=== PATIENT | female | born 1930 | race Caucasian/White ===

== ENCOUNTER → 2016-07-03 | Outpatient (CLI) | payer OTHER, MEDICARE ==
[~2016-07-03] MED LIST: ATEN-175 PO; CYCL10TA6 PO; DONE10TA12 PO; FURO-85 PO; LISI-787 PO; MEMA10TA PO; MEMA1CAP PO; PANT40TA PO; RANI300T2 PO; ROSU20TA PO; TNR25 PO; TRAM-10 PO
[2016-07-03 17:49] LABS: BASO % 0.4 %; BASO ABS # 0.03 K/uL (0-0.2); COMPLETE YES; EOS % 2.7 %; HEMATOCRIT 33.8 % (37-47); IG% 0.2 %; LYMPH % 18.5 %; LYMPH ABS # 1.49 K/uL (1.2-3.4); MEAN CORPUSCULAR HEMOGLOBIN 26.5 pg (25-34); MEAN CORPUSCULAR HGB CONC 30.8 g/dl (32-36); MEAN PLATELET VOLUME 11.5 fL (7.4-10.4); MONO % 8.2 %; PLATELET COUNT 198 K/uL (130-400); RED BLOOD COUNT 3.93 M/uL (4.2-5.4); WHITE BLOOD COUNT 8.04 K/uL (4.8-10.8)
[2016-07-03 18:14] LABS: BLOOD UREA NITROGEN 31 mg/dl (7-18); BUN/CREATININE RATIO 22.4 (10-20); CALCIUM 8.4 mg/dl (8.5-10.1); CARBON DIOXIDE 29 mmol/L (21-32); CHLORIDE 107 mmol/L (98-107); GLUCOSE 118 mg/dl (70-99); POTASSIUM 4.2 mmol/L (3.5-5.1); SODIUM 143 mmol/L (136-145)
[2016-07-03 18:24] LABS: THYROID STIMULATING HORMONE 0.066 uIu/ml (0.300-4.500)
== END | disposition home or self-care (01) ==
LOC: C.LABPBG 15:03
PROVIDERS: ATTEND Internal Medicine Geriatric Medicine
DX: I10 Essential (primary) hypertension (principal); E05.90 Thyrotoxicosis, unspecified without thyrotoxic crisis or storm; N18.3 Chronic kidney disease, stage 3 (moderate); E78.5 Hyperlipidemia, unspecified; D64.9 Anemia, unspecified; E04.2 Nontoxic multinodular goiter

== ENCOUNTER 2016-10-23 13:19 | Observation (INO) | payer OTHER, MEDICARE ==
[~2016-10-23] VITALS: Ht 147.3 cm; Wt 67.7 kg
[~2016-10-23 13:19] MED LIST changes: -MEMA1CAP PO; -PANT40TA PO; -TNR25 PO
--- NOTE | 2016-10-23 15:42 | EMERGENCY ROOM VISIT NOTE ---
History Report prepared by Magen: Ashley Vidal Under the Supervision of: Dr. Salome Sweeney, D.O. First contact with patient: 15:10 Chief Complaint: HEADACHE Stated Complaint: HEARTBURN, RANGEL, LACK OF ENERGY, TIRED History of Present Illness The patient is a 85 year old female who presents to the Emergency Room with complaints of an intermittent headache for the past two weeks. She states that she wakes up in the morning with this headache every day. She takes a Tylenol and her symptoms resolve. Her headache does not return until the next morning. Today she took her Tylenol, but her symptoms did not improve. The patient's pain is located across her forehead. She rates her pain as a 4/10 in severity. She also notes nausea and increased belching for the past couple of days. Her stools have been harder than usual. The patient denies dizziness, lightheadedness, visual symptoms, tinnitus, fevers, chills, and urinary symptoms. Three days ago her PCP made some recent changes to her medications that she was taking for her "memory." Source of History: patient Onset: 2 weeks ago Position: head Symptom Intensity: 4/10 Timing: intermittent Modifying Factors (Worsening): other (worse in the morning) Modifying Factors (Relieving): tylenol Associated Symptoms: + nausea, No fevers, No chills, No urinary symptoms Note: Pt reports increased belching. Pt denies dizziness, lightheadedness, visual symptoms, and tinnitus. Review of Systems See HPI for pertinent positives & negatives. A total of 10 systems reviewed and were otherwise negative. Past Medical & Surgical Medical Problems: (1) Arthritis (2) CVD (cerebrovascular disease) (3) GI bleed (4) GI bleed (5) HTN (hypertension) Surgical Problems: (1) History of hysterectomy Family History FHx: cancer Heart disease Hypertension Lung disease Social History Smoking Status: Never Smoker Smokeless Tobacco Use: No Alcohol Use: none Marital Status: Housing Status: lives with family Occupation Status: unemployed Current/Historical Medications Scheduled Atenolol (Tenormin), 50 MG PO QAM Lisinopril/Hctz (Zestoretic 20MG/12.5MG), 1 TAB PO BID Memantine HCl-Donepezil HCl (Namzaric 28-10 mg), 1 CAP PO HS Memantine Hcl (Namenda), 10 MG PO BID Pantoprazole (Protonix), 40 MG PO DAILY Ranitidine (Zantac), 300 MG PO HS Rosuvastatin Calcium (Crestor), 20 MG PO DAILY Scheduled PRN Cyclobenzaprine Hcl (Flexeril), 0.5-1 TAB PO TID PRN for Pain Tramadol (Ultram), 50 MG PO Q8H PRN for Pain Allergies Coded Allergies: Atorvastatin (Verified Allergy, Unknown, UNKOWN, 10/23/16) Paroxetine (Verified Allergy, Unknown, UNKNOWN, 10/23/16) Propoxyphene (Verified Allergy, Unknown, DARVOCET, 10/23/16) Cephalosporins (Verified Adverse Reaction, Mild, NAUSEA, 10/23/16) Codeine (Verified Adverse Reaction, Mild, NAUSEA, 10/23/16) Sulfa Antibiotics (Verified Adverse Reaction, Unknown, NAUSEA, 10/23/16) Physical Exam Vital Signs Date Time Temp Pulse Resp B/P (MAP) Pulse Ox O2 Delivery O2 Flow Rate FiO2 10/23/16 17:20 61 18 202/85 96 Room Air 10/23/16 15:15 69 10/23/16 15:10 63 16 193/87 96 Room Air 10/23/16 13:33 37.0 74 20 161/85 97 Room Air Physical Exam GENERAL: alert, well appearing, well nourished, no distress, non-toxic EYE EXAM: normal conjunctiva, PERRL and EOM's grossly intact OROPHARYNX: no exudate, no erythema, lips, buccal mucosa, and tongue normal and mucous membranes are moist NECK: supple, no nuchal rigidity, no adenopathy, non-tender LUNGS: Clear to auscultation. Normal chest wall mechanics HEART: no murmurs, S1 normal and S2 normal ABDOMEN: abdomen soft, non-tender, normo-active bowel sounds, no masses, no rebound or guarding. BACK: Back is symmetrical on inspection and there is no deformity, no midline tenderness, no CVA tenderness. SKIN: no rashes and no bruising UPPER EXTREMITIES: upper extremities are grossly normal. LOWER EXTREMITIES: No pitting edema. NEURO EXAM: Normal sensorium, cranial nerves II-XII grossly intact, normal speech, no gross weakness of arms, no gross weakness of legs. Difficulty with right finger to nose. Normal heel to campbell bilaterally. Medical Decision & Procedures ER Provider Diagnostic Interpretation: Radiology results have been interpreted by the radiologist and reviewed by me. HEAD WITHOUT CONTRAST (CT) CT DOSE: 638.56 mGycm HISTORY: headache x 2 weeks TECHNIQUE: Multiple axial CT images of the head were obtained without contrast. Comparison: CT head 09/05/2012. Findings: There is no acute intracranial hemorrhage, midline shift, abnormal extra-axial collections, mass, hydrocephalus or large territorial ischemia. There is moderate cerebral atrophy with ex vacuo ventriculomegaly. Moderate degree of periventricular and deep white matter hypodensities are again seen, stable from comparison. 8 mm hypodensity of the left lentiform nucleus is new from comparison comparison. There is no chondral fracture. Mastoid air cells are cavities are clear. No significant paranasal sinus disease. Soft tissues are unremarkable. There is atherosclerotic plaquing at the level of the skull base. Impression: 1. No acute intracranial abnormality identified. Negative for hemorrhage or large territorial ischemia. 2. Age-related changes of cerebral atrophy and chronic microvascular ischemic changes. 8 mm hypodensity of the left lentiform nucleus is new from comparison study dated 09/05/2012 suggesting subacute or chronic lacunar infarction. Electronically signed by: Mane Norwood 10/23/2016 3:52 PM Dictated Date/Time: 10/23/2016 3:43 PM ABDOMEN 2VIEW W/PA CHEST RTN HISTORY: 85-year-old female presents with heartburn and belching episodes. COMPARISON: Chest radiographs 10/29/2012. TECHNIQUE: Frontal view of the chest with erect and supine views of the abdomen. FINDINGS: Cardiac silhouette is again enlarged. There is a large hiatal hernia with partially intrathoracic stomach. There is atherosclerotic plaquing of the aorta. No pneumothorax, pleural effusion, overt pulmonary edema or focal airspace consolidation. Degenerative changes involve the AC joints bilaterally. There is sigmoidal scoliosis of the thoracolumbar spine. No pneumoperitoneum on the upright projection. The bowel gas pattern is nonobstructive. Moderate degenerative changes are present within the left femoral acetabular joint. IMPRESSION: 1. No acute cardiopulmonary abnormality. No bowel obstruction or pneumoperitoneum. 2. Large hiatal hernia with partially intrathoracic stomach redemonstrated. Electronically signed by: Mane Norwood 10/23/2016 4:26 PM Dictated Date/Time: 10/23/2016 4:22 PM Laboratory Results Test 10/23/16 15:15 10/23/16 16:05 Total Bilirubin 0.7 mg/dl (0.2-1) Aspartate Amino Transf (AST/SGOT) 22 U/L (15-37) Alanine Aminotransferase (ALT/SGPT) 22 U/L (12-78) Alkaline Phosphatase 86 U/L (45-117) Total Protein 7.4 gm/dl (6.4-8.2) Albumin 3.7 gm/dl (3.4-5.0) Globulin 3.7 gm/dl (2.5-4.0) Albumin/Globulin Ratio 1.0 (0.9-2) Lipase 223 U/L (73-393) Urine Color YELLOW Urine Appearance CLEAR (CLEAR) Urine pH 7.5 (4.5-7.5) Urine Specific [place] 1.017 (1.000-1.030) Urine Protein 1+ (NEG) Urine Glucose (UA) NEG (NEG) Urine Ketones NEG (NEG) Urine Occult Blood TRACE (NEG) Urine Nitrite NEG (NEG) Urine Bilirubin NEG (NEG) Urine Urobilinogen NEG (NEG) Urine Leukocyte Esterase NEG (NEG) Urine WBC (Auto) 1-5 /hpf (0-5) Urine RBC (Auto) 0-4 /hpf (0-4) Urine Hyaline Casts (Auto) 1-5 /lpf (0-5) Urine Epithelial Cells (Auto) >30 /lpf (0-5) Urine Bacteria (Auto) NEG (NEG) Laboratory results per my review. Medications Administered Medications (Trade) Dose Ordered Sig/Christian Route Start Time Stop Time Status Last Admin Dose Admin Aspirin/Aluminum/ Magnesium/Ca Carb (Ascriptin Tab) 325 mg NOW STAT PO 10/23/16 17:37 10/23/16 17:38 DC 10/23/16 18:26 325 MG ECG Indication: other (belching) Rate (beats per minute): 68 Rhythm: normal sinus Findings: LBBB, no acute ischemic change, left axis deviation, no ectopy Comparison ECG Date: 06/26/2013 Change: no significant change ED Course 1510: The patient was evaluated in room C8. A complete history and physical exam was performed. 1711: I reassessed the patient at this time. She is resting comfortably. I discussed the results and treatment plan with the patient and her family. I answered all pertaining questions that they had. They expressed understanding and verbalized agreement. The patient will be evaluated by the [facility] for further management. 180: I spoke with Rhonda Malone PA-C. We discussed the patient's case. The patient will be evaluated by the [facility] for further management. Medical Decision Differential Diagnosis includes but is not limited to headache, tension headache , cluster headache, migraine, subarachnoid hemorrhage, meningitis, mass, central venous thrombus, concussion, trauma and epidural/subdural hemorrhage. Medication Reconciliation: I attest that I have personally reviewed the patient' s current medication list. Blood pressure screening: Patient was found to have an elevated blood pressure and was referred to their primary doctor for recheck and further treatment. Family concerned about persistence of daily headaches, they questions if component of stress. Pt otherwise well appearing. No prior hx of cva/tia. Unclear if lacunar infarct seen on CT related to recent headaches or to abnormal bedside neuro testing. VS stable, pt with hypertension and due for evening med. Doubt hypertensive emergency, possible urgency. Labs otherwise reassuring. Complaint of recent increased belching likely contributed to by hiatal hernia. Doubt ACS or other vascular etiology. Pt with risk factors for cva/tia and no prior hx of headaches. No other sx to suggest additional GI pathology. Reported constipation, abd soft/NT at bedside, doubt gi bleed, perf , sbo, colitis, mesenteric ischemia. Consults Time Called: 1757 Consulting Physician: Rhonda Malone PA-C Returned Call: 180 I spoke with Rhonda Malone PA-C. We discussed the patient's case. The patient will be evaluated by the [facility] for further management. Impression Primary Impression: Headache Additional Impressions: Lacunar infarct, acute HTN (hypertension) Scribe Attestation The scribe's documentation has been prepared under my direction and personally reviewed by me in its entirety. I confirm that the note above accurately reflects all work, treatment, procedures, and medical decision making performed by me. Departure Information Dispostion Being Evaluated By Hospitalist Kavin Teran M.D. (PCP) Patient Instructions My [facility] Health Problem Qualifiers Primary Impression: Headache Headache type: unspecified Headache chronicity pattern: unspecified pattern Intractability: not intractable Qualified Codes: R51 - Headache Additional Impressions: HTN (hypertension) Hypertension type: essential hypertension Qualified Codes: I10 - Essential ( primary) hypertension
--- NOTE | 2016-10-23 15:53 | DIAGNOSTIC IMAGING REPORT ---
HEAD WITHOUT CONTRAST (CT) CT DOSE: 638.56 mGycm HISTORY: headache x 2 weeks TECHNIQUE: Multiple axial CT images of the head were obtained without contrast. Comparison: CT head 09/05/2012. Findings: There is no acute intracranial hemorrhage, midline shift, abnormal extra-axial collections, mass, hydrocephalus or large territorial ischemia. There is moderate cerebral atrophy with ex vacuo ventriculomegaly. Moderate degree of periventricular and deep white matter hypodensities are again seen, stable from comparison. 8 mm hypodensity of the left lentiform nucleus is new from comparison comparison. There is no chondral fracture. Mastoid air cells are cavities are clear. No significant paranasal sinus disease. Soft tissues are unremarkable. There is atherosclerotic plaquing at the level of the skull base. Impression: 1. No acute intracranial abnormality identified. Negative for hemorrhage or large territorial ischemia. 2. Age-related changes of cerebral atrophy and chronic microvascular ischemic changes. 8 mm hypodensity of the left lentiform nucleus is new from comparison study dated 09/05/2012 suggesting subacute or chronic lacunar infarction. Electronically signed by: Mane Norwood 10/23/2016 3:52 PM Dictated Date/Time: 10/23/2016 3:43 PM
[2016-10-23 15:56] LABS: BASO % 0.2 %; BASO ABS # 0.02 K/uL (0-0.2); COMPLETE YES; EOS % 1.2 %; HEMATOCRIT 38.2 % (37-47); IG% 0.1 %; LYMPH % 14.9 %; LYMPH ABS # 1.32 K/uL (1.2-3.4); MEAN CORPUSCULAR HEMOGLOBIN 26.8 pg (25-34); MEAN CORPUSCULAR HGB CONC 31.9 g/dl (32-36); MEAN PLATELET VOLUME 10.8 fL (7.4-10.4); NEUT % 76.6 %; PLATELET COUNT 215 K/uL (130-400); RED BLOOD COUNT 4.55 M/uL (4.2-5.4); WHITE BLOOD COUNT 8.88 K/uL (4.8-10.8)
[2016-10-23] MEDS ORDERED: MEMA1CAP PO (15:59)
[2016-10-23] MEDS ORDERED: PANT40TA PO (16:01)
[2016-10-23 16:16] LABS: BUN/CREATININE RATIO 22.2 (10-20); CALCIUM 9.9 mg/dl (8.5-10.1); CREATININE 1.3 mg/dl (0.60-1.20); POTASSIUM 3.9 mmol/L (3.5-5.1)
--- NOTE | 2016-10-23 16:28 | DIAGNOSTIC IMAGING REPORT ---
ABDOMEN 2VIEW W/PA CHEST RTN HISTORY: 85-year-old female presents with heartburn and belching episodes. COMPARISON: Chest radiographs 10/29/2012. TECHNIQUE: Frontal view of the chest with erect and supine views of the abdomen. FINDINGS: Cardiac silhouette is again enlarged. There is a large hiatal hernia with partially intrathoracic stomach. There is atherosclerotic plaquing of the aorta. No pneumothorax, pleural effusion, overt pulmonary edema or focal airspace consolidation. Degenerative changes involve the AC joints bilaterally. There is sigmoidal scoliosis of the thoracolumbar spine. No pneumoperitoneum on the upright projection. The bowel gas pattern is nonobstructive. Moderate degenerative changes are present within the left femoral acetabular joint. IMPRESSION: 1. No acute cardiopulmonary abnormality. No bowel obstruction or pneumoperitoneum. 2. Large hiatal hernia with partially intrathoracic stomach redemonstrated. Electronically signed by: Mane Norwood 10/23/2016 4:26 PM Dictated Date/Time: 10/23/2016 4:22 PM
[2016-10-23 16:58] LABS: URINE APPEARANCE CLEAR (CLEAR); URINE BILIRUBIN NEG (NEG); URINE COLOR YELLOW; URINE EPITHELIAL CELL AUTO >30 /lpf (0-5); URINE NITRITE NEG (NEG); URINE PH 7.5 (4.5-7.5); URINE SPECIFIC GRAVITY 1.017 (1.000-1.030); UROBILINOGEN NEG (NEG); ZZUR CULT IF INDIC CLEAN CATCH NO
[2016-10-23 17:01] LABS: MANUAL MICROSCOPIC REQUIRED? NO; REVIEW REQ? NO
[2016-10-23 17:02] LABS: SULFASALICYLIC ACID POS (NEG)
[2016-10-23] MEDS ORDERED: ASPIRIN/ALUM/MAGNES/CAL CARB 325 MG TAB PO STA (17:37)
[2016-10-23] MEDS ORDERED: ZOLPIDEM TARTRATE 5 MG TAB PO PRN (18:30)
[2016-10-23] MEDS ORDERED: ONDANSETRON INJ 2 MG/ML 2 ML VIAL IV PRN (18:30)
[2016-10-23] MEDS ORDERED: CYCLOBENZAPRINE HCL 10 MG TAB PO PRN (18:30)
[2016-10-23] MEDS ORDERED: NITROGLYCERIN 0.4 MG SL PER TAB CHARGE SL PRN (18:30)
[2016-10-23] MEDS ORDERED: TRAMADOL HCL 50 MG TAB PO PRN (18:30)
[2016-10-23] MEDS ORDERED: IV FLUIDS COMPLETED PRN (18:45)
--- NOTE | 2016-10-23 19:49 | History and Physical ---
History & Physical Date & Time of Service: Oct 23, 2016 at 19:41 Chief Complaint: Heartburn, Marina, Lack Of Energy, Tired Primary Care Physician: Kavin Hall M.D. History of Present Illness Source: patient The patient is an 85-year-old female who presents emergency department with intermittent frontal headaches present morning the past 2 weeks the relieved by Tylenol, and do not return until the following morning. She also reports increased reflux, nausea and belching over the past few days as well. She reports that her PCP changed medications that she takes for her memory 3 days ago Past Medical/Surgical History Medical Problems: (1) Arthritis Status: Chronic (2) GI bleed Status: Resolved (3) GI bleed Status: Resolved (4) HTN (hypertension) Status: Chronic Surgical Problems: (1) History of hysterectomy Status: Resolved Family History FHx: cancer Heart disease Hypertension Lung disease Social History Smoking Status: Never Smoker Smokeless Tobacco Use: No Alcohol Use: none Drug Use: none Marital Status: Occupational Status: unemployed Multi-Drug Resistant Organisms History of MDRO: No Allergies Coded Allergies: Atorvastatin (Verified Allergy, Unknown, UNKOWN, 10/23/16) Paroxetine (Verified Allergy, Unknown, UNKNOWN, 10/23/16) Propoxyphene (Verified Allergy, Unknown, DARVOCET, 10/23/16) Cephalosporins (Verified Adverse Reaction, Mild, NAUSEA, 10/23/16) Codeine (Verified Adverse Reaction, Mild, NAUSEA, 10/23/16) Sulfa Antibiotics (Verified Adverse Reaction, Unknown, NAUSEA, 10/23/16) Home Medications Scheduled Atenolol (Tenormin), 50 MG PO QAM Lisinopril/Hctz (Zestoretic 20MG/12.5MG), 1 TAB PO BID Memantine HCl-Donepezil HCl (Namzaric 28-10 mg), 1 CAP PO HS Memantine Hcl (Namenda), 10 MG PO BID Pantoprazole (Protonix), 40 MG PO DAILY Ranitidine (Zantac), 300 MG PO HS Rosuvastatin Calcium (Crestor), 20 MG PO DAILY Scheduled PRN Cyclobenzaprine Hcl (Flexeril), 0.5-1 TAB PO TID PRN for Pain Tramadol (Ultram), 50 MG PO Q8H PRN for Pain Review of Systems The patient denies chest pain, palpitations, shortness of breath, cough, lower extremity swelling, vision change, hearing change, sore throat, fevers, chills, sweats, vomiting, abdominal pain, pelvic pain, blood in urine or stool, dysuria , urinary frequency or urgency, lightheadedness, dizziness, rash, abnormal bruising or bleeding, imbalance, focal or generalized weakness, numbness or tingling in arms or legs, arthralgias or myalgias, back or neck pain, night sweats, or allergy symptoms. The review of systems is otherwise negative other than for that already noted above, and at least 10 systems have been reviewed. Physical Exam Vital Signs Date Time Temp Pulse Resp B/P (MAP) Pulse Ox O2 Delivery O2 Flow Rate FiO2 10/23/16 19:31 73 18 151/70 97 10/23/16 18:30 63 18 197/86 96 Room Air 10/23/16 17:20 61 18 202/85 96 Room Air 10/23/16 15:15 69 10/23/16 15:10 63 16 193/87 96 Room Air 10/23/16 13:33 37.0 74 20 161/85 97 Room Air The patient is awake, well-developed and adequately nourished, alert and oriented 3, normocephalic and atraumatic, lying in bed and in no acute distress. HEENT--PERRL, EOMI, mucous membranes and oropharynx normal. Neck--supple, no JVD or bruits, thyroid normal, trachea midline, no adenopathy. Heart--normal S1 and S2, no extra beats, no murmurs, rubs or gallops. Lungs--clear bilaterally with good air movement, no respiratory distress, no accessory muscle use. Abdomen--normal bowel sounds and soft, nontender and nondistended, no hernias or masses, no organomegaly. Extremities--no cyanosis, clubbing or edema. There are good distal pulses b/l. Dermatologic--normal skin turgor, normal color, warm and dry, no abnormal lymph nodes, no rash. Neurologic--cranial nerves II through XII grossly intact, motor and sensory examination normal. Rheumatologic--normal range of motion, nontender, muscles and joints. Psychiatric--normal affect. Diagnostics Laboratory Results Results Past 24 Hours Test 10/23/16 15:15 10/23/16 16:05 Range/Units White Blood Count 8.88 4.8-10.8 K/uL Red Blood Count 4.55 4.2-5.4 M/uL Hemoglobin 12.2 12.0-16.0 g/dL Hematocrit 38.2 37-47 % Mean Corpuscular Volume 84.0 80-100 fL Mean Corpuscular Hemoglobin 26.8 25-34 pg Mean Corpuscular Hemoglobin Concent 31.9 32-36 g/dl Platelet Count 215 130-400 K/uL Mean Platelet Volume 10.8 7.4-10.4 fL Neutrophils (%) (Auto) 76.6 % Lymphocytes (%) (Auto) 14.9 % Monocytes (%) (Auto) 7.0 % Eosinophils (%) (Auto) 1.2 % Basophils (%) (Auto) 0.2 % Neutrophils # (Auto) 6.80 1.4-6.5 K/uL Lymphocytes # (Auto) 1.32 1.2-3.4 K/uL Monocytes # (Auto) 0.62 0.11-0.59 K/uL Eosinophils # (Auto) 0.11 0-0.5 K/uL Basophils # (Auto) 0.02 0-0.2 K/uL RDW Standard Deviation 44.9 36.4-46.3 fL RDW Coefficient of Variation 14.7 11.5-14.5 % Immature Granulocyte % (Auto) 0.1 % Immature Granulocyte # (Auto) 0.01 0.00-0.02 K/uL Sodium Level 136 136-145 mmol/L Potassium Level 3.9 3.5-5.1 mmol/L Chloride Level 98 98-107 mmol/L Carbon Dioxide Level 29 21-32 mmol/L Anion Gap 9.0 3-11 mmol/L Blood Urea Nitrogen 29 7-18 mg/dl Creatinine 1.30 0.60-1.20 mg/dl Est Creatinine Clear Calc Drug Dose 27.5 ml/min Estimated GFR () 43.9 Estimated GFR (Non- 37.9 BUN/Creatinine Ratio 22.2 10-20 Random Glucose 96 70-99 mg/dl Calcium Level 9.9 8.5-10.1 mg/dl Total Bilirubin 0.7 0.2-1 mg/dl Aspartate Amino Transf (AST/SGOT) 22 15-37 U/L Alanine Aminotransferase (ALT/SGPT) 22 12-78 U/L Alkaline Phosphatase 86 45-117 U/L Total Protein 7.4 6.4-8.2 gm/dl Albumin 3.7 3.4-5.0 gm/dl Globulin 3.7 2.5-4.0 gm/dl Albumin/Globulin Ratio 1.0 0.9-2 Lipase 223 73-393 U/L Urine Color YELLOW Urine Appearance CLEAR CLEAR Urine pH 7.5 4.5-7.5 Urine Specific [place] 1.017 1.000-1.030 Urine Protein 1+ NEG Urine Glucose (UA) NEG NEG Urine Ketones NEG NEG Urine Occult Blood TRACE NEG Urine Nitrite NEG NEG Urine Bilirubin NEG NEG Urine Urobilinogen NEG NEG Urine Leukocyte Esterase NEG NEG Urine WBC (Auto) 1-5 0-5 /hpf Urine RBC (Auto) 0-4 0-4 /hpf Urine Hyaline Casts (Auto) 1-5 0-5 /lpf Urine Epithelial Cells (Auto) >30 0-5 /lpf Urine Bacteria (Auto) NEG NEG Diagnostic Radiology ] HEAD WITHOUT CONTRAST (CT) CT DOSE: 638.56 mGycm HISTORY: headache x 2 weeks TECHNIQUE: Multiple axial CT images of the head were obtained without contrast. Comparison: CT head 09/05/2012. Findings: There is no acute intracranial hemorrhage, midline shift, abnormal extra-axial collections, mass, hydrocephalus or large territorial ischemia. There is moderate cerebral atrophy with ex vacuo ventriculomegaly. Moderate degree of periventricular and deep white matter hypodensities are again seen, stable from comparison. 8 mm hypodensity of the left lentiform nucleus is new from comparison comparison. There is no chondral fracture. Mastoid air cells are cavities are clear. No significant paranasal sinus disease. Soft tissues are unremarkable. There is atherosclerotic plaquing at the level of the skull base. Impression: 1. No acute intracranial abnormality identified. Negative for hemorrhage or large territorial ischemia. 2. Age-related changes of cerebral atrophy and chronic microvascular ischemic changes. 8 mm hypodensity of the left lentiform nucleus is new from comparison study dated 09/05/2012 suggesting subacute or chronic lacunar infarction. Electronically signed by: Mane Norwood 10/23/2016 3:52 PM Patient Name: SHAKA MARSHALL I Unit Number: [id number] Dictated: 10/23/161621 Transcribed: 10/23/161621 JRB Printed Date/Time: [~ rep prt dt]/[~ rep prt tm] [~ rep ct labl] - [~ rep ct ivnm] [facility] [place] [address] Dictated: 10/23/161621 Transcribed: 10/23/161621 JRB Printed Date/Time: [~ rep prt dt]/[~ rep prt tm] [~ rep ct labl] - [~ rep ct ivnm] ABDOMEN 2VIEW W/PA CHEST RTN HISTORY: 85-year-old female presents with heartburn and belching episodes. COMPARISON: Chest radiographs 10/29/2012. TECHNIQUE: Frontal view of the chest with erect and supine views of the abdomen. FINDINGS: Cardiac silhouette is again enlarged. There is a large hiatal hernia with partially intrathoracic stomach. There is atherosclerotic plaquing of the aorta. No pneumothorax, pleural effusion, overt pulmonary edema or focal airspace consolidation. Degenerative changes involve the AC joints bilaterally. There is sigmoidal scoliosis of the thoracolumbar spine. No pneumoperitoneum on the upright projection. The bowel gas pattern is nonobstructive. Moderate degenerative changes are present within the left femoral acetabular joint. IMPRESSION: 1. No acute cardiopulmonary abnormality. No bowel obstruction or pneumoperitoneum. 2. Large hiatal hernia with partially intrathoracic stomach redemonstrated. Electronically signed by: Mane Norwood 10/23/2016 4:26 PM Dictated Date/Time: 10/23/2016 4:22 PM The status of this report is Signed. Draft = Not yet reviewed or approved by Radiologist. Signed = Reviewed and approved by Radiologist. <AttendingPhy></AttendingPhy> <FamilyPhy>Kavin Hall M.D.</FamilyPhy> < PrimaryPhy>Kavin Hall M.D.</PrimaryPhy> <UnitNumber>[id number]</UnitNumber > <VisitNumber>[id number]</VisitNumber> <PatientName>SHAKA MARSHALL I</PatientName > <DateOfBirth>1930</DateOfBirth> <Location>[facility]</Location> <ServiceDate> 10/23/16</ServiceDate> <MNE>ESINDI</MNE> <OrderingPhy>Salome Sweeney DO</ OrderingPhy> <OrderingPhyMNE>f rep ord dr matthew</OrderingPhyMNE> <DictatingPhyMNE> f rep dict dr matthew</DictatingPhyMNE> <CCListMNE>f rep ct mne</CCListMNE> < AdmittingPhyMNE>f pt admit dr matthew</AdmittingPhyMNE> <AttendingPhyMNE>f pt attend dr matthew</AttendingPhyMNE> <ConsultingPhyMNE>f pt consult dr matthew</ConsultingPhyMNE> <FamilyPhyMNE>f pt fam dr matthew</FamilyPhyMNE> <OtherPhyMNE>f pt other dr matthew</OtherPhyMNE> < PrimaryPhyMNE>f pt prim care dr matthew</PrimaryPhyMNE> <ReferringPhyMNE>f pt referring dr matthew</ReferringPhyMNE> EKG EKG shows normal sinus rhythm at 68 bpm, left axis deviation, left bundle branch block, no acute ST-T changes Impression Assessment and Plan Recurrent Frontal headaches that occur in the morning--CT of the head did show a new lesion compared to previous in 2013 but exact time could not be determined. We'll therefore order an MRI the brain combination to further assess. Hypertension--continue atenolol 50 mg by mouth every morning, lisinopril/HCTZ 20 /25 twice a day. Dementia--continue memantine. GERD--continue pantoprazole 40 mg by mouth daily and ranitidine 300 mg daily at bedtime. Hyperlipidemia--continue Crestor 20 mg by mouth daily. Level of Care Telemetry Advanced Directives Existing Advance Directive: No Existing Living Will: No Existing Power of Dike Supervisor: No Resuscitation Status FULL RESUSCITATION VTE Prophylaxis VTE Risk Assessment Done? Y/N: Yes Risk Level: Moderate Given or contraindicated: SCD's Social Service Consult None Apply
[2016-10-23 20:08] VITALS: BP 121/71; PULSE 73; TEMP 36.3; O2SAT 96
[2016-10-23 20:10] VITALS: BP 121/71; PULSE 73; TEMP 36.3; O2SAT 96; Ht 147.3 cm; Wt 67.7 kg
[2016-10-23] MEDS ORDERED: NSS + 20MEQ KCL 1000ML 1,000 ML IV SCH (21:30)
--- NOTE | 2016-10-23 22:02 | DIAGNOSTIC IMAGING REPORT ---
MRI OF THE BRAIN WITHOUT AND WITH IV CONTRAST CLINICAL HISTORY: Worsening headaches. Fatigue. COMPARISON STUDY: MRI of the brain January 22, [address] performed earlier today. TECHNIQUE: Utilizing a 1.5 Bernice magnet and dedicated coil, multiplanar, multiecho imaging of the brain was performed pre and postcontrast administration. IV administration of 6.5 mL of Gadavist contrast was uneventful. FINDINGS: There are no areas of restricted diffusion. No acute intracranial hemorrhage, midline shift or mass effect is present. There is no intracranial mass or pathologic enhancement. Moderate ventricular dilatation is similar to prior exams. The basilar cisterns are patent. There are no extra axial collections. There are extensive white matter T2 hyperintense foci. There is an old lacunar infarct within the left basal ganglia. Calvarial signal is maintained. A few left maxillary sinus mucous retention cysts are noted. There is a right maxillary sinus mucous retention cyst. Orbits are unremarkable. IMPRESSION: 1. No acute intracranial findings. 2. No intracranial masses or pathologic enhancement. 3. Stable ventricular dilatation likely due to central atrophy. 4. 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 Electronically signed by: Ede Fair M.D. 10/23/2016 10:00 PM Dictated Date/Time: 10/23/2016 9:54 PM
[2016-10-23] MEDS: MEMANTINE 10 MG TAB PO SCH (22:19)
[2016-10-23] MEDS: LISINOPRIL/HCTZ 20/12.5MG TAB PO SCH (22:19)
[2016-10-23 23:21] VITALS: BP 158/75; PULSE 67; TEMP 36.8; O2SAT 97
[2016-10-24 04:12] VITALS: BP 148/77; PULSE 62; TEMP 36.6; O2SAT 95
[2016-10-24 06:14] LABS: BASO % 0.2 %; BASO ABS # 0.02 K/uL (0-0.2); COMPLETE YES; EOS % 2.6 %; HEMATOCRIT 32.5 % (37-47); IG% 0.3 %; LYMPH % 21.9 %; LYMPH ABS # 2.04 K/uL (1.2-3.4); MEAN CELL VOLUME 83.5 fL (80-100); MEAN CORPUSCULAR HEMOGLOBIN 27.2 pg (25-34); MEAN CORPUSCULAR HGB CONC 32.6 g/dl (32-36); MONO % 11.3 %; NEUT % 63.7 %; PLATELET COUNT 186 K/uL (130-400); RED BLOOD COUNT 3.89 M/uL (4.2-5.4); WHITE BLOOD COUNT 9.33 K/uL (4.8-10.8)
[2016-10-24 06:15] LABS: PARTIAL THROMBOPLASTIN RATIO 0.9; PROTHROMBIN TIME (PATIENT) 10.7 SECONDS (9.0-12.0)
[2016-10-24 06:41] LABS: BUN/CREATININE RATIO 19.2 (10-20); CREATININE 1.7 mg/dl (0.60-1.20); MAGNESIUM 1.7 mg/dl (1.8-2.4); POTASSIUM 3.9 mmol/L (3.5-5.1)
[2016-10-24 07:49] VITALS: BP 149/78; PULSE 64; TEMP 36.3; O2SAT 95
[2016-10-24] MEDS: ROSUVASTATIN CALCIUM 20 MG TAB PO SCH (07:58)
[2016-10-24] MEDS: LISINOPRIL/HCTZ 20/12.5MG TAB PO SCH ×2 (07:59→20:57)
[2016-10-24] MEDS: MEMANTINE 10 MG TAB PO SCH ×2 (07:59→20:57)
[2016-10-24] MEDS: PANTOprazole SOD 40 MG TAB PO SCH (07:59)
--- NOTE | 2016-10-24 09:38 | Progress Note ---
Subjective Date of Service: Oct 24, 2016. Subjective Pt evaluation today including: conversation w/ patient, conversation w/ family , physical exam, chart review, lab review, review of studies, conversation w/ furniture rental consultant, review of inpatient medication list Voiding: no voiding problems Sitting up in chair, eating breakfast first, reported headache is totally gone Problem List Medical Problems: (1) Headache Status: Acute (2) Lacunar infarct, acute Status: Acute Review of Systems Constitutional: + weakness, + fatigue, No fever, No chills, No sweats, No weight loss, No problem reported Eyes: No worsening of vision, No eye pain, No redness, No discharge, No diplopia ENT: No hearing loss, No unusual epistaxis, No nasal symptoms, No sore throat, No tinnitus, No dental problems, No trouble swallowing Respiratory: No cough, No sputum, No wheezing, No shortness of breath, No dyspnea on exertion, No dyspnea at rest, No hemoptysis Cardiac: No chest pain, No orthopnea, No PND, No edema, No claudication, No palpitations Abdomen: No pain, No nausea, No vomiting, No diarrhea, No constipation Musculoskeletal: No joint pain, No muscle pain, No swelling, No calf pain Female : No dysuria, No urinary frequency, No hematuria, No incontinence, No abnormal vaginal bleeding, No vaginal discharge Neurologic: No memory loss, No paralysis, No weakness, No numbness/tingling, No vertigo, No balance problems Psychiatric: No depression symptoms, No anhedonism, No anxiety, No insomnia, No substance abuse Heme: No abnormal bleeding/bruising, No clotting problems, No swollen lymph nodes, No night sweats Endo: No fatigue, No excessive thirst, No excessive urination Skin: No rash, No itch, No new/changing skin lesions, No color change, No bleeding Objective Vital Signs Date Time Temp Pulse Resp B/P (MAP) Pulse Ox O2 Delivery O2 Flow Rate FiO2 10/24/16 08:00 Room Air 10/24/16 07:49 36.3 64 18 149/78 (101) 95 Room Air 10/24/16 04:12 36.6 62 16 148/77 (100) 95 Room Air 10/24/16 04:00 Room Air 10/24/16 00:00 Room Air 10/23/16 23:21 36.8 67 18 158/75 (102) 97 Room Air 10/23/16 20:10 36.3 73 18 121/71 96 Room Air 10/23/16 20:08 36.3 73 18 121/71 (88) 96 Room Air 10/23/16 19:31 73 18 151/70 97 10/23/16 18:30 63 18 197/86 96 Room Air 10/23/16 17:20 61 18 202/85 96 Room Air 10/23/16 15:15 69 10/23/16 15:10 63 16 193/87 96 Room Air 10/23/16 13:33 37.0 74 20 161/85 97 Room Air Physical Exam General Appearance: WD/WN, no apparent distress, + pertinent finding (present conversational) Eyes: normal inspection, PERRL, EOMI, sclerae normal ENT: normal ENT inspection, hearing grossly normal, pharynx normal Neck: supple, no adenopathy, thyroid normal, no JVD, no carotid bruits, trachea midline Respiratory/Chest: chest non-tender, lungs clear, normal breath sounds, no respiratory distress, no accessory muscle use Cardiovascular: regular rate, rhythm, no edema, no gallop, no JVD, no murmur Abdomen: normal bowel sounds, non tender, soft, no organomegaly, no pulsatile mass Extremities: normal range of motion, non-tender, normal inspection, no pedal edema, no calf tenderness, normal capillary refill, pelvis stable 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, no motor/sensory deficits, alert, normal mood/affect, oriented x 3 Skin: normal color, warm/dry, no rash Lymphatic: no adenopathy Laboratory Results Last 24 Hours Test 10/23/16 15:15 10/23/16 16:05 10/24/16 05:41 White Blood Count 8.88 K/uL 9.33 K/uL Red Blood Count 4.55 M/uL 3.89 M/uL Hemoglobin 12.2 g/dL 10.6 g/dL Hematocrit 38.2 % 32.5 % Mean Corpuscular Volume 84.0 fL 83.5 fL Mean Corpuscular Hemoglobin 26.8 pg 27.2 pg Mean Corpuscular Hemoglobin Concent 31.9 g/dl 32.6 g/dl Platelet Count 215 K/uL 186 K/uL Mean Platelet Volume 10.8 fL 11.0 fL Neutrophils (%) (Auto) 76.6 % 63.7 % Lymphocytes (%) (Auto) 14.9 % 21.9 % Monocytes (%) (Auto) 7.0 % 11.3 % Eosinophils (%) (Auto) 1.2 % 2.6 % Basophils (%) (Auto) 0.2 % 0.2 % Neutrophils # (Auto) 6.80 K/uL 5.95 K/uL Lymphocytes # (Auto) 1.32 K/uL 2.04 K/uL Monocytes # (Auto) 0.62 K/uL 1.05 K/uL Eosinophils # (Auto) 0.11 K/uL 0.24 K/uL Basophils # (Auto) 0.02 K/uL 0.02 K/uL RDW Standard Deviation 44.9 fL 45.2 fL RDW Coefficient of Variation 14.7 % 14.7 % Immature Granulocyte % (Auto) 0.1 % 0.3 % Immature Granulocyte # (Auto) 0.01 K/uL 0.03 K/uL Sodium Level 136 mmol/L 139 mmol/L Potassium Level 3.9 mmol/L 3.9 mmol/L Chloride Level 98 mmol/L 103 mmol/L Carbon Dioxide Level 29 mmol/L 29 mmol/L Anion Gap 9.0 mmol/L 7.0 mmol/L Blood Urea Nitrogen 29 mg/dl 33 mg/dl Creatinine 1.30 mg/dl 1.70 mg/dl Est Creatinine Clear Calc Drug Dose 27.5 ml/min 20.4 ml/min Estimated GFR () 43.9 31.8 Estimated GFR (Non- 37.9 27.4 BUN/Creatinine Ratio 22.2 19.2 Random Glucose 96 mg/dl 87 mg/dl Calcium Level 9.9 mg/dl 9.0 mg/dl Total Bilirubin 0.7 mg/dl Aspartate Amino Transf (AST/SGOT) 22 U/L Alanine Aminotransferase (ALT/SGPT) 22 U/L Alkaline Phosphatase 86 U/L Total Protein 7.4 gm/dl Albumin 3.7 gm/dl Globulin 3.7 gm/dl Albumin/Globulin Ratio 1.0 Lipase 223 U/L Urine Color YELLOW Urine Appearance CLEAR Urine pH 7.5 Urine Specific [place] 1.017 Urine Protein 1+ Urine Glucose (UA) NEG Urine Ketones NEG Urine Occult Blood TRACE Urine Nitrite NEG Urine Bilirubin NEG Urine Urobilinogen NEG Urine Leukocyte Esterase NEG Urine WBC (Auto) 1-5 /hpf Urine RBC (Auto) 0-4 /hpf Urine Hyaline Casts (Auto) 1-5 /lpf Urine Epithelial Cells (Auto) >30 /lpf Urine Bacteria (Auto) NEG Prothrombin Time 10.7 SECONDS Prothromb Time International Ratio 1.0 Activated Partial Thromboplast Time 24.5 SECONDS Partial Thromboplastin Ratio 0.9 Magnesium Level 1.7 mg/dl Assessment and Plan 85-year-old white female admitted on 10/23/2016 because of Recurrent Frontal headaches that occur on the day of admission Recurrent Frontal headaches that occur in the morning on the day of admission, improved and resolved Headache etiology unknown, has no acute intracranial disease per head CT and MRI CT of the head did show a new lesion compared to previous in 2013 but exact time could not be determined. MRI the brain was done which is not remarkable MRI results per report in below: 1 No acute intracranial findings. 2. No intracranial masses or pathologic enhancement. 3. Stable ventricular dilatation likely due to central atrophy. 4. 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 Hypertension: Stable continue atenolol 50 mg by mouth every morning, lisinopril/HCTZ 20/25 twice a day. Possible Dementia: continue memantine. GERD--continue pantoprazole 40 mg by mouth daily and ranitidine 300 mg daily at bedtime. Hyperlipidemia--continue Crestor 20 mg by mouth daily. GI and DVT prophylaxis is covered Discussed with patient and patient's son in bedside about care plan Discontinue IV fluid Increase activity, PT OT evaluation and treatment Possible going home tomorrow Continued [facility] stay due to: other Discharge planning: home
[2016-10-24 12:11] VITALS: BP 145/68; PULSE 64; TEMP 36.4; O2SAT 97
[2016-10-24] MEDS: ACETAMINOPHEN 325 MG TAB PO PRN (15:38)
[2016-10-24 15:46] VITALS: BP 134/75; PULSE 68; TEMP 36.5; O2SAT 96
[2016-10-24 23:30] VITALS: BP 144/74; PULSE 67; TEMP 36.5; O2SAT 97
[2016-10-25] VITALS (8 sets, daily range): BP systolic 118–192; BP diastolic 62–92; PULSE 64–77; TEMP 36.6–36.9; O2SAT 93–97
[2016-10-25] MEDS ORDERED: HydrALAZINE HCL 20 MG/ML VIAL IV. PRN (07:45)
[2016-10-25 07:53] LABS: BASO % 0.3 %; BASO ABS # 0.02 K/uL (0-0.2); COMPLETE YES; HEMATOCRIT 35.4 % (37-47); IG% 0.1 %; LYMPH % 25.7 %; MEAN CELL VOLUME 83.3 fL (80-100); MEAN CORPUSCULAR HEMOGLOBIN 26.6 pg (25-34); MEAN CORPUSCULAR HGB CONC 31.9 g/dl (32-36); MEAN PLATELET VOLUME 10.2 fL (7.4-10.4); MONO % 8.3 %; NEUT % 61.6 %; PLATELET COUNT 182 K/uL (130-400); RED BLOOD COUNT 4.25 M/uL (4.2-5.4); WHITE BLOOD COUNT 7.01 K/uL (4.8-10.8)
[2016-10-25] MEDS: MEMANTINE 10 MG TAB PO SCH ×2 (08:00→20:45)
[2016-10-25] MEDS: ROSUVASTATIN CALCIUM 20 MG TAB PO SCH (08:00)
[2016-10-25] MEDS: PANTOprazole SOD 40 MG TAB PO SCH ×2 (08:00→20:45)
[2016-10-25] MEDS: LISINOPRIL/HCTZ 20/12.5MG TAB PO SCH ×2 (08:00→20:45)
[2016-10-25 08:10] LABS: PARTIAL THROMBOPLASTIN RATIO 0.9; PROTHROMBIN TIME (PATIENT) 10.6 SECONDS (9.0-12.0)
[2016-10-25 08:28] LABS: BUN/CREATININE RATIO 23.7 (10-20); CALCIUM 9.4 mg/dl (8.5-10.1); CREATININE 1.5 mg/dl (0.60-1.20); MAGNESIUM 1.8 mg/dl (1.8-2.4); POTASSIUM 4.2 mmol/L (3.5-5.1)
[2016-10-25] MEDS ORDERED: NURSING VERBAL MED ORDER ONE ×3 (09:15→11:30)
[2016-10-25] MEDS: ACETAMINOPHEN 325 MG TAB PO PRN ×3 (10:52→20:50)
[2016-10-25] MEDS ORDERED: POLYETHYLENE (MIRALAX) 17 GM PACK PO ONE (12:00)
[2016-10-25] MEDS ORDERED: ALUMINUM/MAGNESIUM SUSP 30 ML UDC PO ONE (12:00)
[2016-10-25] MEDS ORDERED: ALUMINUM/MAGNESIUM/SIMETH (MAALOX MAX) 30 ML UDC PO PRN (12:15)
--- NOTE | 2016-10-25 12:16 | Progress Note ---
Subjective Date of Service: Oct 25, 2016. Subjective Pt evaluation today including: conversation w/ patient, conversation w/ family , physical exam, chart review, lab review, review of studies, conversation w/ senior health consultant, review of inpatient medication list Complain of mild headache again, in the frontal head, band like, blood pressure was high and this morning highest was 192/81, help with hydrolyzing Patient reported has been having 1 weeks of acid reflux, and burping, Problem List Medical Problems: (1) Headache Status: Acute (2) Lacunar infarct, acute Status: Acute Review of Systems Constitutional: No fever, No chills, No sweats, No weight loss, No weakness, No fatigue, No problem reported Eyes: No worsening of vision, No eye pain, No redness, No discharge, No diplopia ENT: No hearing loss, No unusual epistaxis, No nasal symptoms, No sore throat, No tinnitus, No dental problems, No trouble swallowing Respiratory: No cough, No sputum, No wheezing, No shortness of breath, No dyspnea on exertion, No dyspnea at rest, No hemoptysis Cardiac: No chest pain, No orthopnea, No PND, No edema, No claudication, No palpitations Abdomen: + see HPI, No pain, No nausea, No vomiting, No diarrhea, No constipation Musculoskeletal: No joint pain, No muscle pain, No swelling, No calf pain Female : No dysuria, No urinary frequency, No hematuria, No incontinence, No abnormal vaginal bleeding, No vaginal discharge Neurologic: + problem reported (headache), No memory loss, No paralysis, No weakness, No numbness/tingling, No vertigo, No balance problems Psychiatric: No depression symptoms, No anhedonism, No anxiety, No insomnia, No substance abuse Heme: No abnormal bleeding/bruising, No clotting problems, No swollen lymph nodes, No night sweats Endo: No fatigue, No excessive thirst, No excessive urination Skin: No rash, No itch, No new/changing skin lesions, No color change, No bleeding Objective Vital Signs Date Time Temp Pulse Resp B/P (MAP) Pulse Ox O2 Delivery O2 Flow Rate FiO2 10/25/16 11:06 148/92 (110) 161/72 (101) 10/25/16 08:48 77 118/68 (85) 10/25/16 08:00 Room Air 10/25/16 07:17 36.6 70 18 185/79 (114) 94 Room Air 192/81 (118) 10/25/16 04:00 Room Air 10/25/16 03:04 36.9 64 18 151/84 (106) 95 Room Air 10/25/16 00:00 Room Air 10/24/16 23:30 36.5 67 20 144/74 (97) 97 Room Air 10/24/16 20:00 Room Air 10/24/16 16:00 Room Air 10/24/16 15:46 36.5 68 18 134/75 (94) 96 Room Air 10/24/16 12:11 36.4 64 18 145/68 (93) 97 Room Air Physical Exam General Appearance: WD/WN, no apparent distress, + pertinent finding ( conversational, pleasant) Eyes: normal inspection, PERRL, EOMI, sclerae normal ENT: normal ENT inspection, hearing grossly normal, pharynx normal Neck: supple, no adenopathy, thyroid normal, no JVD, no carotid bruits, trachea midline Respiratory/Chest: chest non-tender, lungs clear, normal breath sounds, no respiratory distress, no accessory muscle use Cardiovascular: regular rate, rhythm, no edema, no gallop, no JVD, no murmur Abdomen: normal bowel sounds, non tender, soft, no organomegaly, no pulsatile mass Extremities: normal range of motion, non-tender, normal inspection, no pedal edema, no calf tenderness, normal capillary refill, pelvis stable 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, no motor/sensory deficits, alert, normal mood/affect, oriented x 3 Skin: normal color, warm/dry, no rash Lymphatic: no adenopathy Laboratory Results Last 24 Hours Test 10/25/16 07:43 White Blood Count 7.01 K/uL Red Blood Count 4.25 M/uL Hemoglobin 11.3 g/dL Hematocrit 35.4 % Mean Corpuscular Volume 83.3 fL Mean Corpuscular Hemoglobin 26.6 pg Mean Corpuscular Hemoglobin Concent 31.9 g/dl Platelet Count 182 K/uL Mean Platelet Volume 10.2 fL Neutrophils (%) (Auto) 61.6 % Lymphocytes (%) (Auto) 25.7 % Monocytes (%) (Auto) 8.3 % Eosinophils (%) (Auto) 4.0 % Basophils (%) (Auto) 0.3 % Neutrophils # (Auto) 4.32 K/uL Lymphocytes # (Auto) 1.80 K/uL Monocytes # (Auto) 0.58 K/uL Eosinophils # (Auto) 0.28 K/uL Basophils # (Auto) 0.02 K/uL RDW Standard Deviation 44.8 fL RDW Coefficient of Variation 14.8 % Immature Granulocyte % (Auto) 0.1 % Immature Granulocyte # (Auto) 0.01 K/uL Prothrombin Time 10.6 SECONDS Prothromb Time International Ratio 1.0 Activated Partial Thromboplast Time 23.1 SECONDS Partial Thromboplastin Ratio 0.9 Sodium Level 142 mmol/L Potassium Level 4.2 mmol/L Chloride Level 106 mmol/L Carbon Dioxide Level 29 mmol/L Anion Gap 7.0 mmol/L Blood Urea Nitrogen 36 mg/dl Creatinine 1.50 mg/dl Est Creatinine Clear Calc Drug Dose 23.3 ml/min Estimated GFR () 37.0 Estimated GFR (Non- 31.9 BUN/Creatinine Ratio 23.7 Random Glucose 94 mg/dl Calcium Level 9.4 mg/dl Magnesium Level 1.8 mg/dl Assessment and Plan 85-year-old white female admitted on 10/23/2016 because of Recurrent Frontal headaches that occur on the day of admission Recurrent Frontal headaches that occur in the morning on the day of admission, improved and resolved Headache etiology unknown, possible related to episodes of accelerated hypertension Seems has recurrent headache associated accelerated hypertension pressure has no acute intracranial disease per head CT and MRI CT of the head did show a new lesion compared to previous in 2013 but exact time could not be determined. MRI the brain was done which is not remarkable MRI results per report in below: 1 No acute intracranial findings. 2. No intracranial masses or pathologic enhancement. 3. Stable ventricular dilatation likely due to central atrophy. 4. 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 Accelerated hypertension Increase atenolol 50 mg to 75 mg by mouth every morning, Continue lisinopril/HCTZ 20/25 twice a day. Possible acute on chronic kidney failure stage III with an elevated creatinine in the second day of admission Creatinine improved from 1.7-1.5 today Will need to be cautious when his she is on lisinopril and HCTZ Possible Dementia: continue memantine. GERD/and acid reflux Was on pantoprazole 40 mg by mouth daily and ranitidine 300 mg daily at bedtime Increased Protonix to 40 twice a day and change ranitidine 150 twice a day add Maalox for burping and acid reflux May need GI referral by PCP if not improving Hyperlipidemia--continue Crestor 20 mg by mouth daily. GI and DVT prophylaxis is covered Discussed with patient and patient's son over the phone about care plan Increase activity, PT OT recommend patient can be discharged to home Possible can be discharged to home tomorrow if blood pressure headaches better Continued [facility] stay due to: other Discharge planning: home
[2016-10-25] MEDS: RANITIDINE HCL 150 MG TAB PO SCH ×2 (14:02→20:46)
[2016-10-25] MEDS ORDERED: RANITIDINE 300 MG PO SCH (21:00)
[2016-10-26 03:49] VITALS: BP 157/76; PULSE 71; TEMP 36.7; O2SAT 98
[2016-10-26 06:19] LABS: BASO % 0.2 %; BASO ABS # 0.02 K/uL (0-0.2); COMPLETE YES; EOS % 2.9 %; IG% 0.2 %; LYMPH % 17.9 %; LYMPH ABS # 1.63 K/uL (1.2-3.4); MEAN CORPUSCULAR HEMOGLOBIN 26.4 pg (25-34); MEAN CORPUSCULAR HGB CONC 31.5 g/dl (32-36); NEUT % 70.8 %; PLATELET COUNT 176 K/uL (130-400); RED BLOOD COUNT 4.05 M/uL (4.2-5.4); WHITE BLOOD COUNT 9.09 K/uL (4.8-10.8)
[2016-10-26 06:29] LABS: PARTIAL THROMBOPLASTIN RATIO 0.9; PROTHROMBIN TIME (PATIENT) 10.4 SECONDS (9.0-12.0)
[2016-10-26 06:41] LABS: BUN/CREATININE RATIO 23.5 (10-20); CALCIUM 9.1 mg/dl (8.5-10.1); CREATININE 1.5 mg/dl (0.60-1.20); POTASSIUM 3.9 mmol/L (3.5-5.1)
[2016-10-26] MEDS: LISINOPRIL/HCTZ 20/12.5MG TAB PO SCH (07:39)
[2016-10-26] MEDS: RANITIDINE HCL 150 MG TAB PO SCH (07:40)
[2016-10-26] MEDS: MEMANTINE 10 MG TAB PO SCH (07:40)
[2016-10-26] MEDS: ROSUVASTATIN CALCIUM 20 MG TAB PO SCH (07:41)
[2016-10-26] MEDS: PANTOprazole SOD 40 MG TAB PO SCH (07:41)
[2016-10-26 08:06] VITALS: BP 168/76; PULSE 73; TEMP 36.9; O2SAT 97
[2016-10-26 09:19] VITALS: BP 138/76; PULSE 75; O2SAT 98
[2016-10-26 09:33] VITALS: BP 150/66; PULSE 76; O2SAT 96
[2016-10-26] MEDS: ACETAMINOPHEN 325 MG TAB PO PRN (10:03)
[2016-10-26 11:32] VITALS: BP 155/85; PULSE 69; TEMP 37; O2SAT 98
[2016-10-26] MEDS ORDERED: TNR25 PO (13:17)
--- NOTE | 2016-10-26 13:18 | Discharge Instructions ---
Discharge Instructions Date of Service Oct 26, 2016. Admission Reason for Admission: Cvd, Headache Discharge Discharge Diagnosis / Problem: Hypertensive emergency Discharge Goals Goal(s): Decrease discomfort, Improve function, Increase independence Activity Recommendations Activity Limitations: resume your previous activity . Instructions / Follow-Up Instructions / Follow-Up Follow up with Dr. Hall's office next week as scheduled on Current Hospital Diet Patient's current hospital diet: Regular Diet Discharge Diet Recommended Diet: AHA Diet (Heart Healthy) Pending Studies Studies pending at discharge: no Medical Emergencies . Who to Call and When: Medical Emergencies: If at any time you feel your situation is an emergency, please call 911 immediately. . Non-Emergent Contact Non-Emergency issues call your: Primary Care Provider . . "Provider Documentation" section prepared by Raquel Ramírez. . VTE Core Measure Inpt VTE Proph given/why not?: SCD's
--- NOTE | 2016-10-26 13:30 | Discharge Summary ---
Discharge Summary Date of Service Oct 26, 2016. Discharge Summary Admission Date: Oct 23, 2016 at 18:26 Discharge Date: Oct 26, 2016 Discharge Disposition: Home with services Principal Diagnosis: Headache related to hypertensive emergency Problems/Secondary Diagnoses: HTN Dementia Hyperlipidemia Hx of GIB OA Medication Reconciliation New Medications: Atenolol (Atenolol) 25 Mg Tab 75 MG PO QAM for 30 Days, #90 TAB Continued Medications: Cyclobenzaprine Hcl (Flexeril) 10 Mg Tab 0.5-1 TAB PO TID PRN for Pain Lisinopril/Hctz (Zestoretic 20MG/12.5MG) Tab 1 TAB PO BID, TAB Memantine Hcl (Namenda) 10 Mg Tab 10 MG PO BID Memantine HCl-Donepezil HCl (Namzaric 28-10 mg) 1 Cap Cap 1 CAP PO HS Pantoprazole (Protonix) 40 Mg Tab 40 MG PO DAILY, TAB Ranitidine (Zantac) 300 Mg Tab 300 MG PO HS Rosuvastatin Calcium (Crestor) 20 Mg Tab 20 MG PO DAILY Tramadol (Ultram) 50 Mg Tab 50 MG PO Q8H PRN for Pain, TAB Discontinued Medications: Atenolol (Tenormin) 100 Mg Tab 50 MG PO QAM Discharge Exam Pt is feeling improved. She still has a headache, but it is helped with "two little pills they gave me this morning". Records indicate this is her BP medication. Tolerating PO without issue. Pt denies fever, SOB, chest pain, abd pain, n/v/c/d, LE pain or swelling. "I can have this headache here or at home, I would rather go home!" ROS reviewed and otherwise neg Physical Exam: General Appearance: WD/WN, no apparent distress Respiratory/Chest: normal breath sounds, no respiratory distress Cardiovascular: regular rate, rhythm, no edema Abdomen / GI: non tender, soft Extremities: no calf tenderness, no pedal edema Neurologic/Psychiatric: alert, normal mood/affect Skin: normal color, warm/dry Hospital Course 85-year-old white female admitted on 10/23/2016 because of Recurrent Frontal headaches that occurred on the day of admission Recurrent Frontal headaches that occur in the morning on the day of admission, improved with improved BP, however still has slight headache that she feels she can manage just as well at home. Advised that it may take some time for headaches to fully resolve even if BP has better control. has no acute intracranial disease per head CT and MRI CT of the head did show a new lesion compared to previous in 2013 but neg for acute issues MRI results per report in below: 1 No acute intracranial findings. 2. No intracranial masses or pathologic enhancement. 3. Stable ventricular dilatation likely due to central atrophy. 4. 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 Accelerated hypertension Increased atenolol 50 mg to 75 mg by mouth every morning, Continue lisinopril/HCTZ 20/25 twice a day. Possible acute on chronic kidney failure stage III with an elevated creatinine in the second day of admission Creatinine improved from 1.7-1.5 today Will need to be cautious as she is on lisinopril and HCTZ Dementia: continue memantine. GERD/and acid reflux Was on pantoprazole 40 mg by mouth daily and ranitidine 300 mg daily at bedtime Increased Protonix to 40 twice a day and changed ranitidine 150 twice a day add Maalox for burping and acid reflux May need GI referral by PCP if not improving Hyperlipidemia--continue Crestor 20 mg by mouth daily. Daughter was present on d/c and agrees with current plan Increase activity, PT OT recommend patient can be discharged to home Total Time Spent: Greater than 30 minutes This includes examination of the patient, discharge planning, medication reconciliation, and communication with other providers. Discharge Instructions Please refer to the electronic Patient Visit Report (Discharge Instructions) for additional information. Follow-Up PCP on 11/02 as scheduled prior to d/c Additional Copies To Kavin Hall M.D.
[2016-10-26 14:02] VITALS: BP 155/85; PULSE 69; TEMP 37; O2SAT 98
== END 2016-10-26 14:35 | disposition home health service (06) ==
LOC: C.EDB 13:21 → C.MED 18:26 → ENRESERV 19:21
PROVIDERS: ADMIT Hospitalist; ATTEND Family Medicine
DX: I10 Essential (primary) hypertension (principal); R51 Headache; M19.90 Unspecified osteoarthritis, unspecified site; F03.90 Unspecified dementia, unspecified severity, without behavioral disturbance, psychotic disturbance, mood disturbance, and anxiety; K21.9 Gastro-esophageal reflux disease without esophagitis; E78.5 Hyperlipidemia, unspecified; Z86.73 Personal history of transient ischemic attack (TIA), and cerebral infarction without residual deficits; Z82.49 Family history of ischemic heart disease and other diseases of the circulatory system; Z83.6 Family history of other diseases of the respiratory system; Z79.899 Other long term (current) drug therapy

== ENCOUNTER → 2016-11-08 | Outpatient (CLI) | payer OTHER, MEDICARE ==
[~2016-11-08] MED LIST changes: -ATEN-175 PO; -DONE10TA12 PO; -FURO-85 PO; +MEMA1CAP PO; +PANT40TA PO; +TNR25 PO
[2016-11-08 17:37] LABS: BASO % 0.2 %; BASO ABS # 0.02 K/uL (0-0.2); COMPLETE YES; EOS % 1.3 %; HEMATOCRIT 34.8 % (37-47); IG% 0.2 %; LYMPH % 16.3 %; MEAN CELL VOLUME 84.9 fL (80-100); MEAN CORPUSCULAR HEMOGLOBIN 26.8 pg (25-34); MEAN CORPUSCULAR HGB CONC 31.6 g/dl (32-36); MEAN PLATELET VOLUME 11.1 fL (7.4-10.4); MONO % 6.3 %; NEUT % 75.7 %; PLATELET COUNT 213 K/uL (130-400); WHITE BLOOD COUNT 9.19 K/uL (4.8-10.8)
[2016-11-08 18:43] LABS: ALT/SGPT 23 U/L (12-78); AST/SGOT 22 U/L (15-37); BLOOD UREA NITROGEN 32 mg/dl (7-18); BUN/CREATININE RATIO 21.1 (10-20); CARBON DIOXIDE 25 mmol/L (21-32); CHLORIDE 110 mmol/L (98-107); GLUCOSE 159 mg/dl (70-99); POTASSIUM 4.1 mmol/L (3.5-5.1); SODIUM 142 mmol/L (136-145)
[2016-11-08 18:51] LABS: ALKALINE PHOSPHATASE 78 U/L (45-117); CHOLESTEROL 127 mg/dl (0-200); CHOLESTEROL/HDL RATIO 2.4; FERRITIN 90.5 ng/ml (8.0-388.0); HDL CHOLESTEROL 54 mg/dl; LDL CHOLESTEROL CALCULATED 26 mg/dl; THYROID STIMULATING HORMONE 0.022 uIu/ml (0.300-4.500); TRIGLYCERIDES 234 mg/dl (0-150); VERY LOW DENSITY LIPOPROT CALC 47 mg/dl
== END | disposition home or self-care (01) ==
LOC: C.LABPBG 14:27
PROVIDERS: ATTEND Internal Medicine Geriatric Medicine
DX: I12.9 Hypertensive chronic kidney disease with stage 1 through stage 4 chronic kidney disease, or unspecified chronic kidney disease (principal); E05.90 Thyrotoxicosis, unspecified without thyrotoxic crisis or storm; D64.9 Anemia, unspecified; E78.5 Hyperlipidemia, unspecified; N18.3 Chronic kidney disease, stage 3 (moderate); E55.9 Vitamin D deficiency, unspecified

== ENCOUNTER → 2016-11-22 | Outpatient (CLI) | payer OTHER, MEDICARE | END | disposition home or self-care (01) | LOC: C.LABSPEC 14:31 | PROVIDERS: ATTEND Internal Medicine Geriatric Medicine | DX: R19.7 Diarrhea, unspecified (principal) ==

== ENCOUNTER → 2017-02-16 | Outpatient (CLI) | payer OTHER, MEDICARE ==
[2017-02-16 17:13] LABS: BASO % 0.5 %; BASO ABS # 0.04 K/uL (0-0.2); COMPLETE YES; EOS % 4.3 %; HEMATOCRIT 31.2 % (37-47); IG% 0.3 %; LYMPH % 21.1 %; LYMPH ABS # 1.65 K/uL (1.2-3.4); MEAN CELL VOLUME 86.2 fL (80-100); MEAN CORPUSCULAR HEMOGLOBIN 27.6 pg (25-34); MEAN CORPUSCULAR HGB CONC 32.1 g/dl (32-36); MEAN PLATELET VOLUME 11.6 fL (7.4-10.4); MONO % 7.9 %; NEUT % 65.9 %; PLATELET COUNT 191 K/uL (130-400); RED BLOOD COUNT 3.62 M/uL (4.2-5.4); WHITE BLOOD COUNT 7.82 K/uL (4.8-10.8)
[2017-02-16 17:24] LABS: BLOOD UREA NITROGEN 29 mg/dl (7-18); BUN/CREATININE RATIO 17.1 (10-20); CALCIUM 9.4 mg/dl (8.5-10.1); CARBON DIOXIDE 27 mmol/L (21-32); CHLORIDE 104 mmol/L (98-107); CREATININE 1.71 mg/dl (0.60-1.20); GLUCOSE 101 mg/dl (70-99); POTASSIUM 4.4 mmol/L (3.5-5.1); SODIUM 139 mmol/L (136-145)
[2017-02-16 17:28] LABS: MANUAL MICROSCOPIC REQUIRED? NO; REVIEW REQ? NO; URINE APPEARANCE CLEAR (CLEAR); URINE BILIRUBIN NEG (NEG); URINE COLOR YELLOW; URINE EPITHELIAL CELL AUTO >30 /lpf (0-5); URINE NITRITE NEG (NEG); URINE SPECIFIC GRAVITY 1.021 (1.000-1.030); UROBILINOGEN NEG (NEG)
== END | disposition home or self-care (01) ==
LOC: C.LABPBG 14:10
PROVIDERS: ATTEND Family Medicine
DX: R53.83 Other fatigue (principal); R53.1 Weakness; M25.50 Pain in unspecified joint; D64.9 Anemia, unspecified; N18.3 Chronic kidney disease, stage 3 (moderate)

== ENCOUNTER 2017-03-08 18:56 | Emergency (ER) | payer OTHER, MEDICARE ==
[~2017-03-08] VITALS: Ht 152.4 cm; Wt 66.6 kg
[2017-03-08 18:59] VITALS: TEMP 36.6; Ht 152.4 cm; Wt 66.6 kg
[2017-03-08] MEDS ORDERED: ACETAMINOPHEN 500 MG TAB PO STA (19:20)
[2017-03-08] MEDS ORDERED: METOCLOPRAMIDE HCL 10 MG TAB PO STA (19:20)
--- NOTE | 2017-03-08 19:26 | EMERGENCY ROOM VISIT NOTE ---
History Report prepared by Magen: Levar Richmond Under the Supervision of: Dr. Jv Kelly M.D. First contact with patient: 19:04 Chief Complaint: FALL Stated Complaint: FELL - HEADACHE AND BACK PAIN - BURPING History of Present Illness The patient is an 86 year old white female with a past medical history of HTN, hyperlipidemia who presents to the ED with a cc of a worsening, right, lower flank pain beginning last evening. Patient fell last evening and hit her back on her bed. Tried aspirin with no relief. Positive headache for four days, increased burping. Negative LOC, hitting head, trouble urinating, trouble defecating, neck pain, taking blood thinners. The patient takes medication for her HTN and hyperlipidemia, but she cannot remember what she takes. Source of History: patient Onset: last night Position: other (right flank) Timing: worsening Associated Symptoms: + headache, No LOC, No neck pain Note: Associated symptoms: increased burping Denies: hitting head, trouble urinating, trouble defecating Review of Systems See HPI for pertinent positives and negatives. A total of ten systems were reviewed and were otherwise negative. Past Medical & Surgical Medical Problems: (1) Arthritis (2) CVD (cerebrovascular disease) (3) GI bleed (4) GI bleed (5) HTN (hypertension) (6) Hyperlipemia Surgical Problems: (1) History of hysterectomy Family History FHx: cancer Heart disease Hypertension Lung disease Social History Smoking Status: Never Smoker Alcohol Use: none Drug Use: none Marital Status: Housing Status: lives with family Occupation Status: unemployed Current/Historical Medications Scheduled Aspirin (Aspirin Ec), 81 MG PO DAILY Azelastine Hcl (Astelin Nasal [place]), 1-2 SPRAYS NA DAILY Cholecalciferol (Vitamin D 1000 Unit), 2,000 INTER.UNIT PO DAILY Donepezil Hydrochloride (Donepezil Hcl), 10 MG PO HS Lisinopril/Hctz (Zestoretic 20MG/12.5MG), 1 TAB PO DAILY Memantine Hcl (Namenda Xr), 28 MG PO DAILY Metoprolol Succ (Toprol Xl) (Toprol-Xl), 75 MG PO DAILY Multivitamins/Minerals (Mvi With Minerals), 1 TAB PO DAILY Pantoprazole (Protonix), 40 MG PO DAILY Probiotic Product (Probiotic), 1 CAP PO DAILY Ranitidine (Zantac), 300 MG PO HS Rosuvastatin Calcium (Crestor), 20 MG PO DAILY Scheduled PRN Acetaminophen (Tylenol), 1,000 MG PO TID PRN for Headache or Pain Tramadol (Ultram), 50 MG PO Q8H PRN for Pain Allergies Coded Allergies: Atorvastatin (Verified Allergy, Unknown, UNKOWN, 10/23/16) Paroxetine (Verified Allergy, Unknown, UNKNOWN, 10/23/16) Propoxyphene (Verified Allergy, Unknown, DARVOCET, 10/23/16) Cephalosporins (Verified Adverse Reaction, Mild, NAUSEA, 10/23/16) Codeine (Verified Adverse Reaction, Mild, NAUSEA, 10/23/16) Sulfa Antibiotics (Verified Adverse Reaction, Unknown, NAUSEA, 10/23/16) Physical Exam Vital Signs Date Time Temp Pulse Resp B/P (MAP) Pulse Ox O2 Delivery O2 Flow Rate FiO2 03/08/17 22:25 78 18 177/87 96 03/08/17 18:59 36.6 80 18 177/71 97 Room Air Physical Exam GENERAL: Awake, alert, well-appearing, NAD HENT: Normocephalic, atraumatic. EYES: Normal conjunctiva. Sclera non-icteric. NECK: Supple. No nuchal rigidity. FROM. No midline c-spine tenderness. RESPIRATORY: CTAB, no rhonchi, wheezing, crackles CARDIAC: RRR, no MRG ABDOMEN: Soft, NTND, BS+ MSK: No chest wall TTP, no LE edema. Posterior lower rib pain with no ecchymosis , flail, crepitus, or step off. No midline spinal TTP. Mild pain in left knee. NEURO: CN 2-12 intact, 5/5 upper and lower extremity strength, no dysmetria, no drift, good finger to nose, no sensory deficits. SKIN: No rash or jaundice noted. Medical Decision & Procedures ER Provider Diagnostic Interpretation: Radiology results as stated below per my review and radiologist interpretation: THORACIC SPINE 3 VIEWS HISTORY: Back pain. pain s/p fall COMPARISON: None. FINDINGS: There is no fracture. No subluxation. Mild degenerative disease seen throughout the thoracic spine. Mild S-shaped scoliosis. Hiatus hernia. IMPRESSION: No fracture or subluxation within the thoracic spine. Electronically signed by: Brian Henson M.D. 03/08/2017 8:17 PM Dictated Date/Time: 03/08/2017 8:16 PM R RIBS UNILATERAL MIN 2 VIEWS CLINICAL HISTORY: pain s/p fall. Right rib pain. COMPARISON STUDY: Chest 10/23/2016. FINDINGS: Slightly displaced right posterior ninth and 10th rib fractures. No right-sided pneumothorax. IMPRESSION: Slightly displaced right posterior ninth and 10th rib fractures. Electronically signed by: Brian Henson M.D. 03/08/2017 8:15 PM Dictated Date/Time: 03/08/2017 8:[address] CT DOSE: 537.48 mGy.cm HISTORY: Head injury. pain s/p fall TECHNIQUE: Multiaxial CT images of the head were performed without the use of intravenous contrast. Automated exposure control was utilized for this study. A dose lowering technique was utilized adhering to the principles of ALARA. Comparison: Head CT 10/23/2016. Findings: Small retention cyst within the left maxillary sinus. The mastoid air cells are clear. The calvarium and skull base are intact. There is no mass, hematoma, midline shift, acute infarct. White matter hypodensity is nonspecific but suggestive of microvascular ischemic change. The ventricles and sulci demonstrate mild age-related involutional changes. Old lacunar infarct seen within the left basal ganglia. This remains unchanged. Impression: No significant change compared to the prior study. No acute intracranial abnormality. Electronically signed by: Brian Henson M.D. 03/08/2017 8:01 PM Dictated Date/Time: 03/08/2017 7:56 PM CHEST 2 VIEWS ROUTINE HISTORY: pain s/p fall COMPARISON: Chest 10/23/2016. FINDINGS: No pneumothorax or no pleural effusions. Moderate hiatus hernia is again noted. The heart is stable in size. The lungs are clear. Right posterior ninth and 10th rib fractures are again noted. IMPRESSION: 1. Right posterior ninth and 10th rib fractures. No pneumothorax. 2. Hiatus hernia, unchanged. Electronically signed by: Brian Henson M.D. 03/08/2017 8:16 PM Dictated Date/Time: 03/08/2017 8:15 PM Medications Administered Medications (Trade) Dose Ordered Sig/Christian Route Start Time Stop Time Status Last Admin Dose Admin Acetaminophen (Tylenol Tab) 1,000 mg NOW STAT PO 03/08/17 19:20 03/08/17 19:22 DC 03/08/17 19:39 1,000 MG Metoclopramide HCl (Reglan Tab) 10 mg ONE STAT PO 03/08/17 19:20 03/08/17 19:22 DC 03/08/17 19:20 10 MG Diphenhydramine HCl (Benadryl Cap) 25 mg NOW ONCE PO 03/08/17 19:30 03/08/17 19:31 DC 03/08/17 19:39 25 MG Ibuprofen (Advil Tab) 400 mg NOW STAT PO 03/08/17 20:58 03/08/17 20:59 DC 03/08/17 21:14 400 MG Acetaminophen/ Butalbital/ Caffeine (Fioricet Tab) 1 tab NOW STAT PO 03/08/17 20:58 03/08/17 20:59 DC 03/08/17 21:15 1 TAB ED Course 1911: The patient was evaluated in room B11B. A complete history and physical exam was performed. 2034: I reevaluated the patient and discussed current exam findings. 2111: I reevaluated the patient. She is feeling better. 2147: I reevaluated the patient. Discussed results, how to use the incentive spirometer, and discharge instructions: she verbalized understanding and agreement. The patient is ready for discharge. Medical Decision The patient is an 86 year old white female with a past medical history of HTN, hyperlipidemia who presents to the ED with a cc of a worsening, right, lower flank pain beginning last evening. Differential diagnoses include: ICH, sprain, strain, fracture, contusion, pneumothorax, hemothorax Patient was seen and evaluated the bedside. Patient sustained a mechanical fall last evening. Patient states she was trying to room with the light was off she said she stepped forward and then she got twisted around and fell backward. Patient states that she hit her right side of her chest and back. Patient denies using any blood thinning medications and did not strike her head. Patient states she had no LOC. Patient states she had no presyncope prior to this but she tripped. Patient states she's been taking her medications as prescribed. Patient denies any numbness, tingling, or weakness. Patient does state that she had some headache with an ongoing for about 4-5 days. Patient denies any fevers, chills, or infectious symptoms. Patient does not have any midline C-spine tenderness, or signs of meningismus. Patient has normal visual acuity. No anisocoria noted. Patient did have a CT of the brain in addition to plain films completed. Patient was also given medications. Patient had a negative CT of the brain. Patient did have noted ninth and 10th rib fractures. Patient had a normal IS. Patient's pain improved. Patient's headache improved. Patient had no signs of neuro deficits. Patient was told to continue pain medication at home. Patient to follow with her PCP. Patient was given strict follow-up, discharge, and return precautions. All questions were answered. Patient was deemed suitable for outpatient follow-up at this time. Patient agreed with the plan of care and was safely discharged home. Medication Reconcilliation Current Medication List: was personally reviewed by me Blood Pressure Screening Patient's blood pressure: Elevated blood pressure Blood pressure disposition: Referred to PCP Impression Primary Impression: Fall Additional Impressions: Headache Ribs, multiple fractures Scribe Attestation The scribe's documentation has been prepared under my direction and personally reviewed by me in its entirety. I confirm that the note above accurately reflects all work, treatment, procedures, and medical decision making performed by me. Departure Information Dispostion Home / Self-Care Prescriptions Tramadol (Ultram) 50 Mg Tab 50 MG PO Q8H Y for Pain for 5 Days, #15 TAB Prov: Jv Kelly M.D. 03/08/17 Referrals No Doctor, Assigned (PCP) Forms HOME CARE DOCUMENTATION FORM, IMPORTANT VISIT INFORMATION Patient Instructions ED Contusion Vs Minor Fx Rib, ED Fx Rib, Incentive Spirometer Dc, [facility] Additional Instructions Please return to the emergency department if you have worsening or recurrent symptoms not amenable to at-home treatment. Please call for a follow-up appointment with her primary care physician. Please take your medications as prescribed. If you have other concerns and/or complaints please feel free to also call your primary care physician's office or return the ED for further evaluation, management, and treatment. You may take 200 mg Ibuprofen every 6 hours as needed for pain with food for no more than 2 consecutive days. You may take tylenol 650 mg every 6 hours as needed for pain. You may take motrin and tylenol separately or at the same time. Take your medications as prescribed. If taking an antibiotic consider taking a probiotic and/or eating yogurt, but at the least, please take with food as it can cause upset stomach. You have been examined and treated today on an emergency basis only. This is not a substitute for, or an effort to provide, complete comprehensive medical care. It is impossible to recognize and treat all injuries or illnesses in a single emergency department visit. It is therefore important that you follow up closely with [facility], your PCP, and/or your specialist(s). Call as soon as possible for an appointment. Thank you for your time and consideration. I look forward to speaking with you again soon. Please don't hesitate to call us if you have any questions. Problem Qualifiers Primary Impression: Fall Encounter type: initial encounter Qualified Codes: W19.XXXA - Unspecified fall, initial encounter Additional Impressions: Headache Headache type: unspecified Headache chronicity pattern: acute headache Intractability: not intractable Qualified Codes: R51 - Headache Ribs, multiple fractures Encounter type: initial encounter Fracture type: closed Laterality: right Qualified Codes: S22.41XA - Multiple fractures of ribs, right side, initial encounter for closed fracture
[2017-03-08] MEDS ORDERED: CHOL100027 PO (19:49)
[2017-03-08] MEDS ORDERED: DONE1TAB26 PO (19:49)
[2017-03-08] MEDS ORDERED: METO50TA7 PO (19:49)
[2017-03-08] MEDS ORDERED: ASPI81TA28 PO (19:49)
[2017-03-08] MEDS ORDERED: ACET-1256 PO (19:49)
[2017-03-08] MEDS ORDERED: MEMA1CAP7 PO (19:49)
[2017-03-08] MEDS ORDERED: ASTN (19:49)
[2017-03-08] MEDS ORDERED: MULT-513 PO (19:49)
[2017-03-08] MEDS ORDERED: MISCCAP80 PO (19:49)
[2017-03-08] MEDS ORDERED: LISI-787 PO (19:49)
[2017-03-08] MEDS ORDERED: RANI300T2 PO (19:49)
--- NOTE | 2017-03-08 20:02 | DIAGNOSTIC IMAGING REPORT ---
HEAD CT NONCONTRAST CT DOSE: 537.48 mGy.cm HISTORY: Head injury. pain s/p fall TECHNIQUE: Multiaxial CT images of the head were performed without the use of intravenous contrast. Automated exposure control was utilized for this study. A dose lowering technique was utilized adhering to the principles of ALARA. Comparison: Head CT 10/23/2016. Findings: Small retention cyst within the left maxillary sinus. The mastoid air cells are clear. The calvarium and skull base are intact. There is no mass, hematoma, midline shift, acute infarct. White matter hypodensity is nonspecific but suggestive of microvascular ischemic change. The ventricles and sulci demonstrate mild age-related involutional changes. Old lacunar infarct seen within the left basal ganglia. This remains unchanged. Impression: No significant change compared to the prior study. No acute intracranial abnormality. Electronically signed by: Brian Henson M.D. 03/08/2017 8:01 PM Dictated Date/Time: 03/08/2017 7:56 PM
--- NOTE | 2017-03-08 20:16 | DIAGNOSTIC IMAGING REPORT ---
R RIBS UNILATERAL MIN 2 VIEWS CLINICAL HISTORY: pain s/p fall. Right rib pain. COMPARISON STUDY: Chest 10/23/2016. FINDINGS: Slightly displaced right posterior ninth and 10th rib fractures. No right-sided pneumothorax. IMPRESSION: Slightly displaced right posterior ninth and 10th rib fractures. Electronically signed by: Brian Henson M.D. 03/08/2017 8:15 PM Dictated Date/Time: 03/08/2017 8:13 PM
--- NOTE | 2017-03-08 20:17 | DIAGNOSTIC IMAGING REPORT ---
CHEST 2 VIEWS ROUTINE HISTORY: pain s/p fall COMPARISON: Chest 10/23/2016. FINDINGS: No pneumothorax or no pleural effusions. Moderate hiatus hernia is again noted. The heart is stable in size. The lungs are clear. Right posterior ninth and 10th rib fractures are again noted. IMPRESSION: 1. Right posterior ninth and 10th rib fractures. No pneumothorax. 2. Hiatus hernia, unchanged. Electronically signed by: Brian Henson M.D. 03/08/2017 8:16 PM Dictated Date/Time: 03/08/2017 8:15 PM
--- NOTE | 2017-03-08 20:18 | DIAGNOSTIC IMAGING REPORT ---
THORACIC SPINE 3 VIEWS HISTORY: Back pain. pain s/p fall COMPARISON: None. FINDINGS: There is no fracture. No subluxation. Mild degenerative disease seen throughout the thoracic spine. Mild S-shaped scoliosis. Hiatus hernia. IMPRESSION: No fracture or subluxation within the thoracic spine. Electronically signed by: Brian Henson M.D. 03/08/2017 8:17 PM Dictated Date/Time: 03/08/2017 8:16 PM
[2017-03-08] MEDS ORDERED: IBUPROFEN 200 MG TAB PO STA (20:58)
[2017-03-08] MEDS ORDERED: BUTALBITAL/ACETAMIN/CAFFEINE TAB PO STA (20:58)
[2017-03-08] MEDS ORDERED: TRAM-10 PO (21:25)
[2017-03-08 22:25] VITALS: BP 177/87; PULSE 78; O2SAT 96
== END 2017-03-08 22:25 | disposition home or self-care (01) ==
LOC: C.EDB 18:57
DX: R51 Headache (principal); S22.41XA Multiple fractures of ribs, right side, initial encounter for closed fracture; W01.190A Fall on same level from slipping, tripping and stumbling with subsequent striking against furniture, initial encounter; Y92.003 Bedroom of unspecified non-institutional (private) residence as the place of occurrence of the external cause; I10 Essential (primary) hypertension; E78.5 Hyperlipidemia, unspecified; M19.90 Unspecified osteoarthritis, unspecified site; Z90.710 Acquired absence of both cervix and uterus; Z79.82 Long term (current) use of aspirin; Z82.49 Family history of ischemic heart disease and other diseases of the circulatory system

== ENCOUNTER 2017-03-11 12:39 | Emergency (ER) | payer OTHER, MEDICARE ==
[~2017-03-11] VITALS: Ht 149.9 cm; Wt 62.0 kg
[~2017-03-11 12:39] MED LIST changes: +ACET-1256 PO; +ASPI81TA28 PO; +ASTN; +CHOL100027 PO; +DONE1TAB26 PO; +MEMA1CAP7 PO; +METO50TA7 PO; +MISCCAP80 PO; +MULT-513 PO
[2017-03-11 12:47] VITALS: TEMP 37.3; Ht 149.9 cm; Wt 62.0 kg
[2017-03-11 13:25] VITALS: O2SAT 95
--- NOTE | 2017-03-11 13:44 | DIAGNOSTIC IMAGING REPORT ---
CHEST ONE VIEW PORTABLE CLINICAL HISTORY: Weakness COMPARISON STUDY: 03/08/2017 FINDINGS: The heart is borderline enlarged. There is a retrocardiac opacity consistent with a hiatal hernia. There is no failure. There is no focal pulmonary consolidation. There is foreshortening of distal left clavicle, likely related to prior surgery. No pleural effusions are visualized.[ IMPRESSION: Hiatal hernia. No active disease in the chest. Electronically signed by: Casa Allen M.D. 03/11/2017 1:43 PM Dictated Date/Time: 03/11/2017 1:42 PM
[2017-03-11 13:47] LABS: BASO % 0.2 %; BASO ABS # 0.02 K/uL (0-0.2); COMPLETE YES; EOS % 2.4 %; HEMATOCRIT 35.5 % (37-47); IG% 0.3 %; LYMPH % 13.2 %; LYMPH ABS # 1.51 K/uL (1.2-3.4); MEAN CELL VOLUME 86.8 fL (80-100); MEAN CORPUSCULAR HEMOGLOBIN 27.1 pg (25-34); MEAN CORPUSCULAR HGB CONC 31.3 g/dl (32-36); MEAN PLATELET VOLUME 11.2 fL (7.4-10.4); NEUT % 73.9 %; PLATELET COUNT 193 K/uL (130-400); RED BLOOD COUNT 4.09 M/uL (4.2-5.4); WHITE BLOOD COUNT 11.45 K/uL (4.8-10.8)
[2017-03-11] MEDS ORDERED: HYDROmorphone INJ 0.5 MG/0.5 ML SYR IV STA ×2 (13:48→16:39)
[2017-03-11] MEDS ORDERED: ONDANSETRON INJ 2 MG/ML 2 ML VIAL IV STA (13:48)
[2017-03-11 14:01] LABS: PARTIAL THROMBOPLASTIN RATIO 0.9; PROTHROMBIN TIME (PATIENT) 10.3 SECONDS (9.0-12.0)
[2017-03-11 14:07] LABS: ALT/SGPT 16 U/L (12-78); AST/SGOT 16 U/L (15-37); BLOOD UREA NITROGEN 35 mg/dl (7-18); BUN/CREATININE RATIO 21.2 (10-20); CALCIUM 8.8 mg/dl (8.5-10.1); CARBON DIOXIDE 29 mmol/L (21-32); CHLORIDE 103 mmol/L (98-107); CREATININE 1.65 mg/dl (0.60-1.20); GLUCOSE 102 mg/dl (70-99); MAGNESIUM 1.8 mg/dl (1.8-2.4); SODIUM 140 mmol/L (136-145)
[2017-03-11 14:18] LABS: ALKALINE PHOSPHATASE 83 U/L (45-117); CKMB/CK RATIO 3.7 (0-3.0); THYROID STIMULATING HORMONE 0.087 uIu/ml (0.300-4.500)
--- NOTE | 2017-03-11 15:00 | DIAGNOSTIC IMAGING REPORT ---
(CHEST) THORAX WITHOUT CLINICAL HISTORY: Right lower chest and rib pain COMPARISON STUDY: Chest x-ray dated 03/11/2017 CT DOSE: 283.00 mGy.cm TECHNIQUE: CT of the thorax was performed from the thoracic inlet to the lung bases. Images are reviewed in the axial, sagittal, and coronal planes. IV contrast was not administered for this examination. A dose lowering technique was utilized adhering to the principles of ALARA. FINDINGS: Thyroid: There is a suspected 22 mm exophytic nodule arising from the lower pole of the thyroid. Thoracic aorta: The thoracic aorta is normal in course and caliber, noting standard 3 vessel arch anatomy. Heart: The heart is mildly enlarged. Lungs and pleural spaces: There is a small right pleural effusion. There is no pneumothorax. There are right lower lobe atelectatic changes. Mediastinum: There is a borderline enlarged precarinal lymph node Susan: There is no evidence of pathologic hilar adenopathy given the limitations of a noncontrast study Axilla: There is no evidence of pathologic axillary lymphadenopathy Upper abdomen: There is a moderate to large hiatal hernia Skeletal structures: There is acute/subacute right ninth and 10th rib fractures. IMPRESSION: 1. Acute/subacute right ninth and 10th rib fractures 2. No evidence of pneumothorax 3. Moderate to large hiatal hernia 4. Small right pleural effusion. Right lower lobe atelectasis. 5. Suspected 22 mm exophytic lower pole thyroid nodule Electronically signed by: Casa Allen M.D. 03/11/2017 2:59 PM Dictated Date/Time: 03/11/2017 2:53 PM
--- NOTE | 2017-03-11 15:50 | EMERGENCY ROOM VISIT NOTE ---
History Report prepared by Magen: Taniya Whittington Under the Supervision of: Dr. Balwinder Peck M.D. First contact with patient: 13:12 Chief Complaint: RIB PAIN Stated Complaint: CRACKED RIBS History of Present Illness The patient is a 86 year old female who presents to the Emergency Room with complaints of broken ribs occurring 3 nights ago. She rates her pain at an 8/ 10. Per her family, the patient fell on her right side 3 nights ago which is how she broke her ribs. Her family states that no medication is helping the patient's pain and that the patient has been "out of it." Her family also states concern for the patient's blood pressure. The patient reports that she has not had a bowel movement in days and states that she has been burping frequently. Pt denies LOC, headache, fevers, chills, diaphoresis, visual changes, neck pain, anterior chest pain, breathing difficulties, nausea, vomiting, abdominal pain, melena, hematochezia, urinary symptoms, numbness, weakness, lymphadenopathy, rash, or other complaints. Source of History: patient, family Onset: 3 nights ago Position: other (ribs) Symptom Intensity: rated at an 8/10 Quality: other (broken ) Associated Symptoms: No fevers Review of Systems See HPI for pertinent positives and negatives. A total of ten systems were reviewed and were otherwise negative. Past Medical & Surgical Medical Problems: (1) Arthritis (2) CVD (cerebrovascular disease) (3) GI bleed (4) GI bleed (5) HTN (hypertension) (6) Hyperlipemia Surgical Problems: (1) History of hysterectomy Family History FHx: cancer Heart disease Hypertension Lung disease Social History Smoking Status: Never Smoker Alcohol Use: none Drug Use: none Marital Status: Housing Status: lives with family Occupation Status: unemployed Current/Historical Medications Scheduled Aspirin (Aspirin Ec), 81 MG PO DAILY Azelastine Hcl (Astelin Nasal [place]), 1-2 SPRAYS NA DAILY Cholecalciferol (Vitamin D 1000 Unit), 2,000 INTER.UNIT PO DAILY Donepezil Hydrochloride (Donepezil Hcl), 10 MG PO HS Lisinopril/Hctz (Zestoretic 20MG/12.5MG), 1 TAB PO DAILY Memantine Hcl (Namenda Xr), 28 MG PO DAILY Metoprolol Succ (Toprol Xl) (Toprol-Xl), 75 MG PO DAILY Multivitamins/Minerals (Mvi With Minerals), 1 TAB PO DAILY Pantoprazole (Protonix), 40 MG PO DAILY Probiotic Product (Probiotic), 1 CAP PO DAILY Ranitidine (Zantac), 300 MG PO HS Rosuvastatin Calcium (Crestor), 20 MG PO DAILY Scheduled PRN Acetaminophen (Tylenol), 1,000 MG PO TID PRN for Headache or Pain Tramadol (Ultram), 50 MG PO Q8H PRN for Pain Allergies Coded Allergies: Atorvastatin (Verified Allergy, Unknown, UNKOWN, 03/11/17) Paroxetine (Verified Allergy, Unknown, UNKNOWN, 03/11/17) Propoxyphene (Verified Allergy, Unknown, DARVOCET, 03/11/17) Cephalosporins (Verified Adverse Reaction, Mild, NAUSEA, 03/11/17) Codeine (Verified Adverse Reaction, Mild, NAUSEA, 03/11/17) Sulfa Antibiotics (Verified Adverse Reaction, Unknown, NAUSEA, 03/11/17) Physical Exam Vital Signs Date Time Temp Pulse Resp B/P (MAP) Pulse Ox O2 Delivery O2 Flow Rate FiO2 03/11/17 17:07 82 16 120/53 99 03/11/17 16:08 81 18 166/81 100 Nasal Cannula 2.0 03/11/17 15:04 74 20 185/74 92 Room Air 03/11/17 13:33 76 03/11/17 13:29 73 18 161/80 95 Room Air 03/11/17 13:25 95 Room Air 03/11/17 12:47 37.3 93 18 154/83 94 Room Air Physical Exam GENERAL: Awake, alert, well-appearing, in no distress HENT: Normocephalic, atraumatic. Oropharynx unremarkable. EYES: Normal conjunctiva. Sclera non-icteric. NECK: Supple. No nuchal rigidity. FROM. No JVD. RESPIRATORY: Clear to auscultation. CARDIAC: Regular rate, normal rhythm. Extremities warm and well perfused. Pulses equal. ABDOMEN: Soft, non-distended. No tenderness to palpation. No rebound or guarding. No masses. RECTAL: Deferred. MUSCULOSKELETAL: Chest examination reveals no tenderness. The back is symmetrical on inspection without obvious abnormality. Right lower rib tenderness posteriorly. No joint edema. LOWER EXTREMITIES: Calves are equal size bilaterally and non-tender. No edema. No discoloration. NEURO: Normal sensorium. No sensory or motor deficits noted. SKIN: No rash or jaundice noted. Medical Decision & Procedures ER Provider Diagnostic Interpretation: Radiology results as stated below per my review and radiologist interpretation: CHEST ONE VIEW PORTABLE CLINICAL HISTORY: Weakness COMPARISON STUDY: 03/08/2017 FINDINGS: The heart is borderline enlarged. There is a retrocardiac opacity consistent with a hiatal hernia. There is no failure. There is no focal pulmonary consolidation. There is foreshortening of distal left clavicle, likely related to prior surgery. No pleural effusions are visualized.[ IMPRESSION: Hiatal hernia. No active disease in the chest. Electronically signed by: Casa Allen M.D. 03/11/2017 1:43 PM Dictated Date/Time: 03/11/2017 1:42 PM (CHEST) THORAX WITHOUT CLINICAL HISTORY: Right lower chest and rib pain COMPARISON STUDY: Chest x-ray dated 03/11/2017 CT DOSE: 283.00 mGy.cm TECHNIQUE: CT of the thorax was performed from the thoracic inlet to the lung bases. Images are reviewed in the axial, sagittal, and coronal planes. IV contrast was not administered for this examination. A dose lowering technique was utilized adhering to the principles of ALARA. FINDINGS: Thyroid: There is a suspected 22 mm exophytic nodule arising from the lower pole of the thyroid. Thoracic aorta: The thoracic aorta is normal in course and caliber, noting standard 3 vessel arch anatomy. Heart: The heart is mildly enlarged. Lungs and pleural spaces: There is a small right pleural effusion. There is no pneumothorax. There are right lower lobe atelectatic changes. Mediastinum: There is a borderline enlarged precarinal lymph node Susan: There is no evidence of pathologic hilar adenopathy given the limitations of a noncontrast study Axilla: There is no evidence of pathologic axillary lymphadenopathy Upper abdomen: There is a moderate to large hiatal hernia Skeletal structures: There is acute/subacute right ninth and 10th rib fractures. IMPRESSION: 1. Acute/subacute right ninth and 10th rib fractures 2. No evidence of pneumothorax 3. Moderate to large hiatal hernia 4. Small right pleural effusion. Right lower lobe atelectasis. 5. Suspected 22 mm exophytic lower pole thyroid nodule Electronically signed by: Casa Allen M.D. 03/11/2017 2:59 PM Dictated Date/Time: 03/11/2017 2:53 PM Laboratory Results 03/11/17 13:25 Red Blood Count 4.09, Mean Corpuscular Volume 86.8, Mean Corpuscular Hemoglobin 27.1, Mean Corpuscular Hemoglobin Concent 31.3, Mean Platelet Volume 11.2, Neutrophils (%) (Auto) 73.9, Lymphocytes (%) (Auto) 13.2, Monocytes (%) (Auto) 10.0, Eosinophils (%) (Auto) 2.4, Basophils (%) (Auto) 0.2, Neutrophils # (Auto ) 8.46, Lymphocytes # (Auto) 1.51, Monocytes # (Auto) 1.15, Eosinophils # (Auto ) 0.28, Basophils # (Auto) 0.02 03/11/17 13:25 Test 03/11/17 13:25 03/11/17 17:20 White Blood Count 11.45 K/uL (4.8-10.8) Red Blood Count 4.09 M/uL (4.2-5.4) Hemoglobin 11.1 g/dL (12.0-16.0) Hematocrit 35.5 % (37-47) Mean Corpuscular Volume 86.8 fL (80-100) Mean Corpuscular Hemoglobin 27.1 pg (25-34) Mean Corpuscular Hemoglobin Concent 31.3 g/dl (32-36) Platelet Count 193 K/uL (130-400) Mean Platelet Volume 11.2 fL (7.4-10.4) Neutrophils (%) (Auto) 73.9 % Lymphocytes (%) (Auto) 13.2 % Monocytes (%) (Auto) 10.0 % Eosinophils (%) (Auto) 2.4 % Basophils (%) (Auto) 0.2 % Neutrophils # (Auto) 8.46 K/uL (1.4-6.5) Lymphocytes # (Auto) 1.51 K/uL (1.2-3.4) Monocytes # (Auto) 1.15 K/uL (0.11-0.59) Eosinophils # (Auto) 0.28 K/uL (0-0.5) Basophils # (Auto) 0.02 K/uL (0-0.2) RDW Standard Deviation 44.5 fL (36.4-46.3) RDW Coefficient of Variation 14.3 % (11.5-14.5) Immature Granulocyte % (Auto) 0.3 % Immature Granulocyte # (Auto) 0.03 K/uL (0.00-0.02) Prothrombin Time 10.3 SECONDS (9.0-12.0) Prothromb Time International Ratio 1.0 (0.9-1.1) Activated Partial Thromboplast Time 24.0 SECONDS (21.0-31.0) Partial Thromboplastin Ratio 0.9 Anion Gap 8.0 mmol/L (3-11) Est Creatinine Clear Calc Drug Dose 20.3 ml/min Estimated GFR () 32.7 Estimated GFR (Non- 28.2 BUN/Creatinine Ratio 21.2 (10-20) Calcium Level 8.8 mg/dl (8.5-10.1) Magnesium Level 1.8 mg/dl (1.8-2.4) Total Bilirubin 0.4 mg/dl (0.2-1) Direct Bilirubin < 0.1 mg/dl (0-0.2) Aspartate Amino Transf (AST/SGOT) 16 U/L (15-37) Alanine Aminotransferase (ALT/SGPT) 16 U/L (12-78) Alkaline Phosphatase 83 U/L (45-117) Total Creatine Kinase 52 U/L (26-192) Creatine Kinase MB 1.9 ng/ml (0.5-3.6) Creatine Kinase MB Ratio 3.7 (0-3.0) Troponin I < 0.015 ng/ml (0-0.045) Total Protein 7.2 gm/dl (6.4-8.2) Albumin 3.3 gm/dl (3.4-5.0) Thyroid Stimulating Hormone (TSH) 0.087 uIu/ml (0.300-4.500) Thyroxine (T4) 6.5 mcg/dl (4.5-10.9) Free Triiodothyronine 3.72 pg/ml (2.30-4.20) Urine Color YELLOW Urine Appearance CLEAR (CLEAR) Urine pH 5.0 (4.5-7.5) Urine Specific [place] 1.021 (1.000-1.030) Urine Protein 2+ (NEG) Urine Glucose (UA) NEG (NEG) Urine Ketones NEG (NEG) Urine Occult Blood NEG (NEG) Urine Nitrite NEG (NEG) Urine Bilirubin NEG (NEG) Urine Urobilinogen NEG (NEG) Urine Leukocyte Esterase TRACE (NEG) Urine WBC (Auto) 5-10 /hpf (0-5) Urine RBC (Auto) 0-4 /hpf (0-4) Urine Hyaline Casts (Auto) 1-5 /lpf (0-5) Urine Epithelial Cells (Auto) >30 /lpf (0-5) Urine Bacteria (Auto) 1+ (NEG) Laboratory results reviewed by me Medications Administered Medications (Trade) Dose Ordered Sig/Christian Route Start Time Stop Time Status Last Admin Dose Admin Ondansetron HCl (Zofran Inj) 4 mg NOW STAT IV 03/11/17 13:48 03/11/17 13:51 DC 03/11/17 13:57 4 MG Hydromorphone HCl (Dilaudid Inj) 0.25 mg NOW STAT IV 03/11/17 13:48 03/11/17 13:51 DC 03/11/17 13:58 0.25 MG Hydromorphone HCl (Dilaudid Inj) 0.25 mg NOW STAT IV 03/11/17 16:39 03/11/17 16:40 DC 03/11/17 16:50 0.25 MG ECG Indication: weakness Rate (beats per minute): 74 Rhythm: normal sinus Findings: LBBB, no ectopy, other (left axis deviation ) ED Course 1345: The patient was evaluated in room A9B. A complete history and physical exam was performed. 1348: Ordered Dilaudid Inj 0.25 mg IV, Zofran Inj 4 mg IV. 1530: I updated the patient on his results. 1639: Ordered Dilaudid Inj 0.25 mg IV. 1650: The patient will be transferred to [facility]. Medical Decision Triage Nursing notes reviewed. The patient's presentation and history were concerning for fracture and inability to control pain safely at home. Etiologies such as Rib fracture, pulmonary contusion, pneumonia, cardiac ischemia, pulmonary embolism, pneumothorax, Infections, gastrointestinal, as well as others were entertained. The patient was evaluated. She was given a small dose of IV Dilaudid and Zofran for pain control. Blood work was obtained. Imaging was ordered. Chest x-ray was unremarkable. CT imaging was ordered. The patient is not doing well at home. Case management was consulted to evaluate the patient for possible additional care. The patient required a second dose of IV dilaudid. [facility] evaluated and accepted the patient. Family updated. the patient required a second dose of IV Dilaudid. She was feeling better with this. [facility] evaluated the patient's case and felt that she would be appropriate for further care. Urine dip was unremarkable. Blood work is unremarkable except for slight leukocytosis. The patient was reassessed prior to transfer and was feeling much better. The patient was taken to [facility] by family for further management. Medication Reconcilliation Current Medication List: was personally reviewed by me Blood Pressure Screening Patient's blood pressure: Elevated blood pressure Blood pressure disposition: Referred to PCP Impression Primary Impression: Multiple fractures of ribs of right side Additional Impression: Generalized weakness Scribe Attestation The scribe's documentation has been prepared under my direction and personally reviewed by me in its entirety. I confirm that the note above accurately reflects all work, treatment, procedures, and medical decision making performed by me. Departure Information Dispostion Transfer Acute Care Facility Referrals Kavin Hall M.D. (PCP) Patient Instructions My [facility] Problem Qualifiers
[2017-03-11 17:07] VITALS: BP 120/53; PULSE 82; O2SAT 99
[2017-03-11 17:44] LABS: URINE APPEARANCE CLEAR (CLEAR); URINE BILIRUBIN NEG (NEG); URINE COLOR YELLOW; URINE EPITHELIAL CELL AUTO >30 /lpf (0-5); URINE NITRITE NEG (NEG); URINE SPECIFIC GRAVITY 1.021 (1.000-1.030); UROBILINOGEN NEG (NEG)
[2017-03-11 17:45] LABS: MANUAL MICROSCOPIC REQUIRED? NO; REVIEW REQ? NO
== END 2017-03-11 17:26 | disposition short-term general hospital (02) ==
LOC: C.EDB 12:40 → C.EDA 17:26
DX: S22.41XA Multiple fractures of ribs, right side, initial encounter for closed fracture (principal); R53.1 Weakness; I44.7 Left bundle-branch block, unspecified; I10 Essential (primary) hypertension; E78.5 Hyperlipidemia, unspecified; M19.90 Unspecified osteoarthritis, unspecified site; Z79.82 Long term (current) use of aspirin; Z79.899 Other long term (current) drug therapy; Z87.19 Personal history of other diseases of the digestive system; Z82.49 Family history of ischemic heart disease and other diseases of the circulatory system; Z83.6 Family history of other diseases of the respiratory system; W19.XXXA Unspecified fall, initial encounter

== ENCOUNTER → 2017-03-20 | Outpatient (CLI) | payer OTHER, MEDICARE ==
[~2017-03-20] MED LIST changes: -CYCL10TA6 PO; -MEMA10TA PO; -MEMA1CAP PO; -TNR25 PO; -TRAM-10 PO
--- NOTE | 2017-03-20 12:16 | DIAGNOSTIC IMAGING REPORT ---
Brain MRA HISTORY: Right double vision vision. 3RD NERVE PALSY TECHNIQUE: 3-D [id number] MRA of the brain was performed without contrast. COMPARISON STUDY: None. FINDINGS: The bilaterally P1 segment are hypoplastic. The bilateral magnetic testing technician are partially fed through the posterior communicating arteries. There is moderate focal narrowing at the proximal left P2 segment. The basilar artery, distal vertebral arteries, and internal carotid arteries are widely patent. No significant stenosis or occlusion identified within the bilateral ACAs. Mild multifocal narrowing within the left M1 segment. The right MCA is widely patent. IMPRESSION: 1. Moderate focal narrowing at the proximal left P2 segment. 2. Mild multifocal narrowing within the left M1 segment. 3. No evidence for aneurysm or large vessel occlusion. Electronically signed by: Brian Henson M.D. 03/20/2017 12:15 PM Dictated Date/Time: 03/20/2017 12:11 PM
--- NOTE | 2017-03-20 12:18 | DIAGNOSTIC IMAGING REPORT ---
MRI OF THE BRAIN WITHOUT IV CONTRAST CLINICAL HISTORY: 3rd cranial nerve palsy. Recent fall. COMPARISON STUDY: CT of the brain dated 03/08/2017. MRI of the brain dated 10/23/2016. TECHNIQUE: MRI of the brain was performed utilizing various T1 and T2-weighted sequences in the axial, sagittal, and coronal planes. IV contrast was not administered for this examination. FINDINGS: Brain parenchyma: There are age-related involutional changes noting moderate patchy subcortical and periventricular microangiopathic disease. There is no hemorrhage or mass effect. There is a punctate focus of restricted diffusion identified in the left parietal lobe seen on axial image #17. No additional foci of restricted diffusion are identified. Alvarez-white matter differentiation is preserved. No extra-axial fluid collection is seen. The cerebellar tonsils are normal in configuration. Ventricles, sulci, and cisterns: Prominent secondary to involutional change. Pituitary and sella: Unremarkable. Intracranial vasculature: Normal flow voids are maintained at the skull base. Orbits: The bony orbits are grossly intact. Orbital contents are normal in appearance noting bilateral ocular lens implants. Sinuses and mastoids: There are small retention cysts in the left maxillary antrum measuring up to 1.4 cm. Trace mucosal thickening is seen in the right maxillary antrum. The remaining paranasal sinuses in the mastoid air cells are clear. Calvarium: Unremarkable. Cervical cord: Partially visualized cervical spinal cord is normal in morphology and signal intensity. IMPRESSION: 1. There is a punctate focus of restricted diffusion identified in the left parietal lobe, likely representing an acute to subacute lacunar infarct. 2. No additional foci of acute ischemia are identified. There is no hemorrhage or mass effect. 3. Senescent changes as above. Electronically signed by: Ru Toure M.D. 03/20/2017 12:17 PM Dictated Date/Time: 03/20/2017 12:09 PM
--- NOTE | 2017-03-20 12:20 | DIAGNOSTIC IMAGING REPORT ---
NECK MRA HISTORY: 3RD NERVE PALSY TECHNIQUE: [id number] MRA of the neck was performed without contrast. All measurements were calculated based on NASCET criteria. COMPARISON STUDY: None. FINDINGS: Study is suboptimal due to the lack of intravenous contrast and the significant motion artifact. The left subclavian artery and proximal left vertebral artery are nondiagnostic. The aortic arch appears to be normal in caliber. The bilateral common carotid, internal carotid, and visualized vertebral arteries appear patent without high-grade stenosis or occlusion. IMPRESSION: No high-grade stenosis, occlusion, or dissection identified within the carotid or vertebral arteries with limitations as described above. Electronically signed by: Brian Henson M.D. 03/20/2017 12:19 PM Dictated Date/Time: 03/20/2017 12:15 PM
== END | disposition home or self-care (01) ==
LOC: C.MRI 10:35
PROVIDERS: ATTEND Internal Medicine
DX: G58.9 Mononeuropathy, unspecified (principal); I66.9 Occlusion and stenosis of unspecified cerebral artery; G93.89 Other specified disorders of brain

== ENCOUNTER 2017-04-27 14:20 | Inpatient (IN) | payer OTHER, MEDICARE ==
[~2017-04-27] VITALS: Ht 162.6 cm; Wt 71.8 kg
[2017-04-27] MEDS ORDERED: LIDOCAINE/EPINEPH/TETRACAINE 1 EA SYR ONE (14:35)
[2017-04-27] MEDS ORDERED: LIDOCAINE/EPINEPH/TETRACAINE 1 EA SYR EXT STA (14:35)
--- NOTE | 2017-04-27 14:35 | EMERGENCY ROOM VISIT NOTE ---
History Report prepared by Magen: Vanesa Cortez Under the Supervision of: Dr. Harman Delgadillo M.D. First contact with patient: 14:26 Chief Complaint: FALL Stated Complaint: FALL/LACERATIONS TO NOSE AND FOREHEAD History of Present Illness The patient is a 86 year old female who presents to the Emergency Room with complaints of an episode of a fall occurring just prior to arrival. The patient states she was turning to grab her walker when she lost her balance and fell. She reports hitting her head and nose on the ground. The patient reports her left eye feels "funny". The patient lives at home alone. She denies any recent sickness. She notes a headache but denies any loss of consciousness, back pain, chest pain, shortness of breath, abdominal pain, extremity pain, numbness or weakness, jaw pain, or neck pain. The patient is on aspirin but no other blood thinners. The patient has a history of a stroke. Source of History: patient Onset: just prior to arrival Position: other (generalized) Quality: other (fall) Timing: other (episode ) Associated Symptoms: + headache, No LOC, No chest pain, No SOB, No abdominal pain, No weakness, No numbness Review of Systems See HPI for pertinent positives & negatives. A total of 10 systems reviewed and were otherwise negative. Past Medical & Surgical Medical Problems: (1) Arthritis (2) CVD (cerebrovascular disease) (3) GI bleed (4) GI bleed (5) HTN (hypertension) (6) Hyperlipemia Surgical Problems: (1) History of hysterectomy Old medical records were reviewed. Nurse's notes were reviewed and I agree with. Family History FHx: cancer Heart disease Hypertension Lung disease Social History Smoking Status: Never Smoker Alcohol Use: none Drug Use: none Marital Status: Housing Status: lives with family Occupation Status: unemployed Current/Historical Medications Scheduled Aspirin (Aspirin Ec), 81 MG PO DAILY Azelastine Hcl (Astelin Nasal [place]), 1-2 SPRAYS NA DAILY Cholecalciferol (Vitamin D 1000 Unit), 2,000 INTER.UNIT PO DAILY Donepezil Hydrochloride (Donepezil Hcl), 10 MG PO HS Lisinopril/Hctz (Zestoretic 20MG/12.5MG), 1 TAB PO DAILY Memantine Hcl (Namenda Xr), 28 MG PO DAILY Metoprolol Succ (Toprol Xl) (Toprol-Xl), 75 MG PO DAILY Multivitamins/Minerals (Mvi With Minerals), 1 TAB PO DAILY Pantoprazole (Protonix), 40 MG PO DAILY Probiotic Product (Probiotic), 1 CAP PO DAILY Ranitidine (Zantac), 300 MG PO HS Rosuvastatin Calcium (Crestor), 20 MG PO DAILY Scheduled PRN Acetaminophen (Tylenol), 1,000 MG PO TID PRN for Headache or Pain Allergies Coded Allergies: Atorvastatin (Verified Allergy, Unknown, UNKOWN, 03/11/17) Paroxetine (Verified Allergy, Unknown, UNKNOWN, 03/11/17) Propoxyphene (Verified Allergy, Unknown, DARVOCET, 04/27/17) Cephalosporins (Verified Adverse Reaction, Mild, NAUSEA, 04/27/17) Codeine (Verified Adverse Reaction, Mild, NAUSEA, 04/27/17) Sulfa Antibiotics (Verified Adverse Reaction, Unknown, NAUSEA, 04/27/17) Physical Exam Vital Signs Date Time Temp Pulse Resp B/P (MAP) Pulse Ox O2 Delivery O2 Flow Rate FiO2 04/27/17 18:50 96 16 161/78 98 Room Air 04/27/17 17:49 72 18 121/74 97 Room Air 04/27/17 14:41 36.8 78 18 184/72 97 Room Air 04/27/17 14:37 79 04/27/17 14:29 36.8 78 16 154/69 98 Room Air Physical Exam General: Non-ill appearing older female in no acute distress. Hard of hearing. HEENT: Normal cephalic.Large laceration on right forehead, no active bleeding small laceration on bridge of nose, dry blood in right nare with small amount of oozing initially, mid face stable Pupils are equal round and reactive to light. Extraocular movements are intact. Oropharynx is pink with moist mucous membranes. No swelling of the mouth lips or tongue. Neck: Supple with a midline trachea. No meningeal signs or stiffness, no JVD or bruits. No Stridor. Chest: Clear to auscultation bilaterally. No wheezes or rhonchi. No increased work of breathing. Heart: regular rate and rhythm. Abdomen: Soft nontender, nondistended without rebound guarding or rigidity. Extremities: No cyanosis clubbing or edema. No calf tenderness or assymetry Spine/Back. Non tender to palpation. No CVA tenderness Skin: Good turgor without rashes. Neurologic exam: Cranial nerves two through 12 are intact. Motor and sensation are intact and symmetrical throughout. Medical Decision & Procedures ER Provider Diagnostic Interpretation: Radiology results as stated below per my review and radiologist interpretation: CT OF THE CERVICAL SPINE FINDINGS: The visualized portions of the lung apices reveal no evidence of pneumothorax. The prevertebral soft tissues are normal. No fractures or subluxations are visualized. There are multilevel degenerative changes IMPRESSION: No evidence of acute fracture or traumatic subluxation. Electronically signed by: Casa Allen M.D. HEAD WITHOUT CONTRAST (CT) FINDINGS: No acute intracranial hemorrhage, midline shift, intracranial mass, hydrocephalus, territorial ischemia or abnormal extra-axial collection. Moderate atrophy with ex vacuo ventriculomegaly. Patchy areas of low attenuation are again seen within the subcortical, deep and periventricular white matter of the cerebral hemispheres bilaterally suggesting chronic microvascular ischemic changes. Focal area of low-attenuation within the left lentiform nucleus is unchanged suggesting remote lacunar infarction or prominent perivascular space. The calvarium is intact. Mastoid air cells and middle ear cavities are clear. Mild polypoid mucosal thickening of the medial left maxillary sinus. Mild soft tissue swelling with 3.0 x 0.3 cm left frontal hematoma and adjacent laceration. No opaque foreign body. IMPRESSION: 1. No acute intracranial abnormality or calvarial fracture. 2. 3.0 cm left frontal scalp hematoma with laceration. No opaque foreign body. The above report was generated using voice recognition software. It may contain grammatical, syntax or spelling errors. Electronically signed by: Mane Norwood M.D. FACIAL BONES-MXILLOFAC WITHOUT FINDINGS: Transport Aircrewman topogram: Unremarkable. Paranasal sinuses demonstrate polypoid mucosal thickening in the left maxillary sinus and are otherwise clear. Trace fluid in the right mastoid air cells. No acute osseous injury. Orbits intact. Bilateral [place] lenses are absent. No significant soft tissue contusion is evident. Limited intracranial evaluation demonstrates age-related changes. Degenerative changes of the bilateral temporomandibular joints. Upper cervical spine with mild degenerative change. IMPRESSION: No acute osseous injury of the face. Electronically signed by: Jann Arzate M.D. CHEST ONE VIEW PORTABLE FINDINGS: There is no pneumothorax or pleural effusion. Lower lung opacities likely reflect atelectasis. A large hiatal hernia is noted. Cardiomegaly is unchanged. There is no evidence for pulmonary edema. There are subacute right lower rib fractures, as shown on CT of March 11, 2017. IMPRESSION: 1. No acute cardiopulmonary findings. 2. Healing right lower rib fractures, as shown on CT of March 11, 2017. 3. Large hiatal hernia. Electronically signed by: Ede Fair M.D. Laboratory Results 04/27/17 17:21 Red Blood Count 3.16, Mean Corpuscular Volume 85.4, Mean Corpuscular Hemoglobin 26.6, Mean Corpuscular Hemoglobin Concent 31.1, Mean Platelet Volume 10.5, Neutrophils (%) (Auto) 75.6, Lymphocytes (%) (Auto) 14.7, Monocytes (%) (Auto) 7.2, Eosinophils (%) (Auto) 1.8, Basophils (%) (Auto) 0.4, Neutrophils # (Auto) 7.65, Lymphocytes # (Auto) 1.49, Monocytes # (Auto) 0.73, Eosinophils # (Auto) 0.18, Basophils # (Auto) 0.04 04/27/17 17:21 Test 04/27/17 17:21 04/27/17 17:27 White Blood Count 10.12 K/uL (4.8-10.8) Red Blood Count 3.16 M/uL (4.2-5.4) Hemoglobin 8.4 g/dL (12.0-16.0) Hematocrit 27.0 % (37-47) Mean Corpuscular Volume 85.4 fL (80-100) Mean Corpuscular Hemoglobin 26.6 pg (25-34) Mean Corpuscular Hemoglobin Concent 31.1 g/dl (32-36) Platelet Count 253 K/uL (130-400) Mean Platelet Volume 10.5 fL (7.4-10.4) Neutrophils (%) (Auto) 75.6 % Lymphocytes (%) (Auto) 14.7 % Monocytes (%) (Auto) 7.2 % Eosinophils (%) (Auto) 1.8 % Basophils (%) (Auto) 0.4 % Neutrophils # (Auto) 7.65 K/uL (1.4-6.5) Lymphocytes # (Auto) 1.49 K/uL (1.2-3.4) Monocytes # (Auto) 0.73 K/uL (0.11-0.59) Eosinophils # (Auto) 0.18 K/uL (0-0.5) Basophils # (Auto) 0.04 K/uL (0-0.2) RDW Standard Deviation 47.0 fL (36.4-46.3) RDW Coefficient of Variation 15.0 % (11.5-14.5) Immature Granulocyte % (Auto) 0.3 % Immature Granulocyte # (Auto) 0.03 K/uL (0.00-0.02) Anisocytosis PRESENT Anion Gap 7.0 mmol/L (3-11) Est Creatinine Clear Calc Drug Dose 35.0 ml/min Estimated GFR () 50.1 Estimated GFR (Non- 43.2 BUN/Creatinine Ratio 22.2 (10-20) Calcium Level 9.4 mg/dl (8.5-10.1) Total Bilirubin 0.2 mg/dl (0.2-1) Direct Bilirubin < 0.1 mg/dl (0-0.2) Aspartate Amino Transf (AST/SGOT) 21 U/L (15-37) Alanine Aminotransferase (ALT/SGPT) 36 U/L (12-78) Alkaline Phosphatase 204 U/L (45-117) Total Protein 6.7 gm/dl (6.4-8.2) Albumin 3.1 gm/dl (3.4-5.0) Lipase 436 U/L (73-393) Bedside Troponin I < 0.030 ng/ml (0-0.045) Laboratory studies as stated above per my review. Medications Administered Medications (Trade) Dose Ordered Sig/Christian Route Start Time Stop Time Status Last Admin Dose Admin Tetracaine/ Epinephrine/ Lidocaine (L.e.t. Gel 4%/ 1:100/0.5%) 2 ea STK-MED ONCE .ROUTE 04/27/17 14:35 04/27/17 14:36 DC 04/27/17 14:35 2 EA Diphtheria/ Pertussis/Tetanus Vacc (Adacel Inj) 0.5 ml ONCE ONCE IM. 04/27/17 15:30 04/27/17 15:31 DC 04/27/17 15:30 0.5 ML ECG Indication: bradycardia (68), weakness Rate (beats per minute): 68 Rhythm: normal sinus Findings: LBBB, left axis deviation Change: no significant change Change: No significant change compared to 03/03/2017 ED Course 1427: Past medical records reviewed. The patient was evaluated in room A4B, and a complete history and physical examination were performed. 1435: Ordered Tetra/Epinephrine/Lidocaine 1 ea EXT, Tetra/Epinephrine/Lidocaine 2 ea .ROUTE. 1445: Ordered Lidocaine HCl 20 ml INFIL. 1530: Ordered Diphtheria/Pertussis/Tetanus Vacc 0.5 ml IM. 1529: I updated the patient on her test results. 1555: Jose Liz PA-C suturing up the patient's lacerations. The patient's daughter is now at bedside and she does not think the patient is safe to go home. We will try to get the patient into a rehab clinic. 1727: Discussed the patient's case with Dr. Angela Pelletier-[facility]. The patient will be evaluated for further management. Medical Decision Differential diagnoses include: laceration, head injury, skull fracture, facial fracture, neck injury. This patient comes in as described above. She was placed in room A4. She comes in after suffering a mechanical fall. She has a laceration on her forehead as well as a small one on the bridge of her nose. Given her head and facial trauma, I did order CAT scan of the head face and neck. LET gel was applied. This was from losing her balance. There is no syncope or any other signs to suggest this with anything but a mechanical fall. She was reassessed frequently. Her lacerations were repaired. Her tetanus status was unknown and so we did give her an Adacel IM booster. The daughter is very concerned about her being at home and does not feel she is safe. CAT scans of the head neck and face were unremarkable. EKG does not show any acute findings. Hemoglobin is somewhat lower compared to previous some this may be blood loss is had no other symptoms. She was in [facility] recently and the family asked that we get her back in there, unfortunately that was not possible today as they did not have beds we did have PT and OT evaluation in the ER and our case management team work to try to place her from the ER but was unable to. The PT and OT did feel that she needs to go to rehabilitation and she's not safe to go home. I have consulted Dr. Yadav to see her in the ER and admit/observe her for further treatment and evaluation. Medication Reconcilliation Current Medication List: was personally reviewed by me Blood Pressure Screening Patient's blood pressure: Elevated blood pressure Blood pressure disposition: Referred to PCP (further evaluated by hospitalist) Consults Time Called: 1719 Consulting Physician: Dr. Angela Chandler Returned Call: [phone] Discussed the patient's case with Dr. Angela Chandler. The patient will be evaluated for further management. Impression Primary Impression: Laceration Additional Impressions: Head injury Ambulatory dysfunction Dizziness Scribe Attestation The scribe's documentation has been prepared under my direction and personally reviewed by me in its entirety. I confirm that the note above accurately reflects all work, treatment, procedures, and medical decision making performed by me. Departure Information Dispostion Being Evaluated By Hospitalist Referrals Kavin Hall M.D. (PCP) Patient Instructions My [facility] Problem Qualifiers
[2017-04-27] MEDS ORDERED: XYLOCAINE 1%/SOD BICARB 20 ML VIAL INFIL ONE (14:45)
--- NOTE | 2017-04-27 15:20 | DIAGNOSTIC IMAGING REPORT ---
HEAD WITHOUT CONTRAST (CT) CLINICAL HISTORY: 86 years-old Female with eval for trauma. Acute head injury status post trauma TECHNIQUE: Multiple axial CT images of the head were obtained without contrast. A dose lowering technique was utilized adhering to the principles of ALARA. COMPARISON: CT head 03/08/2017. FINDINGS: No acute intracranial hemorrhage, midline shift, intracranial mass, hydrocephalus, territorial ischemia or abnormal extra-axial collection. Moderate atrophy with ex vacuo ventriculomegaly. Patchy areas of low attenuation are again seen within the subcortical, deep and periventricular white matter of the cerebral hemispheres bilaterally suggesting chronic microvascular ischemic changes. Focal area of low-attenuation within the left lentiform nucleus is unchanged suggesting remote lacunar infarction or prominent perivascular space. The calvarium is intact. Mastoid air cells and middle ear cavities are clear. Mild polypoid mucosal thickening of the medial left maxillary sinus. Mild soft tissue swelling with 3.0 x 0.3 cm left frontal hematoma and adjacent laceration. No opaque foreign body. IMPRESSION: 1. No acute intracranial abnormality or calvarial fracture. 2. 3.0 cm left frontal scalp hematoma with laceration. No opaque foreign body. The above report was generated using voice recognition software. It may contain grammatical, syntax or spelling errors. Electronically signed by: Mane Norwood M.D. 04/27/2017 3:19 PM Dictated Date/Time: 04/27/2017 3:16 PM
--- NOTE | 2017-04-27 15:24 | DIAGNOSTIC IMAGING REPORT ---
CT OF THE CERVICAL SPINE CLINICAL HISTORY: Neck pain status post trauma COMPARISON STUDY: September 05, 2012 CT DOSE: TECHNIQUE: CT scan of the cervical spine was performed from the skull base to the thoracic inlet. Images are reviewed in the axial, sagittal, and coronal planes. IV contrast was not administered for this examination. A dose lowering technique was utilized adhering to the principles of ALARA. FINDINGS: The visualized portions of the lung apices reveal no evidence of pneumothorax. The prevertebral soft tissues are normal. No fractures or subluxations are visualized. There are multilevel degenerative changes IMPRESSION: No evidence of acute fracture or traumatic subluxation. Electronically signed by: Casa Allen M.D. 04/27/2017 3:23 PM Dictated Date/Time: 04/27/2017 3:20 PM
--- NOTE | 2017-04-27 15:25 | DIAGNOSTIC IMAGING REPORT ---
FACIAL BONES-MXILLOFAC WITHOUT CLINICAL HISTORY: 86 years-old Female presenting with eval for trauma. TECHNIQUE: Multidetector CT of the face was performed without the use of intravenous contrast. IV contrast: None. A dose lowering technique was used consistent with the principles of ALARA (as low as reasonably achievable). COMPARISON: 10/11/2006. CT DOSE (mGy.cm): The estimated cumulative dose is 1112.60 mGy.cm. FINDINGS: Chemical Librarian topogram: Unremarkable. Paranasal sinuses demonstrate polypoid mucosal thickening in the left maxillary sinus and are otherwise clear. Trace fluid in the right mastoid air cells. No acute osseous injury. Orbits intact. Bilateral the [place] lenses are absent. No significant soft tissue contusion is evident. Limited intracranial evaluation demonstrates age-related changes. Degenerative changes of the bilateral temporomandibular joints. Upper cervical spine with mild degenerative change. IMPRESSION: No acute osseous injury of the face. Electronically signed by: Jann Arzate M.D. 04/27/2017 3:24 PM Dictated Date/Time: 04/27/2017 3:22 PM
[2017-04-27] MEDS ORDERED: DIPHTHERIA/TETANUS/PERTUSSIS 0.5 ML SYR/VIAL IM. ONE (15:30)
--- NOTE | 2017-04-27 17:02 | EMERGENCY ROOM VISIT NOTE ---
ED Visit Note Patient was seen and evaluated by Dr. Delgadillo. Risks and benefits of performing primary wound closure versus no repair were discussed with the patient who verbalizes understanding. Verbal consent was obtained prior to performing the procedure. 5 cc of 1% buffered lidocaine was used to anesthetize the Facial laceration and nose laceration. Left scalp laceration 8cm and nasal laceration 1 cm. The wound was cleansed and prepped in the typical sterile fashion utilizing normal saline and Betadine. The wound was sterilely draped. Once proper anesthetization was established, the wound was further examined and demonstrated no deep involvement. The wound was copiously irrigated with normal saline and Betadine. The forehead wound was closed using 2 simple, 5-0 vicryl sutures underneath with 11, 6-0 nylon sutures superficially and the nose with 1 , 6-0 nylon suture with the wound edges being well approximated. Patient tolerated the procedure well. Please refer to further documentation regarding her stay
[2017-04-27 17:44] LABS: BASO % 0.4 %; BASO ABS # 0.04 K/uL (0-0.2); EOS % 1.8 %; EOS ABS # 0.18 K/uL (0-0.5); HEMOGLOBIN 8.4 g/dL (12.0-16.0); IG# 0.03 K/uL (0.00-0.02); LYMPH % 14.7 %; LYMPH ABS # 1.49 K/uL (1.2-3.4); MEAN CELL VOLUME 85.4 fL (80-100); MEAN CORPUSCULAR HEMOGLOBIN 26.6 pg (25-34); MEAN CORPUSCULAR HGB CONC 31.1 g/dl (32-36); MEAN PLATELET VOLUME 10.5 fL (7.4-10.4); MONO % 7.2 %; MONO ABS # 0.73 K/uL (0.11-0.59); NEUT % 75.6 %; NEUT ABS # 7.65 K/uL (1.4-6.5); PLATELET COUNT 253 K/uL (130-400); WHITE BLOOD COUNT 10.12 K/uL (4.8-10.8)
--- NOTE | 2017-04-27 17:49 | DIAGNOSTIC IMAGING REPORT ---
CHEST ONE VIEW PORTABLE CLINICAL HISTORY: Chest pain. Fall. COMPARISON STUDY: Chest CT no March 11, 2017 per FINDINGS: There is no pneumothorax or pleural effusion. Lower lung opacities likely reflect atelectasis. A large hiatal hernia is noted. Cardiomegaly is unchanged. There is no evidence for pulmonary edema. There are subacute right lower rib fractures, as shown on CT of March 11, 2017. IMPRESSION: 1. No acute cardiopulmonary findings. 2. Healing right lower rib fractures, as shown on CT of March 11, 2017. 3. Large hiatal hernia. Electronically signed by: Ede Fair M.D. 04/27/2017 5:48 PM Dictated Date/Time: 04/27/2017 5:46 PM
[2017-04-27 18:02] LABS: ALBUMIN 3.1 gm/dl (3.4-5.0); ALT/SGPT 36 U/L (12-78); AST/SGOT 21 U/L (15-37); BLOOD UREA NITROGEN 26 mg/dl (7-18); CALCIUM 9.4 mg/dl (8.5-10.1); CARBON DIOXIDE 28 mmol/L (21-32); CREATININE 1.16 mg/dl (0.60-1.20); GLUCOSE 105 mg/dl (70-99); LIPASE 436 U/L (73-393); POTASSIUM 4.1 mmol/L (3.5-5.1); SODIUM 139 mmol/L (136-145)
[2017-04-27 18:04] LABS: ALKALINE PHOSPHATASE 204 U/L (45-117); TOTAL PROTEIN 6.7 gm/dl (6.4-8.2)
[2017-04-27] MEDS ORDERED: ZOLPIDEM TARTRATE 5 MG TAB PO PRN (20:30)
[2017-04-27] MEDS ORDERED: ACETAMINOPHEN 500 MG TAB PO PRN (20:30)
[2017-04-27] MEDS ORDERED: MAGNESIUM HYDROXIDE SUSP 30 ML UDC PO PRN (20:30)
[2017-04-27] MEDS ORDERED: ONDANSETRON INJ 2 MG/ML 2 ML VIAL IV PRN (20:30)
[2017-04-27] MEDS ORDERED: POLYETHYLENE (MIRALAX) 17 GM PACK PO PRN (20:30)
--- NOTE | 2017-04-27 20:35 | History and Physical ---
History & Physical Date & Time of Service: Apr 27, 2017 at 20:29 Chief Complaint: Fall/Lacerations To Nose And Forehead Primary Care Physician: Kavin Hall M.D. History of Present Illness Source: patient 86-year-old female with past medical history of hypertension, dyslipidemia and diabetes mellitus presented to the ED after falling and bruising her left forehead. Patient they said that she was standing and she thinks that she tried to walk or take a few steps and then she fell and hit her head but she is not sure. I felt that she doesn't remember exactly how she fell and she was trying to fill gaps in her memory. About 3 months ago she fell and she fractured one of her ribs that's currently healing on imaging. On arrival ED physician did CAT scan head and cervical spine they were all negative She has no dizziness and denies any dizziness prior to falling. PT and OT evaluated her in ED and they think she needs referral to rehabilitation. Review of systems negative Currently lives with her son Past Medical/Surgical History Medical Problems: (1) Arthritis Status: Chronic (2) GI bleed Status: Resolved (3) GI bleed Status: Resolved (4) HTN (hypertension) Status: Chronic (5) Hyperlipemia Status: Chronic Surgical Problems: (1) History of hysterectomy Status: Resolved Family History FHx: cancer Heart disease Hypertension Lung disease Social History Smoking Status: Never Smoker Drug Use: none Marital Status: Occupational Status: unemployed Multi-Drug Resistant Organisms History of MDRO: No Allergies Coded Allergies: Atorvastatin (Verified Allergy, Unknown, UNKOWN, 03/11/17) Paroxetine (Verified Allergy, Unknown, UNKNOWN, 03/11/17) Propoxyphene (Verified Allergy, Unknown, DARVOCET, 04/27/17) Cephalosporins (Verified Adverse Reaction, Mild, NAUSEA, 04/27/17) Codeine (Verified Adverse Reaction, Mild, NAUSEA, 04/27/17) Sulfa Antibiotics (Verified Adverse Reaction, Unknown, NAUSEA, 04/27/17) Home Medications Scheduled Aspirin (Aspirin Ec), 81 MG PO DAILY Azelastine Hcl (Astelin Nasal [place]), 1-2 SPRAYS NA DAILY Cholecalciferol (Vitamin D 1000 Unit), 2,000 INTER.UNIT PO DAILY Donepezil Hydrochloride (Donepezil Hcl), 10 MG PO HS Lisinopril/Hctz (Zestoretic 20MG/12.5MG), 1 TAB PO DAILY Memantine Hcl (Namenda Xr), 28 MG PO DAILY Metoprolol Succ (Toprol Xl) (Toprol-Xl), 75 MG PO DAILY Multivitamins/Minerals (Mvi With Minerals), 1 TAB PO DAILY Pantoprazole (Protonix), 40 MG PO DAILY Probiotic Product (Probiotic), 1 CAP PO DAILY Ranitidine (Zantac), 300 MG PO HS Rosuvastatin Calcium (Crestor), 20 MG PO DAILY Scheduled PRN Acetaminophen (Tylenol), 1,000 MG PO TID PRN for Headache or Pain Review of Systems Constitutional: No fever, No chills, No sweats, No weight loss, No weakness, No fatigue, No problem reported Eyes: No worsening of vision, No eye pain, No redness, No discharge, No diplopia, No problem reported ENT: No hearing loss, No unusual epistaxis, No nasal symptoms, No sore throat, No tinnitus, No dental problems, No trouble swallowing, No problem reported Respiratory: No cough, No sputum, No wheezing, No shortness of breath, No dyspnea on exertion, No dyspnea at rest, No hemoptysis, No problem reported Cardiovascular: No chest pain, No orthopnea, No PND, No edema, No claudication , No palpitations, No problem reported Abdomen: No pain, No nausea, No vomiting, No diarrhea, No constipation, No GI bleeding, No problem reported Musculoskeletal: + joint pain, + muscle pain, No swelling, No calf pain, No problem reported Genitourinary - Female: No dysuria, No urinary frequency, No urinary urgency, No urinary incontinence, No urinary retention, No hematuria, No dysmenorrhea, No menorrhagia, No metrorrhagia, No rash, No vaginal bleeding, No vaginal discharge, No vaginal itching, No vulvodynia, No , No problem reported Neurologic: No memory loss, No paralysis, No weakness, No numbness/tingling, No vertigo, No balance problems, No problem reported Psychiatric: No depression symptoms, No anhedonism, No anxiety, No insomnia, No substance abuse, No problem reported Endocrine: No fatigue, No excessive thirst, No excessive urination, No problem reported Hematologic / Lymphatic: No abnormal bleeding/bruising, No clotting problems, No swollen lymph nodes, No night sweats, No problem reported Integumentary: No rash, No itch, No new/changing skin lesions, No color change , No bleeding, No problem reported Allergic / Immunologic: No environmental allergies, No seasonal allergies, No pet sensitivities, No food allergies, No hives, No frequent infections, No poor healing, No prolonged convalescence, No problem reported Physical Exam Vital Signs Date Time Temp Pulse Resp B/P (MAP) Pulse Ox O2 Delivery O2 Flow Rate FiO2 04/27/17 20:19 72 16 186/76 98 Room Air 04/27/17 18:50 96 16 161/78 98 Room Air 04/27/17 17:49 72 18 121/74 97 Room Air 04/27/17 14:41 36.8 78 18 184/72 97 Room Air 04/27/17 14:37 79 04/27/17 14:29 36.8 78 16 154/69 98 Room Air General Appearance: WD/WN, no apparent distress Head: + pertinent finding (traumatic wounds on her left forehead and a Tarer on her scalp) Eyes: normal inspection, EOMI ENT: normal ENT inspection, hearing grossly normal Neck: supple Respiratory/Chest: chest non-tender, lungs clear, normal breath sounds, no respiratory distress, no accessory muscle use Cardiovascular: regular rate, rhythm, no edema, no gallop, no JVD, no murmur, normal peripheral pulses Abdomen/GI: normal bowel sounds, non tender, soft, no organomegaly, no pulsatile mass Back: normal inspection Extremities/Musculoskelatal: normal inspection, no calf tenderness, normal capillary refill, no pedal edema, normal range of motion Neurologic/Psych: [employer] II-XII nml as tested, no motor/sensory deficits, alert, normal mood/affect, normal reflexes, oriented x 3 Skin: normal color, warm/dry, no rash Diagnostics Laboratory Results Results Past 24 Hours Test 04/27/17 17:21 04/27/17 17:27 Range/Units White Blood Count 10.12 4.8-10.8 K/uL Red Blood Count 3.16 4.2-5.4 M/uL Hemoglobin 8.4 12.0-16.0 g/dL Hematocrit 27.0 37-47 % Mean Corpuscular Volume 85.4 80-100 fL Mean Corpuscular Hemoglobin 26.6 25-34 pg Mean Corpuscular Hemoglobin Concent 31.1 32-36 g/dl Platelet Count 253 130-400 K/uL Mean Platelet Volume 10.5 7.4-10.4 fL Neutrophils (%) (Auto) 75.6 % Lymphocytes (%) (Auto) 14.7 % Monocytes (%) (Auto) 7.2 % Eosinophils (%) (Auto) 1.8 % Basophils (%) (Auto) 0.4 % Neutrophils # (Auto) 7.65 1.4-6.5 K/uL Lymphocytes # (Auto) 1.49 1.2-3.4 K/uL Monocytes # (Auto) 0.73 0.11-0.59 K/uL Eosinophils # (Auto) 0.18 0-0.5 K/uL Basophils # (Auto) 0.04 0-0.2 K/uL RDW Standard Deviation 47.0 36.4-46.3 fL RDW Coefficient of Variation 15.0 11.5-14.5 % Immature Granulocyte % (Auto) 0.3 % Immature Granulocyte # (Auto) 0.03 0.00-0.02 K/uL Anisocytosis PRESENT Sodium Level 139 136-145 mmol/L Potassium Level 4.1 3.5-5.1 mmol/L Chloride Level 104 98-107 mmol/L Carbon Dioxide Level 28 21-32 mmol/L Anion Gap 7.0 3-11 mmol/L Blood Urea Nitrogen 26 7-18 mg/dl Creatinine 1.16 0.60-1.20 mg/dl Est Creatinine Clear Calc Drug Dose 35.0 ml/min Estimated GFR () 50.1 Estimated GFR (Non- 43.2 BUN/Creatinine Ratio 22.2 10-20 Random Glucose 105 70-99 mg/dl Calcium Level 9.4 8.5-10.1 mg/dl Total Bilirubin 0.2 0.2-1 mg/dl Direct Bilirubin < 0.1 0-0.2 mg/dl Aspartate Amino Transf (AST/SGOT) 21 15-37 U/L Alanine Aminotransferase (ALT/SGPT) 36 12-78 U/L Alkaline Phosphatase 204 45-117 U/L Total Protein 6.7 6.4-8.2 gm/dl Albumin 3.1 3.4-5.0 gm/dl Lipase 436 73-393 U/L Bedside Troponin I < 0.030 0-0.045 ng/ml Impression Assessment and Plan 86 year old female with past medical history of diabetes mellitus, dyslipidemia and hypertension came to the ED with recurrent falls most recent is today with large bruise and tear on her scalp. Assessment Status post fall from ground level, most likely mechanical but the patient does not remember for sure CT head, CT cervical spine are negative We'll order 2-D echo rule out any significant aortic stenosis since patient is not sure that it was mechanical fall We'll keep patient under telemetry make sure no arrhythmia PT OT evaluation recommended rehabilitation Hypertension Continue blood pressure meds Hold aspirin for 2 days due to her fall Dementia continue memantine. GERD Continue PPI and H2 mayra Hyperlipidemia Continue Crestor DVT prophylaxis will be only SCD boot/BEATRIZ hose Avoid pharmacologic DVT prophylaxis for now due to her recent fall Resuscitation Status FULL RESUSCITATION VTE Prophylaxis VTE Risk Assessment Done? Y/N: No Risk Level: Moderate
[2017-04-27] MEDS: ALUMINUM/MAGNESIUM/SIMETH (MAALOX MAX) 30 ML UDC PO PRN (21:50)
[2017-04-27 23:13] VITALS: BP 176/79; PULSE 78; TEMP 36.5; O2SAT 98; Ht 162.6 cm; Wt 71.8 kg
[2017-04-27 23:56] VITALS: BP 180/67; PULSE 71; TEMP 36.5; O2SAT 95
[2017-04-28] VITALS (15 sets, daily range): BP systolic 116–168; BP diastolic 58–85; PULSE 61–75; TEMP 36.4–37.1; O2SAT 94–97
[2017-04-28] MEDS: RANITIDINE HCL 150 MG TAB PO SCH ×2 (00:05→21:05)
[2017-04-28] MEDS: DONEPEZIL HCL 10 MG TAB PO SCH ×2 (00:06→21:05)
[2017-04-28] MEDS: SODIUM CHLORIDE 0.9% 1000ML 1,000 ML IV SCH ×2 (00:07→21:02)
[2017-04-28] MEDS: ACETAMINOPHEN 325 MG TAB PO PRN ×2 (00:10→17:49)
[2017-04-28] MEDS ORDERED: HydrALAZINE HCL 20 MG/ML VIAL ONE (01:34)
[2017-04-28] MEDS: HydrALAZINE HCL 20 MG/ML VIAL ONE ×2 (01:35→01:46)
[2017-04-28] MEDS ORDERED: KETOROLAC TROMETHAMINE 15 MG/ML VIAL IV PRN (02:15)
[2017-04-28] MEDS ORDERED: KETOROLAC TROMETHAMINE 15 MG/ML VIAL ONE (02:43)
[2017-04-28] MEDS: ALUMINUM/MAGNESIUM/SIMETH (MAALOX MAX) 30 ML UDC PO PRN ×3 (02:48→21:20)
[2017-04-28 07:31] LABS: BASO % 0.4 %; BASO ABS # 0.03 K/uL (0-0.2); EOS % 2.7 %; EOS ABS # 0.22 K/uL (0-0.5); HEMOGLOBIN 7.4 g/dL (12.0-16.0); IG# 0.02 K/uL (0.00-0.02); LYMPH ABS # 1.55 K/uL (1.2-3.4); MEAN CELL VOLUME 84.6 fL (80-100); MEAN CORPUSCULAR HEMOGLOBIN 27.2 pg (25-34); MEAN CORPUSCULAR HGB CONC 32.2 g/dl (32-36); MEAN PLATELET VOLUME 10.3 fL (7.4-10.4); MONO % 8.7 %; MONO ABS # 0.71 K/uL (0.11-0.59); NEUT ABS # 5.63 K/uL (1.4-6.5); PLATELET COUNT 206 K/uL (130-400); RED CELL DISTRIBUTION WIDTH CV 15.1 % (11.5-14.5); RED CELL DISTRIBUTION WIDTH SD 46.1 fL (36.4-46.3); WHITE BLOOD COUNT 8.16 K/uL (4.8-10.8)
[2017-04-28 07:57] LABS: ALBUMIN 2.6 gm/dl (3.4-5.0); CALCIUM 8.6 mg/dl (8.5-10.1); CREATININE 1.3 mg/dl (0.60-1.20); POTASSIUM 4.4 mmol/L (3.5-5.1)
[2017-04-28 08:00] LABS: TOTAL PROTEIN 5.7 gm/dl (6.4-8.2)
[2017-04-28] MEDS: LACTOBACILLUS ACIDOPHILUS (FLORANEX) TAB PO SCH (08:09)
[2017-04-28] MEDS: PANTOprazole SOD 40 MG TAB PO SCH (08:10)
[2017-04-28] MEDS: ROSUVASTATIN CALCIUM 20 MG TAB PO SCH (08:10)
[2017-04-28] MEDS: CEROVITE ADV FORMULA TAB PO SCH (08:10)
[2017-04-28] MEDS: METOPROLOL SUCC 25MG EXT REL TAB PO SCH (08:11)
[2017-04-28] MEDS ORDERED: LISINOPRIL/HCTZ 20/12.5MG TAB PO SCH (09:00)
--- NOTE | 2017-04-28 09:54 | DIAGNOSTIC IMAGING REPORT ---
ULTRASOUND OF THE CAROTID ARTERIES CLINICAL HISTORY: Fall. Possible syncope. COMPARISON STUDY: January 2014 TECHNIQUE: Real-time, grayscale, and color Doppler sonography of the carotid arteries was performed. Imaging reviewed in the transverse and longitudinal planes. NASCET criteria was utilized for stenosis calcification. FINDINGS: There is minor atherosclerotic plaque present . The peak systolic velocity within the right internal carotid artery is 71 cm/sec. The systolic velocity ratio of right internal to common carotid artery is 0.7. The peak systolic velocity within the left internal carotid artery is 79 cm/sec. The systolic velocity ratio left internal to common carotid artery is 0.8. Antegrade flow is seen in the vertebral arteries. The external carotid arteries are patent. Blood pressure in the right arm measured 157 mm/Hg. Blood pressure in the left arm measured 164 mm/Hg. IMPRESSION: No evidence of hemodynamically significant carotid stenosis. Electronically signed by: Casa Allen M.D. 04/28/2017 9:53 AM Dictated Date/Time: 04/28/2017 9:51 AM
--- NOTE | 2017-04-28 11:21 | Hospitalist Progress Note ---
Hospitalist Progress Note Date of Service Apr 28, 2017. Subjective Pt evaluation today including: conversation w/ patient, physical exam, chart review, lab review, review of inpatient medication list Voiding: no voiding problems Ms. Ralph has a mild headache but otherwise feels ok. No nausea or blurred vision or increase in headaches. She is not sure what made her fall either this time or three months ago. ROS Constitutional: no chills, aches, sweats or fever Respiratory: no sob,cough, sputum, or wheezing Cardiac: no chest pain, palpitations, edema, orthopnea or lightheadedness GI: no abdominal pain, nausea, vomiting, diarrhea or constipation : no dysuria or hesitancy Extremities: no joint pain or weakness Skin: no rash All other systems reviewed and negative Medications Medications (Trade) Dose Ordered Sig/Christian Route Start Time Stop Time Status Last Admin Dose Admin Tetracaine/ Epinephrine/ Lidocaine (L.e.t. Gel 4%/ 1:100/0.5%) 2 ea STK-MED ONCE .ROUTE 04/27/17 14:35 04/27/17 14:36 DC 04/27/17 14:35 2 EA Diphtheria/ Pertussis/Tetanus Vacc (Adacel Inj) 0.5 ml ONCE ONCE IM. 04/27/17 15:30 04/27/17 15:31 DC 04/27/17 15:30 0.5 ML HCTZ/Lisinopril (Prinzide 20-12.5MG Tab) 1 tab DAILY PO 04/28/17 09:00 04/28/17 09:00 DC 04/28/17 08:10 1 TAB Metoprolol Succinate (Toprol Xl Tab) 75 mg DAILY PO 04/28/17 09:00 05/28/17 08:59 04/28/17 08:11 75 MG Multivitamins/ Minerals (Multivitamin W/ Minerals Tab) 1 tab DAILY PO 04/28/17 09:00 05/28/17 08:59 04/28/17 08:10 1 TAB Pantoprazole Sodium (Protonix Tab) 40 mg DAILY PO 04/28/17 09:00 05/28/17 08:59 04/28/17 08:10 40 MG Rosuvastatin Calcium (Crestor Tab) 20 mg DAILY PO 04/28/17 09:00 05/28/17 08:59 04/28/17 08:10 20 MG Donepezil HCl (Aricept Tab) 10 mg HS PO 04/27/17 21:00 05/27/17 20:59 04/28/17 00:06 10 MG Lactobacillus Acidophilus (Floranex Tab) 4 tab DAILY PO 04/28/17 09:00 05/28/17 08:59 04/28/17 08:09 4 TAB Ranitidine HCl (zANTac TAB) 300 mg HS PO 04/27/17 21:00 05/27/17 20:59 04/28/17 00:05 300 MG Sodium Chloride 1,000 ml @ 30 mls/hr Q24H IV 04/27/17 20:18 05/27/17 20:17 04/28/17 00:07 30 MLS/HR Acetaminophen (Tylenol Tab) 650 mg Q4H PRN PO 04/27/17 20:30 05/27/17 20:29 04/28/17 00:10 650 MG Al Hydrox/Mg Hydrox/Simethicone (Maalox Max Susp) 15 ml Q4H PRN PO 04/27/17 20:30 05/27/17 20:29 04/28/17 02:48 15 ML Hydralazine HCl (HydrALAZINE INJ) 20 mg STK-MED ONCE .ROUTE 04/28/17 01:30 04/28/17 01:31 DC 04/28/17 01:46 10 MG Ketorolac Tromethamine (Toradol Inj) 15 mg STK-MED ONCE .ROUTE 04/28/17 02:43 04/28/17 02:44 DC 04/28/17 02:46 15 MG Objective Vital Signs Date Time Temp Pulse Resp B/P (MAP) Pulse Ox O2 Delivery O2 Flow Rate FiO2 04/28/17 08:00 97 Room Air 04/28/17 07:03 36.4 73 16 150/68 (95) 97 Room Air 04/28/17 05:21 36.7 74 17 134/73 (93) 97 Room Air 04/28/17 04:00 Room Air 04/28/17 02:07 66 121/61 (81) 04/27/17 23:56 36.5 71 18 180/67 (104) 95 Room Air 04/27/17 23:13 36.5 78 18 176/79 98 Room Air 04/27/17 21:39 68 16 172/72 98 Room Air 04/27/17 20:19 72 16 186/76 98 Room Air 04/27/17 18:50 96 16 161/78 98 Room Air 04/27/17 17:49 72 18 121/74 97 Room Air 04/27/17 14:41 36.8 78 18 184/72 97 Room Air 04/27/17 14:37 79 04/27/17 14:29 36.8 78 16 154/69 98 Room Air Physical Exam Notes: General: no distress Eyes: normal inspection, PERLL Respiratory: chest non tender, clear to auscultation, normal breath sounds, no respiratory distress, no accessory muscle use Cardiac: regular rate and rhythm, no rub or gallop, no murmur, no edema, no jvd GI/: active bowel sounds, no abd pain or tenderness, soft, non distended Extremities: normal range of motion, normal strength, non tender Neuro/Psych: alert and oriented x 3, normal mood and affect Skin: normal color, dry, laceration over left eye with ecchymosis around left head and bilateral eyes Laboratory Results Last 24 Hours Test 04/27/17 17:21 04/27/17 17:27 04/28/17 07:14 White Blood Count 10.12 K/uL 8.16 K/uL Red Blood Count 3.16 M/uL 2.72 M/uL Hemoglobin 8.4 g/dL 7.4 g/dL Hematocrit 27.0 % 23.0 % Mean Corpuscular Volume 85.4 fL 84.6 fL Mean Corpuscular Hemoglobin 26.6 pg 27.2 pg Mean Corpuscular Hemoglobin Concent 31.1 g/dl 32.2 g/dl Platelet Count 253 K/uL 206 K/uL Mean Platelet Volume 10.5 fL 10.3 fL Neutrophils (%) (Auto) 75.6 % 69.0 % Lymphocytes (%) (Auto) 14.7 % 19.0 % Monocytes (%) (Auto) 7.2 % 8.7 % Eosinophils (%) (Auto) 1.8 % 2.7 % Basophils (%) (Auto) 0.4 % 0.4 % Neutrophils # (Auto) 7.65 K/uL 5.63 K/uL Lymphocytes # (Auto) 1.49 K/uL 1.55 K/uL Monocytes # (Auto) 0.73 K/uL 0.71 K/uL Eosinophils # (Auto) 0.18 K/uL 0.22 K/uL Basophils # (Auto) 0.04 K/uL 0.03 K/uL RDW Standard Deviation 47.0 fL 46.1 fL RDW Coefficient of Variation 15.0 % 15.1 % Immature Granulocyte % (Auto) 0.3 % 0.2 % Immature Granulocyte # (Auto) 0.03 K/uL 0.02 K/uL Anisocytosis PRESENT Sodium Level 139 mmol/L 139 mmol/L Potassium Level 4.1 mmol/L 4.4 mmol/L Chloride Level 104 mmol/L 107 mmol/L Carbon Dioxide Level 28 mmol/L 28 mmol/L Anion Gap 7.0 mmol/L 4.0 mmol/L Blood Urea Nitrogen 26 mg/dl 26 mg/dl Creatinine 1.16 mg/dl 1.30 mg/dl Est Creatinine Clear Calc Drug Dose 35.0 ml/min 30.4 ml/min Estimated GFR () 50.1 43.6 Estimated GFR (Non- 43.2 37.6 BUN/Creatinine Ratio 22.2 20.1 Random Glucose 105 mg/dl 95 mg/dl Calcium Level 9.4 mg/dl 8.6 mg/dl Total Bilirubin 0.2 mg/dl 0.3 mg/dl Direct Bilirubin < 0.1 mg/dl Aspartate Amino Transf (AST/SGOT) 21 U/L 17 U/L Alanine Aminotransferase (ALT/SGPT) 36 U/L 26 U/L Alkaline Phosphatase 204 U/L 166 U/L Total Protein 6.7 gm/dl 5.7 gm/dl Albumin 3.1 gm/dl 2.6 gm/dl Lipase 436 U/L 324 U/L Bedside Troponin I < 0.030 ng/ml Hypochromasia PRESENT Phosphorus Level 3.0 mg/dl Magnesium Level 2.1 mg/dl Globulin 3.1 gm/dl Albumin/Globulin Ratio 0.8 Assessment and Plan 86 year old female here due to fall Status post fall from ground level, unknown precipitant - CT head, CT cervical spine, carotid US are negative - echo pending - continue tele monitoring - PT OT evaluation recommended rehabilitation Anemia - hgb 8.4 on admission, 7.4 today - no obvious s/s of bleed - repeat h&h 1200 CKD III - Creat 1.3, this is around baseline - avoid nephrotoxins when possible Hypertension - Continue blood pressure meds - Hold aspirin due to her fall, anemia Dementia - continue memantine. GERD - Continue PPI and H2 mayra Hyperlipidemia - Continue Crestor DVT prophylaxis will be only SCD boot/BEATRIZ hose Avoid pharmacologic DVT prophylaxis for now due to her recent fall
[2017-04-28 12:40] LABS: HEMATOCRIT 24.5 % (37-47); HEMOGLOBIN 7.8 g/dL (12.0-16.0)
--- NOTE | 2017-04-28 17:11 | ECHOCARDIOGRAM REPORT ---
*NOTICE TO RECEIVING [employer] This information is strictly Confidential and protected under [place] law. [place] law prohibits you from making any further disclosure of this information unless further disclosure is expressly permitted by the written consent of the person to whom it pertains or is authorized by law. A general authorization for the release of medical or other information is not sufficient for this purpose. Hospital accepts no responsibility if the information is made available to any other person, INCLUDING THE PATIENT. Interpretation Summary * Name: SHAKA MARSHALL I Study Date: 04/28/2017 11:41 AM BP: 134/73 mmHg * Patient Location: [facility]\S\N283\S\1 HR: 74 * : 1930 (M/d/yyyy) Gender: Female Height: 64 in * Age: 86 yrs Ethnicity: [place] Weight: 157 lb * Ordering Physician: Kam Wang * Referring Physician: Self, Referred * Performed By: Raymon Scott RDCS * * Reason For Study: Syncope * BSA: 1.8 m2 * -- Conclusions -- * 1. Normal LV size. Moderate concentric LVH. * 2. Normal LV systolic function. LVEF 60-65%. No regional wall motion abnormalities. * 3. Normal RV size and function. * 4. Qtlb-yj-nncliaoc aortic regurgitation * 5. Abvq-so-ifnnudba mitral regurgitation * 6. Moderate TR. Moderate to severe pulmonary hypertension. Estimated PASP 55-60. Normal est CVP. * 7. Grade 1 diastolic dysfunction * 8. No prior studies for comparison. Procedure Details * A complete two-dimensional transthoracic echocardiogram was performed (2D, M-mode, Doppler and color flow Doppler). * The study was technically adequate. Left Ventricle * The left ventricle is grossly normal size. * There is moderate concentric left ventricular hypertrophy. * Ejection Fraction = 60-65%. * No regional wall motion abnormalities noted. Right Ventricle * The right ventricle is grossly normal size. * The right ventricular systolic function is normal as assessed by tricuspid annular plane systolic excursion (TAPSE) (normal >1.5 cm). Atria * The left atrial size is normal. * Borderline right atrial enlargement. * No ASD detected; PFO is not assessed. Mitral Valve * The mitral valve is grossly normal. * There is no mitral valve stenosis. * There is mild to moderate mitral regurgitation. Tricuspid Valve * There is moderate tricuspid regurgitation. * Right ventricular systolic pressure is elevated at 50-60mmHg. Aortic Valve * The aortic valve opens well. * The aortic valve is trileaflet. * No hemodynamically significant valvular aortic stenosis. * Mild to moderate aortic regurgitation. Pulmonic Valve * The pulmonary valve is inadequately visualized, but the Doppler data is adequate for interpretation. * Pulmonic stenosis is absent. * Trace pulmonic valvular regurgitation. Great Vessels * The aortic root and proximal ascending aorta are normal sized. Pericardium/Pleural * There is no pericardial effusion. Great Vessels * Normal inferior vena cava size and collapsability with sniff indicates a normal right atrial pressure of 3 mmHg Left Ventricular Diastolic Function * Grade I diastolic dysfunction, (abnormal relaxation pattern). MMode 2D Measurements and Calculations IVSd 1.5 cm IVSs 2.1 cm LVIDd 3.4 cm LVIDs 2.0 cm LVPWd 1.5 cm LVPWs 2.2 cm IVS/LVPW 1.0 FS 40.3 % EDV(Teich) 47.6 ml ESV(Teich) 13.3 ml EF(Teich) 72.1 % EDV(cubed) 39.5 ml ESV(cubed) 8.4 ml EF(cubed) 78.7 % % IVS thick 35.3 % % LVPW thick 51.3 % LV mass(C)d 183.4 grams LV mass(C)dI 103.9 grams/m\S\2 LV mass(C)s 200.2 grams LV mass(C)sI 113.4 grams/m\S\2 SV(Teich) 34.3 ml SI(Teich) 19.4 ml/m\S\2 SV(cubed) 31.1 ml SI(cubed) 17.6 ml/m\S\2 Ao root diam 3.4 cm Ao root area 8.9 cm\S\2 ACS 1.8 cm LA dimension 4.0 cm asc Aorta Diam 2.9 cm LA/Ao 1.2 LVOT diam 1.8 cm LVOT area 2.6 cm\S\2 LVAd ap4 17.8 cm\S\2 LVLd ap4 6.7 cm EDV(MOD-sp4) 42.3 ml EDV(sp4-el) 40.2 ml LVAs ap4 10.7 cm\S\2 LVLs ap4 6.3 cm ESV(MOD-sp4) 14.4 ml ESV(sp4-el) 15.3 ml EF(MOD-sp4) 65.9 % EF(sp4-el) 61.9 % LVAd ap2 28.2 cm\S\2 LVLd ap2 8.3 cm EDV(MOD-sp2) 79.8 ml EDV(sp2-el) 81.0 ml LVAs ap2 15.1 cm\S\2 LVLs ap2 6.5 cm ESV(MOD-sp2) 29.2 ml ESV(sp2-el) 29.7 ml EF(MOD-sp2) 63.4 % EF(sp2-el) 63.3 % LVLd %diff 19.5 % EDV(MOD-bp) 64.4 ml LVLs %diff 2.5 % ESV(MOD-bp) 20.4 ml EF(MOD-bp) 68.4 % SV(MOD-sp4) 27.9 ml SI(MOD-sp4) 15.8 ml/m\S\2 SV(MOD-sp2) 50.5 ml SI(MOD-sp2) 28.6 ml/m\S\2 SV(MOD-bp) 44.0 ml SI(MOD-bp) 24.9 ml/m\S\2 SV(sp4-el) 24.9 ml SI(sp4-el) 14.1 ml/m\S\2 SV(sp2-el) 51.3 ml SI(sp2-el) 29.1 ml/m\S\2 Doppler Measurements and Calculations MV E max keshia 100.8 cm/sec MV A max keshia 133.8 cm/sec MV E/A 0.75 MV dec time 0.19 sec Ao V2 max 129.1 cm/sec Ao max PG 6.7 mmHg Ao max PG (full) 3.0 mmHg WILLI(V,A) 1.9 cm\S\2 WILLI(V,D) 1.9 cm\S\2 AI max keshia 439.1 cm/sec AI max PG 77.1 mmHg AI dec slope 375.6 cm/sec\S\2 AI P1/2t 342.5 msec LV V1 max PG 3.6 mmHg LV V1 max 95.2 cm/sec PA V2 max 102.7 cm/sec PA max PG 4.2 mmHg PI end-d keshia 137.5 cm/sec TR max keshia 344.5 cm/sec
[2017-04-28 20:26] LABS: HEMATOCRIT 21.6 % (37-47)
[2017-04-28 20:39] LABS: HEMOGLOBIN 6.8 g/dL (12.0-16.0)
[2017-04-29] VITALS (11 sets, daily range): BP systolic 126–182; BP diastolic 64–78; PULSE 66–72; TEMP 36.1–37.3; O2SAT 94–99
[2017-04-29 06:18] LABS: HEMATOCRIT 26.1 % (37-47); HEMOGLOBIN 8.3 g/dL (12.0-16.0); MEAN CELL VOLUME 84.7 fL (80-100); MEAN CORPUSCULAR HEMOGLOBIN 26.9 pg (25-34); MEAN CORPUSCULAR HGB CONC 31.8 g/dl (32-36); MEAN PLATELET VOLUME 10.1 fL (7.4-10.4); PLATELET COUNT 194 K/uL (130-400); RED CELL DISTRIBUTION WIDTH CV 14.6 % (11.5-14.5); WHITE BLOOD COUNT 8.38 K/uL (4.8-10.8)
[2017-04-29 06:57] LABS: CREATININE 1.47 mg/dl (0.60-1.20); POTASSIUM 4.4 mmol/L (3.5-5.1)
[2017-04-29] MEDS: ROSUVASTATIN CALCIUM 20 MG TAB PO SCH (08:15)
[2017-04-29] MEDS: PANTOprazole SOD 40 MG TAB PO SCH (08:16)
[2017-04-29] MEDS: METOPROLOL SUCC 25MG EXT REL TAB PO SCH (08:16)
[2017-04-29] MEDS: CEROVITE ADV FORMULA TAB PO SCH (08:16)
[2017-04-29] MEDS: LACTOBACILLUS ACIDOPHILUS (FLORANEX) TAB PO SCH (08:16)
[2017-04-29] MEDS: ACETAMINOPHEN 325 MG TAB PO PRN (08:17)
[2017-04-29] MEDS: ALUMINUM/MAGNESIUM/SIMETH (MAALOX MAX) 30 ML UDC PO PRN ×2 (08:18→19:38)
[2017-04-29] MEDS ORDERED: NURSING VERBAL MED ORDER ONE (09:30)
[2017-04-29] MEDS ORDERED: HYDROCODONE/ACETAMOPHEN 5/325MG TAB PO SCH (09:30)
--- NOTE | 2017-04-29 12:08 | Hospitalist Progress Note ---
Hospitalist Progress Note Date of Service Apr 29, 2017. (Susan Hall .OSMAN) Subjective Pt evaluation today including: conversation w/ patient, physical exam, chart review, lab review, review of inpatient medication list Voiding: no voiding problems Ms. Ralph is feeling overall pretty well today. She had a headache 4/10 this morning with pressure behind her eyes which has improved with oxycodone administration. She denies visual changes, confusion, or weakness. She reports she has had recent dark stools before coming to the hospital and is continuing to have them now. ROS Constitutional: no chills, aches, sweats or fever Respiratory: no sob,cough, sputum, or wheezing Cardiac: no chest pain, palpitations, edema, orthopnea or lightheadedness GI: no abdominal pain, nausea, vomiting, diarrhea or constipation : no dysuria or hesitancy Extremities: no joint pain or weakness Skin: no rash All other systems reviewed and negative (Susan Hall .OSMAN) Medications Medications Administered Medications (Trade) Dose Ordered Sig/Christian Route Start Time Stop Time Status Last Admin Dose Admin Tetracaine/ Epinephrine/ Lidocaine (L.e.t. Gel 4%/ 1:100/0.5%) 2 ea STK-MED ONCE .ROUTE 04/27/17 14:35 04/27/17 14:36 DC 04/27/17 14:35 2 EA Diphtheria/ Pertussis/Tetanus Vacc (Adacel Inj) 0.5 ml ONCE ONCE IM. 04/27/17 15:30 04/27/17 15:31 DC 04/27/17 15:30 0.5 ML HCTZ/Lisinopril (Prinzide 20-12.5MG Tab) 1 tab DAILY PO 04/28/17 09:00 04/28/17 09:00 DC 04/28/17 08:10 1 TAB Metoprolol Succinate (Toprol Xl Tab) 75 mg DAILY PO 04/28/17 09:00 05/28/17 08:59 04/29/17 08:16 75 MG Multivitamins/ Minerals (Multivitamin W/ Minerals Tab) 1 tab DAILY PO 04/28/17 09:00 05/28/17 08:59 04/29/17 08:16 1 TAB Pantoprazole Sodium (Protonix Tab) 40 mg DAILY PO 04/28/17 09:00 05/28/17 08:59 04/29/17 08:16 40 MG Rosuvastatin Calcium (Crestor Tab) 20 mg DAILY PO 04/28/17 09:00 05/28/17 08:59 04/29/17 08:15 20 MG Donepezil HCl (Aricept Tab) 10 mg HS PO 04/27/17 21:00 05/27/17 20:59 04/28/17 21:05 10 MG Lactobacillus Acidophilus (Floranex Tab) 4 tab DAILY PO 04/28/17 09:00 05/28/17 08:59 04/29/17 08:16 4 TAB Ranitidine HCl (zANTac TAB) 300 mg HS PO 04/27/17 21:00 05/27/17 20:59 04/28/17 21:05 300 MG Sodium Chloride 1,000 ml @ 30 mls/hr Q24H IV 04/27/17 20:18 05/27/17 20:17 04/28/17 21:02 30 MLS/HR Acetaminophen (Tylenol Tab) 650 mg Q4H PRN PO 04/27/17 20:30 05/27/17 20:29 04/29/17 08:17 650 MG Al Hydrox/Mg Hydrox/Simethicone (Maalox Max Susp) 15 ml Q4H PRN PO 04/27/17 20:30 05/27/17 20:29 04/29/17 08:18 15 ML Hydralazine HCl (HydrALAZINE INJ) 20 mg STK-MED ONCE .ROUTE 04/28/17 01:30 04/28/17 01:31 DC 04/28/17 01:46 10 MG Ketorolac Tromethamine (Toradol Inj) 15 mg STK-MED ONCE .ROUTE 04/28/17 02:43 04/28/17 02:44 DC 04/28/17 02:46 15 MG Acetaminophen/ Hydrocodone Bitart ([place] 5/325 Tab) 1 tab TODAY@0930 PO 04/29/17 09:30 04/29/17 14:00 04/29/17 09:42 1 TAB (Susan Hall CRNP) Objective Vital Signs Date Time Temp Pulse Resp B/P (MAP) Pulse Ox O2 Delivery O2 Flow Rate FiO2 04/29/17 08:00 Room Air 04/29/17 07:34 36.8 68 18 150/73 (98) 99 Room Air 182/71 (108) 04/29/17 04:52 36.9 72 18 166/76 (106) 94 Room Air 04/29/17 04:00 Room Air 04/29/17 01:30 36.7 72 20 155/64 96 04/29/17 00:20 36.7 66 18 146/69 95 04/29/17 00:00 Room Air 04/28/17 23:50 36.7 65 18 129/72 94 04/28/17 23:20 36.8 67 20 131/70 04/28/17 23:05 36.9 73 20 116/62 04/28/17 22:50 37.1 61 20 131/58 04/28/17 20:53 72 139/74 (95) 74 138/74 (95) 75 149/85 (106) 04/28/17 20:00 96 Room Air 04/28/17 19:43 37.1 73 18 145/68 (93) 95 Room Air 04/28/17 16:00 96 Room Air 04/28/17 15:16 37.0 68 18 134/70 (91) 96 Room Air 70 149/72 (97) 153/71 (98) 04/28/17 12:00 97 Room Air (Susan Hall CRNP) Physical Exam Notes: General: no distress Eyes: normal inspection, PERLL Respiratory: chest non tender, clear to auscultation, normal breath sounds, no respiratory distress, no accessory muscle use Cardiac: regular rate and rhythm, no rub or gallop, no murmur, no edema, no jvd GI/: active bowel sounds, no abd pain or tenderness, soft, non distended Extremities: normal range of motion, normal strength, non tender Neuro/Psych: alert and oriented x 3, normal mood and affect Skin: laceration left forehead and over bridge of nose, sutures intact, ecchymosis right side of head and around eyes. (Susan Hall CRNP) Laboratory Results Last 24 Hours Test 04/28/17 12:31 04/28/17 19:54 04/29/17 06:03 Hemoglobin 7.8 g/dL 6.8 g/dL 8.3 g/dL Hematocrit 24.5 % 21.6 % 26.1 % White Blood Count 8.38 K/uL Red Blood Count 3.08 M/uL Mean Corpuscular Volume 84.7 fL Mean Corpuscular Hemoglobin 26.9 pg Mean Corpuscular Hemoglobin Concent 31.8 g/dl RDW Standard Deviation 45.0 fL RDW Coefficient of Variation 14.6 % Platelet Count 194 K/uL Mean Platelet Volume 10.1 fL Sodium Level 139 mmol/L Potassium Level 4.4 mmol/L Chloride Level 107 mmol/L Carbon Dioxide Level 27 mmol/L Anion Gap 5.0 mmol/L Blood Urea Nitrogen 38 mg/dl Creatinine 1.47 mg/dl Est Creatinine Clear Calc Drug Dose 27.2 ml/min Estimated GFR () 37.6 Estimated GFR (Non- 32.4 BUN/Creatinine Ratio 25.6 Random Glucose 89 mg/dl Calcium Level 8.0 mg/dl (Susan Hall .OSMAN) Assessment and Plan 86 year old female here due to fall Status post fall from ground level, unknown precipitant - CT head, CT cervical spine, carotid US are negative - echo showed diastolic dysfunction with EF 60%, mild to moderate mitral and aortic regurg - continue tele monitoring - PT OT evaluation recommended rehabilitation Anemia - hgb 8.4 on admission, dipped to 6.8, 8.3 this am after 1 unit prbcs overnight - repeat h&h 1300 - will consult GI if positive CKD III - Creat 1.3, this is around baseline - avoid nephrotoxins when possible Hypertension - Continue blood pressure meds - Hold aspirin due to her fall, anemia Dementia - continue memantine. GERD - Continue PPI and H2 mayra Hyperlipidemia - Continue Crestor DVT prophylaxis will be only SCD boot/BEATRIZ hose Avoid pharmacologic DVT prophylaxis for now due to her recent fall (Susan Hall ., OSMAN) I agree with OSMAN assessment and plan and have seen and examined pt myself Resting comfortably in bed VSS Labs reviewed S/p fall, unknown cause No stroke noted Check carotid US unremarkable ECHO pending Transfused 1 unit PRBC overnight PT/OT consulted (Amos Benjamin D.Sheree)
[2017-04-29 13:21] LABS: HEMATOCRIT 27.3 % (37-47); HEMOGLOBIN 8.6 g/dL (12.0-16.0)
[2017-04-29] MEDS: SODIUM CHLORIDE 0.9% 1000ML 1,000 ML IV SCH (20:37)
[2017-04-29] MEDS: RANITIDINE HCL 150 MG TAB PO SCH (20:38)
[2017-04-29] MEDS: DONEPEZIL HCL 10 MG TAB PO SCH (20:38)
[2017-04-30] VITALS (11 sets, daily range): BP systolic 128–181; BP diastolic 66–82; PULSE 63–75; TEMP 36.7–37.1; O2SAT 95–97
[2017-04-30 06:27] LABS: HEMOGLOBIN 8.2 g/dL (12.0-16.0); MEAN CELL VOLUME 86.4 fL (80-100); MEAN CORPUSCULAR HEMOGLOBIN 27.2 pg (25-34); MEAN CORPUSCULAR HGB CONC 31.5 g/dl (32-36); MEAN PLATELET VOLUME 10.1 fL (7.4-10.4); PLATELET COUNT 185 K/uL (130-400); RED CELL DISTRIBUTION WIDTH CV 15.3 % (11.5-14.5); RED CELL DISTRIBUTION WIDTH SD 47.1 fL (36.4-46.3); WHITE BLOOD COUNT 9.15 K/uL (4.8-10.8)
[2017-04-30 07:04] LABS: CREATININE 1.62 mg/dl (0.60-1.20); POTASSIUM 4.8 mmol/L (3.5-5.1)
[2017-04-30] MEDS: AZELASTINE HCL 0.1 % NASAL SPRAY SCH (07:53)
[2017-04-30] MEDS: ROSUVASTATIN CALCIUM 20 MG TAB PO SCH (07:59)
[2017-04-30] MEDS: METOPROLOL SUCC 25MG EXT REL TAB PO SCH (08:00)
[2017-04-30] MEDS: CEROVITE ADV FORMULA TAB PO SCH (08:00)
[2017-04-30] MEDS: LACTOBACILLUS ACIDOPHILUS (FLORANEX) TAB PO SCH (08:00)
[2017-04-30] MEDS: PANTOprazole SOD 40 MG TAB PO SCH (08:00)
[2017-04-30] MEDS: MEMANTINE HCL 28 MG PO SCH (08:01)
[2017-04-30] MEDS: ACETAMINOPHEN 325 MG TAB PO PRN ×2 (09:38→14:09)
--- NOTE | 2017-04-30 09:58 | Clinical Documentation Query ---
LAURITA Pacheco : CLINICAL DOCUMENTATION QUERIES QUERY 1 OF 2 Patient is a 86 year old female admitted for evaluation s/p fall. Admission BUN and creatinine were 26 mg/dl and 1.16 mg/dl. This a.m. (04/30), repeat values were 30 mg/dl and 1.62 mg/dl. She is being treated with IVF and monitored with serial chemistries. In your clinical opinion is this patient being managed for: ( ) Acute kidney failure ( ) Not Agree ( ) Other explanation of clinical findings (Please Explain) ( ) Unable to determine (Please Define) ( ) Need to Discuss The medical record reflects the following clinical findings, treatment, and risk factors. Clinical Indicators: As above Treatment:She is being treated with IVF and monitored with serial chemistries Risk Factors: ?Acute GI bleeding, age, medications QUERY 2 OF 2 Admission H&H 8.4 g/dl and 27%. Fell further to 6.8 g/dl adn 21.6% and was transfused one unit of PRBC's. GI consultation pending. Per PSYCHOMETRIST progress note, (patient) "reports she has had recent dark stools before coming to the hospital and is continuing to have them now". Please clarify as clinically appropriate. In your clinical opinion is this patient being managed for: ( ) Acute blood loss anemia secondary to (likely/possible) upper GI bleed ( ) Not Agree ( ) Other explanation of clinical findings (Please Explain) ( ) Unable to determine (Please Define) ( ) Need to Discuss The medical record reflects the following clinical findings, treatment, and risk factors. Clinical Indicators: As above Treatment: GI consultation Risk Factors: Age, ASA use Please clarify and document your clinical opinion in the progress notes and discharge summary. Terms such as "probable", "suspected", "likely", "questionable", "possible", or "still to be ruled out" are acceptable. IF IN AGREEMENT, YOU MUST DOCUMENT ABOVE DIAGNOSTIC STATEMENT IN DAILY PROGRESS NOTES AND DISCHARGE SUMMARY. This document is not part of the patient's record. Thank You, Harman Zimmerman RN [phone]
--- NOTE | 2017-04-30 10:44 | Hospitalist Progress Note ---
Hospitalist Progress Note Date of Service Apr 30, 2017. (Susan Hall ., OSMAN) Subjective Pt evaluation today including: conversation w/ patient, physical exam, chart review, lab review, review of inpatient medication list Voiding: no voiding problems Ms. Ralph continues to have headaches 07/31, they are about the same as yesterday. She otherwise has no complaints ROS Constitutional: no chills, aches, sweats or fever Respiratory: no sob,cough, sputum, or wheezing Cardiac: no chest pain, palpitations, edema, orthopnea or lightheadedness GI: no abdominal pain, nausea, vomiting, diarrhea or constipation : no dysuria or hesitancy Extremities: no joint pain or weakness Skin: no rash All other systems reviewed and negative (Susan Hall CRNP) Medications Medications Administered Medications (Trade) Dose Ordered Sig/Christian Route Start Time Stop Time Status Last Admin Dose Admin Tetracaine/ Epinephrine/ Lidocaine (L.e.t. Gel 4%/ 1:100/0.5%) 2 ea STK-MED ONCE .ROUTE 04/27/17 14:35 04/27/17 14:36 DC 04/27/17 14:35 2 EA Diphtheria/ Pertussis/Tetanus Vacc (Adacel Inj) 0.5 ml ONCE ONCE IM. 04/27/17 15:30 04/27/17 15:31 DC 04/27/17 15:30 0.5 ML HCTZ/Lisinopril (Prinzide 20-12.5MG Tab) 1 tab DAILY PO 04/28/17 09:00 04/28/17 09:00 DC 04/28/17 08:10 1 TAB Metoprolol Succinate (Toprol Xl Tab) 75 mg DAILY PO 04/28/17 09:00 05/28/17 08:59 04/30/17 08:00 75 MG Multivitamins/ Minerals (Multivitamin W/ Minerals Tab) 1 tab DAILY PO 04/28/17 09:00 05/28/17 08:59 04/30/17 08:00 1 TAB Pantoprazole Sodium (Protonix Tab) 40 mg DAILY PO 04/28/17 09:00 05/28/17 08:59 04/30/17 08:00 40 MG Rosuvastatin Calcium (Crestor Tab) 20 mg DAILY PO 1/6/18 09:00 05/28/17 08:59 04/30/17 07:59 20 MG Donepezil HCl (Aricept Tab) 10 mg HS PO 04/27/17 21:00 05/27/17 20:59 04/29/17 20:38 10 MG Lactobacillus Acidophilus (Floranex Tab) 4 tab DAILY PO 04/28/17 09:00 05/28/17 08:59 04/30/17 08:00 4 TAB Ranitidine HCl (zANTac TAB) 300 mg HS PO 04/27/17 21:00 05/27/17 20:59 04/29/17 20:38 300 MG Sodium Chloride 1,000 ml @ 100 mls/hr Q10H IV 04/27/17 20:18 05/27/17 20:17 04/29/17 20:37 30 MLS/HR Acetaminophen (Tylenol Tab) 650 mg Q4H PRN PO 04/27/17 20:30 05/27/17 20:29 04/30/17 09:38 650 MG Al Hydrox/Mg Hydrox/Simethicone (Maalox Max Susp) 15 ml Q4H PRN PO 04/27/17 20:30 05/27/17 20:29 04/29/17 19:38 15 ML Hydralazine HCl (HydrALAZINE INJ) 20 mg STK-MED ONCE .ROUTE 04/28/17 01:30 04/28/17 01:31 DC 04/28/17 01:46 10 MG Ketorolac Tromethamine (Toradol Inj) 15 mg STK-MED ONCE .ROUTE 04/28/17 02:43 04/28/17 02:44 DC 04/28/17 02:46 15 MG Acetaminophen/ Hydrocodone Bitart ([place] 5/325 Tab) 1 tab TODAY@0930 PO 04/29/17 09:30 04/29/17 14:00 DC 04/29/17 09:42 1 TAB Azelastine HCl (Astelin Nasal [place]) 2 sprays DAILY NA 04/30/17 09:00 05/30/17 08:59 04/30/17 07:53 2 SPRAYS (Susan Hall CRNP) Objective Vital Signs Date Time Temp Pulse Resp B/P (MAP) Pulse Ox O2 Delivery O2 Flow Rate FiO2 04/30/17 10:13 128/66 (86) 04/30/17 08:00 96 Room Air 04/30/17 07:27 36.9 63 18 181/69 (106) 96 Room Air 04/30/17 04:50 36.8 69 18 135/82 (99) 95 Room Air 04/30/17 04:00 Room Air 04/30/17 00:00 Room Air 04/29/17 23:30 36.9 71 18 126/75 (92) 96 04/29/17 23:13 36.1 70 18 171/78 (109) 95 Room Air 04/29/17 20:00 96 Room Air 04/29/17 19:57 36.7 71 20 139/67 (91) 95 Room Air 04/29/17 16:00 96 Room Air 04/29/17 15:28 36.5 72 18 138/71 (93) 95 Room Air 04/29/17 12:00 Room Air 04/29/17 11:40 37.3 70 16 162/68 (99) 96 Room Air (Susan Hall CRNP) Physical Exam Notes: General: no distress Eyes: normal inspection, PERLL Respiratory: chest non tender, clear to auscultation, normal breath sounds, no respiratory distress, no accessory muscle use Cardiac: regular rate and rhythm, no rub or gallop, no murmur, no edema, no jvd GI/: active bowel sounds, no abd pain or tenderness, soft, non distended Extremities: normal range of motion, normal strength, non tender Neuro/Psych: alert and oriented x 3, normal mood and affect Skin: normal color, dry, sutures intact and healing, ecchymosis around eyes and left head (Susan Hall CRNP) Laboratory Results Last 24 Hours Test 04/29/17 12:48 04/29/17 18:50 04/30/17 06:16 Hemoglobin 8.6 g/dL 8.2 g/dL Hematocrit 27.3 % 26.0 % Stool Occult Blood POSITIVE White Blood Count 9.15 K/uL Red Blood Count 3.01 M/uL Mean Corpuscular Volume 86.4 fL Mean Corpuscular Hemoglobin 27.2 pg Mean Corpuscular Hemoglobin Concent 31.5 g/dl RDW Standard Deviation 47.1 fL RDW Coefficient of Variation 15.3 % Platelet Count 185 K/uL Mean Platelet Volume 10.1 fL Sodium Level 140 mmol/L Potassium Level 4.8 mmol/L Chloride Level 108 mmol/L Carbon Dioxide Level 28 mmol/L Anion Gap 4.0 mmol/L Blood Urea Nitrogen 30 mg/dl Creatinine 1.62 mg/dl Est Creatinine Clear Calc Drug Dose 24.6 ml/min Estimated GFR () 33.4 Estimated GFR (Non- 28.8 BUN/Creatinine Ratio 18.8 Random Glucose 81 mg/dl Calcium Level 8.0 mg/dl (Susan Hall ., OSMAN) Assessment and Plan 86 year old female here due to fall Status post fall from ground level, unknown precipitant - CT head, CT cervical spine, carotid US are negative - echo showed diastolic dysfunction with EF 60%, mild to moderate mitral and aortic regurg - continue tele monitoring - PT OT evaluation recommended rehabilitation Acute blood loss anemia due to GI bleed - hgb 8.4 on admission, dipped to 6.8,1 unit prbcs / - hbg 8.2 today - repeat h&h 1300 - fecal occult positive - GI consulted PAULINA, CKD III - Creat increasing to 1.62 today - gentle IVF and repeat prp this afternoon - avoid nephrotoxins when possible Hypertension - Continue blood pressure meds - Hold aspirin due to her fall, anemia Dementia - continue memantine. GERD - Continue PPI and H2 mayra Hyperlipidemia - Continue Crestor DVT prophylaxis will be only SCD boot/BEATRIZ hose Avoid pharmacologic DVT prophylaxis for now due to her recent fall (Susan Hall CRNP) CANCER PROGRAM DIRECTOR Physician Supervision Note: I interviewed and examined the patient. Discussed with Susan Hall CANCER PROGRAM DIRECTOR and agree with findings and plan as documented in the note. Any exceptions or clarifications are listed here: None Patient presented with a fall and facial contusion however developed an acute GI bleed with hemoglobin dropping to 6 g range while here she was transfused and remained stable she is developed acute renal failure likely from ATN due to underperfusion from the day anemia which was acute blood loss. Vitals are currently stable She has facial ecchymosis about her eyes and nasal bridge she is however is awake and alert cardiac exam is regular lungs are clear abdomen is without tenderness Fall with facial trauma with conservative management PT OT and likely rehabilitation about's Likely GI bleed supported with transfusions and proton pump inhibitor Acute renal failure will consult nephrology she has however had stable potassium and acid base per her serum chemistries Documented By: Elie Dubon (Elie Dubon M.D.)
[2017-04-30] MEDS: ALUMINUM/MAGNESIUM/SIMETH (MAALOX MAX) 30 ML UDC PO PRN (14:09)
[2017-04-30 14:38] LABS: CALCIUM 7.9 mg/dl (8.5-10.1); CREATININE 2.1 mg/dl (0.60-1.20); POTASSIUM 4.3 mmol/L (3.5-5.1)
[2017-04-30] MEDS: SODIUM CHLORIDE 0.9% 1000ML 1,000 ML IV SCH (16:02)
--- NOTE | 2017-04-30 20:39 | GASTROINTESTINAL CONSULTATION ---
DATE OF CONSULTATION: 04/30/2017 CHIEF COMPLAINT: Melena, anemia, and recurrent falls. HISTORY OF PRESENT ILLNESS: Mrs. Ralph is an 86-year-old female who was admitted to the hospital for a fall with a soft tissue injury to her face. She has had several episodes recently of falling and in the last event she had fractured her ribs. In the Emergency Room she had a CT scan of the cervical spine that were unrevealing. The patient denies syncopal or near syncopal events, but does not recall it precisely that how she had fallen. She does have history of arthritis and does use NSAIDs for inflammation and pain control. In 2012, she had an endoscopy by Dr. West, which revealed a large hiatal hernia. The patient denies any abdominal pain, hematemesis, coffee-ground emesis or bright red blood per rectum, but does have the melena described above. She believes she may have had a colonoscopy, but does not know the timeframe or location. I did not see a colonoscopy in the [facility] record. PAST MEDICAL HISTORY: Arthritis, GI bleed, hypertension, hyperlipidemia, hysterectomy. FAMILY HISTORY: Significant for cancer, heart disease, hypertension, and lung disease. SOCIAL HISTORY: The patient denies tobacco or alcohol usage. She is . ALLERGIES: ATORVASTATIN, PAROXETINE, PROPOXYPHENE, KEFLEX, CEPHALOSPORINS, CODEINE, SULFA DRUGS. HOME MEDICATIONS: Include aspirin, Astelin, cholecalciferol, donepezil, lisinopril-hydrochlorothiazide, memantine, metoprolol, multivitamins, pantoprazole, probiotic, ranitidine 300 mg at bedtime, and Crestor 20 mg daily. REVIEW OF SYSTEMS: Otherwise noncontributory based on 13-point exam except for mentioned above. The patient denies any weight loss, abdominal pain, dysuria, hematuria, or visual changes. PHYSICAL EXAMINATION: VITAL SIGNS: Currently, patient's vital signs show she is afebrile at 36.9, blood pressure 138/67, respirations 16, heart rate 75, 95% on room air. GENERAL: The patient is awake, alert and oriented x3. HEENT: Sclerae anicteric, conjunctiva moist. Oral mucosa moist. Head is normocephalic. There are ecchymotic areas under both eyes. NECK: There is no evidence of thyromegaly. I do not appreciate supraclavicular or cervical adenopathy. HEART: Normal S1, S2. LUNGS: Clear to auscultation without rales, rhonchi or wheezes. ABDOMEN: Soft, mildly obese, nontender, nondistended with positive bowel sounds. There is no rebound or guarding. I do not appreciate hepatosplenomegaly. There is no evidence of ascites or shifting dullness. There are no abdominal bruits or masses. EXTREMITIES: Show overall normal range of motion without focal neurologic defects in the extremities. Extremities are without clubbing or cyanosis. There is trace edema bilaterally. RECTAL: Deferred. The patient has had several bowel movements since admission on the with today having 2 bowel movements. LABORATORY STUDIES: Show on admission a hemoglobin of 8.4; however, this drifted down with hydration to 6.8. The patient was given 1 unit of packed red blood cells and is currently at 8.2 this morning. Her BUN and creatinine were 26 and 1.1 on admission and this ema to as high as 38 and 1.47, and creatinine of 2.1 today. The patient has an elevated alkaline phosphatase at 166. ALT, AST and total bilirubin were normal. Magnesium and phosphorus levels normal. Lipase 324. Alkaline phosphatase was 204 on admission, lipase was slightly elevated at 436. Imaging studies show no evidence of acute fractures. Chest x-ray on 04/27/2017 showed large hiatal hernia, healing right rib fractures. Carotid arteries show no evidence for significant carotid stenosis. IMPRESSION AND PLAN: Mrs. Ralph has had by her description black-looking bowel movements. She does not use Pepto-Bismol. She did have a large hiatal her[place] [address] West and this was evident on her chest x-ray during this admission. The patient also uses nonsteroidal anti-inflammatory drugs by her description for arthritis. She may have had an ulcer in the past, although it is not clear at this point and does not recall when she had a colonoscopy, although she believes she did have one. I made the following recommendations: We would continue proton pump inhibitor therapy, monitor hemoglobins daily, and transfuse per protocol depending on level. I believe it is reasonable to perform upper endoscopy and colonoscopy. For Sunday we will start with an upper endoscopy/push enteroscopy to help exclude any ulcers, Nathen erosions given the size of hiatal hernia, AVMs in the small bowel or throughout the stomach. On Sunday, we will plan to perform colonoscopy with bowel prep tomorrow evening, particularly if no appreciable lesions are found on EGD tomorrow. We would continue PPI therapy. All questions answered, n.p.o. after midnight tonight except for medications tomorrow.
[2017-04-30] MEDS: DONEPEZIL HCL 10 MG TAB PO SCH (21:15)
[2017-04-30] MEDS: RANITIDINE HCL 150 MG TAB PO SCH (21:15)
[2017-05-01] VITALS (8 sets, daily range): BP systolic 143–192; BP diastolic 64–80; PULSE 67–76; TEMP 36.5–37; O2SAT 94–97
[2017-05-01] MEDS: SODIUM CHLORIDE 0.9% 1000ML 1,000 ML IV SCH ×3 (02:00→20:01)
[2017-05-01 05:59] LABS: HEMATOCRIT 24.2 % (37-47); HEMOGLOBIN 7.5 g/dL (12.0-16.0); MEAN CELL VOLUME 87.7 fL (80-100); MEAN CORPUSCULAR HEMOGLOBIN 27.2 pg (25-34); MEAN PLATELET VOLUME 10.1 fL (7.4-10.4); PLATELET COUNT 189 K/uL (130-400); RED CELL DISTRIBUTION WIDTH CV 15.6 % (11.5-14.5); RED CELL DISTRIBUTION WIDTH SD 49.8 fL (36.4-46.3); WHITE BLOOD COUNT 7.93 K/uL (4.8-10.8)
[2017-05-01 06:32] LABS: CALCIUM 7.9 mg/dl (8.5-10.1); CREATININE 1.58 mg/dl (0.60-1.20); POTASSIUM 4.5 mmol/L (3.5-5.1)
[2017-05-01] MEDS: HydrALAZINE HCL 20 MG/ML VIAL IV. PRN ×2 (07:25→16:56)
[2017-05-01] MEDS: AZELASTINE HCL 0.1 % NASAL SPRAY SCH (07:27)
--- NOTE | 2017-05-01 08:47 | Hospitalist Progress Note ---
Hospitalist Progress Note Date of Service May 01, 2017. (Hien Mccarthy PA-C) Subjective Pt evaluation today including: conversation w/ patient, conversation w/ family , physical exam, chart review, lab review Pain: None PO Intake: NPO except meds for endoscopy this morning Voiding: no voiding problems The patient was seen and examined this morning. Pt reports being hungry, awaiting scope today. No abdominal pain/cramping or nausea/vomiting. She had two small bowel movements early this morning, the first was dark and tarry but the second appeared to be brown. She has been ambulating to the bathroom without difficulty, no lightheadedness or dizziness. Hgb is 7.5 this morning. Endoscopy today, colonoscopy tomorrow. ROS: 6 point ROS reviewed and otherwise negative. (Hien Mccarthy PA-C) Objective Vital Signs Date Time Temp Pulse Resp B/P (MAP) Pulse Ox O2 Delivery O2 Flow Rate FiO2 05/01/17 07:24 36.7 74 18 192/64 (106) 95 05/01/17 04:00 Room Air 05/01/17 03:55 36.5 75 18 163/80 (107) 95 Room Air 05/01/17 00:00 Room Air 04/30/17 23:20 36.7 67 20 158/76 (103) 96 Room Air 04/30/17 20:00 97 Room Air 04/30/17 19:22 36.7 72 18 151/76 (101) 97 Room Air 04/30/17 16:00 95 Room Air 04/30/17 15:43 36.9 75 18 138/67 (90) 95 Room Air 04/30/17 12:01 96 Room Air 04/30/17 11:12 37.1 70 18 162/67 (98) 95 Room Air 169/68 (101) 04/30/17 10:13 128/66 (86) (Hien Mccarthy PA-C) Physical Exam General Appearance: WD/WN, no apparent distress, + pertinent finding (sutured laceration over the left forehead healing well, no surrounding erythema, + ecchymosis surrounding and extends to left zygomatic region.) Eyes: PERRL, EOMI ENT: hearing grossly normal, pharynx normal Neck: supple, no JVD Respiratory/Chest: lungs clear, no respiratory distress, no accessory muscle use Cardiovascular: no murmur, + tachycardia Abdomen: normal bowel sounds, non tender, soft Extremities: non-tender, no pedal edema, no calf tenderness Neurologic/Psychiatric: alert, normal mood/affect, oriented x 3 Skin: normal color, warm/dry (Hein Mccarthy PA-C) Laboratory Results Last 24 Hours Test 04/30/17 14:02 05/01/17 05:25 Sodium Level 141 mmol/L 142 mmol/L Potassium Level 4.3 mmol/L 4.5 mmol/L Chloride Level 108 mmol/L 111 mmol/L Carbon Dioxide Level 25 mmol/L 28 mmol/L Anion Gap 9.0 mmol/L 3.0 mmol/L Blood Urea Nitrogen 29 mg/dl 27 mg/dl Creatinine 2.10 mg/dl 1.58 mg/dl Est Creatinine Clear Calc Drug Dose 19.0 ml/min 25.5 ml/min Estimated GFR () 24.4 34.5 Estimated GFR (Non- 21.1 29.7 BUN/Creatinine Ratio 13.8 17.2 Random Glucose 129 mg/dl 84 mg/dl Calcium Level 7.9 mg/dl 7.9 mg/dl White Blood Count 7.93 K/uL Red Blood Count 2.76 M/uL Hemoglobin 7.5 g/dL Hematocrit 24.2 % Mean Corpuscular Volume 87.7 fL Mean Corpuscular Hemoglobin 27.2 pg Mean Corpuscular Hemoglobin Concent 31.0 g/dl RDW Standard Deviation 49.8 fL RDW Coefficient of Variation 15.6 % Platelet Count 189 K/uL Mean Platelet Volume 10.1 fL (Hien Mccarthy PA-C) Assessment and Plan 86 year old female here due to fall Status post fall from ground level, unknown precipitant - CT head, CT cervical spine, carotid US are negative - echo showed diastolic dysfunction with EF 60%, mild to moderate mitral and aortic regurg - continue tele monitoring - PT OT evaluation recommended rehabilitation - pt is from home and lives alone Acute blood loss anemia due to GI bleed - GI on board: planning EUS today so NPO except meds this morning, can have clear liquid diet tonight, then bowel prep tonight and planned colonoscopy tomorrow. EUS completed and was normal, no signs of acute bleed from here. - hgb 8.4 on admission, dipped to 6.8, s/p 1 unit PRBCs / - hgb 7.5 today - pt asymptomatic so no needs for transfusion currently. - fecal occult positive - Protonix 40 mg daily and Ranitidine 300 QHS PAULINA, CKD III - Creat increasing to 1.58 today - gentle IVF improved this - avoid nephrotoxins when possible Hypertension - Continue metoprolol succ 75 mg daily - BP slightly elevated this morning. - Hold aspirin due to her fall, anemia Dementia - continue Namenda XR 28 mg daily, aricept 10 mg HS GERD - Continue PPI and H2 mayra Hyperlipidemia - Continue Crestor DVT ppx: teds, scds, no chemical anticoagulation due to GI bleed as above. Disposition: From home, pt accepted at [facility], likely Sunday or after scopes/pending results. (Hien Mccarthy, NATHALY) i personally examined pt and verified all szymanski points lopez SEARS feeling ok eating liquids after EGD does have a little bit of a headache vitals noted nad R sided Cspine paraspinals and suboccipitals high tone/tender/ decreased ROM - inhibitory pressure and unwinding - some soft tissue changes but no significant improvement in headache GI bleed w acute blood loss anemia - hemodynamically stable. colo tomorrow. no indications for transfusion at this time tension headache - attempted OMT without improvement in sx. add voltaren gel otherwise as above (Javi Beltrán D.O.)
[2017-05-01] MEDS: ACETAMINOPHEN 325 MG TAB PO PRN (09:00)
[2017-05-01] MEDS: METOPROLOL SUCC 25MG EXT REL TAB PO SCH (09:01)
[2017-05-01] MEDS: LACTOBACILLUS ACIDOPHILUS (FLORANEX) TAB PO SCH (09:01)
[2017-05-01] MEDS: CEROVITE ADV FORMULA TAB PO SCH (09:01)
[2017-05-01] MEDS: PANTOprazole SOD 40 MG TAB PO SCH (09:01)
[2017-05-01] MEDS: ROSUVASTATIN CALCIUM 20 MG TAB PO SCH (09:02)
[2017-05-01] MEDS: MEMANTINE HCL 28 MG PO SCH (09:02)
--- NOTE | 2017-05-01 13:04 | Endo History and Physical ---
History & Physical Date of Service: May 01, 2017. Chief Complaint: Melena Referring Physician: Kavin Hall History of Present Illness For EGD Past Surgical History Hx Cardiac Surgery: No Hx Internal Defibrillator: No Hx Pacemaker: No Hx Abdominal Surgery: Yes (hysterectomy) Hx Post-Op Nausea and Vomiting: No Hx Cancer Surgery: No Hx Thoracic Surgery: No Hx Orthopedic: Yes (rt.knee, l.shoulder) Hx Urinary Tract Surgery: No Social History Smoking Status: Never Smoker Hx Substance Use: No Hx Alcohol Use: No Allergies Coded Allergies: Atorvastatin (Verified Allergy, Unknown, UNKOWN, 03/11/17) Paroxetine (Verified Allergy, Unknown, UNKNOWN, 03/11/17) Propoxyphene (Verified Allergy, Unknown, DARVOCET, 04/27/17) Cephalosporins (Verified Adverse Reaction, Mild, NAUSEA, 04/27/17) Codeine (Verified Adverse Reaction, Mild, NAUSEA, 04/27/17) Sulfa Antibiotics (Verified Adverse Reaction, Unknown, NAUSEA, 04/27/17) Current Medications Reported Home Medications Medications Dose Route/Sig Max Daily Dose Days Date Category Vitamin D 1000 Unit (Cholecalciferol) 1,000 Unit Cap 2,000 Inter.unit PO DAILY 03/08/17 Reported Tylenol (Acetaminophen) 500 Mg Tab 1,000 Mg PO TID PRN 03/08/17 Reported Zantac (Ranitidine HCl) 300 Mg Tab 300 Mg PO HS 03/08/17 Reported Probiotic (Probiotic Product) 1 Cap Cap 1 Cap PO DAILY 03/08/17 Reported Namenda Xr (Memantine Hcl) 28 Mg Cap 28 Mg PO DAILY 03/08/17 Reported Mvi With Minerals (Multivitamins/Minerals) Tab 1 Tab PO DAILY 03/08/17 Reported Toprol-Xl (Metoprolol Succinate) 50 Mg Tabcr 75 Mg PO DAILY 03/08/17 Reported Zestoretic 20MG/12.5MG (HCTZ/Lisinopril) Tab 1 Tab PO DAILY 03/08/17 Reported Donepezil Hcl (Donepezil Hydrochloride) 10 Mg Tab 10 Mg PO HS 03/08/17 Reported Astelin Nasal [place] (Azelastine Hcl) 200 Sprays/30 Ml [place] 1-2 Sprays NA DAILY 03/08/17 Reported Aspirin Ec (Aspirin) 81 Mg Tab 81 Mg PO DAILY 03/08/17 Reported Protonix (Pantoprazole Sodium) 40 Mg Tab 40 Mg PO DAILY 10/23/16 Reported Crestor (Rosuvastatin Calcium) 20 Mg Tab 20 Mg PO DAILY 02/17/16 Reported Vital Signs Weight (Kilograms): 70.200 Height (Feet): 5 Height (Inches): 4.00 Date Time Temp Pulse Resp B/P (MAP) Pulse Ox O2 Delivery O2 Flow Rate FiO2 05/01/17 12:00 Room Air 05/01/17 11:33 37.0 69 18 157/67 (97) 94 Room Air 05/01/17 09:00 76 143/69 (93) Room Air 05/01/17 08:00 Room Air 05/01/17 07:24 36.7 74 18 192/64 (106) 95 05/01/17 04:00 Room Air 05/01/17 03:55 36.5 75 18 163/80 (107) 95 Room Air 05/01/17 00:00 Room Air 04/30/17 23:20 36.7 67 20 158/76 (103) 96 Room Air 04/30/17 20:00 97 Room Air 04/30/17 19:22 36.7 72 18 151/76 (101) 97 Room Air 04/30/17 16:00 95 Room Air 04/30/17 15:43 36.9 75 18 138/67 (90) 95 Room Air Physical Exam General Appearance: WD/WN Respiratory/Chest: Respiratory effort: no dyspnea Cardiovascular: Heart Auscultation: RRR Abdomen: Bowel Sounds: pertinent finding (s/p hyster) Assessment and Plan Melena for EGD
[2017-05-01] MEDS ORDERED: ATROPINE SULFATE 0.1 MG/ML 5ML SYR IV PRN (13:30)
[2017-05-01] MEDS ORDERED: EpHEDrine SULFATE INJ 50 MG/ML AMP IV PRN (13:30)
--- NOTE | 2017-05-01 13:47 | Discharge Instructions ---
Endoscopy Patient Instructions Date / Procedure(s) Performed May 01, 2017. EGD Allergy Information Coded Allergies: Atorvastatin (Verified Allergy, Unknown, UNKOWN, 03/11/17) Paroxetine (Verified Allergy, Unknown, UNKNOWN, 03/11/17) Propoxyphene (Verified Allergy, Unknown, DARVOCET, 04/27/17) Cephalosporins (Verified Adverse Reaction, Mild, NAUSEA, 04/27/17) Codeine (Verified Adverse Reaction, Mild, NAUSEA, 04/27/17) Sulfa Antibiotics (Verified Adverse Reaction, Unknown, NAUSEA, 04/27/17) Discharge Date / Findings May 01, 2017. hiatal hernia Medication Instructions Restart Stopped Medication(s): resume meds Current Inpatient Medications Medications (Trade) Dose Ordered Sig/Christian Route Start Time Stop Time Status Last Admin Dose Admin Metoprolol Succinate (Toprol Xl Tab) 75 mg DAILY PO 04/28/17 09:00 05/28/17 08:59 05/01/17 09:01 75 MG Multivitamins/ Minerals (Multivitamin W/ Minerals Tab) 1 tab DAILY PO 04/28/17 09:00 05/28/17 08:59 05/01/17 09:01 1 TAB Pantoprazole Sodium (Protonix Tab) 40 mg DAILY PO 04/28/17 09:00 05/28/17 08:59 05/01/17 09:01 40 MG Rosuvastatin Calcium (Crestor Tab) 20 mg DAILY PO 04/28/17 09:00 05/28/17 08:59 05/01/17 09:02 20 MG Donepezil HCl (Aricept Tab) 10 mg HS PO 04/27/17 21:00 05/27/17 20:59 04/30/17 21:15 10 MG Lactobacillus Acidophilus (Floranex Tab) 4 tab DAILY PO 04/28/17 09:00 05/28/17 08:59 05/01/17 09:01 4 TAB Ranitidine HCl (zANTac TAB) 300 mg HS PO 04/27/17 21:00 05/27/17 20:59 04/30/17 21:15 300 MG Sodium Chloride 1,000 ml @ 100 mls/hr Q10H IV 04/27/17 20:18 05/27/17 20:17 05/01/17 12:21 100 MLS/HR Acetaminophen (Tylenol Tab) 650 mg Q4H PRN PO 04/27/17 20:30 05/27/17 20:29 05/01/17 09:00 650 MG Al Hydrox/Mg Hydrox/Simethicone (Maalox Max Susp) 15 ml Q4H PRN PO 04/27/17 20:30 05/27/17 20:29 04/30/17 14:09 15 ML Magnesium Hydroxide (Milk Of Magnesia Susp) 30 ml Q12H PRN PO 04/27/17 20:30 05/27/17 20:29 Zolpidem Tartrate (Ambien Tab) 5 mg HSZ PRN PO 04/27/17 20:30 05/27/17 20:29 Ondansetron HCl (Zofran Inj) 4 mg Q6H PRN IV 04/27/17 20:30 05/27/17 20:29 Polyethylene (Miralax Powder Packet) 17 gm DAILY PRN PO 04/27/17 20:30 05/27/17 20:29 Hydralazine HCl (HydrALAZINE INJ) 10 mg Q6 PRN IV. 04/28/17 01:00 05/28/17 00:59 05/01/17 07:25 10 MG Ketorolac Tromethamine (Toradol Inj) 15 mg Q6H PRN IV 04/28/17 02:15 05/03/17 02:14 Azelastine HCl (Astelin Nasal [place]) 2 sprays DAILY NA 04/30/17 09:00 05/30/17 08:59 05/01/17 07:27 2 SPRAYS Ephedrine Sulfate (EpHEDrine SULFATE INJ) 5 mg Q5M PRN IV 05/01/17 13:30 05/02/17 13:29 UNV Atropine Sulfate (Atropine Sulfate 0.1mg/ml Inj) 0.5 mg Q1M PRN IV 05/01/17 13:30 05/02/17 13:29 UNV Provider Instructions Activity Restrictions - No exercising or heavy lifting for 24 hours. - Do not drink alcohol the day of the procedure. - Do not drive a car or operate machinery until the day after the procedure. - Do not make any important decisions or sign important papers in 24 hours after the procedure. Following Day: - Return to full activity which may include returning to work/school. Diet Start your diet with liquids and light foods (jello, soup, juice, toast). Then eat your usual diet if not nauseated. Treatment For Common After Affects For mild abdominal pain, bloating, or excessive gas: - Rest - Eat lightly - Lie on right side Follow-Up Information Follow-up with as scheduled Anesthesia Information What You Should Know You have had a procedure that required some medicine to reduce anxiety and discomfort. This treatment is called moderate sedation. After receiving the treatment, you may be sleepy, but you will be able to breathe on your own. The effects of the treatment may last for several hours. Follow these instructions along with Activity/Diet recommendations noted above: * Do NOT do anything where dizziness or clumsiness would be dangerous. * Rest quietly at home today, then you can be up and about tomorrow. * Have a responsible person stay with you the rest of today. * You may have had an I.V. today. If so, you may take the dressing off later today. Recommendations Call your doctor if: * Trouble breathing * Continuous vomiting for more than 24 hours * Temperature above 101 degrees * Severe abdominal pain or bloating * Pain not relieved by pain medicine ordered * There is increased drainage or redness from any incision * A large amount of rectal bleeding greater than 2-3 tablespoons. (If you had a polyp/s removed or have hemorrhoids, a small amount of blood - from the rectum is to be expected.) * You have any unanswered questions or concerns. IN THE EVENT OF A SERIOUS EMERGENCY, GO TO THE NEAREST EMERGENCY ROOM Your discharge instructions were prepared by provider Ricci Wisdom. Patient Instructions Signature Page Debora Ralph Patient (or Guardian) Signature/Date: I have read and understand the instructions given to me by my caregivers. Caregiver/RN/Doctor Signature/Date: The above-named patient and/or guardian has received patient instructions on this date. + Original Patient Signature Page (only) stays with chart. Please make copy for patient.
[2017-05-01] MEDS ORDERED: PROPOFOL IV EMULSION 10 MG/ML 20 ML VIAL IV ONE (13:49)
[2017-05-01] MEDS ORDERED: LIDOCAINE HCL 2% 2 ML VIAL (20MG/ML) ONE (13:49)
--- NOTE | 2017-05-01 13:53 | GI REPORT ---
Procedure Date: 05/01/2017 1:36 PM Procedure: Upper GI endoscopy Indications: Acute post hemorrhagic anemia, Melena Medicines: Propofol total dose 90 mg IV, Lidocaine 100 mg IV Complications: No immediate complications. Estimated Blood Loss: Estimated blood loss: none. Procedure: Pre-Anesthesia Assessment: - Prior to the procedure, a History and Physical was performed, and patient medications, allergies and sensitivities were reviewed. The patient's tolerance of previous anesthesia was reviewed. - The risks and benefits of the procedure and the sedation options and risks were discussed with the patient. All questions were answered and informed consent was obtained. - Prior to the procedure, a History and Physical was performed, and patient medications, allergies and sensitivities were reviewed. The patient's tolerance of previous anesthesia was reviewed. - The risks and benefits of the procedure and the sedation options and risks were discussed with the patient. All questions were answered and informed consent was obtained. After obtaining informed consent, the endoscope was passed under direct vision. Throughout the procedure, the patient's blood pressure, pulse, and oxygen saturations were monitored continuously. The scope was introduced through the mouth, and advanced to the second part of duodenum. The upper GI endoscopy was accomplished without difficulty. The patient tolerated the procedure well. Findings: A medium-sized hiatal hernia was present. The entire examined stomach was normal. The examined duodenum was normal. Impression: - Medium-sized hiatal hernia. - Normal stomach. - Normal examined duodenum. - No specimens collected. Recommendation: - [facility] care. - Perform a colonoscopy tomorrow. Ricci Wisdom M.D. Ricci Wisdom MD 05/01/2017 1:53:38 PM This report has been signed electronically. Note Initiated On: 05/01/2017 1:36 PM I attest to the content of the Intraoperative Record and orders documented therein, exceptions below
--- NOTE | 2017-05-01 14:02 | Anesthesiology Progress Note ---
Anesthesia Post Op Note Date & Time May 01, 2017 at 14:01 Vital Signs Pain Intensity: 5.0 Vital Signs Past 12 Hours Date Time Temp Pulse Resp B/P (MAP) Pulse Ox O2 Delivery O2 Flow Rate FiO2 05/01/17 12:56 37.0 73 24 166/76 (106) 96 Room Air 05/01/17 12:00 Room Air 05/01/17 11:33 37.0 69 18 157/67 (97) 94 Room Air 05/01/17 09:00 76 143/69 (93) Room Air 05/01/17 08:00 Room Air 05/01/17 07:24 36.7 74 18 192/64 (106) 95 05/01/17 04:00 Room Air 05/01/17 03:55 36.5 75 18 163/80 (107) 95 Room Air Notes Mental Status: alert / awake / arousable, participated in evaluation Pt Amnestic to Procedure: Yes Nausea / Vomiting: adequately controlled Pain: adequately controlled Airway Patency, RR, SpO2: stable & adequate BP & HR: stable & adequate Hydration State: stable & adequate Anesthetic Complications: no major complications apparent
--- NOTE | 2017-05-01 14:27 | GASTROENTEROLOGY PROGRESS NOTE ---
DATE: 05/01/2017 DATE: 05/01/2017 SUBJECTIVE: The patient underwent EGD today for her melena and anemia. EGD was remarkable for medium sized hiatal hernia, but no bleeding site was identified. The exam was carried into the second portion of the duodenum. IMPRESSION: The patient has GI bleeding with essentially negative upper endoscopy. The patient will be prepped overnight for colonoscopy tomorrow.
[2017-05-01] MEDS ORDERED: DICLOFENAC SOD 1% GEL 100 GM TUBE EXT ONE (17:18)
[2017-05-01] MEDS: LAVAGE SOLUTION 4000ML PO SCH (18:07)
[2017-05-01] MEDS: DICLOFENAC SOD 1% GEL 100 GM TUBE EXT SCH (20:02)
[2017-05-01] MEDS: DONEPEZIL HCL 10 MG TAB PO SCH (20:51)
[2017-05-01] MEDS: RANITIDINE HCL 150 MG TAB PO SCH (20:51)
[2017-05-02] VITALS (10 sets, daily range): BP systolic 147–187; BP diastolic 62–82; PULSE 63–90; TEMP 36.3–37; O2SAT 91–99
[2017-05-02] MEDS: LAVAGE SOLUTION 4000ML PO SCH (06:00)
[2017-05-02] MEDS: SODIUM CHLORIDE 0.9% 1000ML 1,000 ML IV SCH (06:03)
[2017-05-02 06:53] LABS: HEMATOCRIT 23.7 % (37-47); HEMOGLOBIN 7.5 g/dL (12.0-16.0); MEAN CELL VOLUME 87.8 fL (80-100); MEAN CORPUSCULAR HEMOGLOBIN 27.8 pg (25-34); MEAN CORPUSCULAR HGB CONC 31.6 g/dl (32-36); MEAN PLATELET VOLUME 10.3 fL (7.4-10.4); PLATELET COUNT 195 K/uL (130-400); RED CELL DISTRIBUTION WIDTH CV 16.2 % (11.5-14.5); WHITE BLOOD COUNT 7.97 K/uL (4.8-10.8)
[2017-05-02] MEDS: HydrALAZINE HCL 20 MG/ML VIAL IV. PRN ×2 (07:01→14:46)
[2017-05-02 07:32] LABS: CALCIUM 7.8 mg/dl (8.5-10.1); CREATININE 1.21 mg/dl (0.60-1.20); POTASSIUM 4.2 mmol/L (3.5-5.1)
[2017-05-02] MEDS: DICLOFENAC SOD 1% GEL 100 GM TUBE EXT SCH ×4 (07:57→21:31)
[2017-05-02] MEDS: LACTOBACILLUS ACIDOPHILUS (FLORANEX) TAB PO SCH ×2 (09:00→11:16)
[2017-05-02] MEDS: ROSUVASTATIN CALCIUM 20 MG TAB PO SCH ×2 (09:00→11:16)
[2017-05-02] MEDS: AZELASTINE HCL 0.1 % NASAL SPRAY SCH (09:00)
[2017-05-02] MEDS: CEROVITE ADV FORMULA TAB PO SCH ×2 (09:00→11:16)
[2017-05-02] MEDS: METOPROLOL SUCC 25MG EXT REL TAB PO SCH (11:16)
[2017-05-02] MEDS: PANTOprazole SOD 40 MG TAB PO SCH (11:17)
[2017-05-02] MEDS: MEMANTINE HCL 28 MG PO SCH (11:17)
[2017-05-02] MEDS: ACETAMINOPHEN 325 MG TAB PO PRN (11:21)
--- NOTE | 2017-05-02 15:03 | Endo History and Physical ---
History & Physical Date of Service: May 02, 2017. Chief Complaint: Melena, anemia Referring Physician: Kavin Hall History of Present Illness For EGD Past Surgical History Hx Cardiac Surgery: No Hx Internal Defibrillator: No Hx Pacemaker: No Hx Abdominal Surgery: Yes (hysterectomy) Hx Post-Op Nausea and Vomiting: No Hx Cancer Surgery: No Hx Thoracic Surgery: No Hx Orthopedic: Yes (rt.knee, l.shoulder) Hx Urinary Tract Surgery: No Social History Smoking Status: Never Smoker Hx Substance Use: No Hx Alcohol Use: No Allergies Coded Allergies: Atorvastatin (Verified Allergy, Unknown, UNKOWN, 03/11/17) Paroxetine (Verified Allergy, Unknown, UNKNOWN, 03/11/17) Propoxyphene (Verified Allergy, Unknown, DARVOCET, 04/27/17) Cephalosporins (Verified Adverse Reaction, Mild, NAUSEA, 04/27/17) Codeine (Verified Adverse Reaction, Mild, NAUSEA, 04/27/17) Sulfa Antibiotics (Verified Adverse Reaction, Unknown, NAUSEA, 04/27/17) Current Medications Reported Home Medications Medications Dose Route/Sig Max Daily Dose Days Date Category Vitamin D 1000 Unit (Cholecalciferol) 1,000 Unit Cap 2,000 Inter.unit PO DAILY 03/08/17 Reported Tylenol (Acetaminophen) 500 Mg Tab 1,000 Mg PO TID PRN 03/08/17 Reported Zantac (Ranitidine HCl) 300 Mg Tab 300 Mg PO HS 03/08/17 Reported Probiotic (Probiotic Product) 1 Cap Cap 1 Cap PO DAILY 03/08/17 Reported Namenda Xr (Memantine Hcl) 28 Mg Cap 28 Mg PO DAILY 03/08/17 Reported Mvi With Minerals (Multivitamins/Minerals) Tab 1 Tab PO DAILY 03/08/17 Reported Toprol-Xl (Metoprolol Succinate) 50 Mg Tabcr 75 Mg PO DAILY 03/08/17 Reported Zestoretic 20MG/12.5MG (HCTZ/Lisinopril) Tab 1 Tab PO DAILY 03/08/17 Reported Donepezil Hcl (Donepezil Hydrochloride) 10 Mg Tab 10 Mg PO HS 03/08/[address] [place] (Azelastine Hcl) 200 Sprays/[address] [place] 1-2 Sprays NA DAILY 03/08/17 Reported Aspirin Ec (Aspirin) 81 Mg Tab 81 Mg PO DAILY 03/08/17 Reported Protonix (Pantoprazole Sodium) 40 Mg Tab 40 Mg PO DAILY 10/23/16 Reported Crestor (Rosuvastatin Calcium) 20 Mg Tab 20 Mg PO DAILY 02/17/16 Reported Vital Signs Weight (Kilograms): 71.800 Height (Feet): 5 Height (Inches): 4.00 Date Time Temp Pulse Resp B/P (MAP) Pulse Ox O2 Delivery O2 Flow Rate FiO2 05/02/17 14:45 36.9 82 18 185/69 (107) 96 Room Air 05/02/17 12:00 Room Air 05/02/17 11:24 36.8 76 20 187/70 (109) 96 05/02/17 08:00 92 Room Air 05/02/17 07:00 36.4 69 20 184/74 (110) 92 05/02/17 04:18 36.8 83 16 167/62 (97) 91 Room Air 05/02/17 04:00 Room Air 05/02/17 00:04 36.8 72 16 169/81 (110) 98 Room Air 05/02/17 00:00 Room Air 05/01/17 20:03 36.6 67 18 160/74 (102) 97 Room Air 05/01/17 20:00 94 Room Air 05/01/17 16:00 95 Room Air 05/01/17 15:55 36.6 76 18 182/64 (103) 95 Room Air Physical Exam General Appearance: WD/WN Respiratory/Chest: Respiratory effort: no dyspnea Cardiovascular: Heart Auscultation: RRR Abdomen: Inspection & Palpation: soft Assessment and Plan Melena, anemia for colonoscopy
[2017-05-02] MEDS ORDERED: VLTG EXT (15:14)
[2017-05-02] MEDS ORDERED: LIDOCAINE HCL 2% 2 ML VIAL (20MG/ML) ONE (15:22)
[2017-05-02] MEDS ORDERED: PROPOFOL IV EMULSION 10 MG/ML 20 ML VIAL IV ONE (15:22)
--- NOTE | 2017-05-02 15:23 | Discharge Instructions ---
Discharge Instructions Date of Service May 02, 2017. Admission Reason for Admission: Fall (On) (From) In[place], Subsequent Encounter Discharge Discharge Diagnosis / Problem: Anemia secondary to GI bleed Discharge Goals Goal(s): Decrease discomfort, Improve function, Increase independence, Improve disease control Activity Recommendations Activity Limitations: resume your previous activity Lifting Limitations: no more than 25 pounds, gradually increase as tolerated Exercise/Sports Limitations: rest today, gradually increase as tolerated May Resume Sexual Activity: when tolerated Shower/Bathe: no limitations Driving or Machine Use: resume 3 days after discharge (and once cleared by PCP) . Instructions / Follow-Up Instructions / Follow-Up You were admitted to [facility] with s/p fall likely from anemia secondary to GI bleed. During your stay here you were treated with supportive care, anti-acid medications, and underwent endoscopy and colonoscopy. Endoscopy completed on 05/01/17: showed hiatal hernia, and normal remainder of exam Colonoscopy completed on 05/02/17: Continue Physical and Occupational therapy- use walker with ambulation until otherwise instructed. Sutures on left forehead can be removed on 05/07 by nursing at [facility]. Medications: Continue taking your medications as above. Use voltaren gel on the right side of your neck and upper back for muscular pain relief as needed. Continue taking anti-acid as prescribed. Lab work: Have a repeat CBC drawn on 05/02 to monitor hemoglobin. Prior to colonoscopy your Hgb was 7.5. You did not require transfusion as you were asymptomatic. Have CBC monitored daily for a least 3 days - results to be reviewed by physician at [facility]. Appointments: Follow up with your Primary Care Provider within 1 week. Follow up with Gastroenterology within 1-2 weeks. Current Hospital Diet Patient's current hospital diet: Clear Liquid Diet Discharge Diet Recommended Diet: AHA Diet (Heart Healthy) Procedures Procedures Performed: EGD Colonoscopy Pending Studies Studies pending at discharge: no Medical Emergencies . Who to Call and When: Medical Emergencies: If at any time you feel your situation is an emergency, please call 911 immediately. . Non-Emergent Contact Non-Emergency issues call your: Primary Care Provider, College Sports [employer] Call Non-Emergent contact if: you have a fever, temperature is above 100.5, your pain is not controlled, your pain is worsening, your pain is unusual for you, your pain is concerning you, you have any medication questions . Past History Medical & Surgical History: (1) GI bleed (2) Laceration (3) Head injury (4) Fall (on)(from) incline, subsequent encounter (5) HTN (hypertension) (6) Hyperlipemia (7) CVD (cerebrovascular disease) (8) Arthritis (9) Ambulatory dysfunction . "Provider Documentation" section prepared by Sudha Mccarthy. . VTE Core Measure Inpt VTE Proph given/why not?: Contraindicated [place] Drug Monitoring Program Search Results: no issues identified
--- NOTE | 2017-05-02 15:34 | Discharge Instructions ---
Endoscopy Patient Instructions Date / Procedure(s) Performed May 02, 2017. Colonoscopy Allergy Information Coded Allergies: Atorvastatin (Verified Allergy, Unknown, UNKOWN, 03/11/17) Paroxetine (Verified Allergy, Unknown, UNKNOWN, 03/11/17) Propoxyphene (Verified Allergy, Unknown, DARVOCET, 04/27/17) Cephalosporins (Verified Adverse Reaction, Mild, NAUSEA, 04/27/17) Codeine (Verified Adverse Reaction, Mild, NAUSEA, 04/27/17) Sulfa Antibiotics (Verified Adverse Reaction, Unknown, NAUSEA, 04/27/17) Discharge Date / Findings May 02, 2017. Diverticulosis, 3 polyps Medication Instructions Restart Stopped Medication(s): resume meds Current Inpatient Medications Medications (Trade) Dose Ordered Sig/Christian Route Start Time Stop Time Status Last Admin Dose Admin Metoprolol Succinate (Toprol Xl Tab) 75 mg DAILY PO 04/28/17 09:00 05/28/17 08:59 05/02/17 11:16 75 MG Multivitamins/ Minerals (Multivitamin W/ Minerals Tab) 1 tab DAILY PO 04/28/17 09:00 05/28/17 08:59 05/02/17 11:16 1 TAB Pantoprazole Sodium (Protonix Tab) 40 mg DAILY PO 04/28/17 09:00 05/28/17 08:59 05/02/17 11:17 40 MG Rosuvastatin Calcium (Crestor Tab) 20 mg DAILY PO 04/28/17 09:00 05/28/17 08:59 05/02/17 11:16 20 MG Donepezil HCl (Aricept Tab) 10 mg HS PO 04/27/17 21:00 05/27/17 20:59 05/01/17 20:51 10 MG Lactobacillus Acidophilus (Floranex Tab) 4 tab DAILY PO 04/28/17 09:00 05/28/17 08:59 05/02/17 11:16 4 TAB Ranitidine HCl (zANTac TAB) 300 mg HS PO 04/27/17 21:00 05/27/17 20:59 05/01/17 20:51 300 MG Sodium Chloride 1,000 ml @ 100 mls/hr Q10H IV 04/27/17 20:18 05/27/17 20:17 05/02/17 06:03 100 MLS/HR Acetaminophen (Tylenol Tab) 650 mg Q4H PRN PO 04/27/17 20:30 05/27/17 20:29 05/02/17 11:21 650 MG Al Hydrox/Mg Hydrox/Simethicone (Maalox Max Susp) 15 ml Q4H PRN PO 04/27/17 20:30 05/27/17 20:29 04/30/17 14:09 15 ML Magnesium Hydroxide (Milk Of Magnesia Susp) 30 ml Q12H PRN PO 04/27/17 20:30 05/27/17 20:29 Zolpidem Tartrate (Ambien Tab) 5 mg HSZ PRN PO 04/27/17 20:30 05/27/17 20:29 Ondansetron HCl (Zofran Inj) 4 mg Q6H PRN IV 04/27/17 20:30 05/27/17 20:29 Polyethylene (Miralax Powder Packet) 17 gm DAILY PRN PO 04/27/17 20:30 05/27/17 20:29 Hydralazine HCl (HydrALAZINE INJ) 10 mg Q6 PRN IV. 04/28/17 01:00 05/28/17 00:59 05/02/17 14:46 10 MG Ketorolac Tromethamine (Toradol Inj) 15 mg Q6H PRN IV 04/28/17 02:15 05/03/17 02:14 05/01/17 16:12 15 MG Azelastine HCl (Astelin Nasal [place]) 2 sprays DAILY NA 04/30/17 09:00 05/30/17 08:59 05/02/17 09:00 2 SPRAYS Diclofenac Sodium (Voltaren 1% Top Gel) 1 appln QID EXT 05/01/17 21:00 05/31/17 20:59 05/02/17 07:57 1 APPLN Provider Instructions Activity Restrictions - No exercising or heavy lifting for 24 hours. - Do not drink alcohol the day of the procedure. - Do not drive a car or operate machinery until the day after the procedure. - Do not make any important decisions or sign important papers in 24 hours after the procedure. Following Day: - Return to full activity which may include returning to work/school. Diet Start your diet with liquids and light foods (jello, soup, juice, toast). Then eat your usual diet if not nauseated. Treatment For Common After Affects For mild abdominal pain, bloating, or excessive gas: - Rest - Eat lightly - Lie on right side Follow-Up Information Follow-up with as scheduled Anesthesia Information What You Should Know You have had a procedure that required some medicine to reduce anxiety and discomfort. This treatment is called moderate sedation. After receiving the treatment, you may be sleepy, but you will be able to breathe on your own. The effects of the treatment may last for several hours. Follow these instructions along with Activity/Diet recommendations noted above: * Do NOT do anything where dizziness or clumsiness would be dangerous. * Rest quietly at home today, then you can be up and about tomorrow. * Have a responsible person stay with you the rest of today. * You may have had an I.V. today. If so, you may take the dressing off later today. Recommendations Call your doctor if: * Trouble breathing * Continuous vomiting for more than 24 hours * Temperature above 101 degrees * Severe abdominal pain or bloating * Pain not relieved by pain medicine ordered * There is increased drainage or redness from any incision * A large amount of rectal bleeding greater than 2-3 tablespoons. (If you had a polyp/s removed or have hemorrhoids, a small amount of blood - from the rectum is to be expected.) * You have any unanswered questions or concerns. IN THE EVENT OF A SERIOUS EMERGENCY, GO TO THE NEAREST EMERGENCY ROOM Your discharge instructions were prepared by provider Ricci Wisdom. Patient Instructions Signature Page Debora Ralph Patient (or Guardian) Signature/Date: I have read and understand the instructions given to me by my caregivers. Caregiver/RN/Doctor Signature/Date: The above-named patient and/or guardian has received patient instructions on this date. + Original Patient Signature Page (only) stays with chart. Please make copy for patient.
--- NOTE | 2017-05-02 15:37 | GI REPORT ---
Procedure Date: 05/02/2017 3:11 PM Procedure: Colonoscopy Indications: Melena, Acute post hemorrhagic anemia Medicines: Propofol total dose 150 mg IV, Lidocaine 40 mg IV Complications: No immediate complications. Estimated Blood Loss: Estimated blood loss was minimal. Procedure: Pre-Anesthesia Assessment: - Prior to the procedure, a History and Physical was performed, and patient medications, allergies and sensitivities were reviewed. The patient's tolerance of previous anesthesia was reviewed. - The risks and benefits of the procedure and the sedation options and risks were discussed with the patient. All questions were answered and informed consent was obtained. After I obtained informed consent, the scope was passed under direct vision. Throughout the procedure, the patient's blood pressure, pulse, and oxygen saturations were monitored continuously. The Scope was introduced through the anus and advanced to the cecum, identified by appendiceal orifice and ileocecal valve. The colonoscopy was somewhat difficult due to significant looping. Successful completion of the procedure was aided by applying abdominal pressure. The patient tolerated the procedure well. The quality of the bowel preparation was good. Findings: A 3 mm polyp was found in the cecum. The polyp was sessile. The polyp was removed with a cold biopsy forceps. Resection and retrieval were complete. Estimated blood loss was minimal. Two sessile polyps were found in the descending colon. The polyps were 4 to 5 mm in size. These polyps were removed with a cold snare. Resection and retrieval were complete. Estimated blood loss was minimal. Multiple diverticula were found in the entire colon. Impression: - One 3 mm polyp in the cecum, removed with a cold biopsy forceps. Resected and retrieved. - Two 4 to 5 mm polyps in the descending colon, removed with a cold snare. Resected and retrieved. - Diverticulosis in the entire examined colon. Recommendation: - [facility]. - Await pathology results. Ricci Wisdom M.D. Ricci Wisdom MD 05/02/2017 3:37:29 PM This report has been signed electronically. Note Initiated On: 05/02/2017 3:11 PM I attest to the content of the Intraoperative Record and orders documented therein, exceptions below
--- NOTE | 2017-05-02 15:45 | PROGRESS NOTE ---
DATE: 05/02/2017 SUBJECTIVE: The patient underwent a colonoscopy today for melena and anemia. Her EGD yesterday was negative except for large hiatal hernia. Her colonoscopy today showed multiple diverticula throughout the colon. She had a small cecal polyp that was removed and 2 polyps in the descending colon also small and also removed. IMPRESSION AND PLAN: The patient's gastrointestinal bleeding most likely is coming from diverticulosis on the right side that would account for some melena and her anemia. There is no active bleeding at this time. At this point, we can advance her diet to a low fiber diet and follow as needed.
--- NOTE | 2017-05-02 15:50 | Discharge Summary ---
Discharge Summary Date of Service May 02, 2017. Discharge Summary Admission Date: Apr 27, 2017 at 20:25 Discharge Date: May 03, 2017 Discharge Disposition: longterm facility ([facility]) Principal Diagnosis: Acute anemia secondary to GI bleed Problems/Secondary Diagnoses: Medical Problems: (1) Arthritis (2) CVD (cerebrovascular disease) (3) Fall (on)(from) incline, subsequent encounter (4) GI bleed (5) HTN (hypertension) (6) Hyperlipemia Surgical Problems: (1) History of hysterectomy Procedures: FACIAL BONES-MXILLOFAC WITHOUT 04/27/17 Paranasal sinuses demonstrate polypoid mucosal thickening in the left maxillary sinus and are otherwise clear. Trace fluid in the right mastoid air cells. No acute osseous injury. Orbits intact. Bilateral gakona lenses are absent. No significant soft tissue contusion is evident. Limited intracranial evaluation demonstrates age-related changes. Degenerative changes of the bilateral temporomandibular joints. Upper cervical spine with mild degenerative change. IMPRESSION: No acute osseous injury of the face. HEAD WITHOUT CONTRAST (CT) 04/27/17 IMPRESSION: 1. No acute intracranial abnormality or calvarial fracture. 2. 3.0 cm left frontal scalp hematoma with laceration. No opaque foreign body. CT OF THE CERVICAL SPINE 04/27/17 FINDINGS: The visualized portions of the lung apices reveal no evidence of pneumothorax. The prevertebral soft tissues are normal. No fractures or subluxations are visualized. There are multilevel degenerative changes IMPRESSION: No evidence of acute fracture or traumatic subluxation. CHEST ONE VIEW PORTABLE 04/27/17 IMPRESSION: 1. No acute cardiopulmonary findings. 2. Healing right lower rib fractures, as shown on CT of March 11, 2017. 3. Large hiatal hernia. ULTRASOUND OF THE CAROTID ARTERIES 04/28/17 IMPRESSION: No evidence of hemodynamically significant carotid stenosis. Endoscopy 05/01/17: Impression: Medium-sized hiatal hernia. Normal stomach Normal examined duodenum. No specimens collected. Colonoscopy 05/02/17: Impression: One 3 mm polp in the cecum, removed with a cold biopsy forceps. Resected and retrieved. Two 4 to 5 mm polpys in the descending colon, removed with cold snare. Resected and retrieved. Diverticulosis in the entire examined colon. Consultations: Gastroenterology Medication Reconciliation New Medications: Diclofenac Sod (Voltaren) 100 Appln/100 Gm Gel 1 APPLN EXT QID for 30 Days, #30 DOSE Continued Medications: Acetaminophen (Tylenol) 500 Mg Tab 1000 MG PO TID PRN for Headache or Pain, TAB Aspirin (Aspirin Ec) 81 Mg Tab 81 MG PO DAILY Azelastine Hcl (Astelin Nasal [place]) 200 Sprays/30 Ml [place] 1-2 SPRAYS NA DAILY, BTL Cholecalciferol (Vitamin D 1000 Unit) 1,000 Unit Cap 2000 INTER.UNIT PO DAILY, CAP Donepezil Hydrochloride (Donepezil Hcl) 10 Mg Tab 10 MG PO HS Lisinopril/Hctz (Zestoretic 20MG/12.5MG) Tab 1 TAB PO DAILY, TAB Memantine Hcl (Namenda Xr) 28 Mg Cap 28 MG PO DAILY Metoprolol Succ (Toprol Xl) (Toprol-Xl) 50 Mg Tabcr 75 MG PO DAILY, #30 TAB Multivitamins/Minerals (Mvi With Minerals) Tab 1 TAB PO DAILY, TAB Pantoprazole (Protonix) 40 Mg Tab 40 MG PO DAILY, TAB Probiotic Product (Probiotic) 1 Cap Cap 1 CAP PO DAILY Ranitidine (Zantac) 300 Mg Tab 300 MG PO HS, TAB Rosuvastatin Calcium (Crestor) 20 Mg Tab 20 MG PO DAILY Discharge Exam The patient was seen and examined this morning. Pt reports doing well today, she denies any acute complaints. Pt underwent colonoscopy yesterday afternoon which showed diverticulosis. Discussion was held regarding acute anemia being from GI bleed and likely from this as no other bleed was identified, all questions and concerns were addressed. She denies any chest pain, palpitations, flutter, headache, lightheadedness or dizziness. She has been ambulating to the bathroom without difficulty , but still feels slightly unsteady and is using the walker. She anticipates discharge to [facility] today. ROS: 10 point ROS reviewed and otherwise negative. PE: General Appearance: WD/WN, no apparent distress, + pertinent finding (sutured laceration over the left forehead healing well, no surrounding erythema, + ecchymosis surrounding and extends to left zygomatic region.) Eyes: PERRL, EOMI ENT: hearing grossly normal, pharynx normal Neck: supple, no JVD Respiratory/Chest: lungs clear, no respiratory distress, no accessory muscle use Cardiovascular: regular rhythm, no murmur, + mild tachycardia HR = 90s Abdomen: normal bowel sounds, non tender, soft Extremities: non-tender, no pedal edema, no calf tenderness Neurologic/Psychiatric: alert, normal mood/affect, oriented x 3 Skin: normal color, warm/dry Hospital Course History of Present Illness Source: patient 86-year-old female with past medical history of hypertension, dyslipidemia and diabetes mellitus presented to the ED after falling and bruising her left forehead. Patient they said that she was standing and she thinks that she tried to walk or take a few steps and then she fell and hit her head but she is not sure. I felt that she doesn't remember exactly how she fell and she was trying to fill gaps in her memory. About 3 months ago she fell and she fractured one of her ribs that's currently healing on imaging. On arrival ED physician did CAT scan head and cervical spine they were all negative She has no dizziness and denies any dizziness prior to falling. PT and OT evaluated her in ED and they think she needs referral to rehabilitation. Physical Exam General Appearance: WD/WN, no apparent distress Head: + pertinent finding (traumatic wounds on her left forehead and a Tarer on her scalp) Eyes: normal inspection, EOMI ENT: normal ENT inspection, hearing grossly normal Neck: supple Respiratory/Chest: chest non-tender, lungs clear, normal breath sounds, no respiratory distress, no accessory muscle use Cardiovascular: regular rate, rhythm, no edema, no gallop, no JVD, no murmur, normal peripheral pulses Abdomen/GI: normal bowel sounds, non tender, soft, no organomegaly, no pulsatile mass Back: normal inspection Extremities/Musculoskelatal: normal inspection, no calf tenderness, normal capillary refill, no pedal edema, normal range of motion 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, no motor/sensory deficits, alert, normal mood/affect, normal reflexes, oriented x 3 Skin: normal color, warm/dry, no rash Hospital Course: 86 year old female here due to fall Status post fall from ground level, unknown precipitant - CT head, CT cervical spine, carotid US are negative - echo showed diastolic dysfunction with EF 60%, mild to moderate mitral and aortic regurg - no acute events noted on tele - PT OT evaluation recommended rehabilitation - pt is from home and lives alone - accepted at [facility] Acute blood loss anemia due to GI bleed - GI on board: planning EUS today so NPO except meds this morning, can have clear liquid diet tonight, then bowel prep tonight and planned colonoscopy tomorrow. EUS completed and was normal, no signs of acute bleed from here. Colonoscopy completed 05/02: multiple polyps were biopsied and sent for pathology, diverticulosis throughout the entire colon. No active bleed. - hgb 8.4 on admission, dipped to 6.8, s/p 1 unit PRBCs 04/28 - hgb 7.5 and remains stable x 3 days now- pt asymptomatic so no needs for transfusion currently. - fecal occult positive - Protonix 40 mg daily and Ranitidine 300 QHS PAULINA, CKD III - Creat increasing to 1.58 today - gentle IVF improved this - off fluids now and tolerating PO diet without difficulty. - avoid nephrotoxins when possible Hypertension - Continue metoprolol succ 75 mg daily - BP remains slightly elevated but likely due to the anemia. - Hold aspirin due to her fall, anemia Dementia - continue Namenda XR 28 mg daily, aricept 10 mg HS GERD - Continue PPI and H2 mayra Hyperlipidemia - Continue Crestor DVT ppx: teds, scds, no chemical anticoagulation due to GI bleed as above. Disposition: From home, pt accepted at [facility], discharged today. i personally examined pt and verified all szymanski points lopez Mccarthy PAC feeling better discussed periodic CBC to follow outpt iron levels vitals noted nad breathing unlabored no pallor or icterus anemia - due to chronic GI blood loss - likely from diverticular bleeding -stable for SNF -periodic and serial CBCs, iron levels, prn supplementation and transfusions if needed - not needed at this time Total Time Spent: Greater than 30 minutes This includes examination of the patient, discharge planning, medication reconciliation, and communication with other providers. Discharge Instructions Please refer to the electronic Patient Visit Report (Discharge Instructions) for additional information. Follow-Up Follow up with your Primary Care Provider at [facility] within 24-48 hours of arrival, follow up with PCP within 1 week of discharge from there. Follow up with GI on as needed basis. Additional Copies To Jann Hall M.D.
--- NOTE | 2017-05-02 15:55 | Hospitalist Progress Note ---
Hospitalist Progress Note Date of Service May 02, 2017. (Hien Mccarthy PA-C) Subjective Pt evaluation today including: conversation w/ patient, physical exam, chart review, lab review, review of studies Pain: None PO Intake: NPO Voiding: no voiding problems The patient was seen and examined this morning. Pt reports doing well today, she denies any acute complaints other than feeling a little cold, no sweats or chills however. She is awaiting colonoscopy when I examined her. She denies any chest pain, palpitations, flutter, headache, lightheadedness or dizziness. She has been ambulating to the bathrooom without difficulty several times due to the bowel prep. ROS: 10 point ROS reviewed and otherwise negative. (Hien Mccarthy PA-C) Objective Vital Signs Date Time Temp Pulse Resp B/P (MAP) Pulse Ox O2 Delivery O2 Flow Rate FiO2 05/02/17 15:01 37 78 20 158/89 (112) 98 Room Air 05/02/17 14:45 36.9 82 18 185/69 (107) 96 Room Air 05/02/17 12:00 Room Air 05/02/17 11:24 36.8 76 20 187/70 (109) 96 05/02/17 08:00 92 Room Air 05/02/17 07:00 36.4 69 20 184/74 (110) 92 05/02/17 04:18 36.8 83 16 167/62 (97) 91 Room Air 05/02/17 04:00 Room Air 05/02/17 00:04 36.8 72 16 169/81 (110) 98 Room Air 05/02/17 00:00 Room Air 05/01/17 20:03 36.6 67 18 160/74 (102) 97 Room Air 05/01/17 20:00 94 Room Air 05/01/17 16:00 95 Room Air 05/01/17 15:55 36.6 76 18 182/64 (103) 95 Room Air (Hien Mccarthy PA-C) Physical Exam Notes: PE: General Appearance: WD/WN, no apparent distress, + pertinent finding (sutured laceration over the left forehead healing well, no surrounding erythema, + ecchymosis surrounding and extends to left zygomatic region.) Eyes: PERRL, EOMI ENT: hearing grossly normal, pharynx normal Neck: supple, no JVD Respiratory/Chest: lungs clear, no respiratory distress, no accessory muscle use Cardiovascular: no murmur, + tachycardia Abdomen: normal bowel sounds, non tender, soft Extremities: non-tender, no pedal edema, no calf tenderness Neurologic/Psychiatric: alert, normal mood/affect, oriented x 3 Skin: normal color, warm/dry (Hien Mccarthy PA-C) Laboratory Results Last 24 Hours Test 05/02/17 06:18 White Blood Count 7.97 K/uL Red Blood Count 2.70 M/uL Hemoglobin 7.5 g/dL Hematocrit 23.7 % Mean Corpuscular Volume 87.8 fL Mean Corpuscular Hemoglobin 27.8 pg Mean Corpuscular Hemoglobin Concent 31.6 g/dl RDW Standard Deviation 51.0 fL RDW Coefficient of Variation 16.2 % Platelet Count 195 K/uL Mean Platelet Volume 10.3 fL Sodium Level 143 mmol/L Potassium Level 4.2 mmol/L Chloride Level 112 mmol/L Carbon Dioxide Level 23 mmol/L Anion Gap 8.0 mmol/L Blood Urea Nitrogen 17 mg/dl Creatinine 1.21 mg/dl Est Creatinine Clear Calc Drug Dose 33.6 ml/min Estimated GFR () 47.6 Estimated GFR (Non- 41.1 BUN/Creatinine Ratio 13.9 Random Glucose 85 mg/dl Calcium Level 7.8 mg/dl (Hien Mccarthy PA-C) Assessment and Plan 86 year old female here due to fall Status post fall from ground level, unknown precipitant - CT head, CT cervical spine, carotid US are negative - echo showed diastolic dysfunction with EF 60%, mild to moderate mitral and aortic regurg - no acute events noted on tele - PT OT evaluation recommended rehabilitation - pt is from home and lives alone - accepted at [facility] Acute blood loss anemia due to GI bleed - GI on board: planning EUS today so NPO except meds this morning, can have clear liquid diet tonight, then bowel prep tonight and planned colonoscopy tomorrow. EUS completed and was normal, no signs of acute bleed from here. - Colonoscopy completed today: multiple polyps sent for pathology- diverticulosis throughout the entire colon - hgb 8.4 on admission, dipped to 6.8, s/p 1 unit PRBCs 04/28 - hgb still holds stable at 7.5 - pt asymptomatic so no needs for transfusion currently. - fecal occult positive - Protonix 40 mg daily and Ranitidine 300 QHS [place], CKD III - Creat improved to 1.21 - avoid nephrotoxins when possible Hypertension - Continue metoprolol succ 75 mg daily - BP slightly elevated this morning. - Hold aspirin due to her fall, anemia Dementia - continue Namenda XR 28 mg daily, aricept 10 mg HS GERD - Continue PPI and H2 mayra Hyperlipidemia - Continue Crestor DVT ppx: teds, scds, no chemical anticoagulation due to GI bleed as above. Disposition: From home, pt accepted at [facility], discharge tomorrow (Hien Mccarthy, PAParkerC) i personally examined pt and verified all szymanski points lopez Mccarthy PAC feeling ok - seen while awaiting colo. plan for snf at discharge vitals noted nad breathing unlabored no pallor or icterus anemia - await colo. if no significant findings then likely capsule endoscopy as outpt stable. anticipate SNF either later today or tomorrow (Javi Beltrán D.O.)
--- NOTE | 2017-05-02 16:02 | Anesthesiology Progress Note ---
Anesthesia Post Op Note Date & Time May 02, 2017 at 16:02 Vital Signs Pain Intensity: 0 Vital Signs Past 12 Hours Date Time Temp Pulse Resp B/P (MAP) Pulse Ox O2 Delivery O2 Flow Rate FiO2 05/02/17 15:59 36.3 63 22 147/82 (103) 99 Oxymask 5.0 05/02/17 15:50 70 20 150/68 (95) 98 Room Air 05/02/17 15:34 69 20 123/63 (83) 98 Room Air 05/02/17 15:01 37 78 20 158/89 (112) 98 Room Air 05/02/17 14:45 36.9 82 18 185/69 (107) 96 Room Air 05/02/17 12:00 Room Air 05/02/17 11:24 36.8 76 20 187/70 (109) 96 05/02/17 08:00 92 Room Air 05/02/17 07:00 36.4 69 20 184/74 (110) 92 05/02/17 04:18 36.8 83 16 167/62 (97) 91 Room Air Notes Mental Status: alert / awake / arousable, participated in evaluation Pt Amnestic to Procedure: Yes Nausea / Vomiting: adequately controlled Pain: adequately controlled Airway Patency, RR, SpO2: stable & adequate BP & HR: stable & adequate Hydration State: stable & adequate Anesthetic Complications: no major complications apparent
[2017-05-02] MEDS ORDERED: NURSING VERBAL MED ORDER ONE (16:45)
[2017-05-02] MEDS: ALUMINUM/MAGNESIUM/SIMETH (MAALOX MAX) 30 ML UDC PO PRN (18:40)
[2017-05-02] MEDS: DONEPEZIL HCL 10 MG TAB PO SCH (21:30)
[2017-05-02] MEDS: RANITIDINE HCL 150 MG TAB PO SCH (21:31)
[2017-05-03 00:10] VITALS: O2SAT 93
[2017-05-03 00:39] VITALS: BP 175/79; PULSE 76; TEMP 36.8; O2SAT 92
[2017-05-03 04:00] VITALS: BP 167/74; PULSE 68; TEMP 36.5; O2SAT 93
[2017-05-03 06:46] LABS: HEMATOCRIT 24.2 % (37-47); HEMOGLOBIN 7.5 g/dL (12.0-16.0); MEAN CELL VOLUME 87.7 fL (80-100); MEAN CORPUSCULAR HEMOGLOBIN 27.2 pg (25-34); MEAN PLATELET VOLUME 9.9 fL (7.4-10.4); PLATELET COUNT 182 K/uL (130-400); RED CELL DISTRIBUTION WIDTH CV 16.5 % (11.5-14.5); RED CELL DISTRIBUTION WIDTH SD 52.4 fL (36.4-46.3); WHITE BLOOD COUNT 8.43 K/uL (4.8-10.8)
[2017-05-03 07:16] LABS: CALCIUM 8.2 mg/dl (8.5-10.1); CREATININE 1.26 mg/dl (0.60-1.20); POTASSIUM 4.1 mmol/L (3.5-5.1)
[2017-05-03 07:51] VITALS: BP 188/78; PULSE 68; TEMP 37; O2SAT 93
[2017-05-03] MEDS: AZELASTINE HCL 0.1 % NASAL SPRAY SCH (07:54)
[2017-05-03] MEDS: METOPROLOL SUCC 25MG EXT REL TAB PO SCH (07:55)
[2017-05-03] MEDS: PANTOprazole SOD 40 MG TAB PO SCH (07:56)
[2017-05-03] MEDS: DICLOFENAC SOD 1% GEL 100 GM TUBE EXT SCH (07:57)
[2017-05-03] MEDS: MEMANTINE HCL 28 MG PO SCH (07:57)
[2017-05-03 11:01] VITALS: BP 188/78; PULSE 68; TEMP 37; O2SAT 93
[2017-05-03 11:51] VITALS: BP 175/71; PULSE 76; TEMP 36.7; O2SAT 94
== END 2017-05-03 13:15 | DRG 377 ==
LOC: EDBD 14:20 → C.EDA 14:21 → C.MED 20:25 → CANRESERV 21:29 → ENRESERV 21:29
PROVIDERS: ADMIT Internal Medicine; ATTEND Family Medicine
PROC: 0HQ0XZZ Repair Scalp Skin, External Approach (ICD-10-PCS; 2017-04-27)
PROC: 0HQ1XZZ Repair Face Skin, External Approach (ICD-10-PCS; 2017-04-27)
PROC: 0DJ08ZZ Inspection of Upper Intestinal Tract, Via Natural or Artificial Opening Endoscopic (ICD-10-PCS; 2017-05-01)
PROC: 0DBH8ZX Excision of Cecum, Via Natural or Artificial Opening Endoscopic, Diagnostic (ICD-10-PCS; principal; 2017-05-02 14:55)
PROC: 0DBM8ZX Excision of Descending Colon, Via Natural or Artificial Opening Endoscopic, Diagnostic (ICD-10-PCS; principal; 2017-05-02 14:55)
DX: K57.31 Diverticulosis of large intestine without perforation or abscess with bleeding (principal); N17.0 Acute kidney failure with tubular necrosis; D62 Acute posthemorrhagic anemia; R29.6 Repeated falls; S01.81XA Laceration without foreign body of other part of head, initial encounter; S01.21XA Laceration without foreign body of nose, initial encounter; Z23 Encounter for immunization; D12.0 Benign neoplasm of cecum; D12.4 Benign neoplasm of descending colon; K57.30 Diverticulosis of large intestine without perforation or abscess without bleeding; K44.9 Diaphragmatic hernia without obstruction or gangrene; G44.209 Tension-type headache, unspecified, not intractable; I12.9 Hypertensive chronic kidney disease with stage 1 through stage 4 chronic kidney disease, or unspecified chronic kidney disease; E78.5 Hyperlipidemia, unspecified; E11.9 Type 2 diabetes mellitus without complications; F03.90 Unspecified dementia, unspecified severity, without behavioral disturbance, psychotic disturbance, mood disturbance, and anxiety; K21.9 Gastro-esophageal reflux disease without esophagitis; N18.3 Chronic kidney disease, stage 3 (moderate); M19.90 Unspecified osteoarthritis, unspecified site; Z79.899 Other long term (current) drug therapy; Z79.82 Long term (current) use of aspirin; Z91.81 History of falling; Z86.73 Personal history of transient ischemic attack (TIA), and cerebral infarction without residual deficits; Z82.49 Family history of ischemic heart disease and other diseases of the circulatory system; W18.39XA Other fall on same level, initial encounter; Y99.8 Other external cause status

== ENCOUNTER → 2017-11-12 | Outpatient (CLI) | payer OTHER, MEDICARE ==
[~2017-11-12] MED LIST changes: -METO50TA7 PO; +METO50TA8 PO; +VLTG EXT
--- NOTE | 2017-11-12 16:20 | DIAGNOSTIC IMAGING REPORT ---
BONE SCAN WHOLE BODY HISTORY: Pain R74.8 Elevated alkaline phosphatase level RADIOTRACER: 25 mCi Tc-99m MDP STUDY/IMAGES: Planar anterior and posterior whole body imaging was performed 3 hours following the intravenous administration of radiotracer. COMPARISON: None. FINDINGS: Mild increase in activity of several posterior ribs bilaterally as well as in the region of the pedicles of T10-T12 and L1-L3. No additional foci of increased activity are noted. There are degenerative changes of both knees as well as ankles. IMPRESSION: 1. Nonspecific increased neck area involving the pedicles of the low thoracic and upper lumbar region. 2. Several foci of increased activity involving lower posterior thoracic ribs. 3. Although this potentially is degenerative and/or posttraumatic, metastatic disease is not entirely excluded with routine images of the thoracolumbar spine recommended. The above report was generated using voice recognition software. It may contain grammatical, syntax or spelling errors. Electronically signed by: Dre Hamm M.D. 11/12/2017 4:18 PM Dictated Date/Time: 11/12/2017 4:16 PM
== END | disposition home or self-care (01) ==
LOC: C.NUCL 10:53
PROVIDERS: ATTEND Internal Medicine Geriatric Medicine
DX: R74.8 Abnormal levels of other serum enzymes (principal)

== ENCOUNTER → 2017-11-16 | Outpatient (CLI) | payer OTHER, MEDICARE ==
--- NOTE | 2017-11-16 13:05 | DIAGNOSTIC IMAGING REPORT ---
THORACIC SPINE 3 VIEWS ROUTINE, L-SPINE MIN 4 VIEWS ROUTINE HISTORY: 86 years-old Female M19.90 Chronic [id number] chronic mid and low back pain. No reported acute trauma COMPARISON: CT chest 03/11/2017 TECHNIQUE: 3 views of the thoracic spine and 5 views of the lumbar spine FINDINGS: THORACIC: 12 thoracic type rib-bearing vertebral segments are present. Thoracic lumbar sigmoidal scoliosis redemonstrated. No acute fracture or subluxation is identified. Multilevel spondylitic spurring and intervertebral disc space narrowing with facet arthropathy. Degenerative changes of the imaged cervical spine are also noted. Calcification of the aorta. Cardiomegaly. Moderate hiatal hernia. LUMBAR: 5 nonrib-bearing lumbar type vertebral segments are present. There is no acute fracture identified. Likely chronic appearing grade 1 retrolisthesis L2 on L3, L3 on L4 with 6 mm anterolisthesis L5 on S1. Moderate intervertebral disc space narrowing at L1-L2 and L2-L3. Severe facet arthrosis at L4-L5 and L5-S1. Moderately demineralized appearance of the bones. IMPRESSION: 1. No acute fracture or subluxation of the thoracolumbar spine. 2. Demineralized appearance of the bones with degenerative changes as above. 3. Moderate hiatal hernia. 4. Cardiomegaly. The above report was generated using voice recognition software. It may contain grammatical, syntax or spelling errors. Electronically signed by: Mane Norwood M.D. 11/16/2017 1:04 PM Dictated Date/Time: 11/16/2017 12:59 PM
== END | disposition home or self-care (01) ==
LOC: C.RADBC 12:35
PROVIDERS: ATTEND Internal Medicine Geriatric Medicine
DX: M19.90 Unspecified osteoarthritis, unspecified site (principal)

== ENCOUNTER 2020-01-31 17:00 | Inpatient (IN) ==
--- NOTE | 2020-01-31 17:28 | Emergency Department Note ---
Impression & Plan GI bleed, Fatigue ED Provider Note NAME: SHAKA MARSHALL AGE: 89 SEX: F : 1930 ARRIVES VIA: Walk-In INFORMANT: Patient, ED PROVIDER(S): Jv Kelly MD Chief Complaint: Fatigue, weakness HPI: Patient states she has neuropathy symptoms of the last several days and just states that she does not have enough "zip." The patient denies any headache cough, fevers, chills, chest pains, shortness of breath, nausea, vomiting, dysuria, hematuria, blood in the stools. Patient states that she may not be eating as much recently. The patient [place] and there was discussion about the possible need for additional therapy. Patient currently does have some it comes in home twice a week. This is only been about 3 weeks in duration. Patient denies infectious symptoms is a non-smoker no alcohol use. Patient symptoms have gotten progressively worse over these days with nothing making it better or worse. ROS: See HPI for pertinent positives and negatives. A total of 10 systems were reviewed and otherwise negative. Past medical history: See below Surgical history: See below Social history: See below Physical Exam: GENERAL: Wearing glasses and a mask, tired in appearance. NAD, non-toxic. EYE EXAM: Normal conjunctiva. PERRL, no anisocoria and EOM's grossly intact w/o pain. NECK: Supple, no nuchal rigidity, no adenopathy, non-tender. No signs of meningismus. LUNGS: Clear to auscultation. Normal chest wall mechanics. HEART: NSR, no MRG. ABDOMEN: Abdomen soft, non-tender, normo-active bowel sounds, no masses, no rebound or guarding. BACK: No CVA TTP. Rectal: No anal fissures or thrombosed hemorrhoids, no bright red blood per rectum, dark stool noted, heme positive. SKIN: No rashes and no bruising. UPPER EXTREMITIES: Upper extremities are grossly normal. LOWER EXTREMITIES: Grossly normal, no edema. NEURO EXAM: A&O x3, cranial nerves II-XII grossly intact, normal speech, moves all 4 extremities on command w/o issue. Differential diagnoses: Infection, dehydration, metabolic abnormality, hypo/hyperglycemia, electrolyte disturbance, anemia, hypoxia, cardiac sources, intracerebral event, toxicologic, neurologic, as well as other pathologies. Course: Patient was seen and evaluated the bedside. Full history physical exam was performed. EKG: Indication: Weakness Normal sinus rhythm, rate of 65, wide QRS, left axis deviation, left bundle branch block without sgarbossa criteria. No significant change from December 22, 2019 comparison EKG. Imaging Studies: Radiology results as stated below per my review in the radiologist's interpretation: XR chest 1V portable CLINICAL HISTORY: weakness COMPARISON STUDY: Chest radiograph December 22, 2019. FINDINGS: The patient is rotated. A hiatal hernia is noted. There is moderate cardiomegaly without evidence for pulmonary edema. There is no pneumothorax or pleural effusion. Skinfold projects over the right upper upper hemithorax. No consolidation is identified to suggest pneumonia. Old right 10th rib fracture is incidentally noted. IMPRESSION: 1. No acute findings. Rotated study. 2. Hiatal hernia. ACT 112: Negative or not required by law. Electronically signed by: Ede Fair M.D. 01/31/2020 6:44 PM Dictated: 01/31/201841 Transcribed: 01/31/201841 Cardiac monitoring: An order was placed for continuous cardiac monitoring. The monitor shows a rate of 62 with sinus rhythm. MDM: Did present with concern for weakness and fatigue. The patient did bladder complete along the EKG troponin chest x-ray and the patient was given IV fluids. I did note that the patient did have a lower hemoglobin by approximately 4 points from prior completed in November. Rectal exam was performed and noted that the patient did have heme positive dark stool. PPI bolus and drip were ordered. I did speak the on-call hospitalist Dr. Cisco MD. The patient was subsequently admitted to the medicine service. Past Med/Surg History Medical History Anemia Arthritis Coronary artery disease Dementia Depression Gait disturbance, post-stroke GI bleed History of CVA (cerebrovascular accident) HTN (hypertension) Hyperlipemia Hyperthyroidism Irritable bowel syndrome Ischemic stroke Obstructive sleep apnea Stage 3 chronic kidney disease Vitamin D deficiency Surgical History S/P dilatation and curettage S/P hysterectomy S/P shoulder surgery S/P total knee arthroplasty Family History Mother Coronary heart disease Heart disease Myocardial infarction Denies family history of Ovarian cancer Prostate cancer Diabetes Alzheimer disease Breast cancer Lung cancer COPD (chronic obstructive pulmonary disease) Colorectal cancer Asthma Social History Smoking Status: Never smoker Hx Alcohol Use: No Hx Substance Use: No Preferred Language: Ukrainian Communication Ability: Effective Visual Impairment: No Limitations Hearing Ability: Hard of Hearing Legal Recruiter Required: No Beliefs That Will Affect Care: None marital status: / Current Living Situation: Alone current occupational status: retired Other Information That Helps Us Care for You: No Feels Safe at Home: Yes Safety Concerns: Feels Safe At This Time Childhood Exposure to Second-Hand Smoke: No Diet Comment: regular caffeine: Yes (tea) during the past year weight has: remained stable Dental Care, Regularly: No Physical Activity Frequency: Does not Exercise Seatbelt Use: always Sunscreen Use: No Assistive Devices: Cane and Glasses Allergies Allergies Allergy/AdvReac Type Severity Reaction Status Date / Time atorvastatin Allergy Unknown UNKOWN Verified 01/31/20 19:17 cephalexin [From Keflex] Allergy Unknown Unknown Unverified 01/31/20 19:17 oxaprozin [From Daypro] Allergy Unknown Unknown Unverified 01/31/20 19:17 paroxetine Allergy Unknown UNKNOWN Verified 01/31/20 19:17 propoxyphene Allergy Unknown DARVOCET Verified 01/31/20 19:17 acetaminophen AdvReac Mild Unknown Unverified 01/31/20 19:17 [From Darvocet-N 100] codeine AdvReac Mild NAUSEA Verified 01/31/20 19:17 Sulfa (Sulfonamide AdvReac Mild NAUSEA Verified 02/01/20 09:12 Antibiotics) Home Meds Home Medications Medication Instructions Recorded Confirmed cetirizine 10 mg tablet 10 mg PO DAILY PRN tab 11/27/18 01/31/20 cholecalciferol (vitamin D3) 5,000 unit PO QAM 12/01/18 01/31/20 [Vitamin D3] multivitamin 1 tab PO QAM 12/01/18 01/31/20 diclofenac sodium See Rx Instructions TOP TID PRN 12/22/19 01/31/20 tramadol 50 mg PO DAILY PRN 12/22/19 01/31/20 Previous Rx's Medication Instructions Recorded lisinopril 40 mg tablet 40 mg PO QAM #90 tab 04/07/19 ipratropium bromide 42 mcg (0.06 2 spray INTNAS BID #15 ml 06/09/19 %) nasal spray ketotifen fumarate 0.025 % (0.035 1 drp OP BID #10 ml 07/30/19 %) eye drops rosuvastatin 20 mg tablet 20 mg PO DAILY #90 tab 09/22/19 amlodipine 5 mg tablet 5 mg PO HS #90 tab 09/25/19 methimazole 5 mg tablet 5 mg PO DAILY #90 tab 10/23/19 ferrous sulfate 325 mg (65 mg 325 mg PO DAILY #30 tab 11/12/19 iron) tablet clopidogrel 75 mg tablet 75 mg PO QAM #90 tab 12/18/19 metoprolol succinate 100 mg 100 mg PO HS #90 tab 12/25/19 tablet,extended release 24 hr miscellaneous medical supply #1 ea 01/01/20 duloxetine 30 mg capsule,delayed 30 mg PO DAILY #90 cap 01/06/20 release calcitriol 0.25 mcg capsule 0.25 mcg PO 3XWK #60 cap 01/19/20 memantine 28 mg capsule 28 mg PO QAM #90 ea 01/19/20 sprinkle,extended release 24hr pantoprazole 40 mg tablet,delayed 40 mg PO QAM #90 tab 01/21/20 release furosemide 20 mg tablet 20 mg PO QAM #90 tab 01/26/20 donepezil 10 mg tablet 10 mg PO QAM #90 tab 01/28/20 Results & Data (ED) Vital Signs Vital Signs - 24 hr 01/31/20 17:04 01/31/20 18:41 01/31/20 18:43 Temperature 36.8 C Temperature Source Oral Pulse Rate 59 L Pulse Rate [Apical] 58 L Pulse Rhythm [Apical] Regular Pulse Strength [Apical] Normal Respiratory Rate 20 21 Respiratory Effort / Characteristics Non-Labored Respiratory Depth Normal Respiratory Pattern Regular Blood Pressure 153/63 H Blood Pressure [Right Arm] 156/53 H Blood Pressure Mean 93 Blood Pressure Mean [Right Arm] 87 Blood Pressure Position [Right Arm] Sitting Pulse Oximetry 97 98 97 Oxygen Delivery Method Room Air Room Air Room Air Sepsis Recent Fever Within 48 Hours No Sepsis New/Unexplained Change in Mental Status No Sepsis Action Taken by Nursing No Action Required Home Medications Current Medication List: was personally reviewed by me Laboratory Data Attestation: I reviewed the patient's lab results. Result diagrams: 02/01/20 08:29 02/01/20 08:29 Lab Results 01/31/20 01/31/20 01/31/20 Range/Units 17:25 17:40 17:40 WBC 8.41 (4.8-10.8) K/uL RBC 2.74 L (4.2-5.4) M/uL Hgb 8.6 L (12.0-16.0) g/dL Hct 26.1 L (37-47) % MCV 95.3 (80-100) fL MCH 31.4 (25-34) pg MCHC 33.0 (32-36) g/dL RDW Std Deviation 48.4 H (36.4-46.3) fL RDW Coeff of [place]ey 13.9 (11.5-14.5) % Plt Count 215 (130-400) K/uL MPV 10.9 H (7.4-10.4) fL Immature Gran % (Auto) 0.4 % Neut % (Auto) 73.5 % Lymph % (Auto) 17.0 % Republic % (Auto) 6.8 % Eos % (Auto) 2.1 % Baso % (Auto) 0.2 % Neut # (Auto) 6.18 (1.4-6.5) K/uL Lymph # (Auto) 1.43 (1.2-3.4) K/uL Republic # (Auto) 0.57 (0.11-0.59) K/uL Eos # (Auto) 0.18 (0-0.5) K/uL Baso # (Auto) 0.02 (0-0.2) K/uL Immature Gran # (Auto) 0.03 H (0.00-0.02) K/uL PT 10.3 (9.0-12.0) Seconds INR 1.0 (0.9-1.1) Sodium (136-145) mmol/L Potassium (3.5-5.1) mmol/L Chloride (98-107) mmol/L Carbon Dioxide (21-32) mmol/L Anion Gap (3-11) BUN (7-18) mg/dl Creatinine (0.6-1.2) mg/dl Est Cr Clr Drug Dosing Est GFR ( Amer) Est GFR (Non-Af Amer) BUN/Creatinine Ratio (10-20) Glucose (70-99) mg/dl Calcium (8.5-10.1) mg/dl Magnesium (1.8-2.4) mg/dl Total Bilirubin (0.2-1) mg/dl AST (15-37) U/L ALT (12-78) U/L Alkaline Phosphatase (45-117) U/L Troponin I (0-0.045) ng/ml Total Protein (6.4-8.2) gm/dl Albumin (3.4-5.0) gm/dl Globulin (2.5-4.0) gm/dl Albumin/Globulin Ratio (0.9-2) TSH (0.300-4.500) uIu/ml Urine Color Yellow Urine Appearance Clear (Clear) Urine pH 5.0 (4.5-7.5) Ur Specific [place] 1.020 (1.000-1.030) Urine Protein 2+ H (Negative) Urine Glucose (UA) Negative (Negative) Urine Ketones Negative (Negative) Urine Blood Negative (Negative) Urine Nitrite Negative (Negative) Urine Bilirubin Negative (Negative) Urine Urobilinogen Negative (Negative) Ur Leukocyte Esterase Trace H (Negative) Urine WBC (Auto) 1-5 (0-5) /hpf Urine RBC (Auto) 0-4 (0-4) /hpf U Hyaline Cast (Auto) 1-5 (0-5) /lpf U Epithel Cells (Auto) >30 H (0-5) /lpf Urine Bacteria (Auto) Negative (Negative) 01/31/20 Range/Units 17:40 WBC (4.8-10.8) K/uL RBC (4.2-5.4) M/uL Hgb (12.0-16.0) g/dL Hct (37-47) % MCV (80-100) fL MCH (25-34) pg MCHC (32-36) g/dL RDW Std Deviation (36.4-46.3) fL RDW Coeff of Corey (11.5-14.5) % Plt Count (130-400) K/uL MPV (7.4-10.4) fL Immature Gran % (Auto) % Neut % (Auto) % Lymph % (Auto) % Republic % (Auto) % Eos % (Auto) % Baso % (Auto) % Neut # (Auto) (1.4-6.5) K/uL Lymph # (Auto) (1.2-3.4) K/uL [place] # (Auto) (0.11-0.59) K/uL Eos # (Auto) (0-0.5) K/uL Baso # (Auto) (0-0.2) K/uL Immature Gran # (Auto) (0.00-0.02) K/uL PT (9.0-12.0) Seconds INR (0.9-1.1) Sodium 142 (136-145) mmol/L Potassium 3.8 (3.5-5.1) mmol/L Chloride 111 H (98-107) mmol/L Carbon Dioxide 25 (21-32) mmol/L Anion Gap 6.0 (3-11) BUN 34 H (7-18) mg/dl Creatinine 1.34 H (0.6-1.2) mg/dl Est Cr Clr Drug Dosing Not Reportable Est GFR ( Amer) 41.2 Est GFR (Non-Af Amer) 35.5 BUN/Creatinine Ratio 25.5 H (10-20) Glucose 95 (70-99) mg/dl Calcium 10.1 (8.5-10.1) mg/dl Magnesium 2.0 (1.8-2.4) mg/dl Total Bilirubin 0.3 (0.2-1) mg/dl AST 39 H (15-37) U/L ALT 33 (12-78) U/L Alkaline Phosphatase 62 (45-117) U/L Troponin I < 0.015 (0-0.045) ng/ml Total Protein 6.6 (6.4-8.2) gm/dl Albumin 3.3 L (3.4-5.0) gm/dl Globulin 3.3 (2.5-4.0) gm/dl Albumin/Globulin Ratio 1.0 (0.9-2) TSH 2.180 (0.300-4.500) uIu/ml Urine Color Urine Appearance (Clear) Urine pH (4.5-7.5) Ur Specific [place] (1.000-1.030) Urine Protein (Negative) Urine Glucose (UA) (Negative) Urine Ketones (Negative) Urine Blood (Negative) Urine Nitrite (Negative) Urine Bilirubin (Negative) Urine Urobilinogen (Negative) Ur Leukocyte Esterase (Negative) Urine WBC (Auto) (0-5) /hpf Urine RBC (Auto) (0-4) /hpf U Hyaline Cast (Auto) (0-5) /lpf U Epithel Cells (Auto) (0-5) /lpf Urine Bacteria (Auto) (Negative) Administered Medications Pantoprazole Sodium 40 mg/ (Dextrose) 100 mls @ 20 mls/hr IV Q5H [facility] Stop: 03/01/20 20:21 Last Admin: 02/01/20 08:33 Dose: 8 mg/hr, 20 mls/hr Documented by: [id number] Infusion: 02/01/20 08:20 Dose: 8 mg/hr, 20 mls/hr Documented by: [id number] Admin: 02/01/20 03:20 Dose: 8 mg/hr, 20 mls/hr Documented by: [id number] Infusion: 02/01/20 03:20 Dose: 8 mg/hr, 20 mls/hr Documented by: [id number] Infusion: 01/31/20 23:54 Dose: 8 mg/hr, 20 mls/hr Documented by: [id number] Infusion: 01/31/20 22:35 Dose: 0 mg/hr, 0 mls/hr Documented by: [id number] Admin: 01/31/20 21:23 Dose: 8 mg/hr, 20 mls/hr Documented by: [id number] Sodium Chloride (Nss 1000ml) 1,000 mls @ 80 mls/hr IV .[id number] [facility] Stop: 03/01/20 22:04 Last Infusion: 02/01/20 11:15 Dose: 0 mls/hr Documented by: [id number] Admin: 01/31/20 23:53 Dose: 80 mls/hr Documented by: [id number] Magnesium Sulfate/Dextrose (Magnesium Sulfate / D5w) 1 gm in 100 mls @ 50 mls/hr IV Q2H [facility] Stop: 02/01/20 12:29 Last Admin: 02/01/20 11:28 Dose: 50 mls/hr Documented by: [id number] Infusion: 02/01/20 11:10 Dose: 50 mls/hr Documented by: [id number] Admin: 02/01/20 09:10 Dose: 50 mls/hr Documented by: [id number] Methimazole (Methimazole 5 Mg Tablet) 5 mg PO DAILY [facility] Stop: 03/02/20 08:59 Last Admin: 02/01/20 08:33 Dose: 5 mg Documented by: [id number] Discontinued Medications Cyanocobalamin (Cyanocobalamin 1000 Mcg/Ml Vial) 1,000 mcg IM 1100 ONE Stop: 02/01/20 11:01 Last Admin: 02/01/20 11:28 Dose: 1,000 mcg Documented by: [id number] Sodium Chloride (Nss) 500 mls @ 999 mls/hr IV .Q31M [facility] Stop: 01/31/20 18:15 Last Infusion: 01/31/20 22:36 Dose: 0 mls/hr Documented by: [id number] Admin: 01/31/20 18:36 Dose: 999 mls/hr Documented by: [id number] Pantoprazole Sodium (Protonix Bolus/Drip) 0 mls @ 1 mls/hr IV ONE STA Stop: 01/31/20 20:08 Last Admin: 01/31/20 23:54 Dose: Not Given Documented by: [id number] Pantoprazole Sodium 80 mg/ (Dextrose) 120 mls @ 400 mls/hr IV NOW ONE Stop: 01/31/20 20:24 Last Infusion: 01/31/20 21:23 Dose: 0 mls/hr Documented by: [id number] Admin: 01/31/20 20:55 Dose: 400 mls/hr Documented by: [id number] Ioversol (Ioversol 100ml) 93 ml IV ONCE ONE Stop: 02/01/20 10:16 Last Admin: 02/01/20 10:16 Dose: 93 ml Documented by: [id number] Discharge Plan Visit Data Chief Complaint: Illness Stated Complaint: LETHARGIC, BODY ACHES, NAUSEA ED Provider: Jv Kelly Discharge Problem: GI bleed, Fatigue Patient Disposition: Admitted As Inpatient Discharge Instructions Interventions: ED Discharge Assessment Last Done: 01/31/20 21:38 Discharge Problem: GI bleed Qualifiers: GI bleed type/associated pathology: melena Qualified Code(s): K92.1 - Melena Fatigue Qualifiers: Fatigue type: unspecified Qualified Code(s): R53.83 - Other fatigue
[2020-01-31 17:44] LABS: Appearance Urine Clear (Clear); Bacteria Urine Automated Negative (Negative); Bilirubin Urine Negative (Negative); Blood Urine Negative (Negative); Color Urine Yellow; Epithelial Cell Urine Auto >30 /lpf (0-5); Glucose Urine UA Negative (Negative); Ketones Urine Negative (Negative); Leukocyte Esterase Urine Trace (Negative); Nitrite Urine Negative (Negative); Protein Urine 2+ (Negative); RBC Urine Automated 0-4 /hpf (0-4); Urobilinogen Urine Negative (Negative)
[2020-01-31] MEDS ORDERED: SODIUM CHLORIDE 0.9% 500 ML IV SCH (17:45)
[2020-01-31 18:12] LABS: Basophils # (auto) 0.02 K/uL (0-0.2); Basophils % (auto) 0.2 %; Eosinophils # (auto) 0.18 K/uL (0-0.5); Eosinophils % (auto) 2.1 %; Hematocrit (blood only) 26.1 % (37-47); Hemoglobin 8.6 g/dL (12.0-16.0); Immature Granulocytes # (auto) 0.03 K/uL (0.00-0.02); Immature Granulocytes % (auto) 0.4 %; Lymphocytes # (auto) 1.43 K/uL (1.2-3.4); Mean Corpuscular Hemoglobin 31.4 pg (25-34); Mean Corpuscular Volume 95.3 fL (80-100); Mean Platelet Volume 10.9 fL (7.4-10.4); Monocytes # (auto) 0.57 K/uL (0.11-0.59); Monocytes % (auto) 6.8 %; Neutrophils # (auto) 6.18 K/uL (1.4-6.5); Neutrophils % (auto) 73.5 %; Platelet Count 215 K/uL (130-400); RDW Coefficient of Variation 13.9 % (11.5-14.5); RDW Standard Deviation 48.4 fL (36.4-46.3); Red Blood Count 2.74 M/uL (4.2-5.4); White Blood Count 8.41 K/uL (4.8-10.8)
[2020-01-31 18:21] LABS: Prothrombin Time 10.3 Seconds (9.0-12.0)
[2020-01-31 18:31] LABS: Alanine Aminotransferase 33 U/L (12-78); Albumin Level 3.3 gm/dl (3.4-5.0); Aspartate Aminotransferase 39 U/L (15-37); BUN Creatinine Ratio 25.5 (10-20); Blood Urea Nitrogen 34 mg/dl (7-18); Calcium 10.1 mg/dl (8.5-10.1); Carbon Dioxide 25 mmol/L (21-32); Chloride 111 mmol/L (98-107); Est GFR (African American) 41.2; Est GFR (Non-African American) 35.5; Glucose 95 mg/dl (70-99); Potassium 3.8 mmol/L (3.5-5.1); Sodium 142 mmol/L (136-145)
[2020-01-31 18:41] LABS: Alkaline Phosphatase 62 U/L (45-117); Bilirubin,Total 0.3 mg/dl (0.2-1); Globulin 3.3 gm/dl (2.5-4.0); Total Protein 6.6 gm/dl (6.4-8.2); Troponin I < 0.015 ng/ml (0-0.045)
--- NOTE | 2020-01-31 18:45 | XRay Report ---
XR chest 1V portable CLINICAL HISTORY: weakness COMPARISON STUDY: Chest radiograph December 22, 2019. FINDINGS: The patient is rotated. A hiatal hernia is noted. There is moderate cardiomegaly without ev idence for pulmonary edema. There is no pneumothorax or pleural effusion. Skinfold projects over the right upper upper hemithorax. No consolidation is identified to suggest pneumonia. Old right 10th rib fracture is incidentally noted. IMPRESSION: 1. No acute findings. Rotated study. 2. Hiatal hernia. ACT 112: Negative or not required by law. Electronically signed by: Ede Fair M.D. 01/31/2020 6:44 PM
[2020-01-31] MEDS ORDERED: PANTOprazole 80 MG in DEXTROSE 5% 100 ML IV ONE (20:07)
[2020-01-31] MEDS ORDERED: PANTOPRAZOLE BOLUS/DRIP 1 EA IV STA (20:07)
[2020-01-31] MEDS: PANTOprazole 40 MG in DEXTROSE 5% 100 ML IV SCH (21:23)
[2020-01-31] MEDS ORDERED: ONDANSETRON INJ 2 MG/ML 2 ML VIAL IV PRN (22:05)
[2020-01-31] MEDS ORDERED: ACETAMINOPHEN 325 MG TAB PO PRN (22:05)
[2020-01-31 22:39] LABS: Hematocrit (blood only) 26.1 % (37-47); Hemoglobin 8.6 g/dL (12.0-16.0)
[2020-01-31] MEDS: SODIUM CHLORIDE 0.9% 1000ML 1,000 ML IV SCH (23:53)
--- NOTE | 2020-02-01 01:49 | History & Physical Report ---
Date of Service February 01, 2020 The patient was seen and examined on 2019 Assessment & Plan (1) Symptomatic anemia: Symptomatic anemia/fatigue/shortness of breath/ambulatory dysfunction- Hemoglobin has decreased from most recent of 12.5 down to today 8.6. She takes iron on a daily basis. Her most recent admission was from 04/27-2017, during which time her hemoglobin was at a low of 6.8. She was transfused 1 unit PRBCs, and hemoglobin rebounded to the mid 8 range. She underwent and EGD on 05/01/2017 which revealed a hiatal hernia. She underwent a colonoscopy on 05/02/2017, that revealed small polyps and extensive diverticulosis. The diverticulosis on the right side was felt to be the potential cause of her bleeding, as no other bleeding source was identified. Her hemoglobin from 05/01-05/03/2017 remained stable at 7.5. Her next hemoglobin that was recorded on 10/09/2017 was 12.0, which remained stable through December 18, 2017. On September 23, 2018 hemoglobin was 11.7, on December 01, 2018 hemoglobin was 11.4, on December 24, 2089 hemoglobin was 10.7. Her hemoglobin on October 13, 2019 was 12.0, and 12/22/2019 was 12.5. Suspect these most recent hemoglobins were hemoconcentrated, however, the patient has undoubtedly had a drop in hemoglobin since that time to the recorded 8.6 today. It is unclear if she received any additional transfusions of PRBCs other than during the admission from 04/27-05/02/2017. N.p.o. except essential medications H&H every 6 hours Protonix drip Consult gastroenterology Dr. Wisdom, who saw her during admission of 2017. Present on Admission?: Yes (2) Fatigue: (3) GI bleed: (4) Obstructive sleep apnea: Patient has gotten CPAP fit for her as an outpatient, but her son reports that she does not wear it, and she says she does not wear it because it hurts her nose. Present on Admission?: Yes (5) Stage 3 chronic kidney disease: Creatinine 1.34 upon admission, which is better than her normal range 1.42-1.96. Follow labs serially. Present on Admission?: Yes (6) Hyperthyroidism: Continue methimazole 5 mg p.o. daily Present on Admission?: Yes (7) Coronary artery disease: CAD/hypertension- While patient is n.p.o. Hold amlodipine, furosemide, lisinopril and clopidogrel. Hold metoprolol succinate, replace with Lopressor 5 mg IV every 4 hours as needed systolic blood pressure greater than 160 Present on Admission?: Yes (8) Dementia: Holding meds while patient is n.p.o. Present on Admission?: Yes (9) Depression: Holding meds while patient is n.p.o. Present on Admission?: Yes Admission and Anticipated Discharge Date Admission Date: January 31, 2020 History of Present Illness Chief Complaint: The patient presents to the emergency department with worsening generalized fatigue Primary Care Provider: Bethany Hardin DO The patient is a 89-year-old female with a past medical history including multinodular goiter, GERD, obstructive sleep apnea, irritable bowel syndrome, CVA, vitamin D deficiency, stage III chronic kidney disease, hyperthyroidism, post stroke gait disturbance, depression, dementia, CAD, hypertension, osteoarthritis and hyperlipidemia. The patient has been noted by her son to have gradually worsening fatigue over the past few months, in particular over the past few weeks. In the emergency department, work-up included laboratories which showed a hemoglobin of 8.6, decreasing significantly from previous most recent of 12.5. Upon questioning, patient reports her stools are always dark and loose, but she is also noted to take iron on a daily basis. The patient was started on Protonix drip, and to be admitted to a monitored bed. Allergies Allergy/AdvReac Type Severity Reaction Status Date / Time atorvastatin Allergy Unknown UNKOWN Verified 01/31/20 19:17 cephalexin [From Keflex] Allergy Unknown Unknown Unverified 01/31/20 19:17 oxaprozin [From Daypro] Allergy Unknown Unknown Unverified 01/31/20 19:17 paroxetine Allergy Unknown UNKNOWN Verified 01/31/20 19:17 propoxyphene Allergy Unknown DARVOCET Verified 01/31/20 19:17 acetaminophen AdvReac Mild Unknown Unverified 01/31/20 19:17 [From Darvocet-N 100] codeine AdvReac Mild NAUSEA Verified 01/31/20 19:17 Sulfa (Sulfonamide AdvReac Unknown NAUSEA Verified 01/31/20 19:17 Antibiotics) Home Medications Home Medications Medication Instructions Recorded Confirmed Type cetirizine 10 mg tablet 10 mg PO DAILY PRN tab 11/27/18 01/31/20 History cholecalciferol (vitamin D3) 5,000 unit PO QAM 12/01/18 01/31/20 History [Vitamin D3] multivitamin 1 tab PO QAM 12/01/18 01/31/20 History lisinopril 40 mg tablet 40 mg PO QAM #90 tab 04/07/19 01/31/20 Rx ipratropium bromide 42 mcg (0.06 2 spray INTNAS BID #15 ml 06/09/19 01/31/20 Rx %) nasal spray ketotifen fumarate 0.025 % (0.035 1 drp OP BID #10 ml 07/30/19 01/31/20 Rx %) eye drops rosuvastatin 20 mg tablet 20 mg PO DAILY #90 tab 09/22/19 01/31/20 Rx amlodipine 5 mg tablet 5 mg PO HS #90 tab 09/25/19 01/31/20 Rx methimazole 5 mg tablet 5 mg PO DAILY #90 tab 10/23/19 01/31/20 Rx ferrous sulfate 325 mg (65 mg 325 mg PO DAILY #30 tab 11/12/19 01/31/20 Rx iron) tablet clopidogrel 75 mg tablet 75 mg PO QAM #90 tab 12/18/19 01/31/20 Rx diclofenac sodium See Rx Instructions TOP TID PRN 12/22/19 01/31/20 History tramadol 50 mg PO DAILY PRN 12/22/19 01/31/20 History metoprolol succinate 100 mg 100 mg PO HS #90 tab 12/25/19 01/31/20 Rx tablet,extended release 24 hr miscellaneous medical supply #1 ea 01/01/20 01/01/20 Rx duloxetine 30 mg capsule,delayed 30 mg PO DAILY #90 cap 01/06/20 01/31/20 Rx release calcitriol 0.25 mcg capsule 0.25 mcg PO 3XWK #60 cap 01/19/20 01/31/20 Rx memantine 28 mg capsule 28 mg PO QAM #90 ea 01/19/20 01/31/20 Rx sprinkle,extended release 24hr pantoprazole 40 mg tablet,delayed 40 mg PO QAM #90 tab 01/21/20 01/31/20 Rx release furosemide 20 mg tablet 20 mg PO QAM #90 tab 01/26/20 01/31/20 Rx donepezil 10 mg tablet 10 mg PO QAM #90 tab 01/28/20 01/31/20 Rx Past Med/Surg History Medical History Anemia Arthritis Coronary artery disease Dementia Depression Gait disturbance, post-stroke GI bleed History of CVA (cerebrovascular accident) HTN (hypertension) Hyperlipemia Hyperthyroidism Irritable bowel syndrome Ischemic stroke Obstructive sleep apnea Stage 3 chronic kidney disease Vitamin D deficiency Surgical History S/P dilatation and curettage S/P hysterectomy S/P shoulder surgery S/P total knee arthroplasty Family History Mother Coronary heart disease Heart disease Myocardial infarction Denies family history of Ovarian cancer Prostate cancer Diabetes Alzheimer disease Breast cancer Lung cancer COPD (chronic obstructive pulmonary disease) Colorectal cancer Asthma Social History Smoking Status: Never smoker Hx Alcohol Use: No Hx Substance Use: No Preferred Language: Lao Communication Ability: Effective Visual Impairment: No Limitations Hearing Ability: Hard of Hearing 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 Beliefs That Will Affect Care: None marital status: / Current Living Situation: Alone current occupational status: retired Other Information That Helps Us Care for You: No Feels Safe at Home: Yes Safety Concerns: Feels Safe At This Time Childhood Exposure to Second-Hand Smoke: No Diet Comment: regular caffeine: Yes (tea) during the past year weight has: remained stable Dental Care, Regularly: No Physical Activity Frequency: Does not Exercise Seatbelt Use: always Sunscreen Use: No Assistive Devices: None Review of Systems Review of Systems: The patient denies chest pain, palpitations, cough, lower extremity swelling, sore throat, fevers, chills, sweats, nausea, vomiting, diarrhea , constipation, abdominal pain, pelvic pain, blood in urine or stool, dysuria, urinary frequency or urgency, loss of consciousness, rash, abnormal bruising or bleeding, focal weakness, numbness or tingling in arms or legs, or night sweats. The review of systems is otherwise negative other than for that already noted above, and at least 10 systems have been reviewed. Physical Exam Physical Exam: The patient is awake, alert and oriented 3, well developed and well nourished, normocephalic and atraumatic, lying in bed and in no acute distress. HEENT--PERRL, EOMI, mucous membranes and oropharynx dry. Neck--supple. No JVD. No bruits. Thyroid normal, trachea midline, no adenopathy. Heart--normal S1 and S2. No murmurs, rubs or gallops. Lungs--clear bilaterally, no respiratory distress, no accessory muscle use. Abdomen--normal bowel sounds and soft. Nontender. Nondistended. Extremities--no cyanosis or clubbing. No edema. Dermatologic--normal skin turgor, normal color, no abnormal lymph nodes, no rash. Neurologic--cranial nerves II through XII grossly intact. Rheumatologic--normal range of motion. Psychiatric--normal affect. Results & Data Results & Data ([facility]) Vital Signs (Past 12 Hours) Vital Signs Temp Pulse Pulse Resp BP BP Pulse Ox 01/31/20 22:38 98.2 F 65 16 164/75 H 97 01/31/20 20:53 72 21 157/53 H 99 01/31/20 18:43 97 01/31/20 18:41 58 L 21 156/53 H 98 01/31/20 17:04 98.2 F 59 L 20 153/63 H 97 Laboratory Results Laboratory Results WBC 8.41 K/uL (4.8-10.8) 01/31/20 17:40 RBC 2.74 M/uL (4.2-5.4) L 01/31/20 17:40 Hgb 8.6 g/dL (12.0-16.0) L 01/31/20 22:31 Hct 26.1 % (37-47) L 01/31/20 22:31 MCV 95.3 fL (80-100) 01/31/20 17:40 MCH 31.4 pg (25-34) 01/31/20 17:40 MCHC 33.0 g/dL (32-36) 01/31/20 17:40 RDW Std Deviation 48.4 fL (36.4-46.3) H 01/31/20 17:40 RDW Coeff of Corey 13.9 % (11.5-14.5) 01/31/20 17:40 Plt Count 215 K/uL (130-400) 01/31/20 17:40 MPV 10.9 fL (7.4-10.4) H 01/31/20 17:40 Immature Gran % (Auto) 0.4 % 01/31/20 17:40 Neut % (Auto) 73.5 % 01/31/20 17:40 Lymph % (Auto) 17.0 % 01/31/20 17:40 [place] % (Auto) 6.8 % 01/31/20 17:40 Eos % (Auto) 2.1 % 01/31/20 17:40 Baso % (Auto) 0.2 % 01/31/20 17:40 Neut # (Auto) 6.18 K/uL (1.4-6.5) 01/31/20 17:40 Lymph # (Auto) 1.43 K/uL (1.2-3.4) 01/31/20 17:40 [place] # (Auto) 0.57 K/uL (0.11-0.59) 01/31/20 17:40 Eos # (Auto) 0.18 K/uL (0-0.5) 01/31/20 17:40 Baso # (Auto) 0.02 K/uL (0-0.2) 01/31/20 17:40 Immature Gran # (Auto) 0.03 K/uL (0.00-0.02) H 01/31/20 17:40 PT 10.3 Seconds (9.0-12.0) 01/31/20 17:40 INR 1.0 (0.9-1.1) 01/31/20 17:40 Sodium 142 mmol/L (136-145) 01/31/20 17:40 Potassium 3.8 mmol/L (3.5-5.1) 01/31/20 17:40 Chloride 111 mmol/L (98-107) H 01/31/20 17:40 Carbon Dioxide 25 mmol/L (21-32) 01/31/20 17:40 Anion Gap 6.0 (3-11) 01/31/20 17:40 BUN 34 mg/dl (7-18) H 01/31/20 17:40 Creatinine 1.34 mg/dl (0.6-1.2) H 01/31/20 17:40 Est Cr Clr Drug Dosing Not Reportable 01/31/20 17:40 Est GFR ( Amer) 41.2 01/31/20 17:40 Est GFR (Non-Af Amer) 35.5 01/31/20 17:40 BUN/Creatinine Ratio 25.5 (10-20) H 01/31/20 17:40 Glucose 95 mg/dl (70-99) 01/31/20 17:40 Calcium 10.1 mg/dl (8.5-10.1) 01/31/20 17:40 Magnesium 2.0 mg/dl (1.8-2.4) 01/31/20 17:40 Total Bilirubin 0.3 mg/dl (0.2-1) 01/31/20 17:40 AST 39 U/L (15-37) H 01/31/20 17:40 ALT 33 U/L (12-78) 01/31/20 17:40 Alkaline Phosphatase 62 U/L (45-117) 01/31/20 17:40 Troponin I < 0.015 ng/ml (0-0.045) 01/31/20 17:40 Total Protein 6.6 gm/dl (6.4-8.2) 01/31/20 17:40 Albumin 3.3 gm/dl (3.4-5.0) L 01/31/20 17:40 Globulin 3.3 gm/dl (2.5-4.0) 01/31/20 17:40 Albumin/Globulin Ratio 1.0 (0.9-2) 01/31/20 17:40 TSH 2.180 uIu/ml (0.300-4.500) 01/31/20 17:40 Urine Color Yellow 01/31/20 17:25 Urine Appearance Clear (Clear) 01/31/20 17:25 Urine pH 5.0 (4.5-7.5) 01/31/20 17:25 Ur Specific [place] 1.020 (1.000-1.030) 01/31/20 17:25 Urine Protein 2+ (Negative) H 01/31/20 17:25 Urine Glucose (UA) Negative (Negative) 01/31/20 17:25 Urine Ketones Negative (Negative) 01/31/20 17:25 Urine Blood Negative (Negative) 01/31/20 17:25 Urine Nitrite Negative (Negative) 01/31/20 17:25 Urine Bilirubin Negative (Negative) 01/31/20 17:25 Urine Urobilinogen Negative (Negative) 01/31/20 17:25 Ur Leukocyte Esterase Trace (Negative) H 01/31/20 17:25 Urine WBC (Auto) 1-5 /hpf (0-5) 01/31/20 17:25 Urine RBC (Auto) 0-4 /hpf (0-4) 01/31/20 17:25 U Hyaline Cast (Auto) 1-5 /lpf (0-5) 01/31/20 17:25 U Epithel Cells (Auto) >30 /lpf (0-5) H 01/31/20 17:25 Urine Bacteria (Auto) Negative (Negative) 01/31/20 17:25 Diagnostic Findings [place] [phone] XRay Report Patient: SHAKA MARSHALL IAdmit Date: 01/31/20 MR#: [id number]: [address] [place] [address] Acct ID:[id number]: Date: [address] [place] [address] Zip: [place] [address] Age: 89Location: ED Sex: FRoom/Bed: Att Phy:Diagnosis: LETHARGIC, BODY ACHES, NAUSEA Hattie Phy: Bethany Hardin, DOService Date: 01/31/20 Fam Phy:Interpreting Phy: Ede Fair MD Admit Phy: Ordering Phy: Jv Kelly MD cc: ~ XR chest 1V portable CLINICAL HISTORY: weakness COMPARISON STUDY: Chest radiograph December 22, 2019. FINDINGS: The patient is rotated. A hiatal hernia is noted. There is moderate cardiomegaly without evidence for pulmonary edema. There is no pneumothorax or pleural effusion. Skinfold projects over the right upper upper hemithorax. No consolidation is identified to suggest pneumonia. Old right 10th rib fracture is incidentally noted. IMPRESSION: 1. No acute findings. Rotated study. 2. Hiatal hernia. ACT 112: Negative or not required by law. Electronically signed by: Ede Fair M.D. 01/31/2020 6:44 PM Dictated: 01/31/201841 Transcribed: 01/31/201841 Code Status & VTE Plan Code Status Full code VTE Prophylaxis Plan VTE Prophylaxis will be ordered: Yes PG Care Time/CCT Total # of Minutes Spent Total Time Spent with Patient: Total time spent is greater than 50% in coordination of care (as documented) at patient's floor/unit and/or counseling patient: Coding Level of Care Code 68867 Initial Inpt Care Lvl 3 Diagnoses Symptomatic anemia D64.9 Fatigue R53.83 Fatigue type: unspecified GI bleed K92.1 GI bleed type/associated pathology: melena Obstructive sleep apnea G47.33 Stage 3 chronic kidney disease N18.3 Hyperthyroidism E05.90 Coronary artery disease I25.10 Dementia F03.90 Depression F32.9 (1) Fatigue Fatigue type: unspecified Qualified Code(s): R53.83 - Other fatigue (2) GI bleed GI bleed type/associated pathology: melena Qualified Code(s): K92.1 - Melena
[2020-02-01] MEDS: PANTOprazole 40 MG in DEXTROSE 5% 100 ML IV SCH ×4 (03:20→20:06)
[2020-02-01] MEDS ORDERED: METOPROLOL TARTRATE 1 MG/ML VIAL IV PRN (03:45)
[2020-02-01 04:45] LABS: Hematocrit (blood only) 23.5 % (37-47); Hemoglobin 7.6 g/dL (12.0-16.0)
[2020-02-01 05:07] LABS: Albumin Level 2.9 gm/dl (3.4-5.0); BUN Creatinine Ratio 21.2 (10-20); Calcium 8.9 mg/dl (8.5-10.1); Creatinine Clr Calc Pharmacy 30.2 ml/min; Est GFR (African American) 50.6; Est GFR (Non-African American) 43.7; Magnesium 1.7 mg/dl (1.8-2.4); Potassium 3.6 mmol/L (3.5-5.1)
[2020-02-01 05:12] LABS: Phosphorus 2.9 mg/dl (2.5-4.9); Troponin I 0.019 ng/ml (0-0.045)
[2020-02-01] MEDS: methIMAzole 5 MG TABLET PO SCH (08:33)
[2020-02-01 09:00] LABS: Hematocrit (blood only) 22.9 % (37-47); Hemoglobin 7.3 g/dL (12.0-16.0); Mean Corpuscular Hemoglobin 30.3 pg (25-34); Mean Corpuscular Hgb Conc 31.9 g/dL (32-36); Mean Platelet Volume 11.1 fL (7.4-10.4); Platelet Count 188 K/uL (130-400); RDW Standard Deviation 48.1 fL (36.4-46.3); Red Blood Count 2.41 M/uL (4.2-5.4); White Blood Count 6.87 K/uL (4.8-10.8)
[2020-02-01 09:01] LABS: Reticulocytes # 0.1 10^6/uL (0.02-0.10)
[2020-02-01] MEDS ORDERED: SODIUM CHLORIDE 0.9% 250 ML IV PRN (09:03)
[2020-02-01] MEDS: MAGNESIUM SULFATE / D5W 1 GM/100 ML BAG IV SCH ×2 (09:10→11:28)
[2020-02-01 09:23] LABS: BUN Creatinine Ratio 18.4 (10-20); Calcium 8.8 mg/dl (8.5-10.1); Creatinine Clr Calc Pharmacy 29.3 ml/min; Est GFR (African American) 48.5; Est GFR (Non-African American) 41.9; Potassium 3.6 mmol/L (3.5-5.1)
[2020-02-01 09:26] LABS: Folate (Folic Acid) 17.19 ng/ml (>5.38)
[2020-02-01] MEDS ORDERED: IOVERSOL 100ml IV ONE (10:15)
[2020-02-01] MEDS ORDERED: CYANOCOBALAMIN 1000 MCG/ML VIAL IM ONE (11:00)
--- NOTE | 2020-02-01 11:04 | CT Scan Report ---
CT SCAN OF THE ABDOMEN AND PELVIS WITH IV CONTRAST CLINICAL HISTORY: Lower abdominal pain. COMPARISON STUDY: Abdominal CT dated 09/06/2011. TECHNIQUE: Following the IV administration of 93 cc of Optiray 320, CT scan of the abdomen and pelvi s is performed from the lung bases to the proximal femora. Images are reviewed in the axial, sagittal , and coronal planes. IV contrast was administered without complication. A dose lowering technique wa s utilized adhering to the principles of ALARA. The examination is degraded by motion artifact. CT DOSE: 284.19 mGy.cm FINDINGS: Lung bases: The heart is top normal in size and without pericardial effusion. There are trace pleural effusions with dependent atelectasis. A 1.2 cm cystic focus at the diaphragmatic hiatus on image #67 is unchanged dating back to 2011 and of doubtful significance. Liver: The contrast-enhanced liver is normal in size, contour, and attenuation. There is no intrahepa tic biliary ductal dilatation. The hepatic veins and portal veins are patent. Gallbladder: Unremarkable. Spleen: Normal in size and attenuation. Pancreas: Unremarkable. Adrenal glands: Unremarkable. Kidneys: The contrast enhanced kidneys are normal in size and without hydronephrosis. The kidneys enh ance symmetrically. Abdominal vasculature: The abdominal aorta is normal in course and caliber noting moderate atheroscle rotic calcification. 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 Stomach and bowel: There is a large hiatal hernia, with the majority of the stomach located in the th oracic cavity. The duodenum is normal in configuration. No bowel obstruction is seen. There is mild c olonic diverticulosis without CT evidence of acute diverticulitis. The appendix is not clearly visua lized. Peritoneum: There is no intraperitoneal free air or abdominal ascites. Lymphadenopathy: None. Pelvic viscera: The bladder is normal as visualized. The uterus is surgically absent. No adnexal lesi on is seen. Skeletal structures: The skeletal structures are osteopenic. No lytic or blastic lesions are seen. Mo derate lumbosacral spondylosis is observed. Arthritic change is seen in the hips. There are healed bi lateral rib fractures. IMPRESSION: 1. There are no acute infectious or inflammatory findings in the abdomen or pelvis. 2. Mild colonic diverticulosis without CT evidence of acute diverticulitis. 3. Trace pleural effusions. 4. Large hiatal hernia, with the majority of the stomach located in the thoracic cavity. 5. Additional findings as above. ACT 112: Negative or not required by law. Electronically signed by: Ru Toure M.D. 02/01/2020 11:03 AM
[2020-02-01] MEDS ORDERED: CETIRIZINE HCL 10 MG TABLET PO PRN (11:57)
[2020-02-01] MEDS ORDERED: traMADol HCL 50 MG TABLET PO PRN (11:57)
--- NOTE | 2020-02-01 11:57 | Hospitalist Progress Note ---
Date of Service February 01, 2020 Assessment & Plan (1) Symptomatic anemia: * Symptomatic anemia/fatigue/ambulatory dysfunction- * Hemoglobin has decreased from most recent of 12.5 in 11/2019 down to today 8.6. * She takes iron on a daily basis. * Her most recent admission was from 04/27-2017, during which time her hemoglobin was at a low of 6.8. She was transfused 1 unit PRBCs, and hemoglobin rebounded to the mid 8 range. * She underwent and EGD on 05/01/2017 which revealed a hiatal hernia. * She underwent a colonoscopy on 05/02/2017, that revealed small polyps and extensive diverticulosis. The diverticulosis on the right side was felt to be the potential cause of her bleeding, as no other bleeding source was identified. * Her hemoglobin from 05/01-05/03/2017 remained stable at 7.5. * Her next hemoglobin that was recorded on 10/09/2017 was 12.0, which remained stable through December 18, 2017. * On September 23, 2018 hemoglobin was 11.7, on December 01, 2018 hemoglobin was 11.4, on December 24, 2089 hemoglobin was 10.7. * Her hemoglobin on October 13, 2019 was 12.0, and 12/22/2019 was 12.5. Suspect t hese most recent hemoglobins were hemoconcentrated, however, the patient has undoubtedly had a drop in hemoglobin since that time to the recorded 8.6 today. It is unclear if she received any additional transfusions of PRBCs other than during the admission from 04/27-05/02/2017. * CT A/P with large intrathoracic stomach and hiatal hernia, raises suspicion for Nathen ulcers as cause of GI bleeding * Protonix gtt continued * GI on consult -- seen by [facility] 2018. Appreciate assistance. Discussed CT findings. Plan to give patient clear liquids today and then NPO after midnight for EGD * Clear liquid diet * Continue NSS @80cc/hr * H/h down to 7.3/22.9 and given symptomatic, ordered 1 unit of PRBC today. Expect some dilution from admission given IVF, however significant drop from 12.5 to 8.6 on admission from 12/12/19 * fecal occult blood ordered (previously positive Apr 2017) and was Hemoccult positive on digital rectal exam in the ER this admission * Retic 4.0, LDH 166, Haptoglobin pending, total bilirubin normal-not likely hemolysis * B12 level 339 -- ordered 1000mcg for today. Folate 17.19 * Trop initially <0.015, repeat 0.019. Likely demand secondary to bleed. -- continue to trend * Follow labs (2) Fatigue: * Likely secondary to anemia as above. CK 45 (3) GI bleed: * As above -- plans for EGD tomorrow with GI (4) Obstructive sleep apnea: * Patient has gotten CPAP fit for her as an outpatient, but her son reports that she does not wear it, and she says she does not wear it because it hurts her nose despite multiple masks used in the past. * Discussed importance given hx mod-severe pulm HTN on last ECHO * Does not want ordered while inpatient as unable to tolerate * Could see about overnight pulse ox to see about at least supplemental O2 (5) Stage 3 chronic kidney disease: * Creatinine 1.34 upon admission, which is better than her normal range 1.42-1.96. * IVF as above * Cr improved to 1.13 * Continue lisinopril 40mg daily * Continue to follow (6) Hyperthyroidism: * TSH 2.180 * Continue methimazole 5 mg p.o. 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-proximal LAD 40% stenosis * Continue amlodipine, lisinopril, and metoprolol * Hold home Plavix for GI bleed * furosemide on hold for now, on IVF (8) HTN (hypertension): * BP controlled, 147/67 * Continue amlodipine, lisinopril, metoprolol * Continue to monitor (9) Dementia: * Resume home namenda 10mg BID (10) Depression: * Continue cymbalta 30mg daily (11) Hypomagnesemia: Replaced (12) LBBB (left bundle branch block): Chronic since at least 1993 Cardiac catheterization as above without significant abnormality-nonobstructive disease of the proximal LAD in 2013 Echocardiogram 2018 with preserved EF, moderate to severe pulmonary hypertension, valvular disease (13) DVT prophylaxis: * SCDs * Chemoprophylaxis contraindicated in setting of active bleed Admission and Anticipated Discharge Date Admission Date: January 31, 2020 Supervising Physician Co-Signing Physician Notes PA Supervision Note: I personally saw and examined the patient. I verified all szymanski points and agree with MALCOM Reaves with the following exceptions and/or additions: Patient seen and consented for PRBC transfusion. She denies any heartburn. Denies any abdominal pains. Has been having black tarry stools. And feeling short of breath. No chest pain. Vitals reviewed Gen: AAOx2, NAD HEENT: Anicteric sclerae, EOMI CV: RRR no mgr nl S1S2 Pulm: CTAB no wcr Abd: +BS soft NT ND no masses or hernias Ext: No edema, 2+ DP pulses Skin: No rashes, warm/dry Neuro: Full strength throughout Laboratory studies reviewed CT abdomen/pelvis reviewed ECG reviewed-sinus rhythm, LBBB chronic Case discussed with gastroenterology 89-year-old female here with acute blood loss anemia that is symptomatic with shortness of breath and GI bleed. With large intrathoracic stomach on CT of the abdomen/pelvis-could have Nathen ulcers Hold Plavix-she has no history of stents and has nonobstructive CAD from cardiac catheterization in 2012-with a history of significant GI bleed x2 now, would likely not restart antiplatelet therapy Continue Protonix drip -Plan for EGD tomorrow -Transfuse 1 unit PRBCs Follow CBC Subjective Patient evaluated this morning with son at bedside. Weakness and fatigue have been occurring greater than past 6-8 weeks, worse as time as gone on. Not clear on previous colonoscopy but reviewed chart showed extensive diverticulosis on previous colonoscopy and had previous hospitalization for bleeding which was felt secondary to this. She notes early satiety and increased reflux symptoms which have caused her not to have much of an appetite. She states she has had dark stools for years but believes increased frequency and amount as of recently. Denies noting any olayinka blood/hematochezia or hemoptysis/hematemesis. Denies abdominal pain but is tender to LLQ on palpation. Denies knowing history of blood transfusion in the past despite documented she did receive a unit of blood. Has underlying dementia. Plans for obtaining abdominal imaging and to be evaluated this afternoon by GI. Her main request is being able to eat something. She had breakfast yesterday and then pizza and cupcake around noon at grandchildren birthday green party yesterday and nothing since that time. Review of Systems Review of Systems: All systems reviewed & are unremarkable except as noted in HPI & below Physical Exam Constitutional: WD/WN, vitals as above comfortable; no acute distress pallor Eyes: + anicteric sclerae and PERRL ENMT: mmm Neck: normal visual inspection Respiratory: normal respiratory effort, lungs clear to auscultation Auscultation: + diminished lung sounds (bases bilaterally) and + crackles (faint crackles posterior bases) Cardiovascular: RRR, no murmur, no edema Gastrointestinal (Abdomen): Inspection/Auscultation: abdomen normal to inspection and normal bowel sounds; abdomen not distended Percussion/Palpation: + abdomen tender (LLQ) and abdomen soft; no guarding and abdomen not rigid Musculoskeletal: no cyanosis or clubbing, extremities motor strength 5/5 Skin: cool, dry Neurologic: PERRL, EOMI, accommodation nl, no face palsy, no dysarthria Psychiatric: Orientation: alert, oriented to person, oriented to place and cooperative Lymphatic: no cervical or axillary lymphadenopathy Results & Data Results & Data ([facility]) Vital Signs (Past 12 Hours) Vital Signs Temp Pulse Pulse Resp BP BP BP 02/01/20 11:35 36.8 C 66 20 164/64 H 02/01/20 11:20 36.5 C 73 18 166/67 H 02/01/20 07:22 36.4 C L 59 L 66 18 146/68 H 02/01/20 04:00 36.9 C 66 20 136/66 Pulse Ox 02/01/20 11:35 95 02/01/20 11:20 02/01/20 07:22 94 02/01/20 04:00 94 Laboratory Results 02/01/20 02/01/20 02/01/20 Range/Units 08:49 08:29 08:29 WBC (4.8-10.8) K/uL RBC (4.2-5.4) M/uL Hgb (12.0-16.0) g/dL Hct (37-47) % MCV (80-100) fL MCH (25-34) pg MCHC (32-36) g/dL RDW Std Deviation (36.4-46.3) fL RDW Coeff of Corey (11.5-14.5) % Plt Count (130-400) K/uL MPV (7.4-10.4) fL Immature Gran % (Auto) % Neut % (Auto) % Lymph % (Auto) % Barnes % (Auto) % Eos % (Auto) % Baso % (Auto) % Reticulocyte % (Auto) (0.5-2.0) % Neut # (Auto) (1.4-6.5) K/uL Lymph # (Auto) (1.2-3.4) K/uL Barnes # (Auto) (0.11-0.59) K/uL Eos # (Auto) (0-0.5) K/uL Baso # (Auto) (0-0.2) K/uL Reticulocyte # (0.02-0.10) 10^6/uL Immature Gran # (Auto) (0.00-0.02) K/uL Haptoglobin Pending PT (9.0-12.0) Seconds INR (0.9-1.1) Sodium (136-145) mmol/L Potassium (3.5-5.1) mmol/L Chloride (98-107) mmol/L Carbon Dioxide (21-32) mmol/L Anion Gap (3-11) BUN (7-18) mg/dl Creatinine (0.6-1.2) mg/dl Est Cr Clr Drug Dosing Est GFR ( Amer) Est GFR (Non-Af Amer) BUN/Creatinine Ratio (10-20) Glucose (70-99) mg/dl Calcium (8.5-10.1) mg/dl Phosphorus (2.5-4.9) mg/dl Magnesium (1.8-2.4) mg/dl Iron (35-150) mcg/dl Total Bilirubin (0.2-1) mg/dl AST (15-37) U/L ALT (12-78) U/L Alkaline Phosphatase (45-117) U/L Lactate Dehydrogenase 166 (84-246) U/L Total Creatine Kinase (26-192) U/L Troponin I (0-0.045) ng/ml Total Protein (6.4-8.2) gm/dl Albumin (3.4-5.0) gm/dl Globulin (2.5-4.0) gm/dl Albumin/Globulin Ratio (0.9-2) Vitamin B12 (211-911) pg/ml Folate (>5.38) ng/ml TSH (0.300-4.500) uIu/ml Urine Color Urine Appearance (Clear) Urine pH (4.5-7.5) Ur Specific Imbler (1.000-1.030) Urine Protein (Negative) Urine Glucose (UA) (Negative) Urine Ketones (Negative) Urine Blood (Negative) Urine Nitrite (Negative) Urine Bilirubin (Negative) Urine Urobilinogen (Negative) Ur Leukocyte Esterase (Negative) Urine WBC (Auto) (0-5) /hpf Urine RBC (Auto) (0-4) /hpf U Hyaline Cast (Auto) (0-5) /lpf U Epithel Cells (Auto) (0-5) /lpf Urine Bacteria (Auto) (Negative) Blood Type A Positive Antibody Screen NEGATIVE Crossmatch See Detail 02/01/20 02/01/20 02/01/20 Range/Units 08:29 08:29 08:29 WBC (4.8-10.8) K/uL RBC (4.2-5.4) M/uL Hgb (12.0-16.0) g/dL Hct (37-47) % MCV (80-100) fL MCH (25-34) pg MCHC (32-36) g/dL RDW Std Deviation (36.4-46.3) fL RDW Coeff of Corey (11.5-14.5) % Plt Count (130-400) K/uL MPV (7.4-10.4) fL Immature Gran % (Auto) % Neut % (Auto) % Lymph % (Auto) % Barnes % (Auto) % Eos % (Auto) % Baso % (Auto) % Reticulocyte % (Auto) 4.0 H (0.5-2.0) % Neut # (Auto) (1.4-6.5) K/uL Lymph # (Auto) (1.2-3.4) K/uL Barnes # (Auto) (0.11-0.59) K/uL Eos # (Auto) (0-0.5) K/uL Baso # (Auto) (0-0.2) K/uL Reticulocyte # 0.10 (0.02-0.10) 10^6/uL Immature Gran # (Auto) (0.00-0.02) K/uL Haptoglobin PT (9.0-12.0) Seconds INR (0.9-1.1) Sodium 143 (136-145) mmol/L Potassium 3.6 (3.5-5.1) mmol/L Chloride 112 H (98-107) mmol/L Carbon Dioxide 26 (21-32) mmol/L Anion Gap 5.0 (3-11) BUN 22 H (7-18) mg/dl Creatinine 1.17 (0.6-1.2) mg/dl Est Cr Clr Drug Dosing 29.3 Est GFR ( Amer) 48.5 Est GFR (Non-Af Amer) 41.9 BUN/Creatinine Ratio 18.4 (10-20) Glucose 89 (70-99) mg/dl Calcium 8.8 (8.5-10.1) mg/dl Phosphorus (2.5-4.9) mg/dl Magnesium (1.8-2.4) mg/dl Iron 70 (35-150) mcg/dl Total Bilirubin (0.2-1) mg/dl AST (15-37) U/L ALT (12-78) U/L Alkaline Phosphatase (45-117) U/L Lactate Dehydrogenase (84-246) U/L Total Creatine Kinase 45 (26-192) U/L Troponin I (0-0.045) ng/ml Total Protein (6.4-8.2) gm/dl Albumin (3.4-5.0) gm/dl Globulin (2.5-4.0) gm/dl Albumin/Globulin Ratio (0.9-2) Vitamin B12 339 (211-911) pg/ml Folate 17.19 (>5.38) ng/ml TSH (0.300-4.500) uIu/ml Urine Color Urine Appearance (Clear) Urine pH (4.5-7.5) Ur Specific Imbler (1.000-1.030) Urine Protein (Negative) Urine Glucose (UA) (Negative) Urine Ketones (Negative) Urine Blood (Negative) Urine Nitrite (Negative) Urine Bilirubin (Negative) Urine Urobilinogen (Negative) Ur Leukocyte Esterase (Negative) Urine WBC (Auto) (0-5) /hpf Urine RBC (Auto) (0-4) /hpf U Hyaline Cast (Auto) (0-5) /lpf U Epithel Cells (Auto) (0-5) /lpf Urine Bacteria (Auto) (Negative) Blood Type Antibody Screen Crossmatch 02/01/20 02/01/20 02/01/20 Range/Units 08:29 04:26 04:26 WBC 6.87 (4.8-10.8) K/uL RBC 2.41 L (4.2-5.4) M/uL Hgb 7.3 L 7.6 L (12.0-16.0) g/dL Hct 22.9 L 23.5 L (37-47) % MCV 95.0 (80-100) fL MCH 30.3 (25-34) pg MCHC 31.9 L (32-36) g/dL RDW Std Deviation 48.1 H (36.4-46.3) fL RDW Coeff of Corey 14.0 (11.5-14.5) % Plt Count 188 (130-400) K/uL MPV 11.1 H (7.4-10.4) fL Immature Gran % (Auto) % Neut % (Auto) % Lymph % (Auto) % Barnes % (Auto) % Eos % (Auto) % Baso % (Auto) % Reticulocyte % (Auto) (0.5-2.0) % Neut # (Auto) (1.4-6.5) K/uL Lymph # (Auto) (1.2-3.4) K/uL Barnes # (Auto) (0.11-0.59) K/uL Eos # (Auto) (0-0.5) K/uL Baso # (Auto) (0-0.2) K/uL Reticulocyte # (0.02-0.10) 10^6/uL Immature Gran # (Auto) (0.00-0.02) K/uL Haptoglobin PT (9.0-12.0) Seconds INR (0.9-1.1) Sodium 142 (136-145) mmol/L Potassium 3.6 (3.5-5.1) mmol/L Chloride 112 H (98-107) mmol/L Carbon Dioxide 28 (21-32) mmol/L Anion Gap 2.0 L (3-11) BUN 24 H (7-18) mg/dl Creatinine 1.13 (0.6-1.2) mg/dl Est Cr Clr Drug Dosing 30.2 Est GFR ( Amer) 50.6 Est GFR (Non-Af Amer) 43.7 BUN/Creatinine Ratio 21.2 H (10-20) Glucose 92 (70-99) mg/dl Calcium 8.9 (8.5-10.1) mg/dl Phosphorus 2.9 (2.5-4.9) mg/dl Magnesium 1.7 L (1.8-2.4) mg/dl Iron (35-150) mcg/dl Total Bilirubin (0.2-1) mg/dl AST (15-37) U/L ALT (12-78) U/L Alkaline Phosphatase (45-117) U/L Lactate Dehydrogenase (84-246) U/L Total Creatine Kinase (26-192) U/L Troponin I 0.019 (0-0.045) ng/ml Total Protein (6.4-8.2) gm/dl Albumin 2.9 L (3.4-5.0) gm/dl Globulin (2.5-4.0) gm/dl Albumin/Globulin Ratio (0.9-2) Vitamin B12 (211-911) pg/ml Folate (>5.38) ng/ml TSH (0.300-4.500) uIu/ml Urine Color Urine Appearance (Clear) Urine pH (4.5-7.5) Ur Specific Imbler (1.000-1.030) Urine Protein (Negative) Urine Glucose (UA) (Negative) Urine Ketones (Negative) Urine Blood (Negative) Urine Nitrite (Negative) Urine Bilirubin (Negative) Urine Urobilinogen (Negative) Ur Leukocyte Esterase (Negative) Urine WBC (Auto) (0-5) /hpf Urine RBC (Auto) (0-4) /hpf U Hyaline Cast (Auto) (0-5) /lpf U Epithel Cells (Auto) (0-5) /lpf Urine Bacteria (Auto) (Negative) Blood Type Antibody Screen Crossmatch 01/31/20 01/31/20 01/31/20 Range/Units 22:31 17:40 17:40 WBC (4.8-10.8) K/uL RBC (4.2-5.4) M/uL Hgb 8.6 L (12.0-16.0) g/dL Hct 26.1 L (37-47) % MCV (80-100) fL MCH (25-34) pg MCHC (32-36) g/dL RDW Std Deviation (36.4-46.3) fL RDW Coeff of Corey (11.5-14.5) % Plt Count (130-400) K/uL MPV (7.4-10.4) fL Immature Gran % (Auto) % Neut % (Auto) % Lymph % (Auto) % Barnes % (Auto) % Eos % (Auto) % Baso % (Auto) % Reticulocyte % (Auto) (0.5-2.0) % Neut # (Auto) (1.4-6.5) K/uL Lymph # (Auto) (1.2-3.4) K/uL Barnes # (Auto) (0.11-0.59) K/uL Eos # (Auto) (0-0.5) K/uL Baso # (Auto) (0-0.2) K/uL Reticulocyte # (0.02-0.10) 10^6/uL Immature Gran # (Auto) (0.00-0.02) K/uL Haptoglobin PT 10.3 (9.0-12.0) Seconds INR 1.0 (0.9-1.1) Sodium 142 (136-145) mmol/L Potassium 3.8 (3.5-5.1) mmol/L Chloride 111 H (98-107) mmol/L Carbon Dioxide 25 (21-32) mmol/L Anion Gap 6.0 (3-11) BUN 34 H (7-18) mg/dl Creatinine 1.34 H (0.6-1.2) mg/dl Est Cr Clr Drug Dosing Not Reportable Est GFR ( Amer) 41.2 Est GFR (Non-Af Amer) 35.5 BUN/Creatinine Ratio 25.5 H (10-20) Glucose 95 (70-99) mg/dl Calcium 10.1 (8.5-10.1) mg/dl Phosphorus (2.5-4.9) mg/dl Magnesium 2.0 (1.8-2.4) mg/dl Iron (35-150) mcg/dl Total Bilirubin 0.3 (0.2-1) mg/dl AST 39 H (15-37) U/L ALT 33 (12-78) U/L Alkaline Phosphatase 62 (45-117) U/L Lactate Dehydrogenase (84-246) U/L Total Creatine Kinase (26-192) U/L Troponin I < 0.015 (0-0.045) ng/ml Total Protein 6.6 (6.4-8.2) gm/dl Albumin 3.3 L (3.4-5.0) gm/dl Globulin 3.3 (2.5-4.0) gm/dl Albumin/Globulin Ratio 1.0 (0.9-2) Vitamin B12 (211-911) pg/ml Folate (>5.38) ng/ml TSH 2.180 (0.300-4.500) uIu/ml Urine Color Urine Appearance (Clear) Urine pH (4.5-7.5) Ur Specific Imbler (1.000-1.030) Urine Protein (Negative) Urine Glucose (UA) (Negative) Urine Ketones (Negative) Urine Blood (Negative) Urine Nitrite (Negative) Urine Bilirubin (Negative) Urine Urobilinogen (Negative) Ur Leukocyte Esterase (Negative) Urine WBC (Auto) (0-5) /hpf Urine RBC (Auto) (0-4) /hpf U Hyaline Cast (Auto) (0-5) /lpf U Epithel Cells (Auto) (0-5) /lpf Urine Bacteria (Auto) (Negative) Blood Type Antibody Screen Crossmatch 01/31/20 01/31/20 Range/Units 17:40 17:25 WBC 8.41 (4.8-10.8) K/uL RBC 2.74 L (4.2-5.4) M/uL Hgb 8.6 L (12.0-16.0) g/dL Hct 26.1 L (37-47) % MCV 95.3 (80-100) fL MCH 31.4 (25-34) pg MCHC 33.0 (32-36) g/dL RDW Std Deviation 48.4 H (36.4-46.3) fL RDW Coeff of Corey 13.9 (11.5-14.5) % Plt Count 215 (130-400) K/uL MPV 10.9 H (7.4-10.4) fL Immature Gran % (Auto) 0.4 % Neut % (Auto) 73.5 % Lymph % (Auto) 17.0 % Barnes % (Auto) 6.8 % Eos % (Auto) 2.1 % Baso % (Auto) 0.2 % Reticulocyte % (Auto) (0.5-2.0) % Neut # (Auto) 6.18 (1.4-6.5) K/uL Lymph # (Auto) 1.43 (1.2-3.4) K/uL Barnes # (Auto) 0.57 (0.11-0.59) K/uL Eos # (Auto) 0.18 (0-0.5) K/uL Baso # (Auto) 0.02 (0-0.2) K/uL Reticulocyte # (0.02-0.10) 10^6/uL Immature Gran # (Auto) 0.03 H (0.00-0.02) K/uL Haptoglobin PT (9.0-12.0) Seconds INR (0.9-1.1) Sodium (136-145) mmol/L Potassium (3.5-5.1) mmol/L Chloride (98-107) mmol/L Carbon Dioxide (21-32) mmol/L Anion Gap (3-11) BUN (7-18) mg/dl Creatinine (0.6-1.2) mg/dl Est Cr Clr Drug Dosing Est GFR ( Amer) Est GFR (Non-Af Amer) BUN/Creatinine Ratio (10-20) Glucose (70-99) mg/dl Calcium (8.5-10.1) mg/dl Phosphorus (2.5-4.9) mg/dl Magnesium (1.8-2.4) mg/dl Iron (35-150) mcg/dl Total Bilirubin (0.2-1) mg/dl AST (15-37) U/L ALT (12-78) U/L Alkaline Phosphatase (45-117) U/L Lactate Dehydrogenase (84-246) U/L Total Creatine Kinase (26-192) U/L Troponin I (0-0.045) ng/ml Total Protein (6.4-8.2) gm/dl Albumin (3.4-5.0) gm/dl Globulin (2.5-4.0) gm/dl Albumin/Globulin Ratio (0.9-2) Vitamin B12 (211-911) pg/ml Folate (>5.38) ng/ml TSH (0.300-4.500) uIu/ml Urine Color Yellow Urine Appearance Clear (Clear) Urine pH 5.0 (4.5-7.5) Ur Specific Imbler 1.020 (1.000-1.030) Urine Protein 2+ H (Negative) Urine Glucose (UA) Negative (Negative) Urine Ketones Negative (Negative) Urine Blood Negative (Negative) Urine Nitrite Negative (Negative) Urine Bilirubin Negative (Negative) Urine Urobilinogen Negative (Negative) Ur Leukocyte Esterase Trace H (Negative) Urine WBC (Auto) 1-5 (0-5) /hpf Urine RBC (Auto) 0-4 (0-4) /hpf U Hyaline Cast (Auto) 1-5 (0-5) /lpf U Epithel Cells (Auto) >30 H (0-5) /lpf Urine Bacteria (Auto) Negative (Negative) Blood Type Antibody Screen Crossmatch Diagnostic Findings CT Abdomen/Pelvis IMPRESSION: 1. There are no acute infectious or inflammatory findings in the abdomen or pelvis. 2. Mild colonic diverticulosis without CT evidence of acute diverticulitis. 3. Trace pleural effusions. 4. Large hiatal hernia, with the majority of the stomach located in the thoracic cavity. 5. Additional findings as above. PG Care Time/CCT Total # of Minutes Spent Total Time Spent with Patient: Total time spent is greater than 50% in coordination of care (as documented) at patient's floor/unit and/or counseling patient: Coding Level of Care Code 35561 Subseq Hosp Care Lvl 3 Diagnoses Symptomatic anemia D64.9 Fatigue R53.83 Fatigue type: unspecified GI bleed K92.1 GI bleed type/associated pathology: melena Obstructive sleep apnea G47.33 Stage 3 chronic kidney disease N18.3 Hyperthyroidism E05.90 Coronary artery disease I25.10 HTN (hypertension) I10 Dementia F03.90 Depression F32.9 Hypomagnesemia E83.42 LBBB (left bundle branch block) I44.7 DVT prophylaxis Z29.9 (1) Fatigue Fatigue type: unspecified Qualified Code(s): R53.83 - Other fatigue (2) GI bleed GI bleed type/associated pathology: melena Qualified Code(s): K92.1 - Melena
--- NOTE | 2020-02-01 12:16 | Electrocardiogram Report ---
Test Reason : Blood Pressure : / mmHG Vent. Rate : 065 BPM Atrial Rate : 065 BPM P-R Int : 122 ms QRS Dur : 140 ms QT Int : 464 ms P-R-T Axes : 023 -69 085 degrees QTc Int : 482 ms Normal sinus rhythm Left axis deviation Left bundle branch block Abnormal ECG When compared with ECG of 22-DEC-2019 15:02, No significant change was found Confirmed by Arsenio Guillen ([id number]) on 02/01/2020 12:16:28 PM Referred By: REFERRED SELF Confirmed By:Arsenio Guillen
[2020-02-01] MEDS ORDERED: FERROUS SULFATE 325 MG TAB PO SCH (13:00)
[2020-02-01] MEDS ORDERED: CLOPIDOGREL BISULFATE 75 MG TAB PO SCH (13:00)
[2020-02-01] MEDS: lisinopriL 40 MG TAB PO SCH (13:28)
[2020-02-01] MEDS: DONEPEZIL HCL 10 MG TAB PO SCH (13:28)
[2020-02-01] MEDS: MEMANTINE HCL 10 MG TAB PO SCH ×2 (13:28→20:07)
[2020-02-01] MEDS: DULoxetine HCL 30 MG CAP PO SCH (13:28)
--- NOTE | 2020-02-01 13:34 | Gastrointestinal Consultation ---
Date of Consultation February 01, 2020 Assessment & Plan (1) GI bleed: Possible melena and blood loss anemia. Per my discussion with MALCOM Otero the son is agreeable to endoscopic testing. Continue PPI for possible PUD. NPO after MN for EGD tomorrow. anemia--transfuse prn History of Present Illness Reason for Consultation: anemia Requesting Physician: Dr Jean Baptiste Attending Physician: Pina Sánchez MD History of Present Illness CC consult for anemia HPI Pt somewhat limited historian. Reviewed EMR. Pt denies abd pain. States stools are dark but is on Fe. Diclofenac topical listed but not sure if she is taking NSAIDs or ASA po. Protonix is on med list. She presented to ER with fatigue. Hgb 8.6 vs 12.5 on 12/22/2019 and HGb today 7.3. No stools for hemoccult done this admit. Pt is not aware of any stools today. She had EGD and colonscopy done 04/[address] Wisdom for melena and anemia. EGD shoowed HH o/w normal and colo showed 3 mm cecal polyp and 4-5 mm DC polyps all removed path tubular adenoma and diverticulosis. CT a/p today large HH with most of stomach in chest. Allergies Allergy/AdvReac Type Severity Reaction Status Date / Time atorvastatin Allergy Unknown UNKOWN Verified 01/31/20 19:17 cephalexin [From Keflex] Allergy Unknown Unknown Unverified 01/31/20 19:17 oxaprozin [From Daypro] Allergy Unknown Unknown Unverified 01/31/20 19:17 paroxetine Allergy Unknown UNKNOWN Verified 01/31/20 19:17 propoxyphene Allergy Unknown DARVOCET Verified 01/31/20 19:17 acetaminophen AdvReac Mild Unknown Unverified 01/31/20 19:17 [From Darvocet-N 100] codeine AdvReac Mild NAUSEA Verified 01/31/20 19:17 Sulfa (Sulfonamide AdvReac Mild NAUSEA Verified 02/01/20 09:12 Antibiotics) Home Medications Home Medications Medication Instructions Recorded Confirmed Type cetirizine 10 mg tablet 10 mg PO DAILY PRN tab 11/27/18 01/31/20 History cholecalciferol (vitamin D3) 5,000 unit PO QAM 12/01/18 01/31/20 History [Vitamin D3] multivitamin 1 tab PO QAM 12/01/18 01/31/20 History lisinopril 40 mg tablet 40 mg PO QAM #90 tab 04/07/19 01/31/20 Rx ipratropium bromide 42 mcg (0.06 2 spray INTNAS BID #15 ml 06/09/19 01/31/20 Rx %) nasal spray ketotifen fumarate 0.025 % (0.035 1 drp OP BID #10 ml 07/30/19 01/31/20 Rx %) eye drops rosuvastatin 20 mg tablet 20 mg PO DAILY #90 tab 09/22/19 01/31/20 Rx amlodipine 5 mg tablet 5 mg PO HS #90 tab 09/25/19 01/31/20 Rx methimazole 5 mg tablet 5 mg PO DAILY #90 tab 10/23/19 01/31/20 Rx ferrous sulfate 325 mg (65 mg 325 mg PO DAILY #30 tab 11/12/19 01/31/20 Rx iron) tablet clopidogrel 75 mg tablet 75 mg PO QAM #90 tab 12/18/19 01/31/20 Rx diclofenac sodium See Rx Instructions TOP TID PRN 12/22/19 01/31/20 History tramadol 50 mg PO DAILY PRN 12/22/19 01/31/20 History metoprolol succinate 100 mg 100 mg PO HS #90 tab 12/25/19 01/31/20 Rx tablet,extended release 24 hr miscellaneous medical supply #1 ea 01/01/20 01/01/20 Rx duloxetine 30 mg capsule,delayed 30 mg PO DAILY #90 cap 01/06/20 01/31/20 Rx release calcitriol 0.25 mcg capsule 0.25 mcg PO 3XWK #60 cap 01/19/20 01/31/20 Rx memantine 28 mg capsule 28 mg PO QAM #90 ea 01/19/20 01/31/20 Rx sprinkle,extended release 24hr pantoprazole 40 mg tablet,delayed 40 mg PO QAM #90 tab 01/21/20 01/31/20 Rx release furosemide 20 mg tablet 20 mg PO QAM #90 tab 01/26/20 01/31/20 Rx donepezil 10 mg tablet 10 mg PO QAM #90 tab 10/07/20 10/10/20 Rx Patient History Medical History Anemia Arthritis Coronary artery disease Dementia Depression Gait disturbance, post-stroke GI bleed History of CVA (cerebrovascular accident) HTN (hypertension) Hyperlipemia Hyperthyroidism Irritable bowel syndrome Ischemic stroke Obstructive sleep apnea Stage 3 chronic kidney disease Vitamin D deficiency Surgical History S/P dilatation and curettage S/P hysterectomy S/P shoulder surgery S/P total knee arthroplasty Family History Mother Coronary heart disease Heart disease Myocardial infarction Denies family history of Ovarian cancer Prostate cancer Diabetes Alzheimer disease Breast cancer Lung cancer COPD (chronic obstructive pulmonary disease) Colorectal cancer Asthma Social History Smoking Status: Never smoker Hx Alcohol Use: No Hx Substance Use: No Preferred Language: [place] Communication Ability: Effective Visual Impairment: No Limitations Hearing Ability: Hard of Hearing [employer] Required: No Beliefs That Will Affect Care: None marital status: / Current Living Situation: Alone current occupational status: retired Other Information That Helps Us Care for You: No Feels Safe at Home: Yes Safety Concerns: Feels Safe At This Time Childhood Exposure to Second-Hand Smoke: No Diet Comment: regular caffeine: Yes (tea) during the past year weight has: remained stable Dental Care, Regularly: No Physical Activity Frequency: Does not Exercise Seatbelt Use: always Sunscreen Use: No Assistive Devices: Cane and Glasses Review of Systems Review of Systems: All systems reviewed & are unremarkable except as noted in HPI & below Physical Exam Constitutional: WD/WN, vitals as above Eyes: PERRL, conjunctivae normal, anicteric sclerae Neck: normal visual inspection and trachea midline Respiratory: normal respiratory effort, lungs clear to auscultation Cardiovascular: RRR, no murmur, no edema Gastrointestinal (Abdomen): normal bowel sounds, soft, nontender, no hepatosplenomegaly Skin: warm and dry Neurologic: PERRL, EOMI, accommodation nl, no face palsy, no dysarthria Psychiatric: Judgement: + limited judgement awake and alert. Results & Data ([facility]) Vital Signs (Past 12 Hours) Vital Signs Temp Pulse Pulse Resp BP BP BP 10/11/20 12:50 36.3 C L 70 18 133/67 02/01/20 12:21 36.7 C 62 20 157/73 H 02/01/20 11:50 36.8 C 62 16 147/67 H 02/01/20 11:35 36.8 C 66 20 164/64 H 02/01/20 11:20 36.5 C 73 18 166/67 H 02/01/20 07:22 36.4 C L 59 L 66 18 146/68 H 02/01/20 04:00 36.9 C 66 20 136/66 Pulse Ox 02/01/20 12:50 02/01/20 12:21 98 02/01/20 11:50 95 02/01/20 11:35 95 02/01/20 11:20 02/01/20 07:22 94 02/01/20 04:00 94 (1) GI bleed GI bleed type/associated pathology: melena Qualified Code(s): K92.1 - Melena
[2020-02-01] MEDS: SODIUM CHLORIDE 0.9% 1000ML 1,000 ML IV SCH ×2 (13:39→17:28)
[2020-02-01 16:32] LABS: Hemoglobin 9.5 g/dL (12.0-16.0)
[2020-02-01] MEDS: METOPROLOL SUCC 50MG EXT REL TAB PO SCH (20:07)
[2020-02-01] MEDS: amLODIPine BESYLATE 5 MG TAB PO SCH (20:07)
[2020-02-01] MEDS ORDERED: ALUMINUM/MAGNESIUM SUSP 30 ML UDC PO PRN (23:51)
[2020-02-02] MEDS: PANTOprazole 40 MG in DEXTROSE 5% 100 ML IV SCH ×5 (00:30→22:32)
[2020-02-02] MEDS: SODIUM CHLORIDE 0.9% 1000ML 1,000 ML IV SCH ×2 (04:45→17:33)
[2020-02-02 06:50] LABS: Basophils # (auto) 0.02 K/uL (0-0.2); Basophils % (auto) 0.2 %; Eosinophils # (auto) 0.35 K/uL (0-0.5); Eosinophils % (auto) 4.2 %; Hemoglobin 9.2 g/dL (12.0-16.0); Immature Granulocytes # (auto) 0.07 K/uL (0.00-0.02); Immature Granulocytes % (auto) 0.8 %; Lymphocytes # (auto) 1.55 K/uL (1.2-3.4); Lymphocytes % (auto) 18.8 %; Mean Corpuscular Hgb Conc 34.1 g/dL (32-36); Mean Corpuscular Volume 90.9 fL (80-100); Mean Platelet Volume 10.8 fL (7.4-10.4); Monocytes # (auto) 0.73 K/uL (0.11-0.59); Monocytes % (auto) 8.9 %; Neutrophils # (auto) 5.52 K/uL (1.4-6.5); Neutrophils % (auto) 67.1 %; Platelet Count 192 K/uL (130-400); RDW Coefficient of Variation 14.8 % (11.5-14.5); RDW Standard Deviation 48.3 fL (36.4-46.3); Red Blood Count 2.97 M/uL (4.2-5.4); White Blood Count 8.24 K/uL (4.8-10.8)
[2020-02-02 07:01] LABS: Partial Thromboplastin Ratio 0.8; Partial Thromboplastin Time 23.5 Seconds (21.0-31.0)
[2020-02-02 07:33] LABS: Albumin Level 2.6 gm/dl (3.4-5.0); BUN Creatinine Ratio 10.3 (10-20); Bilirubin,Total 0.9 mg/dl (0.2-1); Calcium 8.3 mg/dl (8.5-10.1); Creatinine Clr Calc Pharmacy 32.7 ml/min; Est GFR (African American) 55.3; Est GFR (Non-African American) 47.7; Ferritin 166.4 ng/ml (8-388); Globulin 2.6 gm/dl (2.5-4.0); Phosphorus 2.4 mg/dl (2.5-4.9); Potassium 3.3 mmol/L (3.5-5.1); Total Protein 5.2 gm/dl (6.4-8.2)
[2020-02-02] MEDS: POTASSIUM CHLORIDE / WTR 10 MEQ/100 ML PLCT IV SCH ×2 (08:53→09:52)
--- NOTE | 2020-02-02 09:09 | Gastroenterology Progress Note ---
Date of Service February 02, 2020 Assessment & Plan (1) Symptomatic anemia: Patient without complaints this morning. Possible melena and blood loss anemia. Continue PPI, NPO, and IVF. Plan is EGD today. Spoke to son, Miles Ralph, this morning who is agreeable to EGD. Patient agreeable. Risks reviewed. Please refer to supervising physician addendum for further recommendations. Admission and Anticipated Discharge Date Admission Date: January 31, 2020 Supervising Physician Co-Signing Physician Notes I saw and examined patient. I agree with OSMAN Mehta note except as below. She denies abd pain abd pos bs, soft, no guarding nor rebound acute anemia--Discussed with son Miles that no stools this admit but no explanation for anemia with CT a/p and CXR showing not blood. With hx of black stool recommend EGD. Proc and risks explained to patient which include but not limited to med reaction, bleeding, perforation, aspiration, and missed lesions. He is agreeable for EGD today. Subjective Limited historian. Transfused 02/01/2020. Hgb 9.2/Hct 27.0 today. Patient denie s abdominal pain, nausea, vomiting. Does not recall if she has had a bowel movement since admission. Nursing notes reviewed. No bowel movement documented during current admission. IV Protonix and IVF continue. NPO. Plan is EGD today. Review of Systems Review of Systems: All systems reviewed & are unremarkable except as noted in Subjective Physical Exam Constitutional: WD/WN, vitals as above Eyes: PERRL, conjunctivae normal, anicteric sclerae Neck: normal visual inspection and trachea midline Respiratory: normal respiratory effort, lungs clear to auscultation Cardiovascular: RRR, no murmur, no edema Gastrointestinal (Abdomen): normal bowel sounds, soft, nontender, no hepatosplenomegaly Skin: warm and dry Neurologic: PERRL, EOMI, accommodation nl, no face palsy, no dysarthria Psychiatric: Judgement: + limited judgement awake and alert. Results & Data ([facility]) Vital Signs (Past 12 Hours) Vital Signs Temp Pulse Pulse Resp BP Pulse Ox 02/02/20 07:54 36.4 C L 67 20 150/69 H 93 02/02/20 07:25 60 02/02/20 03:57 36.5 C 55 L 19 146/72 H 93 02/01/20 22:54 36.5 C 57 L 19 145/77 H 93 02/01/20 22:20 61 Laboratory Results - last 24 hr 02/01/20 02/01/20 02/01/20 08:29 08:29 08:29 WBC RBC Hgb Hct MCV MCH MCHC RDW Std Deviation RDW Coeff of Corey Plt Count MPV Immature Gran % (Auto) Neut % (Auto) Lymph % (Auto) [place] % (Auto) Eos % (Auto) Baso % (Auto) Neut # (Auto) Lymph # (Auto) [place] # (Auto) Eos # (Auto) Baso # (Auto) Immature Gran # (Auto) APTT PTT Ratio Sodium 143 Potassium 3.6 Chloride 112 H Carbon Dioxide 26 Anion Gap 5.0 BUN 22 H Creatinine 1.17 Est Cr Clr Drug Dosing 29.3 Est GFR ( Amer) 48.5 Est GFR (Non-Af Amer) 41.9 BUN/Creatinine Ratio 18.4 Glucose 89 Calcium 8.8 Phosphorus Magnesium Iron 70 TIBC Transferrin Transferrin % Sat Ferritin Total Bilirubin AST ALT Alkaline Phosphatase Lactate Dehydrogenase 166 Total Creatine Kinase 45 Troponin I Total Protein Albumin Globulin Albumin/Globulin Ratio Vitamin B12 339 Folate 17.19 COVID-19 Eval Order SARS-CoV-2, RNA, NAAT Blood Type Antibody Screen Crossmatch 02/01/20 02/01/20 02/01/20 08:49 12:44 15:40 WBC RBC Hgb 9.5 L Hct 28.0 L MCV MCH MCHC RDW Std Deviation RDW Coeff of Corey Plt Count MPV Immature Gran % (Auto) Neut % (Auto) Lymph % (Auto) [place] % (Auto) Eos % (Auto) Baso % (Auto) Neut # (Auto) Lymph # (Auto) [place] # (Auto) Eos # (Auto) Baso # (Auto) Immature Gran # (Auto) APTT PTT Ratio Sodium Potassium Chloride Carbon Dioxide Anion Gap BUN Creatinine Est Cr Clr Drug Dosing Est GFR ( Amer) Est GFR (Non-Af Amer) BUN/Creatinine Ratio Glucose Calcium Phosphorus Magnesium Iron TIBC Transferrin Transferrin % Sat Ferritin Total Bilirubin AST ALT Alkaline Phosphatase Lactate Dehydrogenase Total Creatine Kinase Troponin I < 0.015 Total Protein Albumin Globulin Albumin/Globulin Ratio Vitamin B12 Folate COVID-19 Eval Order SARS-CoV-2, RNA, NAAT Blood Type A Positive Antibody Screen NEGATIVE Crossmatch See Detail 02/01/20 02/01/20 02/02/20 20:10 20:10 06:03 WBC RBC Hgb Hct MCV MCH MCHC RDW Std Deviation RDW Coeff of Corey Plt Count MPV Immature Gran % (Auto) Neut % (Auto) Lymph % (Auto) [place] % (Auto) Eos % (Auto) Baso % (Auto) Neut # (Auto) Lymph # (Auto) [place] # (Auto) Eos # (Auto) Baso # (Auto) Immature Gran # (Auto) APTT PTT Ratio Sodium 139 Potassium 3.3 L Chloride 108 H Carbon Dioxide 24 Anion Gap 8.0 BUN 11 Creatinine 1.05 Est Cr Clr Drug Dosing 32.7 Est GFR ( Amer) 55.3 Est GFR (Non-Af Amer) 47.7 BUN/Creatinine Ratio 10.3 Glucose 88 Calcium 8.3 L Phosphorus 2.4 L Magnesium 2.0 Iron 142 TIBC 238 L Transferrin 193 L Transferrin % Sat 52 H Ferritin 166.4 Total Bilirubin 0.9 D AST 26 ALT 26 Alkaline Phosphatase 55 Lactate Dehydrogenase Total Creatine Kinase Troponin I Total Protein 5.2 L D Albumin 2.6 L Globulin 2.6 Albumin/Globulin Ratio 1.0 Vitamin B12 Folate COVID-19 Eval [facility] SARS-CoV-2, RNA, NAAT NEGATIVE Blood Type Antibody Screen Crossmatch 02/02/20 02/02/20 06:03 06:03 WBC 8.24 RBC 2.97 L Hgb 9.2 L Hct 27.0 L MCV 90.9 MCH 31.0 MCHC 34.1 RDW Std Deviation 48.3 H RDW Coeff of Corey 14.8 H Plt Count 192 MPV 10.8 H Immature Gran % (Auto) 0.8 Neut % (Auto) 67.1 Lymph % (Auto) 18.8 [place] % (Auto) 8.9 Eos % (Auto) 4.2 Baso % (Auto) 0.2 Neut # (Auto) 5.52 Lymph # (Auto) 1.55 [place] # (Auto) 0.73 H Eos # (Auto) 0.35 Baso # (Auto) 0.02 Immature Gran # (Auto) 0.07 H APTT 23.5 PTT Ratio 0.8 Sodium Potassium Chloride Carbon Dioxide Anion Gap BUN Creatinine Est Cr Clr Drug Dosing Est GFR ( Amer) Est GFR (Non-Af Amer) BUN/Creatinine Ratio Glucose Calcium Phosphorus Magnesium Iron TIBC Transferrin Transferrin % Sat Ferritin Total Bilirubin AST ALT Alkaline Phosphatase Lactate Dehydrogenase Total Creatine Kinase Troponin I Total Protein Albumin Globulin Albumin/Globulin Ratio Vitamin B12 Folate COVID-19 Eval Order SARS-CoV-2, RNA, NAAT Blood Type Antibody Screen Crossmatch
[2020-02-02] MEDS: MULTIVITAMIN TAB PO SCH (10:05)
[2020-02-02] MEDS: CHOLECALCIFEROL 1,000 UNITS 25 MCG TAB PO SCH (11:33)
[2020-02-02] MEDS: DONEPEZIL HCL 10 MG TAB PO SCH (12:28)
[2020-02-02] MEDS: DULoxetine HCL 30 MG CAP PO SCH (12:29)
[2020-02-02] MEDS: lisinopriL 40 MG TAB PO SCH (12:29)
[2020-02-02] MEDS: methIMAzole 5 MG TABLET PO SCH (12:29)
[2020-02-02] MEDS: MEMANTINE HCL 10 MG TAB PO SCH ×2 (12:29→21:58)
[2020-02-02] MEDS: CALCITRIOL 0.25 MCG CAPSULE PO SCH (12:29)
[2020-02-02] MEDS ORDERED: LIDOCAINE HCL 2% 2 ML VIAL/AMP(20MG/ML) INFIL ONE (14:49)
[2020-02-02] MEDS ORDERED: PROPOFOL IV EMULSION 10 MG/ML 20 ML VIAL IV ONE (14:49)
[2020-02-02] MEDS ORDERED: ATROPINE SULFATE 0.1 MG/ML 10ML SYR IV PRN (15:24)
[2020-02-02] MEDS ORDERED: ePHEDrine sulfate 50 MG/ML AMP IV PRN (15:24)
--- NOTE | 2020-02-02 15:24 | Anesthesiology Consultation ---
Date of Service February 02, 2020 Assessment & Plan ASA ASA3 Proposed Anesthesia Anesthesia Type: MAC Risk / Benefits Reviewed With: PT / POA / Parent / Guardian, Accepts Plan and Informed Consent Obtained Additional Comments: phone consent, chart review History Surgery Operation Date: 02/02/20 16:30 Proposed Procedures p Esophagogastroduodenoscopy Dr Zhong - Harman Zhong Height/Weight Height: 5 ft 2 in Weight: 62 kg Allergies Allergy/AdvReac Type Severity Reaction Status Date / Time atorvastatin Allergy Unknown UNKOWN Verified 01/31/20 19:17 cephalexin [From Keflex] Allergy Unknown Unknown Unverified 01/31/20 19:17 oxaprozin [From Daypro] Allergy Unknown Unknown Unverified 01/31/20 19:17 paroxetine Allergy Unknown UNKNOWN Verified 01/31/20 19:17 propoxyphene Allergy Unknown DARVOCET Verified 01/31/20 19:17 acetaminophen AdvReac Mild Unknown Unverified 01/31/20 19:17 [From Darvocet-N 100] codeine AdvReac Mild NAUSEA Verified 01/31/20 19:17 Sulfa (Sulfonamide AdvReac Mild NAUSEA Verified 02/01/20 09:12 Antibiotics) Medications Home Medications Medication Instructions Recorded Confirmed Last Taken cetirizine 10 mg tablet 10 mg PO DAILY PRN tab 11/27/18 01/31/20 Unknown cholecalciferol (vitamin D3) 5,000 unit PO QAM 12/01/18 01/31/20 01/30/20 [Vitamin D3] multivitamin 1 tab PO QAM 12/01/18 01/31/20 01/30/20 lisinopril 40 mg tablet 40 mg PO QAM #90 tab 04/07/19 01/31/20 01/30/20 ipratropium bromide 42 mcg (0.06 2 spray INTNAS BID #15 ml 06/09/19 01/31/20 01/30/20 %) nasal spray ketotifen fumarate 0.025 % (0.035 1 drp OP BID #10 ml 07/30/19 01/31/20 01/30/20 %) eye drops rosuvastatin 20 mg tablet 20 mg PO DAILY #90 tab 09/22/19 01/31/20 01/30/20 amlodipine 5 mg tablet 5 mg PO HS #90 tab 09/25/19 01/31/20 01/30/20 methimazole 5 mg tablet 5 mg PO DAILY #90 tab 10/23/19 01/31/20 01/30/20 ferrous sulfate 325 mg (65 mg 325 mg PO DAILY #30 tab 11/12/19 01/31/20 01/30/20 iron) tablet clopidogrel 75 mg tablet 75 mg PO QAM #90 tab 12/18/19 01/31/20 01/30/20 diclofenac sodium See Rx Instructions TOP TID PRN 12/22/19 01/31/20 01/30/20 tramadol 50 mg PO DAILY PRN 12/22/19 01/31/20 Unknown metoprolol succinate 100 mg 100 mg PO HS #90 tab 12/25/19 01/31/20 01/30/20 tablet,extended release 24 hr miscellaneous medical supply #1 ea 01/01/20 01/01/20 Unknown duloxetine 30 mg capsule,delayed 30 mg PO DAILY #90 cap 01/06/20 01/31/20 01/30/20 release calcitriol 0.25 mcg capsule 0.25 mcg PO 3XWK #60 cap 01/19/20 01/31/20 01/30/20 memantine 28 mg capsule 28 mg PO QAM #90 ea 01/19/20 01/31/20 01/30/20 sprinkle,extended release 24hr pantoprazole 40 mg tablet,delayed 40 mg PO QAM #90 tab 01/21/20 01/31/20 01/30/20 release furosemide 20 mg tablet 20 mg PO QAM #90 tab 01/26/20 01/31/20 01/30/20 donepezil 10 mg tablet 10 mg PO QAM #90 tab 01/28/20 01/31/20 01/30/20 Active Medications Generic Name Dose Route Start Last Admin Trade Name Freq PRN Reason Stop Dose Admin Al Hydrox/Mg Hydrox/Simethicone 15 ml 02/01/20 23:51 02/02/20 00:03 Aluminum/Magnesium Susp 30 Ml Udc PO 03/02/20 23:50 15 ml Q6H PRN Administration heartburn Amlodipine Besylate 5 mg 02/01/20 21:00 02/01/20 20:07 Amlodipine Besylate 5 Mg Tab PO 03/02/20 20:59 5 mg HS VONNIE Administration Calcitriol 0.25 mcg 02/02/20 09:00 02/02/20 12:29 Calcitriol 0.25 Mcg Capsule PO 03/03/20 08:59 Not Given [id number] VONNIE Donepezil HCl 10 mg 02/01/20 12:00 02/02/20 12:28 Donepezil Hcl 10 Mg Tab PO 03/02/20 11:59 Not Given QAM VONNIE Duloxetine HCl 30 mg 02/01/20 12:45 02/02/20 12:29 Duloxetine Hcl 30 Mg Cap PO 03/02/20 12:44 Not Given QAM VONNIE Ferrous Sulfate 325 mg 02/01/20 13:00 02/01/20 13:28 Ferrous Sulfate 325 Mg Tab PO 03/02/20 12:59 325 mg DAILY VONNIE Administration Pantoprazole Sodium 40 mg/ 100 mls @ 20 mls/hr 01/31/20 20:22 02/02/20 10:47 Dextrose IV 03/01/20 20:21 8 mg/hr Q5H VONNIE 20 mls/hr Administration 8 MG/HR Sodium Chloride 1,000 mls @ 80 mls/hr 01/31/20 22:05 02/02/20 04:45 Nss 1000ml IV 03/01/20 22:04 80 mls/hr .[id number] VONNIE Administration Lisinopril 40 mg 02/01/20 13:00 02/02/20 12:29 Lisinopril 40 Mg Tab PO 03/02/20 12:59 Not Given QAM VONNIE Memantine 10 mg 02/01/20 13:00 02/02/20 12:29 Memantine Hcl 10 Mg Tab PO 03/02/20 12:59 Not Given BID VONNIE Methimazole 5 mg 02/01/20 09:00 02/02/20 12:29 Methimazole 5 Mg Tablet PO 03/02/20 08:59 Not Given DAILY VONNIE Metoprolol Succinate 100 mg 02/01/20 21:00 02/01/20 20:07 Metoprolol Succ 50mg Ext Rel Tab PO 03/02/20 20:59 100 mg HS VONNIE Administration Multivitamins 1 tab 02/02/20 09:00 02/02/20 10:05 Multivitamin Tab PO 03/03/20 08:59 Not Given QAM VONNIE Vitamin D 5,000 units 02/02/20 09:00 02/02/20 11:33 Cholecalciferol 1,000 Units 25 Mcg Tab PO 03/03/20 08:59 Not Given QAM VONNIE NPO Date Last Intake of Fluids: 02/01/20 Time Last Intake of Fluids: 23:30 Date Last Intake of Solids: 01/31/20 Time Last Intake of Solids: 18:00 Past Medical History Medical History Anemia Arthritis Coronary artery disease Dementia Depression Gait disturbance, post-stroke GI bleed History of CVA (cerebrovascular accident) HTN (hypertension) Hyperlipemia Hyperthyroidism Irritable bowel syndrome Ischemic stroke LBBB (left bundle branch block) Obstructive sleep apnea Stage 3 chronic kidney disease Vitamin D deficiency Exercise / Class Metabolic Activity II 4-5 Yardwork/Stairs/Walk up hill Past Family History Family History Mother Coronary heart disease Heart disease Myocardial infarction Denies family history of Ovarian cancer Prostate cancer Diabetes Alzheimer disease Breast cancer Lung cancer COPD (chronic obstructive pulmonary disease) Colorectal cancer Asthma Past Surgical History Surgical History S/P dilatation and curettage S/P hysterectomy S/P shoulder surgery S/P total knee arthroplasty Past Anesthesia History No Hx of Anesthesia Complications and No Family Hx of Anesthesia Complications History of PONV No Hx of PONV and No Hx of Motion Sickness Social History Smoking Status: Never smoker Hx Alcohol Use: No Hx Substance Use: No Review of Systems denies fever/cough/ colds/ chest pain/ SOB/ [place] Constitutional: no fever and no chills Respiratory: no cough and no dyspnea denies [place] Cardiovascular: no chest pain and no dyspnea on exertion Physical Exam Vital Signs Last Vital Signs Temp 37.0 C 02/02/20 11:39 Pulse 59 L 02/02/20 14:42 Resp 20 02/02/20 11:39 BP 146/71 H 02/02/20 14:42 Pulse Ox 93 02/02/20 11:39 ENMT Mouth: no TMJ abnormality and no dentition abnormality Thyromental Distance: > or= 3.5 Finger Breadths Mallampati Class: II Neck neck extension not limited Respiratory normal respiratory effort; no respiratory distress Auscultation: lungs clear to auscultation bilaterally Cardiovascular Rate/Rhythm: regular rate and regular rhythm Neurologic moves all extremities Psychiatric Orientation: alert and oriented x 3 Testing Laboratory Results 02/02/20 06:03 02/02/20 06:03 PT 10.3 Seconds (9.0-12.0) 01/31/20 17:40 INR 1.0 (0.9-1.1) 01/31/20 17:40 APTT 23.5 Seconds (21.0-31.0) 02/02/20 06:03 Urine Color Yellow 01/31/20 17:25 Urine Appearance Clear (Clear) 01/31/20 17:25 Urine pH 5.0 (4.5-7.5) 01/31/20 17:25 Ur Specific [place] 1.020 (1.000-1.030) 01/31/20 17:25 Urine Protein 2+ (Negative) H 01/31/20 17:25 Urine Glucose (UA) Negative (Negative) 01/31/20 17:25 Urine Ketones Negative (Negative) 01/31/20 17:25 Urine Nitrite Negative (Negative) 01/31/20 17:25 Ur Leukocyte Esterase Trace (Negative) H 01/31/20 17:25 Urine WBC (Auto) 1-5 /hpf (0-5) 01/31/20 17:25 Urine RBC (Auto) 0-4 /hpf (0-4) 01/31/20 17:25 U Hyaline Cast (Auto) 1-5 /lpf (0-5) 01/31/20 17:25 U Epithel Cells (Auto) >30 /lpf (0-5) H 01/31/20 17:25 Urine Bacteria (Auto) Negative (Negative) 01/31/20 17:25 Blood Type A Positive 02/01/20 08:49 Antibody Screen NEGATIVE 02/01/20 08:49
--- NOTE | 2020-02-02 15:30 | History & Physical Report ---
Date of Service February 02, 2020 Assessment & Plan (1) GI bleed: No changes to H and P from today. For EGD for anemia and possible melena. GI bleed type/associated pathology: melena Qualified Code(s): K92.1 - Melena Admission and Anticipated Discharge Date Admission Date: January 31, 2020 History of Present Illness Primary Care Provider: Bethany Hardin, DO See GI progress note from today. Allergies Allergy/AdvReac Type Severity Reaction Status Date / Time atorvastatin Allergy Unknown UNKOWN Verified 01/31/20 19:17 cephalexin [From Keflex] Allergy Unknown Unknown Unverified 01/31/20 19:17 oxaprozin [From Daypro] Allergy Unknown Unknown Unverified 01/31/20 19:17 paroxetine Allergy Unknown UNKNOWN Verified 01/31/20 19:17 propoxyphene Allergy Unknown DARVOCET Verified 01/31/20 19:17 acetaminophen AdvReac Mild Unknown Unverified 01/31/20 19:17 [From Darvocet-N 100] codeine AdvReac Mild NAUSEA Verified 01/31/20 19:17 Sulfa (Sulfonamide AdvReac Mild NAUSEA Verified 02/01/20 09:12 Antibiotics) Home Medications Home Medications Medication Instructions Recorded Confirmed Type cetirizine 10 mg tablet 10 mg PO DAILY PRN tab 11/27/18 01/31/20 History cholecalciferol (vitamin D3) 5,000 unit PO QAM 12/01/18 01/31/20 History [Vitamin D3] multivitamin 1 tab PO QAM 12/01/18 01/31/20 History lisinopril 40 mg tablet 40 mg PO QAM #90 tab 04/07/19 01/31/20 Rx ipratropium bromide 42 mcg (0.06 2 spray INTNAS BID #15 ml 06/09/19 01/31/20 Rx %) nasal spray ketotifen fumarate 0.025 % (0.035 1 drp OP BID #10 ml 07/30/19 01/31/20 Rx %) eye drops rosuvastatin 20 mg tablet 20 mg PO DAILY #90 tab 09/22/19 01/31/20 Rx amlodipine 5 mg tablet 5 mg PO HS #90 tab 09/25/19 01/31/20 Rx methimazole 5 mg tablet 5 mg PO DAILY #90 tab 10/23/19 01/31/20 Rx ferrous sulfate 325 mg (65 mg 325 mg PO DAILY #30 tab 11/12/19 01/31/20 Rx iron) tablet clopidogrel 75 mg tablet 75 mg PO QAM #90 tab 12/18/19 01/31/20 Rx diclofenac sodium See Rx Instructions TOP TID PRN 12/22/19 01/31/20 History tramadol 50 mg PO DAILY PRN 12/22/19 01/31/20 History metoprolol succinate 100 mg 100 mg PO HS #90 tab 12/25/19 01/31/20 Rx tablet,extended release 24 hr miscellaneous medical supply #1 ea 01/01/20 01/01/20 Rx duloxetine 30 mg capsule,delayed 30 mg PO DAILY #90 cap 01/06/20 01/31/20 Rx release calcitriol 0.25 mcg capsule 0.25 mcg PO 3XWK #60 cap 01/19/20 01/31/20 Rx memantine 28 mg capsule 28 mg PO QAM #90 ea 01/19/20 01/31/20 Rx sprinkle,extended release 24hr pantoprazole 40 mg tablet,delayed 40 mg PO QAM #90 tab 01/21/20 01/31/20 Rx release furosemide 20 mg tablet 20 mg PO QAM #90 tab 01/26/20 01/31/20 Rx donepezil 10 mg tablet 10 mg PO QAM #90 tab 01/28/20 01/31/20 Rx Past Med/Surg History Medical History Anemia Arthritis Coronary artery disease Dementia Depression Gait disturbance, post-stroke GI bleed History of CVA (cerebrovascular accident) HTN (hypertension) Hyperlipemia Hyperthyroidism Irritable bowel syndrome Ischemic stroke LBBB (left bundle branch block) Obstructive sleep apnea Stage 3 chronic kidney disease Vitamin D deficiency Surgical History S/P dilatation and curettage S/P hysterectomy S/P shoulder surgery S/P total knee arthroplasty Family History Mother Coronary heart disease Heart disease Myocardial infarction Denies family history of Ovarian cancer Prostate cancer Diabetes Alzheimer disease Breast cancer Lung cancer COPD (chronic obstructive pulmonary disease) Colorectal cancer Asthma Social History Smoking Status: Never smoker Hx Alcohol Use: No Hx Substance Use: No Preferred Language: Frisian Communication Ability: Effective Visual Impairment: No Limitations Hearing Ability: Hard of Hearing Director Of Online Merchandising Required: No Beliefs That Will Affect Care: None marital status: / Current Living Situation: Alone current occupational status: retired Other Information That Helps Us Care for You: No Feels Safe at Home: Yes Safety Concerns: Feels Safe At This Time Childhood Exposure to Second-Hand Smoke: No Diet Comment: regular caffeine: Yes (tea) during the past year weight has: remained stable Dental Care, Regularly: No Physical Activity Frequency: Does not Exercise Seatbelt Use: always Sunscreen Use: No Assistive Devices: Cane and Glasses Results & Data ([facility]) Vital Signs (Past 12 Hours) Vital Signs Temp Pulse Pulse Pulse Resp BP BP 02/02/20 15:20 36.6 C 59 L 59 L 18 145/58 H 02/02/20 14:42 59 L 146/71 H 02/02/20 11:39 37.0 C 68 20 167/73 H 02/02/20 07:54 36.4 C L 67 20 150/69 H 02/02/20 07:25 60 02/02/20 03:57 36.5 C 55 L 19 146/72 H Pulse Ox 02/02/20 15:20 96 02/02/20 14:42 02/02/20 11:39 93 02/02/20 07:54 93 02/02/20 07:25 02/02/20 03:57 93 Code Status & VTE Plan VTE Prophylaxis Plan VTE Prophylaxis will be ordered: Yes
[2020-02-02] MEDS ORDERED: bisacodyL 5 MG TABEC PO ONE (15:48)
--- NOTE | 2020-02-02 15:51 | Post Operative Brief Note ---
Immediate Post Op Note v1 Date of Surgery February 02, 2020 Pre & Post Diagnosis Operation Date: 02/02/20 16:30 Pre-Op Diagnosis: SYMPTOMATIC ANEMIA Post-Op Diagnosis: Hiatal Hernia I identified the patient and participated in the time-out.: Yes Procedure Operation Date: 02/02/20 16:30 Actual Procedures p Esophagogastroduodenoscopy - Harman Zhong Surgeon Harman Zhong Dining Room Host see full report Estimated Blood Loss 0 Findings Consistent with Post-Op Diagnosis Pt with large hiatal hernia. Possible Barretts esophagus but not biopsied so as to not be confused if she active GI bleeding. Discussed with son and plan is to feed patient, give some laxative and observe her stools for bleeding. Will hold Fe for now so as to not be confused by black stool.
--- NOTE | 2020-02-02 15:58 | GI REPORT ---
Patient Name: Debora Ralph Procedure Date: 02/02/2020 3:36 PM Date of : 1930 Admit Type: Inpatient Age: 89 Gender: Female Attending MD: Harman Zhong MD Procedure: Upper GI endoscopy Providers: Harman Zhong MD Referring MD: Fabrizio Delgadillo Indications: Acute post hemorrhagic anemia, Melena Medicines: Monitored Anesthesia Care Complications: No immediate complications. Estimated blood loss: None. Estimated Blood Loss: Estimated blood loss: none. Procedure: Pre-Anesthesia Assessment: - The patient is unable to give consent secondary to the patient being legally incompetent to consent. The alternatives, risks and benefits of the procedure were discussed at length with the patient's son. The patient's proxy verbalized understanding of the risks as well as the alternatives and wished to proceed with the procedure. - Patient identification and proposed procedure were verified prior to the procedure by the physician, the nurse and the healthcare project manager. The procedure was verified in the procedure room. After obtaining informed consent, the endoscope was passed under direct vision. Throughout the procedure, the patient's blood pressure, pulse, and oxygen saturations were monitored continuously. The Endoscope was introduced through the mouth, and advanced to the second part of duodenum. The upper GI endoscopy was accomplished without difficulty. The patient tolerated the procedure well. Procedure and risks explained to patient which include but not limited to medication reaction, bleeding, perforation, aspiration , and missed lesions. Judicious gas insufflation was used and gas removal done on the way out. The lumen was always visualized when advancing the scope. Prep was good. Washes and suctioning used as needed to get good visualization of the mucosa. Retroflexion to look at the fundus and cardia of the stomach and GE junction was done. Findings: The Z-line was irregular and possibly representing short segment Barretts and was found 35 cm from the incisors. No biopsies done so as to not be confused if she has bleeding. A large hiatal hernia was present. The examined duodenum was normal. The exam was otherwise without abnormality. Impression: - Z-line irregular, 35 cm from the incisors. - Large hiatal hernia. - Normal examined duodenum. - The examination was otherwise normal. - No specimens collected. Recommendation: - Discharge patient to home (ambulatory). - Discussed with son and will feed patient, give some laxative and monitor stools and CBC. I recommend holding Fe for now so not to be confused by dark stools. Harman Zhong M.D. Harman Zhong MD 02/02/2020 3:57:48 PM This report has been signed electronically. Note Initiated On: 02/02/2020 3:36 PM Number of Addenda: 0 I attest to the content of the Intraoperative Record and orders documented therein, exceptions below {[id number]}
--- NOTE | 2020-02-02 16:23 | Anesthesiology Progress Note ---
Date of Service February 02, 2020 Anesthesia Post Procedure Vital Signs Vital Signs: Temp Pulse Pulse Pulse Resp BP BP 02/02/20 16:19 50 L 16 142/53 H 02/02/20 16:04 60 16 138/51 L 02/02/20 15:49 68 14 103/43 L 02/02/20 15:20 97.9 F 59 L 59 L 18 145/58 H 02/02/20 14:42 59 L 146/71 H 02/02/20 11:39 98.6 F 68 20 167/73 H 02/02/20 07:54 97.5 F L 67 20 150/69 H 02/02/20 07:25 60 02/02/20 03:57 97.7 F 55 L 19 146/72 H 02/01/20 22:54 97.7 F 57 L 19 145/77 H 02/01/20 22:20 61 02/01/20 19:09 98.1 F 68 20 131/69 Pulse Ox 02/02/20 16:19 96 02/02/20 16:04 96 02/02/20 15:49 98 02/02/20 15:20 96 02/02/20 14:42 02/02/20 11:39 93 02/02/20 07:54 93 02/02/20 07:25 02/02/20 03:57 93 02/01/20 22:54 93 02/01/20 22:20 02/01/20 19:09 95 Pain Intensity Generalized: Pain Intensity: 2 Transfer of Care Handoff Completed per policy Notes Mental Status: alert / awake / arousable and participated in evaluation Patient Amnestic to Procedure: Yes Nausea / Vomiting: adequately controlled Pain: adequately controlled Airway Patency, RR, SpO2: stable & adequate BP & HR: stable & adequate Hydration State: stable & adequate Anesthetic Complications: no major complications apparent and Pt Satisfied with anesthetic care
--- NOTE | 2020-02-02 18:05 | Hospitalist Progress Note ---
Date of Service February 02, 2020 Assessment & Plan (1) Symptomatic anemia: * Symptomatic anemia/fatigue/ambulatory dysfunction- * On admission, hgb decreased from 12.5 in 11/2019 down to 7.3 01/31 - 1 u PRBCs orderd * Recent admission from 04/27-2017, during which time her hemoglobin was at a low of 6.8. At that time EGD revealed large hiatal hernia and colonoscopy revealed diverticulosis thought to be source of bleeding * She underwent and EGD on 05/01/2017 which revealed a hiatal hernia. * CT A/P with large intrathoracic stomach and hiatal hernia * Protonix gtt continued * Continue NSS @80cc/hr * Retic 4.0, LDH 166, Haptoglobin pending, total bilirubin normal-not likely hemolysis * B12 level 339, Folate 17.19, iron wnl * Trop initially negative x 3 * GI on consulted - EGD today without active bleeding. Possible small area of Barretts esophagus. No biopsy taken to avoid initiating bleeding. Plan for diet, laxatives and observation for bleeding. (2) Fatigue: * Likely secondary to anemia as above. CK 45 (3) GI bleed: * As above (4) Obstructive sleep apnea: * Patient has gotten CPAP fit for her as an outpatient, but her son reports that she does not wear it, and she says she does not wear it because it hurts her nose despite multiple masks used in the past. * Discussed importance given hx mod-severe pulm HTN on last ECHO * Does not want ordered while inpatient as unable to tolerate * Oxygen sats stable overnight (5) Stage 3 chronic kidney disease: * Creat stable * avoid nephrotoxins where possible (6) Hyperthyroidism: * TSH 2.180 * Continue methimazole 5 mg p.o. daily (7) Coronary artery disease: * With a history of nonobstructive CAD on cardiac catheterization in 2013- proximal LAD 40% stenosis * Continue amlodipine, lisinopril, and metoprolol * Hold home Plavix for GI bleed * furosemide on hold for now, on IVF (8) HTN (hypertension): * BP controlled, 147/67 * Continue amlodipine, lisinopril, metoprolol * Continue to monitor (9) Dementia: * Continue home namenda 10mg BID (10) Depression: * Continue cymbalta 30mg daily (11) Hypomagnesemia: Replaced (12) LBBB (left bundle branch block): Chronic since at least 1993 Cardiac catheterization as above without significant abnormality-nonobstructive disease of the proximal LAD in 2013 Echocardiogram 2018 with preserved EF, moderate to severe pulmonary hypertension, valvular disease (13) DVT prophylaxis: * SCDs * Chemoprophylaxis contraindicated in setting of active bleed Admission and Anticipated Discharge Date Admission Date: January 31, 2020 Subjective Ms. Ralph feels well, no complaints ROS Constitutional: no chills, aches, sweats or fever Respiratory: no sob,cough, sputum, or wheezing Cardiac: no chest pain, palpitations, edema, orthopnea or lightheadedness GI: no abdominal pain, nausea, vomiting, diarrhea or constipation : no dysuria or hesitancy Extremities: no joint pain or weakness Skin: no rash All other systems reviewed and negative Physical Exam Physical Exam: General: no distress Eyes: normal inspection, PERLL Respiratory: chest non tender, clear to auscultation, normal breath sounds, no respiratory distress, no accessory muscle use Cardiac: regular rate and rhythm, no rub or gallop, no murmur, no edema, no jvd GI/: active bowel sounds, no abd pain or tenderness, soft, non distended Extremities: normal range of motion, normal strength, non tender Neuro/Psych: alert and oriented x 3, normal mood and affect Skin: normal color, dry Results & Data Results & Data ([facility]) Vital Signs (Past 12 Hours) Vital Signs Temp Pulse Pulse Pulse Resp BP BP 02/02/20 16:19 50 L 16 142/53 H 02/02/20 16:04 60 16 138/51 L 02/02/20 15:49 68 14 103/43 L 02/02/20 15:20 36.6 C 59 L 59 L 18 145/58 H 02/02/20 14:42 59 L 146/71 H 02/02/20 11:39 37.0 C 68 20 167/73 H 02/02/20 07:54 36.4 C L 67 20 150/69 H 02/02/20 07:25 60 Pulse Ox 02/02/20 16:19 96 02/02/20 16:04 96 02/02/20 15:49 98 02/02/20 15:20 96 02/02/20 14:42 02/02/20 11:39 93 02/02/20 07:54 93 02/02/20 07:25 PG Care Time/CCT Total # of Minutes Spent Total Time Spent with Patient: Total time spent is greater than 50% in coordination of care (as documented) at patient's floor/unit and/or counseling patient: Coding Level of Care Code 29199 Subseq Hosp Care Lvl 3 Diagnoses Symptomatic anemia D64.9 Fatigue R53.83 Fatigue type: unspecified GI bleed K92.1 GI bleed type/associated pathology: melena Obstructive sleep apnea G47.33 Stage 3 chronic kidney disease N18.3 Hyperthyroidism E05.90 Coronary artery disease I25.10 HTN (hypertension) I10 Dementia F03.90 Depression F32.9 Hypomagnesemia E83.42 LBBB (left bundle branch block) I44.7 DVT prophylaxis Z29.9 (1) Fatigue Fatigue type: unspecified Qualified Code(s): R53.83 - Other fatigue (2) GI bleed GI bleed type/associated pathology: melena Qualified Code(s): K92.1 - Melena
[2020-02-02] MEDS: amLODIPine BESYLATE 5 MG TAB PO SCH (21:58)
[2020-02-02] MEDS: METOPROLOL SUCC 50MG EXT REL TAB PO SCH (21:59)
[2020-02-03] MEDS: PANTOprazole 40 MG in DEXTROSE 5% 100 ML IV SCH ×3 (03:00→13:16)
[2020-02-03 06:01] LABS: Basophils # (auto) 0.02 K/uL (0-0.2); Basophils % (auto) 0.3 %; Eosinophils # (auto) 0.34 K/uL (0-0.5); Eosinophils % (auto) 4.4 %; Hematocrit (blood only) 26.1 % (37-47); Hemoglobin 8.8 g/dL (12.0-16.0); Immature Granulocytes # (auto) 0.07 K/uL (0.00-0.02); Immature Granulocytes % (auto) 0.9 %; Lymphocytes # (auto) 1.64 K/uL (1.2-3.4); Lymphocytes % (auto) 21.1 %; Mean Corpuscular Hemoglobin 30.9 pg (25-34); Mean Corpuscular Hgb Conc 33.7 g/dL (32-36); Mean Corpuscular Volume 91.6 fL (80-100); Mean Platelet Volume 10.6 fL (7.4-10.4); Monocytes # (auto) 0.87 K/uL (0.11-0.59); Monocytes % (auto) 11.2 %; Neutrophils # (auto) 4.82 K/uL (1.4-6.5); Neutrophils % (auto) 62.1 %; Platelet Count 195 K/uL (130-400); RDW Coefficient of Variation 14.8 % (11.5-14.5); RDW Standard Deviation 49.1 fL (36.4-46.3); Red Blood Count 2.85 M/uL (4.2-5.4); White Blood Count 7.76 K/uL (4.8-10.8)
[2020-02-03 06:31] LABS: Albumin Level 2.5 gm/dl (3.4-5.0); BUN Creatinine Ratio 10.3 (10-20); Calcium 8.4 mg/dl (8.5-10.1); Creatinine Clr Calc Pharmacy 31.8 ml/min; Est GFR (African American) 53.5; Est GFR (Non-African American) 46.1; Potassium 3.6 mmol/L (3.5-5.1)
[2020-02-03 06:33] LABS: Bilirubin,Total 0.5 mg/dl (0.2-1); Globulin 2.6 gm/dl (2.5-4.0); Phosphorus 2.7 mg/dl (2.5-4.9); Total Protein 5.1 gm/dl (6.4-8.2)
[2020-02-03] MEDS: SODIUM CHLORIDE 0.9% 1000ML 1,000 ML IV SCH (07:19)
[2020-02-03] MEDS: MULTIVITAMIN TAB PO SCH (08:49)
[2020-02-03] MEDS: CHOLECALCIFEROL 1,000 UNITS 25 MCG TAB PO SCH (08:49)
[2020-02-03] MEDS: MEMANTINE HCL 10 MG TAB PO SCH ×2 (08:50→20:36)
[2020-02-03] MEDS: DULoxetine HCL 30 MG CAP PO SCH (08:50)
[2020-02-03] MEDS: lisinopriL 40 MG TAB PO SCH (08:50)
[2020-02-03] MEDS: methIMAzole 5 MG TABLET PO SCH (08:50)
[2020-02-03] MEDS: DONEPEZIL HCL 10 MG TAB PO SCH (08:51)
--- NOTE | 2020-02-03 08:54 | Gastroenterology Progress Note ---
Date of Service February 03, 2020 Assessment & Plan (1) Symptomatic anemia: Patient without complaints this morning. Recommend transition PPI from IV to po. EGD did not demonstrate bleeding source. Tolerating regular po diet. Continue to monitor stools - spoke to nursing and requested next stool sent to lab for heme testing. Hgb 8.8/Hct 26.1 today. Please refer to supervising physician addendum for further recommendations. Admission and Anticipated Discharge Date Admission Date: January 31, 2020 Subjective Limited historian. Transfused 02/01/2020. Hgb 8.8/Hct 26.1 today. EGD performed 02/02/[address] Zhong - due to anemia and subjective reports of melena which demonstrated irregular z-line 35 cm from incisors; large hiatal hernia; normal examined duodenum; otherwise normal exam. Plan to monitor stools and CBC, hold iron. This morning, patient denies abdominal pain, nausea, vomiting. Last bowel movement 02/02/2020 - soft brown per nursing documentation. Heme testing not performed. IV Protonix and IVF continue. Patient tolerating regular diet during exam this morning. Review of Systems Review of Systems: All systems reviewed & are unremarkable except as noted in Subjective Physical Exam Constitutional: WD/WN, vitals as above Eyes: PERRL, conjunctivae normal, anicteric sclerae Neck: normal visual inspection and trachea midline Respiratory: normal respiratory effort, lungs clear to auscultation Cardiovascular: RRR, no murmur, no edema Gastrointestinal (Abdomen): normal bowel sounds, soft, nontender, no hepatosplenomegaly Neurologic: PERRL, EOMI, accommodation nl, no face palsy, no dysarthria Psychiatric: Orientation: alert, oriented to person and oriented to place Results & Data ([facility]) Vital Signs (Past 12 Hours) Vital Signs Temp Pulse Pulse Resp BP Pulse Ox 02/03/20 07:28 58 L 02/03/20 07:22 36.6 C 57 L 18 160/74 H 95 02/03/20 03:21 36.7 C 57 L 17 166/71 H 93 02/03/20 01:17 60 02/02/20 23:11 36.7 C 72 18 133/78 97 02/02/20 20:57 67 Laboratory Results - last 24 hr 02/03/20 02/03/20 05:43 05:43 WBC 7.76 RBC 2.85 L Hgb 8.8 L Hct 26.1 L MCV 91.6 MCH 30.9 MCHC 33.7 RDW Std Deviation 49.1 H RDW Coeff of Corey 14.8 H Plt Count 195 MPV 10.6 H Immature Gran % (Auto) 0.9 Neut % (Auto) 62.1 Lymph % (Auto) 21.1 Frederick % (Auto) 11.2 Eos % (Auto) 4.4 Baso % (Auto) 0.3 Neut # (Auto) 4.82 Lymph # (Auto) 1.64 Frederick # (Auto) 0.87 H Eos # (Auto) 0.34 Baso # (Auto) 0.02 Immature Gran # (Auto) 0.07 H Sodium 140 Potassium 3.6 Chloride 111 H Carbon Dioxide 25 Anion Gap 4.0 BUN 11 Creatinine 1.08 Est Cr Clr Drug Dosing 31.8 Est GFR ( Amer) 53.5 Est GFR (Non-Af Amer) 46.1 BUN/Creatinine Ratio 10.3 Glucose 91 Calcium 8.4 L Phosphorus 2.7 Magnesium 2.0 Total Bilirubin 0.5 AST 21 ALT 22 Alkaline Phosphatase 56 Total Protein 5.1 L Albumin 2.5 L Globulin 2.6 Albumin/Globulin Ratio 1.0
--- NOTE | 2020-02-03 13:55 | Hospitalist Progress Note ---
Date of Service February 03, 2020 Assessment & Plan (1) Symptomatic anemia: * On admission, hgb decreased from 12.5 in 11/2019 down to 7.3 01/31 - 1 u PRBCs orderd * Recent admission from 04/27-2017, during which time her hemoglobin was at a low of 6.8. At that time EGD revealed large hiatal hernia and colonoscopy revealed diverticulosis thought to be source of bleeding * CT A/P with large intrathoracic stomach and hiatal hernia * Protonix gtt dc'd and changed to po per GI rec as there is no active bleeding on EGD * Labs do not support hemolysis picture * B12 level 339, Folate 17.19, iron wnl * Trop negative x 3 * GI on consulted - EGD today without active bleeding. Possible small area of Bhatti's esophagus. No biopsy taken to avoid initiating bleeding. Plan for diet, laxatives and observation for bleeding. Ordered fecal occult (2) Fatigue: * Likely secondary to anemia as above. CK 45 (3) GI bleed: * As above (4) Obstructive sleep apnea: * Patient has gotten CPAP fit for her as an outpatient, but her son reports that she does not wear it, and she says she does not wear it because it hurts her nose despite multiple masks used in the past. * Discussed importance given hx mod-severe pulm HTN on last ECHO * Does not want ordered while inpatient as unable to tolerate * Oxygen sats stable overnight (5) Stage 3 chronic kidney disease: * Creat stable * avoid nephrotoxins where possible (6) Hyperthyroidism: * TSH 2.180 * Continue methimazole 5 mg p.o. 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- proximal LAD 40% stenosis * Continue amlodipine, lisinopril, and metoprolol * Hold home Plavix for GI bleed * furosemide on hold for now (8) HTN (hypertension): * BP controlled, 147/67 * Continue amlodipine, lisinopril, metoprolol * Continue to monitor (9) Dementia: * Continue home namenda 10mg BID (10) Depression: * Continue cymbalta 30mg daily (11) Hypomagnesemia: Replaced (12) LBBB (left bundle branch block): Chronic since at least 1993 Cardiac catheterization as above without significant abnormality-nonobstructive disease of the proximal LAD in 2013 Echocardiogram 2018 with preserved EF, moderate to severe pulmonary hypertension, valvular disease (13) DVT prophylaxis: * SCDs * Chemoprophylaxis contraindicated in setting of active bleed Called son and daughter to update but no answer Admission and Anticipated Discharge Date Admission Date: January 31, 2020 Subjective Ms. Ralph has no complaints. Pleasant, feeling well. ROS Constitutional: no chills, aches, sweats or fever Respiratory: no sob,cough, sputum, or wheezing Cardiac: no chest pain, palpitations, edema, orthopnea or lightheadedness GI: no abdominal pain, nausea, vomiting, diarrhea or constipation : no dysuria or hesitancy Extremities: no joint pain or weakness Skin: no rash All other systems reviewed and negative Physical Exam Physical Exam: General: no distress Eyes: normal inspection, PERLL Respiratory: chest non tender, clear to auscultation, normal breath sounds, no respiratory distress, no accessory muscle use Cardiac: regular rate and rhythm, no rub or gallop, no murmur, no edema, no jvd GI/: active bowel sounds, no abd pain or tenderness, soft, non distended Extremities: normal range of motion, normal strength, non tender Neuro/Psych: alert and oriented x 3, normal mood and affect Skin: normal color, dry Results & Data Results & Data ([facility]) Vital Signs (Past 12 Hours) Vital Signs Temp Pulse Pulse Resp BP Pulse Ox 02/03/20 11:32 36.8 C 60 18 175/75 H 90 02/03/20 07:28 58 L 02/03/20 07:22 36.6 C 57 L 18 160/74 H 95 02/03/20 03:21 36.7 C 57 L 17 166/71 H 93 PG Care Time/CCT Total # of Minutes Spent Total Time Spent with Patient: Total time spent is greater than 50% in coordination of care (as documented) at patient's floor/unit and/or counseling patient: Coding Level of Care Code 74396 Subseq Hosp Care Lvl 2 Diagnoses Symptomatic anemia D64.9 Fatigue R53.83 Fatigue type: unspecified GI bleed K92.1 GI bleed type/associated pathology: melena Obstructive sleep apnea G47.33 Stage 3 chronic kidney disease N18.3 Hyperthyroidism E05.90 Coronary artery disease I25.10 HTN (hypertension) I10 Dementia F03.90 Depression F32.9 Hypomagnesemia E83.42 LBBB (left bundle branch block) I44.7 DVT prophylaxis Z29.9 (1) Fatigue Fatigue type: unspecified Qualified Code(s): R53.83 - Other fatigue (2) GI bleed GI bleed type/associated pathology: melena Qualified Code(s): K92.1 - Melena
--- NOTE | 2020-02-03 15:41 | Progress Notes ---
DATE: 02/03/2020 ADDENDUM TO PROGRESS NOTE BY OSMAN DIXON I interviewed and examined the patient and reviewed the chart and labs. The patient reports no abdominal pain today and she is tolerating solid food. She did have an EGD performed by Dr. Zhong for her anemia and it was normal except for large hiatal hernia. She has had 1 unit of blood and her hemoglobin today is 8.8. She has had no further bowel movements since being hospitalized. On exam her abdomen is soft and nontender. IMPRESSION: The patient has anemia with dark stools and a large hiatal hernia. I strongly suspect that she may have Nathen ulcers that appear periodically from the hernia. At this age, I do not believe that repair of the hiatal hernia would be prudent and I would recommend that she take either a proton pump inhibitor or sucralfate on a chronic basis to prevent further episodes of bleeding and anemia.
[2020-02-03] MEDS: amLODIPine BESYLATE 5 MG TAB PO SCH (20:36)
[2020-02-03] MEDS: METOPROLOL SUCC 50MG EXT REL TAB PO SCH (20:36)
[2020-02-04 06:58] LABS: Basophils # (auto) 0.02 K/uL (0-0.2); Basophils % (auto) 0.2 %; Eosinophils % (auto) 3.8 %; Hematocrit (blood only) 28.5 % (37-47); Hemoglobin 9.5 g/dL (12.0-16.0); Immature Granulocytes # (auto) 0.06 K/uL (0.00-0.02); Immature Granulocytes % (auto) 0.6 %; Lymphocytes # (auto) 1.91 K/uL (1.2-3.4); Mean Corpuscular Hgb Conc 33.3 g/dL (32-36); Mean Corpuscular Volume 93.1 fL (80-100); Mean Platelet Volume 10.8 fL (7.4-10.4); Monocytes # (auto) 1.11 K/uL (0.11-0.59); Monocytes % (auto) 10.5 %; Neutrophils # (auto) 7.12 K/uL (1.4-6.5); Neutrophils % (auto) 66.9 %; Platelet Count 220 K/uL (130-400); RDW Coefficient of Variation 14.9 % (11.5-14.5); RDW Standard Deviation 49.8 fL (36.4-46.3); Red Blood Count 3.06 M/uL (4.2-5.4); White Blood Count 10.62 K/uL (4.8-10.8)
[2020-02-04 07:30] LABS: Albumin Level 2.6 gm/dl (3.4-5.0); BUN Creatinine Ratio 10.8 (10-20); Calcium 8.9 mg/dl (8.5-10.1); Creatinine Clr Calc Pharmacy 25.7 ml/min; Est GFR (African American) 39.4; Potassium 3.9 mmol/L (3.5-5.1)
[2020-02-04 07:32] LABS: Albumin Globulin Ratio 0.9 (0.9-2); Bilirubin,Total 0.3 mg/dl (0.2-1); Globulin 2.8 gm/dl (2.5-4.0); Total Protein 5.4 gm/dl (6.4-8.2)
[2020-02-04] MEDS: CHOLECALCIFEROL 1,000 UNITS 25 MCG TAB PO SCH (08:26)
[2020-02-04] MEDS: MULTIVITAMIN TAB PO SCH (08:27)
[2020-02-04] MEDS: DONEPEZIL HCL 10 MG TAB PO SCH (08:27)
[2020-02-04] MEDS: MEMANTINE HCL 10 MG TAB PO SCH (08:27)
[2020-02-04] MEDS: DULoxetine HCL 30 MG CAP PO SCH (08:27)
[2020-02-04] MEDS: CALCITRIOL 0.25 MCG CAPSULE PO SCH (08:28)
[2020-02-04] MEDS: lisinopriL 40 MG TAB PO SCH (08:28)
[2020-02-04] MEDS: methIMAzole 5 MG TABLET PO SCH (08:28)
[2020-02-04] MEDS ORDERED: PANTOprazole 40 MG TAB PO SCH (09:00)
--- NOTE | 2020-02-04 09:21 | Gastroenterology Progress Note ---
Date of Service February 04, 2020 Assessment & Plan (1) Symptomatic anemia: Patient without complaints this morning. EGD did not demonstrate bleeding source - suspect Nathen ulcers that appear periodically from hiatal hernia. Repair not recommended due to age. Continue PPI or sucralfate on chronic basis for prevention. Tolerating regular po diet. Hgb 9.5/Hct 28.5 today. Please refer to supervising physician addendum for further recommendations. Admission and Anticipated Discharge Date Admission Date: January 31, 2020 Subjective Limited historian. Transfused 02/01/2020. EGD performed 02/02/[address] Zhong - due to anemia and subjective reports of melena which demonstrated irregular z-line 35 cm from incisors; large hiatal hernia; normal examined du odenum; otherwise normal exam. Plan to monitor stools and CBC, hold iron. This morning, patient denies abdominal pain, nausea, vomiting. Patient tolerating regular diet during exam this morning. Voices no complaints. Review of Systems Review of Systems: All systems reviewed & are unremarkable except as noted in Subjective Physical Exam Constitutional: WD/WN, vitals as above Eyes: PERRL, conjunctivae normal, anicteric sclerae Neck: normal visual inspection and trachea midline Respiratory: normal respiratory effort, lungs clear to auscultation Cardiovascular: RRR, no murmur, no edema Gastrointestinal (Abdomen): normal bowel sounds, soft, nontender, no hepatosplenomegaly Neurologic: PERRL, EOMI, accommodation nl, no face palsy, no dysarthria Psychiatric: Orientation: alert, oriented to person and oriented to place Judgement: + limited judgement Results & Data ([facility]) Vital Signs (Past 12 Hours) Vital Signs Temp Pulse Pulse Resp BP Pulse Ox 02/04/20 07:23 37.1 C 61 18 165/66 H 94 02/04/20 07:20 61 02/04/20 03:00 36.9 C 56 L 18 153/65 H 91 02/04/20 00:00 69 02/03/20 22:00 36.7 C 65 20 143/80 H 93 Abnormal Lab Results 02/01/20 02/04/20 02/04/20 08:29 06:27 06:27 WBC 10.62 RBC 3.06 L Hgb 9.5 L Hct 28.5 L MCV 93.1 MCH 31.0 MCHC 33.3 RDW Std Deviation 49.8 H RDW Coeff of Corey 14.9 H Plt Count 220 MPV 10.8 H Immature Gran % (Auto) 0.6 Neut % (Auto) 66.9 Lymph % (Auto) 18.0 Will % (Auto) 10.5 Eos % (Auto) 3.8 Baso % (Auto) 0.2 Neut # (Auto) 7.12 H Lymph # (Auto) 1.91 Will # (Auto) 1.11 H Eos # (Auto) 0.40 Baso # (Auto) 0.02 Immature Gran # (Auto) 0.06 H Haptoglobin 219 H Sodium 139 Potassium 3.9 Chloride 109 H Carbon Dioxide 27 Anion Gap 3.0 BUN 15 Creatinine 1.39 H D Est Cr Clr Drug Dosing 25.7 Est GFR ( Amer) 39.4 Est GFR (Non-Af Amer) 34.0 BUN/Creatinine Ratio 10.8 Glucose 96 Calcium 8.9 Total Bilirubin 0.3 AST 15 ALT 20 Alkaline Phosphatase 62 Total Protein 5.4 L Albumin 2.6 L Globulin 2.8 Albumin/Globulin Ratio 0.9
--- NOTE | 2020-02-04 12:51 | Discharge Summary ---
Date of Service February 04, 2020 Admission HPI Per Admitting Provider The patient is a 89-year-old female with a past medical history including multinodular goiter, GERD, obstructive sleep apnea, irritable bowel syndrome, CVA, vitamin D deficiency, stage III chronic kidney disease, hyperthyroidism, post stroke gait disturbance, depression, dementia, CAD, hypertension, osteoarthritis and hyperlipidemia. The patient has been noted by her son to have gradually worsening fatigue over the past few months, in particular over the past few weeks. In the emergency department, work-up included laboratories which showed a hemoglobin of 8.6, decreasing significantly from previous most recent of 12.5. Upon questioning, patient reports her stools are always dark and loose, but she is also noted to take iron on a daily basis. The patient was started on Protonix drip, and to be admitted to a monitored bed. Principal Diagnosis GI Bleed Discharge Exam Constitutional WD/WN, vitals as above Respiratory normal respiratory effort, lungs clear to auscultation Cardiovascular RRR, no murmur, no edema Gastrointestinal (Abdomen) normal bowel sounds, soft, nontender, no hepatosplenomegaly Musculoskeletal no cyanosis or clubbing, extremities motor strength 5/5 Skin no rashes, warm and dry Neurologic moves all extremities and awake Psychiatric A+Ox3, euthymic affect Discharge Data Allergies Allergy/AdvReac Type Severity Reaction Status Date / Time atorvastatin Allergy Unknown UNKOWN Verified 01/31/20 19:17 cephalexin [From Keflex] Allergy Unknown Unknown Unverified 01/31/20 19:17 oxaprozin [From Daypro] Allergy Unknown Unknown Unverified 01/31/20 19:17 paroxetine Allergy Unknown UNKNOWN Verified 01/31/20 19:17 propoxyphene Allergy Unknown DARVOCET Verified 01/31/20 19:17 acetaminophen AdvReac Mild Unknown Unverified 01/31/20 19:17 [From Darvocet-N 100] codeine AdvReac Mild NAUSEA Verified 01/31/20 19:17 Sulfa (Sulfonamide AdvReac Mild NAUSEA Verified 02/01/20 09:12 Antibiotics) Consultations 01/31/20 19:07 ED Decision to Admit Stat 01/31/20 22:05 Consult Case Management - Discharge Planning Routine Consult Gastroenterology Routine Procedures Performed Operation Date: 02/02/20 16:30 Actual Procedures p Esophagogastroduodenoscopy - Harman Zhong Ordered Studies 02/01/20 10:03 CT abd pelvis IV con only Routine Hospital Course (1) Symptomatic anemia: * On admission, hgb decreased from 12.5 in 11/2019 down to 7.3 01/31 - 1 u PRBCs orderd. Hgb has been stable since then * Recent admission from 04/27-2017, during which time her hemoglobin was at a low of 6.8. At that time EGD revealed large hiatal hernia and colonoscopy revealed diverticulosis thought to be source of bleeding * CT A/P with large intrathoracic stomach and hiatal hernia * Protonix gtt dc'd and changed to po per GI rec as there is no active bleeding on EGD * Labs do not support hemolysis picture * B12 level 339, Folate 17.19, iron wnl * Trop negative x 3 * GI on consulted - EGD today without active bleeding, patient's source of bleeding likely Nathen ulcers. Possible small area of Bhatti's esophagus. No biopsy taken to avoid initiating bleeding. Recommend ppi or sucralfate. * Will add sucralfate to patient's existing ppi regimen (2) Fatigue: * Likely secondary to anemia as above. CK 45 (3) GI bleed: * As above (4) Obstructive sleep apnea: * Patient has gotten CPAP fit for her as an outpatient, but her son reports that she does not wear it, and she says she does not wear it because it hurts her nose despite multiple masks used in the past. * Previous provider discussed importance given hx mod-severe pulm HTN on last ECHO * Does not want ordered while inpatient as unable to tolerate * Oxygen sats stable overnight (5) Stage 3 chronic kidney disease: * Creat stable - today 1.3 which appears to be around baseline * avoid nephrotoxins where possible (6) Hyperthyroidism: * TSH 2.180 * Continue methimazole 5 mg p.o. 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- proximal LAD 40% stenosis * Continue amlodipine, lisinopril, and metoprolol * Hold home Plavix for GI bleed * furosemide on hold for now (8) HTN (hypertension): * BP controlled, 147/67 * Continue amlodipine, lisinopril, metoprolol * Continue to monitor (9) Dementia: * Continue home namenda 10mg BID (10) Depression: * Continue cymbalta 30mg daily (11) Hypomagnesemia: Replaced (12) LBBB (left bundle branch block): Chronic since at least 1993 Cardiac catheterization as above without significant abnormality-nonobstructive disease of the proximal LAD in 2013 Echocardiogram 2018 with preserved EF, moderate to severe pulmonary hypertension, valvular disease (13) DVT prophylaxis: * SCDs * Chemoprophylaxis contraindicated in setting of active bleed Called son and daughter to update but no answer (14) Frequent PVCs: On monitor, asymptomatic. Patient is on metoprolol. Follow with pcp Total Time Total Time Spent Total Time Spent (In Minutes): greater than 30 minutes Discharge Plan Discharge Items Patient Disposition: Home - Self-Care Reason For Visit: SYMPTOMATIC ANEMIA Discharge Diagnosis: Symptomatic anemia Activity: Resume your previous activity Non-emergency contact: Primary Care Provider Call non-emergency contact if: you have any medication questions Follow-up/Referrals: Bethany Hardin DO [Primary Care Provider] - (follow up in one week ) Diet: Regular Addtl Attending Provider Instructions: (1) Symptomatic anemia: You received 1 unit of blood on 01/31 and your hemoglobin has been stable since then You had an endoscopy performed which did not find any active bleeding but it is possible that you have transient ulcerations due to your hiatal hernia (stomach outpouching through the diaphragm) You should continue pantoprazole to decrease your chance of developing bleeding in the future. Sucralfate will also be added to your regimen to help prevent re- bleeding Pending Studies at Discharge: No Stand-Alone Forms: [facility] [employer], Smoking Cessation Medications and DC Order Prescriptions: New sucralfate 1 gram tablet 1 g PO ACHS 30 Days Qty: 120 RF: 0 Continued ketotifen fumarate 0.025 % (0.035 %) drops 1 drp OP BID Qty: 10 RF: 11 rosuvastatin 20 mg tablet 20 mg PO DAILY Qty: 90 RF: 1 amlodipine 5 mg tablet 5 mg PO HS Qty: 90 RF: 2 methimazole 5 mg tablet 5 mg PO DAILY Qty: 90 RF: 1 ferrous sulfate 325 mg (65 mg iron) tablet 325 mg PO DAILY Qty: 30 RF: 5 clopidogrel 75 mg tablet 75 mg PO QAM Qty: 90 RF: 1 metoprolol succinate 100 mg tablet extended release 24 hr 100 mg PO HS Qty: 90 RF: 1 duloxetine [Cymbalta] 30 mg capsule,delayed release(DR/EC) 30 mg PO DAILY Qty: 90 RF: 1 memantine [Namenda XR] 28 mg capsule,sprinkle,ER 24hr 28 mg PO QAM Qty: 90 RF: 1 calcitriol 0.25 mcg capsule 0.25 mcg PO 3XWK Qty: 60 RF: 3 pantoprazole [Protonix] 40 mg tablet,delayed release (DR/EC) 40 mg PO QAM Qty: 90 RF: 1 furosemide 20 mg tablet 20 mg PO QAM Qty: 90 RF: 1 donepezil 10 mg tablet 10 mg PO QAM Qty: 90 RF: 1 cetirizine 10 mg tablet 10 mg PO DAILY PRN (Reason: Allergy Symptoms) RF: 0 lisinopril 40 mg tablet 40 mg PO QAM Qty: 90 RF: 3 (DME) CPAP Supplies Misc See Rx Instructions .ROUTE .MEDSUPPLY Qty: 1 RF: 0 ipratropium bromide 42 mcg (0.06 %) spray,non-aerosol 2 spray INTNAS BID Qty: 15 RF: 11 multivitamin Tablet 1 tab PO QAM RF: 0 cholecalciferol (vitamin D3) [Vitamin D3] 5,000 unit Tablet 5,000 unit PO QAM RF: 0 tramadol 50 mg tablet 50 mg PO DAILY PRN (Reason: Pain) RF: 0 diclofenac sodium 1 % gel See Rx Instructions TOP TID PRN (Reason: Pain) RF: 0 Discharge Orders: Discharge Order (Routine); Ordered 02/04/20 Ordered By: Susan Hall Admission Data Admit Date/Time: 01/31/20 20:18 Attending Provider: Fabrizio Delgadillo Admit Provider: Chris Toro Primary Care Provider: Bethany Hardin Other Providers: Chris Toro ; Ricci Wisdom Other Interventions: Discharge Summary Assessment (RN) Last Done: 02/04/20 13:00 Supervising Physician Co-Signing Physician Notes Patient seen and examined on the day of discharge. I agree with the discharge summary by Susan BREWER. I have reviewed the chart including labs, nick ging and plans for discharge. patient feeling well, no signs of bleeding, Hb is stable > 9 tolerating her diet reviewed the EGD report showing hiatal hernia and appreciate GI recommendations - Anemia, possible blood loss from ulcers in hiatal hernia recommend PPI and Carafate hemoglobin stable at 9, will discharge today Coding Level of Care Code D/C Day Management >30 mins Diagnoses Symptomatic anemia D64.9 Fatigue R53.83 Fatigue type: unspecified GI bleed K92.1 GI bleed type/associated pathology: melena Obstructive sleep apnea G47.33 Stage 3 chronic kidney disease N18.3 Hyperthyroidism E05.90 Coronary artery disease I25.10 HTN (hypertension) I10 Dementia F03.90 Depression F32.9 Hypomagnesemia E83.42 LBBB (left bundle branch block) I44.7 DVT prophylaxis Z29.9 Frequent PVCs I49.3
== END 2020-02-04 14:00 | disposition home or self-care (01) | DRG 811 ==
LOC: ED 17:00 → SUATTDRO 20:18 → 2N 20:18

== ENCOUNTER 2020-02-12 10:42 | Inpatient (IN) ==
[2020-02-12 11:52] LABS: Basophils # (auto) 0.02 K/uL (0-0.2); Basophils % (auto) 0.2 %; Eosinophils # (auto) 0.26 K/uL (0-0.5); Eosinophils % (auto) 2.6 %; Hematocrit (blood only) 26.6 % (37-47); Hemoglobin 8.3 g/dL (12.0-16.0); Immature Granulocytes # (auto) 0.02 K/uL (0.00-0.02); Immature Granulocytes % (auto) 0.2 %; Lymphocytes # (auto) 1.16 K/uL (1.2-3.4); Lymphocytes % (auto) 11.5 %; Mean Corpuscular Hemoglobin 30.6 pg (25-34); Mean Corpuscular Hgb Conc 31.2 g/dL (32-36); Mean Corpuscular Volume 98.2 fL (80-100); Mean Platelet Volume 11.2 fL (7.4-10.4); Monocytes # (auto) 0.81 K/uL (0.11-0.59); Neutrophils # (auto) 7.86 K/uL (1.4-6.5); Neutrophils % (auto) 77.5 %; Platelet Count 241 K/uL (130-400); RDW Coefficient of Variation 16.4 % (11.5-14.5); RDW Standard Deviation 58.2 fL (36.4-46.3); Red Blood Count 2.71 M/uL (4.2-5.4); White Blood Count 10.13 K/uL (4.8-10.8)
--- NOTE | 2020-02-12 11:56 | Emergency Department Note ---
History of Present Illness General Chief complaint: Shortness of Breath/Dyspnea Time Seen by Provider: 02/12/20 11:38 Source: patient and family (Daughter who is at the bedside) Mode of arrival: EMS Limitations: no limitations History of Present Illness Maximum Pain Intensity: 5 This patient comes in after having episode of feeling weak this morning diffusely she also felt like she was short of breath she feels much better at present. She has had no recent illness although she was discharged in the hospital about a week and a half ago after having a GI bleed she did have a transfusion at that time. She tells me that she is had no blood or melena stool since then. Her son just came back from a motorcycle rally in [place] where he was not wearing a mask or social distancing and she was around him over the weekend however he is asymptomatic but has not been tested for Covid. She has had no nausea or vomiting. No abdominal or back pain. No focal numbness or weakness she appears comfortable on my exam Home Medications Home Medications Medication Instructions Recorded Confirmed Type cetirizine 10 mg tablet 10 mg PO DAILY PRN tab 11/27/18 02/12/20 History cholecalciferol (vitamin D3) 5,000 unit PO QAM 12/01/18 02/12/20 History [Vitamin D3] multivitamin 1 tab PO QAM 12/01/18 02/12/20 History lisinopril 40 mg tablet 40 mg PO QAM #90 tab 04/07/19 02/12/20 Rx ipratropium bromide 42 mcg (0.06 2 spray INTNAS BID #15 ml 06/09/19 02/12/20 Rx %) nasal spray ketotifen fumarate 0.025 % (0.035 1 drp OP BID #10 ml 07/30/19 02/12/20 Rx %) eye drops rosuvastatin 20 mg tablet 20 mg PO DAILY #90 tab 09/22/19 02/12/20 Rx amlodipine 5 mg tablet 5 mg PO HS #90 tab 09/25/19 02/12/20 Rx methimazole 5 mg tablet 5 mg PO DAILY #90 tab 10/23/19 02/12/20 Rx ferrous sulfate 325 mg (65 mg 325 mg PO DAILY #30 tab 11/12/19 02/12/20 Rx iron) tablet clopidogrel 75 mg tablet 75 mg PO QAM #90 tab 12/18/19 02/12/20 Rx diclofenac sodium See Rx Instructions TOP TID PRN 12/22/19 02/12/20 History tramadol 50 mg PO DAILY PRN 12/22/19 02/12/20 History metoprolol succinate 100 mg 100 mg PO HS #90 tab 12/25/19 02/12/20 Rx tablet,extended release 24 hr miscellaneous medical supply #1 ea 01/01/20 01/01/20 Rx duloxetine 30 mg capsule,delayed 30 mg PO DAILY #90 cap 01/06/20 02/12/20 Rx release calcitriol 0.25 mcg capsule 0.25 mcg PO 3XWK #60 cap 01/19/20 02/12/20 Rx memantine 28 mg capsule 28 mg PO QAM #90 ea 01/19/20 02/12/20 Rx sprinkle,extended release 24hr pantoprazole 40 mg tablet,delayed 40 mg PO QAM #90 tab 01/21/20 02/12/20 Rx release furosemide 20 mg tablet 20 mg PO QAM #90 tab 01/26/20 02/12/20 Rx donepezil 10 mg tablet 10 mg PO QAM #90 tab 01/28/20 02/12/20 Rx sucralfate 1 g PO ACHS 30 Days #120 tab 02/04/20 02/12/20 Rx Allergies Allergy/AdvReac Type Severity Reaction Status Date / Time atorvastatin Allergy Unknown UNKOWN Verified 02/12/20 14:37 cephalexin [From Keflex] Allergy Unknown Unknown Unverified 02/12/20 14:37 oxaprozin [From Daypro] Allergy Unknown Unknown Unverified 02/12/20 14:37 paroxetine Allergy Unknown UNKNOWN Verified 02/12/20 14:37 propoxyphene Allergy Unknown DARVOCET Verified 02/12/20 14:37 acetaminophen AdvReac Mild Unknown Unverified 02/12/20 14:37 [From Darvocet-N 100] codeine AdvReac Mild NAUSEA Verified 02/12/20 14:37 Sulfa (Sulfonamide AdvReac Mild NAUSEA Verified 02/12/20 14:37 Antibiotics) Past Med/Surg History Medical History Anemia Arthritis Coronary artery disease Dementia Depression Gait disturbance, post-stroke GI bleed History of CVA (cerebrovascular accident) HTN (hypertension) Hyperlipemia Hyperthyroidism Irritable bowel syndrome Ischemic stroke LBBB (left bundle branch block) Obstructive sleep apnea Stage 3 chronic kidney disease Vitamin D deficiency Surgical History S/P dilatation and curettage S/P hysterectomy S/P shoulder surgery S/P total knee arthroplasty Family History Mother Coronary heart disease Heart disease Myocardial infarction Denies family history of Ovarian cancer Prostate cancer Diabetes Alzheimer disease Breast cancer Lung cancer COPD (chronic obstructive pulmonary disease) Colorectal cancer Asthma Social History Smoking Status: Never smoker Hx Alcohol Use: No Hx Substance Use: No Preferred Language: Nepali Communication Ability: Effective Visual Impairment: No Limitations Hearing Ability: Hard of Hearing Pharmacist Hospital Required: No Beliefs That Will Affect Care: None marital status: / Current Living Situation: Alone current occupational status: retired Feels Safe at Home: Yes Childhood Exposure to Second-Hand Smoke: No Diet Comment: regular caffeine: Yes (tea) during the past year weight has: remained stable Dental Care, Regularly: No Physical Activity Frequency: Does not Exercise Seatbelt Use: always Sunscreen Use: No Assistive Devices: Cane Review of Systems A total of 10 systems reviewed and were otherwise negative Physical Exam Vital Signs Vital Signs - 24 hr 02/12/20 10:53 02/12/20 10:58 02/12/20 11:00 Temperature Temperature Source Pulse Rate 73 71 87 Pulse Rate from SpO2 Sensor 79 83 90 Respiratory Rate 17 22 21 Respiratory Effort / Characteristics Respiratory Depth Respiratory Pattern Blood Pressure 152/55 H Blood Pressure Mean 76 Pulse Oximetry 93 92 93 Oxygen Delivery Method Sepsis Recent Fever Within 48 Hours Sepsis New/Unexplained Change in Mental Status Sepsis Action Taken by Nursing 02/12/20 11:02 02/12/20 11:11 02/12/20 11:30 Temperature 37.2 C Temperature Source Oral Pulse Rate 90 64 56 L Pulse Rate from SpO2 Sensor 52 L 49 L Respiratory Rate 20 17 23 Respiratory Effort / Characteristics Non-Labored Spontaneous Respiratory Depth Normal Respiratory Pattern Regular Blood Pressure 152/55 H 159/62 H 142/85 H Blood Pressure Mean 87 90 109 Pulse Oximetry 93 91 93 Oxygen Delivery Method Room Air Sepsis Recent Fever Within 48 Hours No Sepsis New/Unexplained Change in Mental Status No Sepsis Action Taken by Nursing No Action Required 02/12/20 11:40 02/12/20 12:00 02/12/20 12:30 Temperature Temperature Source Pulse Rate 57 L 50 L 54 L Pulse Rate from SpO2 Sensor 51 L 54 L Respiratory Rate 20 21 19 Respiratory Effort / Characteristics Respiratory Depth Respiratory Pattern Blood Pressure 160/71 H 150/65 H Blood Pressure Mean 109 94 Pulse Oximetry 91 94 92 Oxygen Delivery Method Room Air Sepsis Recent Fever Within 48 Hours Sepsis New/Unexplained Change in Mental Status Sepsis Action Taken by Nursing 02/12/20 13:00 02/12/20 13:30 02/12/20 13:32 Temperature Temperature Source Pulse Rate 55 L 58 L 61 Pulse Rate from SpO2 Sensor 52 L 54 L 54 L Respiratory Rate 23 16 20 Respiratory Effort / Characteristics Respiratory Depth Respiratory Pattern Blood Pressure 166/67 H 137/64 Blood Pressure Mean 112 69 Pulse Oximetry 92 91 92 Oxygen Delivery Method Sepsis Recent Fever Within 48 Hours Sepsis New/Unexplained Change in Mental Status Sepsis Action Taken by Nursing 02/12/20 13:33 02/12/20 14:00 02/12/20 14:01 Temperature Temperature Source Pulse Rate 56 L 55 L 54 L Pulse Rate from SpO2 Sensor 54 L 51 L 50 L Respiratory Rate 22 22 20 Respiratory Effort / Characteristics Respiratory Depth Respiratory Pattern Blood Pressure 161/65 H Blood Pressure Mean 111 Pulse Oximetry 91 93 93 Oxygen Delivery Method Sepsis Recent Fever Within 48 Hours Sepsis New/Unexplained Change in Mental Status Sepsis Action Taken by Nursing 02/12/20 14:02 02/12/20 14:30 02/12/20 14:31 Temperature Temperature Source Pulse Rate 63 64 57 L Pulse Rate from SpO2 Sensor 63 62 52 L Respiratory Rate 24 18 16 Respiratory Effort / Characteristics Respiratory Depth Respiratory Pattern Blood Pressure 143/84 H Blood Pressure Mean 104 Pulse Oximetry 93 93 92 Oxygen Delivery Method Sepsis Recent Fever Within 48 Hours Sepsis New/Unexplained Change in Mental Status Sepsis Action Taken by Nursing 02/12/20 14:32 02/12/20 15:00 02/12/20 15:02 Temperature Temperature Source Pulse Rate 55 L 57 L 60 Pulse Rate from SpO2 Sensor 51 L 49 L 48 L Respiratory Rate 19 16 17 Respiratory Effort / Characteristics Respiratory Depth Respiratory Pattern Blood Pressure 102/73 Blood Pressure Mean 85 Pulse Oximetry 92 91 90 Oxygen Delivery Method Sepsis Recent Fever Within 48 Hours Sepsis New/Unexplained Change in Mental Status Sepsis Action Taken by Nursing 02/12/20 15:30 02/12/20 15:31 02/12/20 16:00 Temperature Temperature Source Pulse Rate 54 L 55 L 52 L Pulse Rate from SpO2 Sensor 52 L 56 L 52 L Respiratory Rate 22 Respiratory Effort / Characteristics Respiratory Depth Respiratory Pattern Blood Pressure 148/51 H 146/62 H Blood Pressure Mean 107 111 Pulse Oximetry 94 94 94 Oxygen Delivery Method Sepsis Recent Fever Within 48 Hours Sepsis New/Unexplained Change in Mental Status Sepsis Action Taken by Nursing 02/12/20 16:30 Temperature Temperature Source Pulse Rate 58 L Pulse Rate from SpO2 Sensor Respiratory Rate 21 Respiratory Effort / Characteristics Respiratory Depth Respiratory Pattern Blood Pressure 149/67 H Blood Pressure Mean 121 Pulse Oximetry Oxygen Delivery Method Sepsis Recent Fever Within 48 Hours Sepsis New/Unexplained Change in Mental Status Sepsis Action Taken by Nursing General: Well developed well nourished in no acute distress, breathing comfortably on room air. Normal speech HEENT: Normal cephalic atraumatic. Pupils are equal round and reactive to light. Extraocular movements are intact. Oropharynx is pink with moist mucous membranes. No swelling of the mouth lips or tongue. Neck: Supple with a midline trachea. No meningeal signs or stiffness, no JVD or bruits. No Stridor. Chest: Clear to auscultation bilaterally. No wheezes or rhonchi. No increased work of breathing. Heart: Regular rate and rhythm without murmurs or gallops. Abdomen: Soft nontender, nondistended without rebound guarding or rigidity. Rectal (done in the presence of a female nurse management developer): Normal tone. Stool is dark and was trace guaiac positive but grossly negative for blood Extremities: No cyanosis clubbing or edema. No calf tenderness or assymetry Spine/Back. Non tender to palpation. No CVA tenderness Skin: Good turgor without rashes. Neurologic exam: Cranial nerves two through 12 are intact. Motor and sensation are intact and symmetrical throughout. Medical Decision Making Differential Diagnosis Anemia, cardiac disease, CHF, electrolyte or metabolic abnormality, Covid, neurologic process Medical Records Attestation: I reviewed the patient's medical records. Home Medications Current Medication List: was personally reviewed by me Laboratory Data Attestation: I reviewed the patient's lab results. Result diagrams: 02/12/20 10:58 02/12/20 10:58 Lab Results 02/12/20 02/12/20 02/12/20 Range/Units 10:58 10:58 10:58 WBC 10.13 (4.8-10.8) K/uL RBC 2.71 L (4.2-5.4) M/uL Hgb 8.3 L (12.0-16.0) g/dL Hct 26.6 L (37-47) % MCV 98.2 (80-100) fL MCH 30.6 (25-34) pg MCHC 31.2 L (32-36) g/dL RDW Std Deviation 58.2 H (36.4-46.3) fL RDW Coeff of Corey 16.4 H (11.5-14.5) % Plt Count 241 (130-400) K/uL MPV 11.2 H (7.4-10.4) fL Immature Gran % (Auto) 0.2 % Neut % (Auto) 77.5 % Lymph % (Auto) 11.5 % [place] % (Auto) 8.0 % Eos % (Auto) 2.6 % Baso % (Auto) 0.2 % Neut # (Auto) 7.86 H (1.4-6.5) K/uL Lymph # (Auto) 1.16 L (1.2-3.4) K/uL [place] # (Auto) 0.81 H (0.11-0.59) K/uL Eos # (Auto) 0.26 (0-0.5) K/uL Baso # (Auto) 0.02 (0-0.2) K/uL Immature Gran # (Auto) 0.02 (0.00-0.02) K/uL PT 10.5 (9.0-12.0) Seconds INR 1.0 (0.9-1.1) APTT 23.9 (21.0-31.0) Seconds PTT Ratio 0.9 Sodium 142 (136-145) mmol/L Potassium 4.1 (3.5-5.1) mmol/L Chloride 110 H (98-107) mmol/L Carbon Dioxide 25 (21-32) mmol/L Anion Gap 7.0 (3-11) BUN 16 (7-18) mg/dl Creatinine 1.32 H (0.6-1.2) mg/dl Est Cr Clr Drug Dosing 27.0 ml/min Est GFR ( Amer) 41.9 Est GFR (Non-Af Amer) 36.2 BUN/Creatinine Ratio 12.4 (10-20) Glucose 87 (70-99) mg/dl Calcium 8.9 (8.5-10.1) mg/dl Total Bilirubin 0.6 (0.2-1) mg/dl AST 17 (15-37) U/L ALT 18 (12-78) U/L Alkaline Phosphatase 68 (45-117) U/L Troponin I < 0.015 (0-0.045) ng/ml Total Protein 5.9 L (6.4-8.2) gm/dl Albumin 2.9 L (3.4-5.0) gm/dl Globulin 3.0 (2.5-4.0) gm/dl Albumin/Globulin Ratio 1.0 (0.9-2) Lipase (73-393) U/L COVID-19 Eval Order COVID-19 PCR (Negative) Blood Type Antibody Screen 02/12/20 02/12/20 02/12/20 Range/Units 10:58 12:22 12:22 WBC (4.8-10.8) K/uL RBC (4.2-5.4) M/uL Hgb (12.0-16.0) g/dL Hct (37-47) % MCV (80-100) fL MCH (25-34) pg MCHC (32-36) g/dL RDW Std Deviation (36.4-46.3) fL RDW Coeff of Corey (11.5-14.5) % Plt Count (130-400) K/uL MPV (7.4-10.4) fL Immature Gran % (Auto) % Neut % (Auto) % Lymph % (Auto) % [place] % (Auto) % Eos % (Auto) % Baso % (Auto) % Neut # (Auto) (1.4-6.5) K/uL Lymph # (Auto) (1.2-3.4) K/uL [place] # (Auto) (0.11-0.59) K/uL Eos # (Auto) (0-0.5) K/uL Baso # (Auto) (0-0.2) K/uL Immature Gran # (Auto) (0.00-0.02) K/uL PT (9.0-12.0) Seconds INR (0.9-1.1) APTT (21.0-31.0) Seconds PTT Ratio Sodium (136-145) mmol/L Potassium (3.5-5.1) mmol/L Chloride (98-107) mmol/L Carbon Dioxide (21-32) mmol/L Anion Gap (3-11) BUN (7-18) mg/dl Creatinine (0.6-1.2) mg/dl Est Cr Clr Drug Dosing ml/min Est GFR ( Amer) Est GFR (Non-Af Amer) BUN/Creatinine Ratio (10-20) Glucose (70-99) mg/dl Calcium (8.5-10.1) mg/dl Total Bilirubin (0.2-1) mg/dl AST (15-37) U/L ALT (12-78) U/L Alkaline Phosphatase (45-117) U/L Troponin I (0-0.045) ng/ml Total Protein (6.4-8.2) gm/dl Albumin (3.4-5.0) gm/dl Globulin (2.5-4.0) gm/dl Albumin/Globulin Ratio (0.9-2) Lipase 432 H (73-393) U/L COVID-19 Eval Order Covid19 Done at [facility] COVID-19 PCR NEGATIVE (Negative) Blood Type Antibody Screen 02/12/20 Range/Units 12:27 WBC (4.8-10.8) K/uL RBC (4.2-5.4) M/uL Hgb (12.0-16.0) g/dL Hct (37-47) % MCV (80-100) fL MCH (25-34) pg MCHC (32-36) g/dL RDW Std Deviation (36.4-46.3) fL RDW Coeff of Corey (11.5-14.5) % Plt Count (130-400) K/uL MPV (7.4-10.4) fL Immature Gran % (Auto) % Neut % (Auto) % Lymph % (Auto) % [place] % (Auto) % Eos % (Auto) % Baso % (Auto) % Neut # (Auto) (1.4-6.5) K/uL Lymph # (Auto) (1.2-3.4) K/uL [place] # (Auto) (0.11-0.59) K/uL Eos # (Auto) (0-0.5) K/uL Baso # (Auto) (0-0.2) K/uL Immature Gran # (Auto) (0.00-0.02) K/uL PT (9.0-12.0) Seconds INR (0.9-1.1) APTT (21.0-31.0) Seconds PTT Ratio Sodium (136-145) mmol/L Potassium (3.5-5.1) mmol/L Chloride (98-107) mmol/L Carbon Dioxide (21-32) mmol/L Anion Gap (3-11) BUN (7-18) mg/dl Creatinine (0.6-1.2) mg/dl Est Cr Clr Drug Dosing ml/min Est GFR ( Amer) Est GFR (Non-Af Amer) BUN/Creatinine Ratio (10-20) Glucose (70-99) mg/dl Calcium (8.5-10.1) mg/dl Total Bilirubin (0.2-1) mg/dl AST (15-37) U/L ALT (12-78) U/L Alkaline Phosphatase (45-117) U/L Troponin I (0-0.045) ng/ml Total Protein (6.4-8.2) gm/dl Albumin (3.4-5.0) gm/dl Globulin (2.5-4.0) gm/dl Albumin/Globulin Ratio (0.9-2) Lipase (73-393) U/L COVID-19 Eval Order COVID-19 PCR (Negative) Blood Type A Positive Antibody Screen NEGATIVE Imaging Data Attestation: I personally reviewed and interpreted this imaging study as follows: My Impression: Chest x-ray: Possible haziness in the right base but no overt CHF. Radiologist's Impression: SINGLE VIEW CHEST CLINICAL HISTORY: Dyspnea. FINDINGS: An AP, portable, upright chest radiograph is compared to study dated 01/31/2020 and correlated with chest CT dated 03/11/2017. The examination is degraded by portable technique and patient rotation. The heart is enlarged noting atherosclerotic calcification of the thoracic aorta. The pulmonary vasculature is noncongested. Airspace consolidation is noted at the left lung base and there is a small left pleural effusion. Mild opacities are also seen at the right lung base. No pneumothorax is seen. The skeletal structures are osteopenic. The bony thorax is grossly intact. IMPRESSION: 1. Cardiomegaly without radiographic evidence of congestive failure. 2. There is left basilar consolidation with a small left pleural effusion. Mild opacities are also seen at the right lung base. Correlate clinically for evidence of pneumonia/aspiration pneumonitis. Radiographic follow-up to resolu tion is recommended. ECG Data Attestation: I personally reviewed and interpreted this ECG as follows: Indication: + SOB/dyspnea and + weakness Rate (beats per minute): 87 Rhythm: + normal sinus ECG Intervals/blocks: + Left bundle branch block, + Normal QT and + Normal [place] ECG [employer]: + Left axis deviation ECG ST segments: + Normal ST segments ECG Findings: + PVCs; no PACs Comparison ECG Date: from (01/31/20) Change: no significant change MDM Narrative This patient comes in as described above. She was placed on a compliance monitor in room C5. She is here for treatment and evaluation of feeling generally weak this morning also having some shortness of breath. Shehas been exposed to her son who is not a PUI at this point but has been in a situation where coronavirus is prevalent. She was recently hospitalized for GI bleed. IV access was established, blood work was obtained including type and screen. She was reassessed frequently. Her hemoglobin is 8.3 which is down from 9.5 was last checked. She yusuf been hemodynamically stable. Her Covid test did come back negative. Chest x-ray shows questionable haziness in the right base but she has no cough or other symptoms suggest pneumonia she has no white count. EKG shows frequent PVCs but no other ischemic changes. she has a baseline right bundle branch block but there is no elevation troponin. She has no electrolyte or metabolic abnormalities. I did a rectal exam in the presence of female nurse management developer. Her stool is dark and it was trace guaiac positive. I do think that she is likely losing blood in her GI tract. I do think she needs to be admitted/observed she has been typed and screened for possible blood transfusion. I have consulted Dr. Dubon to see the ER for these measures. I discussed the care with her family who agrees with the plan. Continuous cardiac monitoring: An order was placed in the EMR for continuous compliance monitor that shows normal sinus rhythm with a rate of 60 with frequent PVCs. Impression & Plan Weakness, Frequent PVCs, Anemia, Acute GI bleeding, Lab test negative for COVID-19 virus Discharge Plan Visit Data Chief Complaint: Shortness of Breath/Dyspnea ED Provider: Harman Delgadillo Discharge Problem: Weakness, Frequent PVCs, Anemia, Acute GI bleeding, Lab test negative for COVID-19 virus Forms Stand Alone Forms: [facility] Prescriptions Prescriptions: No Action ketotifen fumarate 0.025 % (0.035 %) drops 1 drp OP BID Qty: 10 RF: 11 rosuvastatin 20 mg tablet 20 mg PO DAILY Qty: 90 RF: 1 amlodipine 5 mg tablet 5 mg PO HS Qty: 90 RF: 2 methimazole 5 mg tablet 5 mg PO DAILY Qty: 90 RF: 1 ferrous sulfate 325 mg (65 mg iron) tablet 325 mg PO DAILY Qty: 30 RF: 5 clopidogrel 75 mg tablet 75 mg PO QAM Qty: 90 RF: 1 metoprolol succinate 100 mg tablet extended release 24 hr 100 mg PO HS Qty: 90 RF: 1 duloxetine [Cymbalta] 30 mg capsule,delayed release(DR/EC) 30 mg PO DAILY Qty: 90 RF: 1 memantine [Namenda XR] 28 mg capsule,sprinkle,ER 24hr 28 mg PO QAM Qty: 90 RF: 1 calcitriol 0.25 mcg capsule 0.25 mcg PO 3XWK Qty: 60 RF: 3 pantoprazole [Protonix] 40 mg tablet,delayed release (DR/EC) 40 mg PO QAM Qty: 90 RF: 1 furosemide 20 mg tablet 20 mg PO QAM Qty: 90 RF: 1 donepezil 10 mg tablet 10 mg PO QAM Qty: 90 RF: 1 cetirizine 10 mg tablet 10 mg PO DAILY PRN (Reason: Allergy Symptoms) RF: 0 lisinopril 40 mg tablet 40 mg PO QAM Qty: 90 RF: 3 (DME) CPAP Supplies Misc See Rx Instructions .ROUTE .MEDSUPPLY Qty: 1 RF: 0 ipratropium bromide 42 mcg (0.06 %) spray,non-aerosol 2 spray INTNAS BID Qty: 15 RF: 11 multivitamin Tablet 1 tab PO QAM RF: 0 cholecalciferol (vitamin D3) [Vitamin D3] 5,000 unit Tablet 5,000 unit PO QAM RF: 0 sucralfate 1 gram tablet 1 g PO ACHS 30 Days Qty: 120 RF: 0 tramadol 50 mg tablet 50 mg PO DAILY PRN (Reason: Pain) RF: 0 diclofenac sodium 1 % gel See Rx Instructions TOP TID PRN (Reason: Pain) RF: 0 Discharge Problem: Anemia Qualifiers: Anemia type: iron deficiency Iron deficiency anemia type: unspecified iron deficiency Qualified Code(s): D50.9 - Iron deficiency anemia, unspecified
[2020-02-12 11:59] LABS: Partial Thromboplastin Ratio 0.9; Partial Thromboplastin Time 23.9 Seconds (21.0-31.0); Prothrombin Time 10.5 Seconds (9.0-12.0)
--- NOTE | 2020-02-12 12:00 | XRay Report ---
SINGLE VIEW CHEST CLINICAL HISTORY: Dyspnea. FINDINGS: An AP, portable, upright chest radiograph is compared to study dated 01/31/2020 and correla kellee with chest CT dated 03/11/2017. The examination is degraded by portable technique and patient rot ation. The heart is enlarged noting atherosclerotic calcification of the thoracic aorta. The pulmon arie vasculature is noncongested. Airspace consolidation is noted at the left lung base and there is a small left pleural effusion. Mild opacities are also seen at the right lung base. No pneumothorax is seen. The skeletal structures are osteopenic. The bony thorax is grossly intact. IMPRESSION: 1. Cardiomegaly without radiographic evidence of congestive failure. 2. There is left basilar consolidation with a small left pleural effusion. Mild opacities are also se en at the right lung base. Correlate clinically for evidence of pneumonia/aspiration pneumonitis. Rad iographic follow-up to resolution is recommended. ACT 112: Negative or not required by law. Electronically signed by: Ru Toure M.D. 02/12/2020 11:58 AM
[2020-02-12 12:15] LABS: Alanine Aminotransferase 18 U/L (12-78); Albumin Level 2.9 gm/dl (3.4-5.0); Aspartate Aminotransferase 17 U/L (15-37); BUN Creatinine Ratio 12.4 (10-20); Blood Urea Nitrogen 16 mg/dl (7-18); Calcium 8.9 mg/dl (8.5-10.1); Carbon Dioxide 25 mmol/L (21-32); Chloride 110 mmol/L (98-107); Est GFR (African American) 41.9; Est GFR (Non-African American) 36.2; Glucose 87 mg/dl (70-99); Potassium 4.1 mmol/L (3.5-5.1); Sodium 142 mmol/L (136-145)
[2020-02-12 12:19] LABS: Alkaline Phosphatase 68 U/L (45-117); Bilirubin,Total 0.6 mg/dl (0.2-1); Total Protein 5.9 gm/dl (6.4-8.2); Troponin I < 0.015 ng/ml (0-0.045)
--- NOTE | 2020-02-12 12:57 | Electrocardiogram Report ---
Test Reason : Blood Pressure : / mmHG Vent. Rate : 087 BPM Atrial Rate : 125 BPM P-R Int : 000 ms QRS Dur : 120 ms QT Int : 428 ms P-R-T Axes : 040 -36 080 degrees QTc Int : 515 ms Sinus rhythm with frequent Premature ventricular complexes in a trigeminal pattern Left bundle branch block Abnormal ECG When compared with ECG of 31-JAN-2020 17:48, Premature ventricular complexes now present Confirmed by Jian Rocha ([id number]) on 02/12/2020 12:57:40 PM Referred By: Confirmed By:Jian Rocha
[2020-02-12] MEDS ORDERED: LAVAGE SOLUTION 4000ML PO SCH (18:23)
[2020-02-12] MEDS ORDERED: ONDANSETRON INJ 2 MG/ML 2 ML VIAL IV PRN (18:23)
[2020-02-12] MEDS ORDERED: DICLOFENAC SOD 1% GEL 100 GM TUBE EXT PRN (18:23)
[2020-02-12] MEDS ORDERED: ACETAMINOPHEN 325 MG TAB PO PRN (18:23)
[2020-02-12] MEDS ORDERED: SODIUM CHLORIDE 0.9% 250 ML IV PRN (18:23)
[2020-02-12] MEDS ORDERED: bisacodyL 5 MG TABEC PO ONE (18:45)
[2020-02-12] MEDS: SODIUM CHLORIDE 0.9% 1000ML 1,000 ML IV SCH (18:47)
[2020-02-12] MEDS: IPRATROPIUM BROMIDE NASAL SPRAY 0.06% 15ML SCH (20:19)
[2020-02-12] MEDS: METOPROLOL SUCC 50MG EXT REL TAB PO SCH (20:20)
[2020-02-12] MEDS: amLODIPine BESYLATE 5 MG TAB PO SCH (20:21)
--- NOTE | 2020-02-12 21:02 | History & Physical Report ---
Date of Service February 12, 2020 Assessment & Plan (1) Symptomatic anemia: Patient is here with symptomatic anemia. Her anemia was as low as 9 g during her last admission she would did receive transfusion of blood and now she is at 8.3 g. Patient has history of cerebrovascular accident likely should have her hemoglobin is slightly high range. We will recheck hemoglobin later this evening and if it falls below 8 g she will be transfused. Patient will have a colonoscopy prep this evening I did speak to gastroenterology and they will pursue a colonoscopy likely on 02/12. Patient's upper endoscopy was fairly unrevealing although worse there was discussion of Nathen's ulcers. Last colonoscopy in 2018 did show polyps in her cecum and ascending colon with diverticulosis was also noted which could be a source of her blood loss. Patient herself denies melena. During last hospital stay her iron was normal and her TIBC was low as was January 2020 (2) GERD (gastroesophageal reflux disease): PICC line pantoprazole this will be continued Carafate which was started last admission is held (3) History of CVA (cerebrovascular accident): Plans to have her hemoglobin greater than 8.5 typical on rosuvastatin this is held as she is in good to be n.p.o. for testing antiplatelet agents of Plavix will also be held temporarily (4) Stage 3 chronic kidney disease: Patient states she chronic kidney disease appropriate dosing of medications will be undertaken (5) Hyperthyroidism: Patient's hypothyroidism has been under control she usually takes methimazole and metoprolol. TSH was checked during her last admission and felt to be in normal range Admission and Anticipated Discharge Date Admission Date: February 12, 2020 History of Present Illness Primary Care Provider: Bethany Hardin DO Patient is an 89-year-old female was recently discharged from our facility after evaluation for acute anemia with an upper endoscopy without significant source of bleeding. She presents today with persistent weakness and decrement in her hemoglobin. There was some concern is her son and recently been in [place] about Covid although her Covid was negative here. Patient is has heme positive stool per the ER doctor chest x-ray shows some perhaps some basilar infiltrates read by radiology although I do not believe there is persistent or significant upon my evaluation additionally she does not have significant leukocytosis or cough or hypoxemia. Patient is brought into our facility her hemoglobin will be checked I did speak personally to Dr. Wisdom and plans to have a lower endoscopy on 02/12 will be proceeded by colonoscopy prep this evening Allergies Allergy/AdvReac Type Severity Reaction Status Date / Time atorvastatin Allergy Unknown UNKOWN Verified 02/12/20 14:37 cephalexin [From Keflex] Allergy Unknown Unknown Unverified 02/12/20 14:37 oxaprozin [From Daypro] Allergy Unknown Unknown Unverified 02/12/20 14:37 paroxetine Allergy Unknown UNKNOWN Verified 02/12/20 14:37 propoxyphene Allergy Unknown DARVOCET Verified 02/12/20 14:37 codeine AdvReac Mild NAUSEA Verified 02/12/20 14:37 Sulfa (Sulfonamide AdvReac Mild NAUSEA Verified 02/12/20 14:37 Antibiotics) Home Medications Home Medications Medication Instructions Recorded Confirmed Type cetirizine 10 mg tablet 10 mg PO DAILY PRN tab 11/27/18 02/12/20 History cholecalciferol (vitamin D3) 5,000 unit PO QAM 12/01/18 02/12/20 History [Vitamin D3] multivitamin 1 tab PO QAM 12/01/18 02/12/20 History lisinopril 40 mg tablet 40 mg PO QAM #90 tab 04/07/19 02/12/20 Rx ipratropium bromide 42 mcg (0.06 2 spray INTNAS BID #15 ml 06/09/19 02/12/20 Rx %) nasal spray ketotifen fumarate 0.025 % (0.035 1 drp OP BID #10 ml 07/30/19 02/12/20 Rx %) eye drops rosuvastatin 20 mg tablet 20 mg PO DAILY #90 tab 09/22/19 02/12/20 Rx amlodipine 5 mg tablet 5 mg PO HS #90 tab 09/25/19 02/12/20 Rx methimazole 5 mg tablet 5 mg PO DAILY #90 tab 10/23/19 02/12/20 Rx ferrous sulfate 325 mg (65 mg 325 mg PO DAILY #30 tab 11/12/19 02/12/20 Rx iron) tablet clopidogrel 75 mg tablet 75 mg PO QAM #90 tab 12/18/19 02/12/20 Rx diclofenac sodium See Rx Instructions TOP TID PRN 12/22/19 02/12/20 History tramadol 50 mg PO DAILY PRN 12/22/19 02/12/20 History metoprolol succinate 100 mg 100 mg PO HS #90 tab 12/25/19 02/12/20 Rx tablet,extended release 24 hr miscellaneous medical supply #1 ea 01/01/20 01/01/20 Rx duloxetine 30 mg capsule,delayed 30 mg PO DAILY #90 cap 01/06/20 02/12/20 Rx release calcitriol 0.25 mcg capsule 0.25 mcg PO 3XWK #60 cap 01/19/20 02/12/20 Rx memantine 28 mg capsule 28 mg PO QAM #90 ea 01/19/20 02/12/20 Rx sprinkle,extended release 24hr pantoprazole 40 mg tablet,delayed 40 mg PO QAM #90 tab 01/21/20 02/12/20 Rx release furosemide 20 mg tablet 20 mg PO QAM #90 tab 01/26/20 02/12/20 Rx donepezil 10 mg tablet 10 mg PO QAM #90 tab 01/28/20 02/12/20 Rx sucralfate 1 g PO ACHS 30 Days #120 tab 02/04/20 02/12/20 Rx Past Med/Surg History Medical History (Updated 02/12/20 @ 17:03 by Harman Delgadillo MD) Anemia Arthritis Coronary artery disease Dementia Depression Gait disturbance, post-stroke GI bleed History of CVA (cerebrovascular accident) HTN (hypertension) Hyperlipemia Hyperthyroidism Irritable bowel syndrome Ischemic stroke LBBB (left bundle branch block) Obstructive sleep apnea Stage 3 chronic kidney disease Vitamin D deficiency Surgical History S/P dilatation and curettage S/P hysterectomy S/P shoulder surgery S/P total knee arthroplasty Family History Mother Coronary heart disease Heart disease Myocardial infarction Denies family history of Ovarian cancer Prostate cancer Diabetes Alzheimer disease Breast cancer Lung cancer COPD (chronic obstructive pulmonary disease) Colorectal cancer Asthma Social History Smoking Status: Never smoker Hx Alcohol Use: No Hx Substance Use: No Preferred Language: Norwegian Communication Ability: Effective Visual Impairment: No Limitations Hearing Ability: Hard of Hearing Training Program Developer Required: No Beliefs That Will Affect Care: None marital status: / Current Living Situation: Alone current occupational status: retired Feels Safe at Home: Yes Childhood Exposure to Second-Hand Smoke: No Diet Comment: regular caffeine: Yes (tea) during the past year weight has: remained stable Dental Care, Regularly: No Physical Activity Frequency: Does not Exercise Seatbelt Use: always Sunscreen Use: No Assistive Devices: Cane Review of Systems Review of Systems: Mild distress and worsening fatigue no headache, blurry or double vision no speech or swallowing issues no chest pain, pressure or palpitations no shortness of breath, cough or wheezes no significant abdominal pain, nausea or vomiting, diarrhea or constipation no dysuria, hematuria or frequency no focal joint pain or swelling no back pain, CVA tenderness or radicular pain no bruising, bleeding or rashes no focal signs of weakness or numbness or altered sensation no complaints of anxiety or depression. Physical Exam Physical Exam: The patient appeared pale and normally developed. Vital signs as documented. Head exam is normocephalic atraumatic no scleral icterus Neck is without JVD, thyromegaly, or carotid bruits. Lungs are clear to auscultation, no focal loss of breath sounds Cardiac exam, Rhythm is regular.. No murmurs, rubs or gallops. Abdominal exam reveals normal bowel sounds, soft non tender, no masses Extremities are nonedematous and both pedal pulses are present Neurologic exam is alert and oriented, no focal loss of strength or sensation Skin is without bruises or rashes Psychologically is without concerns for anxiety or depression. Results & Data Results & Data ([facility]) Vital Signs (Past 12 Hours) Vital Signs Temp Pulse Pulse Resp BP Pulse Ox 02/12/20 20:20 57 L 02/12/20 19:03 65 02/12/20 17:31 64 25 H 122/51 L 94 02/12/20 17:30 60 21 02/12/20 17:02 66 20 02/12/20 17:00 65 25 H 02/12/20 16:30 58 L 21 149/67 H 02/12/20 16:00 52 L 22 146/62 H 94 02/12/20 15:31 55 L 22 148/51 H 94 02/12/20 15:30 54 L 22 94 02/12/20 15:02 60 17 102/73 90 02/12/20 15:00 57 L 16 91 02/12/20 14:32 55 L 19 92 02/12/20 14:31 57 L 16 143/84 H 92 02/12/20 14:30 64 18 93 02/12/20 14:02 63 24 93 02/12/20 14:01 54 L 20 161/65 H 93 02/12/20 14:00 55 L 22 93 02/12/20 13:33 56 L 22 91 02/12/20 13:32 61 20 137/64 92 02/12/20 13:30 58 L 16 91 02/12/20 13:00 55 L 23 166/67 H 92 02/12/20 12:30 54 L 19 150/65 H 92 02/12/20 12:00 50 L 21 160/71 H 94 02/12/20 11:40 57 L 20 91 02/12/20 11:30 56 L 23 142/85 H 93 02/12/20 11:11 64 17 159/62 H 91 02/12/20 11:02 99.0 F 90 20 152/55 H 93 02/12/20 11:00 87 21 93 02/12/20 10:58 71 22 92 02/12/20 10:53 73 17 152/55 H 93 Code Status & VTE Plan VTE Prophylaxis Plan VTE Prophylaxis will be ordered: Yes PG Care Time/CCT Total # of Minutes Spent Total Time Spent with Patient: Total time spent is greater than 50% in coordination of care (as documented) at patient's floor/unit and/or counseling patient: Coding Level of Care Code 28779 Initial Inpt Care Lvl 3 Diagnoses Symptomatic anemia D64.9 GERD (gastroesophageal reflux disease) K21.9 History of CVA (cerebrovascular accident) Z86.73 Stage 3 chronic kidney disease N18.3 Hyperthyroidism E05.90
[2020-02-12] MEDS: LAVAGE SOLUTION 4000ML PO SCH (21:45)
[2020-02-13] MEDS: SODIUM CHLORIDE 0.9% 1000ML 1,000 ML IV SCH (05:42)
[2020-02-13] MEDS: LAVAGE SOLUTION 4000ML PO SCH (05:42)
[2020-02-13 07:25] LABS: BUN Creatinine Ratio 13.4 (10-20); Calcium 8.2 mg/dl (8.5-10.1); Creatinine Clr Calc Pharmacy 26.5 ml/min; Est GFR (African American) 45.7; Est GFR (Non-African American) 39.4; Potassium 3.7 mmol/L (3.5-5.1)
[2020-02-13] MEDS: MEMANTINE HCL 10 MG TAB PO SCH (08:24)
[2020-02-13] MEDS: DULoxetine HCL 30 MG CAP PO SCH (08:25)
[2020-02-13] MEDS: methIMAzole 5 MG TABLET PO SCH (08:25)
[2020-02-13] MEDS: DONEPEZIL HCL 10 MG TAB PO SCH (08:25)
[2020-02-13] MEDS: lisinopril 40 MG TAB PO SCH (08:25)
[2020-02-13] MEDS: CALCITRIOL 0.25 MCG CAPSULE PO SCH (08:26)
[2020-02-13] MEDS: IPRATROPIUM BROMIDE NASAL SPRAY 0.06% 15ML SCH ×2 (08:26→20:29)
--- NOTE | 2020-02-13 08:49 | Gastrointestinal Consultation ---
Date of Consultation February 13, 2020 Assessment & Plan (1) Anemia: (2) Acute GI bleeding: Patient admitted due to symptomatic anemia likely due to GI bleed. Heme positive stool in ED. EGD performed with last admission 02/02/2020 demonstrated large hiatal hernia with Nathen's ulcers as possible cause of bleeding. Plan today is colonoscopy. Continue NPO, IVF, IV Protonix. Please refer to supervising physician addendum for further recommendations. History of Present Illness Attending Physician: Pina Sánchez MD History of Present Illness The patient is an 89-year-old female with PMH to include anemia, arthritis, coronary artery disease, dementia, depression, gait disturbance post-stroke, GI bleed, history of CVA (cerebrovascular accident), hypertension, hyperlipidemia, hyperthyroidism, irritable bowel syndrome, ischemic stroke, obstructive sleep apnea, stage 3 chronic kidney disease, vitamin D deficiency, hiatal hernia know to the GI service from previous admissions that presented to the ED with increased weakness and SOB. Patient is a limited historian due to dementia but does deny melena or bright red blood in stools. Hgb 8.3/Hct 26.6 in the ED which is decreased from 02/04/2020 Hgb 9.5. LIGIA demonstrated heme positive stool in ED. Patient was subsequently admitted for further management of symptomatic anemia. Plan today is colonoscopy today. Last admission, patient's upper endoscopy was fairly unrevealing demonstrated large hiatal hernia with Nathen's ulcers as possible cause of bleeding. Last colonoscopy in 2018 did show polyps in her cecum and ascending colon with diverticulosis was also noted which could be a source of her blood loss. On exam/interview today, patient is without complaints. She denies abdominal p ain, nausea, vomiting. Denies melena or hematochezia. Patient tolerating colonoscopy prep this morning. Voices no complaints. IV Protonix and IVF continue. Allergies Allergy/AdvReac Type Severity Reaction Status Date / Time atorvastatin Allergy Unknown UNKOWN Verified 02/12/20 14:37 cephalexin [From Keflex] Allergy Unknown Unknown Unverified 02/12/20 14:37 oxaprozin [From Daypro] Allergy Unknown Unknown Unverified 02/12/20 14:37 paroxetine Allergy Unknown UNKNOWN Verified 02/12/20 14:37 propoxyphene Allergy Unknown DARVOCET Verified 02/12/20 14:37 codeine AdvReac Mild NAUSEA Verified 02/12/20 14:37 Sulfa (Sulfonamide AdvReac Mild NAUSEA Verified 02/12/20 14:37 Antibiotics) Home Medications Home Medications Medication Instructions Recorded Confirmed Type cetirizine 10 mg tablet 10 mg PO DAILY PRN tab 11/27/18 02/12/20 History cholecalciferol (vitamin D3) 5,000 unit PO QAM 12/01/18 02/12/20 History [Vitamin D3] multivitamin 1 tab PO QAM 12/01/18 02/12/20 History lisinopril 40 mg tablet 40 mg PO QAM #90 tab 04/07/19 02/12/20 Rx ipratropium bromide 42 mcg (0.06 2 spray INTNAS BID #15 ml 06/09/19 02/12/20 Rx %) nasal spray ketotifen fumarate 0.025 % (0.035 1 drp OP BID #10 ml 07/30/19 02/12/20 Rx %) eye drops rosuvastatin 20 mg tablet 20 mg PO DAILY #90 tab 09/22/19 02/12/20 Rx amlodipine 5 mg tablet 5 mg PO HS #90 tab 09/25/19 02/12/20 Rx methimazole 5 mg tablet 5 mg PO DAILY #90 tab 10/23/19 02/12/20 Rx ferrous sulfate 325 mg (65 mg 325 mg PO DAILY #30 tab 11/12/19 02/12/20 Rx iron) tablet clopidogrel 75 mg tablet 75 mg PO QAM #90 tab 12/18/19 02/12/20 Rx diclofenac sodium See Rx Instructions TOP TID PRN 12/22/19 02/12/20 History tramadol 50 mg PO DAILY PRN 12/22/19 02/12/20 History metoprolol succinate 100 mg 100 mg PO HS #90 tab 12/25/19 02/12/20 Rx tablet,extended release 24 hr miscellaneous medical supply #1 ea 01/01/20 01/01/20 Rx duloxetine 30 mg capsule,delayed 30 mg PO DAILY #90 cap 01/06/20 02/12/20 Rx release calcitriol 0.25 mcg capsule 0.25 mcg PO 3XWK #60 cap 01/19/20 02/12/20 Rx memantine 28 mg capsule 28 mg PO QAM #90 ea 01/19/20 02/12/20 Rx sprinkle,extended release 24hr pantoprazole 40 mg tablet,delayed 40 mg PO QAM #90 tab 01/21/20 02/12/20 Rx release furosemide 20 mg tablet 20 mg PO QAM #90 tab 01/26/20 02/12/20 Rx donepezil 10 mg tablet 10 mg PO QAM #90 tab 01/28/20 02/12/20 Rx sucralfate 1 g PO ACHS 30 Days #120 tab 02/04/20 02/12/20 Rx Patient History Medical History Anemia Arthritis Coronary artery disease Dementia Depression Gait disturbance, post-stroke GI bleed History of CVA (cerebrovascular accident) HTN (hypertension) Hyperlipemia Hyperthyroidism Irritable bowel syndrome Ischemic stroke LBBB (left bundle branch block) Obstructive sleep apnea Stage 3 chronic kidney disease Vitamin D deficiency Surgical History S/P dilatation and curettage S/P hysterectomy S/P shoulder surgery S/P total knee arthroplasty Family History Mother Coronary heart disease Heart disease Myocardial infarction Denies family history of Ovarian cancer Prostate cancer Diabetes Alzheimer disease Breast cancer Lung cancer COPD (chronic obstructive pulmonary disease) Colorectal cancer Asthma Social History Smoking Status: Never smoker Hx Alcohol Use: No Hx Substance Use: No Preferred Language: Turkish Communication Ability: Effective Visual Impairment: No Limitations Hearing Ability: Hard of Hearing Back Seam Stitcher Required: No Beliefs That Will Affect Care: None marital status: / Current Living Situation: Alone current occupational status: retired Other Information That Helps Us Care for You: No Feels Safe at Home: Yes Safety Concerns: Feels Safe At This Time Childhood Exposure to Second-Hand Smoke: No Diet Comment: regular caffeine: Yes (tea) during the past year weight has: remained stable Dental Care, Regularly: No Physical Activity Frequency: Does not Exercise Seatbelt Use: always Sunscreen Use: No Assistive Devices: Cane and Glasses Review of Systems Review of Systems: All systems reviewed & are unremarkable except as noted in Subjective Physical Exam Constitutional: WD/WN, vitals as above Eyes: PERRL, conjunctivae normal, anicteric sclerae Neck: normal visual inspection and trachea midline Respiratory: normal respiratory effort, lungs clear to auscultation Cardiovascular: RRR, no murmur, no edema Gastrointestinal (Abdomen): normal bowel sounds, soft, nontender, no hepatos plenomegaly Neurologic: PERRL, EOMI, accommodation nl, no face palsy, no dysarthria Psychiatric: Orientation: alert, oriented to person and oriented to place Results & Data ([facility]) Vital Signs (Past 12 Hours) Vital Signs Temp Pulse Pulse Pulse Resp BP BP 02/13/20 08:00 36.5 C 62 16 164/80 H 02/13/20 07:00 57 L 02/13/20 03:00 36.8 C 59 L 18 112/71 02/12/20 23:58 57 L 02/12/20 22:58 36.3 C L 52 L 18 166/66 H 02/12/20 20:58 36.5 C 57 L 22 146/58 H Pulse Ox 02/13/20 08:00 91 02/13/20 07:00 02/13/20 03:00 91 02/12/20 23:58 02/12/20 22:58 92 02/12/20 20:58 93 Laboratory Results - last 24 hr 02/12/20 02/12/20 02/12/20 10:58 10:58 10:58 WBC 10.13 RBC 2.71 L Hgb 8.3 L Hct 26.6 L MCV 98.2 MCH 30.6 MCHC 31.2 L RDW Std Deviation 58.2 H RDW Coeff of Corey 16.4 H Plt Count 241 MPV 11.2 H Immature Gran % (Auto) 0.2 Neut % (Auto) 77.5 Lymph % (Auto) 11.5 [place] % (Auto) 8.0 Eos % (Auto) 2.6 Baso % (Auto) 0.2 Neut # (Auto) 7.86 H Lymph # (Auto) 1.16 L [place] # (Auto) 0.81 H Eos # (Auto) 0.26 Baso # (Auto) 0.02 Immature Gran # (Auto) 0.02 PT 10.5 INR 1.0 APTT 23.9 PTT Ratio 0.9 Sodium 142 Potassium 4.1 Chloride 110 H Carbon Dioxide 25 Anion Gap 7.0 BUN 16 Creatinine 1.32 H Est Cr Clr Drug Dosing 27.0 Est GFR ( Amer) 41.9 Est GFR (Non-Af Amer) 36.2 BUN/Creatinine Ratio 12.4 Glucose 87 Calcium 8.9 Total Bilirubin 0.6 AST 17 ALT 18 Alkaline Phosphatase 68 Troponin I < 0.015 Total Protein 5.9 L Albumin 2.9 L Globulin 3.0 Albumin/Globulin Ratio 1.0 Lipase COVID-19 Eval Order COVID-19 PCR Blood Type Antibody Screen Crossmatch 02/12/20 02/12/20 02/12/20 10:58 12:22 12:22 WBC RBC Hgb Hct MCV MCH MCHC RDW Std Deviation RDW Coeff of Corey Plt Count MPV Immature Gran % (Auto) Neut % (Auto) Lymph % (Auto) [place] % (Auto) Eos % (Auto) Baso % (Auto) Neut # (Auto) Lymph # (Auto) [place] # (Auto) Eos # (Auto) Baso # (Auto) Immature Gran # (Auto) PT INR APTT PTT Ratio Sodium Potassium Chloride Carbon Dioxide Anion Gap BUN Creatinine Est Cr Clr Drug Dosing Est GFR ( Amer) Est GFR (Non-Af Amer) BUN/Creatinine Ratio Glucose Calcium Total Bilirubin AST ALT Alkaline Phosphatase Troponin I Total Protein Albumin Globulin Albumin/Globulin Ratio Lipase 432 H COVID-19 Eval Order Covid19 Done at [facility] COVID-19 PCR NEGATIVE Blood Type Antibody Screen Crossmatch 02/12/20 02/12/20 02/13/20 12:27 21:49 05:37 WBC RBC Hgb 8.3 L Hct MCV MCH MCHC RDW Std Deviation RDW Coeff of Corey Plt Count MPV Immature Gran % (Auto) Neut % (Auto) Lymph % (Auto) [place] % (Auto) Eos % (Auto) Baso % (Auto) Neut # (Auto) Lymph # (Auto) [place] # (Auto) Eos # (Auto) Baso # (Auto) Immature Gran # (Auto) PT INR APTT PTT Ratio Sodium 141 Potassium 3.7 Chloride 109 H Carbon Dioxide 26 Anion Gap 6.0 BUN 17 Creatinine 1.23 H Est Cr Clr Drug Dosing 26.5 Est GFR ( Amer) 45.7 Est GFR (Non-Af Amer) 39.4 BUN/Creatinine Ratio 13.4 Glucose 81 Calcium 8.2 L Total Bilirubin AST ALT Alkaline Phosphatase Troponin I Total Protein Albumin Globulin Albumin/Globulin Ratio Lipase COVID-19 Eval Order COVID-19 PCR Blood Type A Positive Antibody Screen NEGATIVE Crossmatch See Detail (1) Anemia Anemia type: iron deficiency Iron deficiency anemia type: unspecified iron deficiency Qualified Code(s): D50.9 - Iron deficiency anemia, unspecified
[2020-02-13] MEDS ORDERED: PANTOprazole 40 MG in SYRINGE 0 ML IV SCH (09:00)
[2020-02-13] MEDS ORDERED: MEMANTINE 28 MG PO SCH (09:00)
--- NOTE | 2020-02-13 10:05 | Anesthesiology Consultation ---
Date of Service February 13, 2020 Assessment & Plan Chart Review Chart Review: Acceptable Risk for Surgery Consults Requested none ASA ASA4 Proposed Anesthesia Anesthesia Type: MAC Risk / Benefits Reviewed With: PT / POA / Parent / Guardian, Accepts Plan and Informed Consent Obtained History Surgery Operation Date: 02/13/20 15:30 Proposed Procedures p Colonoscopy Dr Alyx Wisdom Height/Weight Height: 4 ft 11 in Weight: 65.4 kg Allergies Allergy/AdvReac Type Severity Reaction Status Date / Time atorvastatin Allergy Unknown UNKOWN Verified 02/12/20 14:37 cephalexin [From Keflex] Allergy Unknown Unknown Unverified 02/12/20 14:37 oxaprozin [From Daypro] Allergy Unknown Unknown Unverified 02/12/20 14:37 paroxetine Allergy Unknown UNKNOWN Verified 02/12/20 14:37 propoxyphene Allergy Unknown DARVOCET Verified 02/12/20 14:37 codeine AdvReac Mild NAUSEA Verified 02/12/20 14:37 Sulfa (Sulfonamide AdvReac Mild NAUSEA Verified 02/12/20 14:37 Antibiotics) Medications Home Medications Medication Instructions Recorded Confirmed Last Taken cetirizine 10 mg tablet 10 mg PO DAILY PRN tab 11/27/18 02/12/20 Unknown cholecalciferol (vitamin D3) 5,000 unit PO QAM 12/01/18 02/12/20 02/11/20 [Vitamin D3] multivitamin 1 tab PO QAM 12/01/18 02/12/20 02/11/20 lisinopril 40 mg tablet 40 mg PO QAM #90 tab 04/07/19 02/12/20 02/11/20 ipratropium bromide 42 mcg (0.06 2 spray INTNAS BID #15 ml 06/09/19 02/12/20 02/11/20 %) nasal spray ketotifen fumarate 0.025 % (0.035 1 drp OP BID #10 ml 07/30/19 02/12/20 02/11/20 %) eye drops rosuvastatin 20 mg tablet 20 mg PO DAILY #90 tab 09/22/19 02/12/20 02/11/20 amlodipine 5 mg tablet 5 mg PO HS #90 tab 09/25/19 02/12/20 02/11/20 methimazole 5 mg tablet 5 mg PO DAILY #90 tab 10/23/19 02/12/20 02/11/20 ferrous sulfate 325 mg (65 mg 325 mg PO DAILY #30 tab 11/12/19 02/12/20 02/11/20 iron) tablet clopidogrel 75 mg tablet 75 mg PO QAM #90 tab 12/18/19 02/12/20 02/11/20 diclofenac sodium See Rx Instructions TOP TID PRN 12/22/19 02/12/20 01/30/20 tramadol 50 mg PO DAILY PRN 12/22/19 02/12/20 Unknown metoprolol succinate 100 mg 100 mg PO HS #90 tab 12/25/19 02/12/20 02/11/20 tablet,extended release 24 hr miscellaneous medical supply #1 ea 01/01/20 01/01/20 Unknown duloxetine 30 mg capsule,delayed 30 mg PO DAILY #90 cap 01/06/20 02/12/20 02/11/20 release calcitriol 0.25 mcg capsule 0.25 mcg PO 3XWK #60 cap 01/19/20 02/12/20 02/11/20 memantine 28 mg capsule 28 mg PO QAM #90 ea 01/19/20 02/12/20 02/11/20 sprinkle,extended release 24hr pantoprazole 40 mg tablet,delayed 40 mg PO QAM #90 tab 01/21/20 02/12/20 02/11/20 release furosemide 20 mg tablet 20 mg PO QAM #90 tab 01/26/20 02/12/20 02/11/20 donepezil 10 mg tablet 10 mg PO QAM #90 tab 01/28/20 02/12/20 02/11/20 sucralfate 1 g PO ACHS 30 Days #120 tab 02/04/20 02/12/20 02/11/20 Active Medications Generic Name Dose Route Start Last Admin Trade Name Freq PRN Reason Stop Dose Admin Amlodipine Besylate 5 mg 02/12/20 21:00 02/12/20 20:21 Amlodipine Besylate 5 Mg Tab PO 03/13/20 20:59 5 mg HS VONNIE Administration Calcitriol 0.25 mcg 02/13/20 09:00 02/13/20 08:26 Calcitriol 0.25 Mcg Capsule PO 03/14/20 08:59 0.25 mcg [id number] VONNIE Administration Donepezil HCl 10 mg 02/13/20 09:00 02/13/20 08:25 Donepezil Hcl 10 Mg Tab PO 03/14/20 08:59 10 mg QAM VONNIE Administration Duloxetine HCl 30 mg 02/13/20 09:00 02/13/20 08:25 Duloxetine Hcl 30 Mg Cap PO 03/14/20 08:59 30 mg DAILY VONNIE Administration Sodium Chloride 1,000 mls @ 85 mls/hr 02/12/20 18:23 02/13/20 05:42 Nss 1000ml IV 03/13/20 18:22 85 mls/hr .[id number] VONNIE Administration Pantoprazole Sodium 40 mg/ 10 mls @ 5 mls/min 02/13/20 09:00 02/13/20 08:25 Syringe IV 03/14/20 08:59 5 mls/min BID VONNIE Administration Ipratropium [place] 2 sprays 02/12/20 21:00 02/13/20 08:26 Ipratropium [place] Nasal [place] 0.06% 15ml NA 03/13/20 20:59 2 sprays BID VONNIE Administration Lisinopril 40 mg 02/13/20 09:00 02/13/20 08:25 Lisinopril 40 Mg Tab PO 03/14/20 08:59 40 mg QAM VONNIE Administration Memantine 20 mg 02/13/20 09:00 02/13/20 08:24 Memantine Hcl 10 Mg Tab PO 03/14/20 08:59 20 mg QAM VONNIE Administration Methimazole 5 mg 02/13/20 09:00 02/13/20 08:25 Methimazole 5 Mg Tablet PO 03/14/20 08:59 5 mg DAILY VONNIE Administration Metoprolol Succinate 100 mg 02/12/20 21:00 02/12/20 20:20 Metoprolol Succ 50mg Ext Rel Tab PO 03/13/20 20:59 Not Given HS VONNIE Miscellaneous 1 ea 02/13/20 00:00 02/13/20 08:24 *Ketotifen*Order Awaiting Action N/A 03/14/20 00:00 Not Given QS VONNIE NPO Date Last Intake of Fluids: 02/13/20 Date Last Intake of Solids: 02/12/20 Past Medical History Medical History Anemia Arthritis Coronary artery disease Dementia Depression Gait disturbance, post-stroke GI bleed History of CVA (cerebrovascular accident) HTN (hypertension) Hyperlipemia Hyperthyroidism Irritable bowel syndrome Ischemic stroke LBBB (left bundle branch block) Obstructive sleep apnea Stage 3 chronic kidney disease Vitamin D deficiency Exercise / Class Metabolic Activity III < 4 Walking/Shop/Light housework Past Family History Family History Mother Coronary heart disease Heart disease Myocardial infarction Denies family history of Ovarian cancer Prostate cancer Diabetes Alzheimer disease Breast cancer Lung cancer COPD (chronic obstructive pulmonary disease) Colorectal cancer Asthma Past Surgical History Surgical History S/P dilatation and curettage S/P hysterectomy S/P shoulder surgery S/P total knee arthroplasty Past Anesthesia History No Hx of Anesthesia Complications and No Family Hx of Anesthesia Complications History of PONV No Hx of PONV and No Hx of Motion Sickness Social History Smoking Status: Never smoker Hx Alcohol Use: No Hx Substance Use: No substance use type: does not use Physical Exam Vital Signs Last Vital Signs Temp 36.8 C 02/13/20 11:27 Pulse 57 L 02/13/20 11:27 Resp 16 02/13/20 11:27 BP 163/70 H 02/13/20 11:27 Pulse Ox 93 02/13/20 11:27 ENMT Mouth: no TMJ abnormality Thyromental Distance: > or= 3.5 Finger Breadths Mallampati Class: II Neck normal visual inspection and trachea midline; neck extension not limited Respiratory normal respiratory effort Auscultation: lungs clear to auscultation bilaterally Cardiovascular Rate/Rhythm: regular rate and regular rhythm Heart Sounds: no murmur Musculoskeletal Spine: normal cervical ROM Extremities: full ROM of extremities Neurologic moves all extremities Psychiatric Orientation: alert and oriented x 3 Testing Laboratory Results 02/13/20 10:53 02/13/20 05:37 PT 10.5 Seconds (9.0-12.0) 02/12/20 10:58 INR 1.0 (0.9-1.1) 02/12/20 10:58 APTT 23.9 Seconds (21.0-31.0) 02/12/20 10:58 Blood Type A Positive 02/12/20 12:27 Antibody Screen NEGATIVE 02/12/20 12:27 Electrocardiogram Date: 02/12/20 Findings: + NSR @ (87) and + LBBB Chest X-Ray Date: 02/12/20 possible aspiration/infiltrate
[2020-02-13 11:10] LABS: Basophils # (auto) 0.02 K/uL (0-0.2); Basophils % (auto) 0.2 %; Eosinophils # (auto) 0.16 K/uL (0-0.5); Eosinophils % (auto) 1.8 %; Hematocrit (blood only) 28.2 % (37-47); Hemoglobin 9.1 g/dL (12.0-16.0); Immature Granulocytes # (auto) 0.02 K/uL (0.00-0.02); Immature Granulocytes % (auto) 0.2 %; Lymphocytes # (auto) 1.06 K/uL (1.2-3.4); Lymphocytes % (auto) 11.8 %; Mean Corpuscular Hemoglobin 31.6 pg (25-34); Mean Corpuscular Volume 97.9 fL (80-100); Mean Platelet Volume 10.8 fL (7.4-10.4); Monocytes # (auto) 0.79 K/uL (0.11-0.59); Monocytes % (auto) 8.8 %; Neutrophils # (auto) 6.96 K/uL (1.4-6.5); Neutrophils % (auto) 77.2 %; Platelet Count 228 K/uL (130-400); RDW Standard Deviation 56.5 fL (36.4-46.3); Red Blood Count 2.88 M/uL (4.2-5.4); White Blood Count 9.01 K/uL (4.8-10.8)
[2020-02-13 11:23] LABS: Mean Corpuscular Hgb Conc 32.3 g/dL (32-36)
--- NOTE | 2020-02-13 13:39 | History & Physical Report ---
Date of Service February 13, 2020 Assessment & Plan Admission and Anticipated Discharge Date Admission Date: February 12, 2020 History of Present Illness Chief Complaint: anemia Primary Care Provider: Bethany Hardin DO For colonoscopy Allergies Allergy/AdvReac Type Severity Reaction Status Date / Time atorvastatin Allergy Unknown UNKOWN Verified 02/12/20 14:37 cephalexin [From Keflex] Allergy Unknown Unknown Unverified 02/12/20 14:37 oxaprozin [From Daypro] Allergy Unknown Unknown Unverified 02/12/20 14:37 paroxetine Allergy Unknown UNKNOWN Verified 02/12/20 14:37 propoxyphene Allergy Unknown DARVOCET Verified 02/12/20 14:37 codeine AdvReac Mild NAUSEA Verified 02/12/20 14:37 Sulfa (Sulfonamide AdvReac Mild NAUSEA Verified 02/12/20 14:37 Antibiotics) Home Medications Home Medications Medication Instructions Recorded Confirmed Type cetirizine 10 mg tablet 10 mg PO DAILY PRN tab 11/27/18 02/12/20 History cholecalciferol (vitamin D3) 5,000 unit PO QAM 12/01/18 02/12/20 History [Vitamin D3] multivitamin 1 tab PO QAM 12/01/18 02/12/20 History lisinopril 40 mg tablet 40 mg PO QAM #90 tab 04/07/19 02/12/20 Rx ipratropium bromide 42 mcg (0.06 2 spray INTNAS BID #15 ml 06/09/19 02/12/20 Rx %) nasal spray ketotifen fumarate 0.025 % (0.035 1 drp OP BID #10 ml 07/30/19 02/12/20 Rx %) eye drops rosuvastatin 20 mg tablet 20 mg PO DAILY #90 tab 09/22/19 02/12/20 Rx amlodipine 5 mg tablet 5 mg PO HS #90 tab 09/25/19 02/12/20 Rx methimazole 5 mg tablet 5 mg PO DAILY #90 tab 10/23/19 02/12/20 Rx ferrous sulfate 325 mg (65 mg 325 mg PO DAILY #30 tab 11/12/19 02/12/20 Rx iron) tablet clopidogrel 75 mg tablet 75 mg PO QAM #90 tab 12/18/19 02/12/20 Rx diclofenac sodium See Rx Instructions TOP TID PRN 12/22/19 02/12/20 History tramadol 50 mg PO DAILY PRN 12/22/19 02/12/20 History metoprolol succinate 100 mg 100 mg PO HS #90 tab 12/25/19 02/12/20 Rx tablet,extended release 24 hr miscellaneous medical supply #1 ea 01/01/20 01/01/20 Rx duloxetine 30 mg capsule,delayed 30 mg PO DAILY #90 cap 01/06/20 02/12/20 Rx release calcitriol 0.25 mcg capsule 0.25 mcg PO 3XWK #60 cap 01/19/20 02/12/20 Rx memantine 28 mg capsule 28 mg PO QAM #90 ea 01/19/20 02/12/20 Rx sprinkle,extended release 24hr pantoprazole 40 mg tablet,delayed 40 mg PO QAM #90 tab 01/21/20 02/12/20 Rx release furosemide 20 mg tablet 20 mg PO QAM #90 tab 01/26/20 02/12/20 Rx donepezil 10 mg tablet 10 mg PO QAM #90 tab 01/28/20 02/12/20 Rx sucralfate 1 g PO ACHS 30 Days #120 tab 02/04/20 02/12/20 Rx Past Med/Surg History Medical History Anemia Arthritis Coronary artery disease Dementia Depression Gait disturbance, post-stroke GI bleed History of CVA (cerebrovascular accident) HTN (hypertension) Hyperlipemia Hyperthyroidism Irritable bowel syndrome Ischemic stroke LBBB (left bundle branch block) Obstructive sleep apnea Stage 3 chronic kidney disease Vitamin D deficiency Surgical History S/P dilatation and curettage S/P hysterectomy S/P shoulder surgery S/P total knee arthroplasty Family History Mother Coronary heart disease Heart disease Myocardial infarction Denies family history of Ovarian cancer Prostate cancer Diabetes Alzheimer disease Breast cancer Lung cancer COPD (chronic obstructive pulmonary disease) Colorectal cancer Asthma Social History Smoking Status: Never smoker Hx Alcohol Use: No Hx Substance Use: No Preferred Language: [place]atian Communication Ability: Effective Visual Impairment: No Limitations Hearing Ability: Hard of Hearing [employer] Required: No Beliefs That Will Affect Care: None marital status: / Current Living Situation: Alone current occupational status: retired Other Information That Helps Us Care for You: No Feels Safe at Home: Yes Safety Concerns: Feels Safe At This Time Childhood Exposure to Second-Hand Smoke: No Diet Comment: regular caffeine: Yes (tea) during the past year weight has: remained stable Dental Care, Regularly: No Physical Activity Frequency: Does not Exercise Seatbelt Use: always Sunscreen Use: No Assistive Devices: Glasses and Walker Physical Exam Constitutional: well developed and well nourished Respiratory: normal respiratory effort Cardiovascular: Rate/Rhythm: regular rate and regular rhythm Gastrointestinal (Abdomen): Percussion/Palpation: abdomen soft Results & Data ([facility]) Vital Signs (Past 12 Hours) Vital Signs Temp Pulse Pulse Resp BP BP Pulse Ox 02/13/20 13:28 37.1 C 67 18 181/69 H 92 02/13/20 11:27 36.8 C 57 L 16 163/70 H 93 02/13/20 08:00 36.5 C 62 16 164/80 H 91 02/13/20 07:00 57 L 02/13/20 03:00 36.8 C 59 L 18 112/71 91 Code Status & VTE Plan VTE Prophylaxis Plan VTE Prophylaxis will be ordered: Yes
[2020-02-13] MEDS ORDERED: SODIUM CHLORIDE 0.9% 1000ML 1,000 ML IV SCH (14:00)
--- NOTE | 2020-02-13 14:08 | GI REPORT ---
Patient Name: Debora Ralph Procedure Date: 02/13/2020 1:39 PM Date of : 1930 Admit Type: Inpatient Age: 89 Gender: Female Attending MD: Ricci Wisdom MD Procedure: Colonoscopy Providers: Ricci Wisdom MD Referring MD: Referred Self Indications: Heme positive stool, Acute post hemorrhagic anemia Medicines: Propofol total dose 180 mg IV, Lidocaine 40 mg IV Complications: No immediate complications. Estimated Blood Loss: Estimated blood loss: none. Procedure: Pre-Anesthesia Assessment: - Prior to the procedure, a History and Physical was performed, and patient medications, allergies and sensitivities were reviewed. The patient's tolerance of previous anesthesia was reviewed. - The risks and benefits of the procedure and the sedation options and risks were discussed with the patient. All questions were answered and informed consent was obtained. After I obtained informed consent, the scope was passed under direct vision. Throughout the procedure, the patient's blood pressure, pulse, and oxygen saturations were monitored continuously. The scope was introduced through the anus and advanced to the cecum, identified by appendiceal orifice and ileocecal valve. The colonoscopy was performed without difficulty. The patient tolerated the procedure well. The quality of the bowel preparation was excellent. Findings: A 6 mm polyp was found in the hepatic flexure. The polyp was sessile. The polyp was removed with a hot snare. Resection and retrieval were complete. Estimated blood loss: none. A 8 mm polyp was found in the sigmoid colon. The polyp was sessile. The polyp was removed with a hot snare. Resection and retrieval were complete. Estimated blood loss: none. Many small and large-mouthed diverticula were found in the sigmoid colon, transverse colon and ascending colon. No blood seen, Impression: - One 6 mm polyp at the hepatic flexure, removed with a hot snare. Resected and retrieved. - One 8 mm polyp in the sigmoid colon, removed with a hot snare. Resected and retrieved. - Diverticulosis in the sigmoid colon, in the transverse colon and in the ascending colon. Recommendation: - [facility] for [facility] care. Ricci Wisdom M.D. Ricci Wisdom MD 02/13/2020 2:07:33 PM This report has been signed electronically. Note Initiated On: 02/13/2020 1:39 PM Number of Addenda: 0 I attest to the content of the Intraoperative Record and orders documented therein, exceptions below {[id number]}
--- NOTE | 2020-02-13 14:45 | Anesthesiology Progress Note ---
Date of Service February 13, 2020 Anesthesia Post Procedure Vital Signs Vital Signs: Temp Pulse Pulse Pulse Resp BP BP 02/13/20 14:36 56 L 16 169/76 H 02/13/20 14:21 62 16 142/60 H 02/13/20 14:08 78 16 116/51 L 02/13/20 13:28 37.1 C 67 18 02/13/20 11:27 36.8 C 57 L 16 163/70 H 02/13/20 08:00 36.5 C 62 16 164/80 H 02/13/20 07:00 57 L 02/13/20 03:00 36.8 C 59 L 18 02/12/20 23:58 57 L 02/12/20 22:58 36.3 C L 52 L 18 166/66 H 02/12/20 20:58 36.5 C 57 L 22 146/58 H 02/12/20 20:20 57 L 02/12/20 19:03 65 02/12/20 17:31 64 25 H 122/51 L 02/12/20 17:30 60 21 02/12/20 17:02 66 20 02/12/20 17:00 65 25 H 02/12/20 16:30 58 L 21 149/67 H 02/12/20 16:00 52 L 22 146/62 H 02/12/20 15:31 55 L 22 148/51 H 02/12/20 15:30 54 L 22 02/12/20 15:02 60 17 102/73 02/12/20 15:00 57 L 16 BP Pulse Ox 02/13/20 14:36 90 02/13/20 14:21 92 02/13/20 14:08 99 02/13/20 13:28 181/69 H 92 02/13/20 11:27 93 02/13/20 08:00 91 02/13/20 07:00 02/13/20 03:00 112/71 91 02/12/20 23:58 02/12/20 22:58 92 02/12/20 20:58 93 02/12/20 20:20 02/12/20 19:03 02/12/20 17:31 94 02/12/20 17:30 02/12/20 17:02 02/12/20 17:00 02/12/20 16:30 02/12/20 16:00 94 10/22/20 15:31 94 02/12/20 15:30 94 02/12/20 15:02 90 02/12/20 15:00 91 Pain Intensity Knee: Pain Intensity: 5 Ankle: Pain Intensity: 5 Wrist: Pain Intensity: 5 Transfer of Care Handoff Completed per policy Notes Mental Status: alert / awake / arousable and participated in evaluation Nausea / Vomiting: adequately controlled Pain: adequately controlled Airway Patency, RR, SpO2: stable & adequate BP & HR: stable & adequate Hydration State: stable & adequate Anesthetic Complications: no major complications apparent
--- NOTE | 2020-02-13 14:52 | Consultation Report ---
DATE OF CONSULTATION: 02/13/2020 ADDENDUM This is addendum to Merna Sidhu's note. I interviewed and examined the patient and studied the chart and labs. She underwent a colonoscopy today for anemia with heme positive stool. The exam was carried into the cecum. She had multiple diverticula throughout the colon. There was no bleeding or blood seen throughout the exam. She did have 2 polyps, one in the hepatic flexure which was 6 mm, one in the sigmoid an 8 mm, both removed with a hot cautery, but no bleeding. IMPRESSION: The patient's colonoscopy did not reveal an obvious lower GI source for blood loss. 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 If she continues to drop her blood counts, we can do an outpatient video capsule procedure.
--- NOTE | 2020-02-13 16:12 | Hospitalist Progress Note ---
Date of Service February 13, 2020 Assessment & Plan (1) Symptomatic anemia: Patient is here with symptomatic anemia, hemoglobin down to 8.3 from over 9 2 weeks ago Had similar presentation 2 weeks ago and was admitted and had PRBC transfusion and EGD which showed large hiatal hernia and there was a suspicion for Nathen ulcers as the cause of her GI blood loss No obvious bleeding here and hemoglobin is improved today to 9.1 on its own Colonoscopy today only shows polyps which were biopsied but no acute bleeding GI suspects probably slow blood loss from Nathen ulcers, but if not responding to treatment with PPI and Carafate, consider outpatient capsule video endoscopy Follow CBC in the morning -Continue iron supplementation and increase to 3 times daily (2) GERD (gastroesophageal reflux disease): Restart home pantoprazole but increase to twice daily Restart home Carafate 1 g 4 times daily DC IV Protonix (3) History of CVA (cerebrovascular accident): Hold Plavix for chronic GI bleeding Continue good blood pressure control, rosuvastatin to be restarted (4) Stage 3 chronic kidney disease: Creatinine decreased from previous at 1.23 -Avoid nephrotoxins -renally dose meds when appropriate -follow BMP (5) Hyperthyroidism: TSH was checked during her last admission and felt to be in normal range Continue home methimazole (6) Weakness: Daughter reports patient was very weak prior to admission Request PT/OT evaluations and daughter is requesting SNF placement at [facility] if possible She could barely get her to stand and walk (7) LBBB (left bundle branch block): Chronic (8) GI bleed: As above Appreciate GI consultation Advance diet as tolerated (9) Obstructive sleep apnea: Has CPAP at home but noncompliant (10) Dementia: Mild to moderate Continue home memantine, donepezil Supportive care (11) Coronary artery disease: With a history of nonobstructive CAD on cardiac catheterization in 2013- proximal LAD 40% stenosis Continue amlodipine, lisinopril, and metoprolol Hold home Plavix for GI bleed furosemide to be restarted in the morning DC IV fluids (12) HTN (hypertension): Blood pressures are controlled to mildly elevated Continue home lisinopril, metoprolol and restart Lasix (13) Hyperlipemia: Continue statin (14) Arthritis: PT/OT consultations (15) Depression: Stable -Continue home duloxetine (16) DVT prophylaxis: SCDs Continued stay but can downgrade from telemetry to medical/surgical floor PT/OT consults planned for tomorrow and possible SNF placement Admission and Anticipated Discharge Date Admission Date: February 12, 2020 Subjective Patient just returned from colonoscopy. Reports she is feeling well. She is feeling hungry. No nausea or vomiting or abdominal pain. No chest pains or shortness of breath, no cough. Telemetry with sinus rhythm, IVCD, PVCs, rates in the 50s to 70s. Review of Systems Review of Systems: All systems reviewed & are unremarkable except as noted in HPI & below Physical Exam Constitutional: WD/WN, vitals as above Eyes: + anicteric sclerae Neck: trachea midline, no thyromegaly Respiratory: normal respiratory effort, lungs clear to auscultation Cardiovascular: Rate/Rhythm: regular rate and regular rhythm Heart Sounds: no murmur Extremities: + edema (Trace pitting edema right greater than left legs) Chest (Breasts): Chest: normal inspection of chest Gastrointestinal (Abdomen): normal bowel sounds, soft, nontender, no hepatosplenomegaly Musculoskeletal: Extremities: extremities normal to inspection; no cyanosis and no clubbing Skin: no rashes, warm and dry Neurologic: moves all extremities and awake; no focal motor deficits Psychiatric: Orientation: alert, oriented to person, oriented to place and cooperative Speech: normal rate/rhythm/volume of speech Affect: euthymic affect Results & Data Results & Data ([facility]) Vital Signs (Past 12 Hours) Vital Signs Temp Pulse Pulse Resp BP BP Pulse Ox 02/13/20 15:00 36.9 C 57 L 18 161/63 H 92 02/13/20 14:36 56 L 16 169/76 H 90 02/13/20 14:21 62 16 142/60 H 92 02/13/20 14:08 78 16 116/51 L 99 02/13/20 13:28 37.1 C 67 18 181/69 H 92 02/13/20 11:27 36.8 C 57 L 16 163/70 H 93 02/13/20 08:00 36.5 C 62 16 164/80 H 91 02/13/20 07:00 57 L Laboratory Results 02/13/20 02/13/20 02/13/20 Range/Units 10:53 10:53 05:37 WBC 9.01 (4.8-10.8) K/uL RBC 2.88 L (4.2-5.4) M/uL Hgb 9.1 L (12.0-16.0) g/dL Hct 28.2 L (37-47) % MCV 97.9 (80-100) fL MCH 31.6 (25-34) pg MCHC 32.3 (32-36) g/dL RDW Std Deviation 56.5 H (36.4-46.3) fL RDW Coeff of Corey 16.0 H (11.5-14.5) % Plt Count 228 (130-400) K/uL MPV 10.8 H (7.4-10.4) fL Immature Gran % (Auto) 0.2 % Neut % (Auto) 77.2 % Lymph % (Auto) 11.8 % [place] % (Auto) 8.8 % Eos % (Auto) 1.8 % Baso % (Auto) 0.2 % Neut # (Auto) 6.96 H (1.4-6.5) K/uL Lymph # (Auto) 1.06 L (1.2-3.4) K/uL [place] # (Auto) 0.79 H (0.11-0.59) K/uL Eos # (Auto) 0.16 (0-0.5) K/uL Baso # (Auto) 0.02 (0-0.2) K/uL Immature Gran # (Auto) 0.02 (0.00-0.02) K/uL Sodium 141 (136-145) mmol/L Potassium 3.7 (3.5-5.1) mmol/L Chloride 109 H (98-107) mmol/L Carbon Dioxide 26 (21-32) mmol/L Anion Gap 6.0 (3-11) BUN 17 (7-18) mg/dl Creatinine 1.23 H (0.6-1.2) mg/dl Est Cr Clr Drug Dosing 26.5 ml/min Est GFR ( Amer) 45.7 Est GFR (Non-Af Amer) 39.4 BUN/Creatinine Ratio 13.4 (10-20) Glucose 81 (70-99) mg/dl Calcium 8.2 L (8.5-10.1) mg/dl Procalcitonin < 0.05 (0-0.5) ng/ml Blood Type Antibody Screen Crossmatch 02/12/20 02/12/20 Range/Units 21:49 12:27 WBC (4.8-10.8) K/uL RBC (4.2-5.4) M/uL Hgb 8.3 L (12.0-16.0) g/dL Hct (37-47) % MCV (80-100) fL MCH (25-34) pg MCHC (32-36) g/dL RDW Std Deviation (36.4-46.3) fL RDW Coeff of Corey (11.5-14.5) % Plt Count (130-400) K/uL MPV (7.4-10.4) fL Immature Gran % (Auto) % Neut % (Auto) % Lymph % (Auto) % [place] % (Auto) % Eos % (Auto) % Baso % (Auto) % Neut # (Auto) (1.4-6.5) K/uL Lymph # (Auto) (1.2-3.4) K/uL [place] # (Auto) (0.11-0.59) K/uL Eos # (Auto) (0-0.5) K/uL Baso # (Auto) (0-0.2) K/uL Immature Gran # (Auto) (0.00-0.02) K/uL Sodium (136-145) mmol/L Potassium (3.5-5.1) mmol/L Chloride (98-107) mmol/L Carbon Dioxide (21-32) mmol/L Anion Gap (3-11) BUN (7-18) mg/dl Creatinine (0.6-1.2) mg/dl Est Cr Clr Drug Dosing ml/min Est GFR ( Amer) Est GFR (Non-Af Amer) BUN/Creatinine Ratio (10-20) Glucose (70-99) mg/dl Calcium (8.5-10.1) mg/dl Procalcitonin (0-0.5) ng/ml Blood Type A Positive Antibody Screen NEGATIVE Crossmatch See Detail PG Care Time/CCT Total # of Minutes Spent Total Time Spent with Patient: Total time spent is greater than 50% in coordination of care (as documented) at patient's floor/unit and/or counseling patient: Coding Level of Care Code 95038 Subseq Hosp Care Lvl 2 Diagnoses Symptomatic anemia D64.9 GERD (gastroesophageal reflux disease) K21.9 History of CVA (cerebrovascular accident) Z86.73 Stage 3 chronic kidney disease N18.3 Hyperthyroidism E05.90 Weakness R53.1 LBBB (left bundle branch block) I44.7 GI bleed K92.1 GI bleed type/associated pathology: melena Obstructive sleep apnea G47.33 Dementia F03.90 Coronary artery disease I25.10 HTN (hypertension) I10 Hyperlipemia E78.5 Arthritis M19.90 Depression F32.9 DVT prophylaxis Z29.9 (1) GI bleed GI bleed type/associated pathology: melena Qualified Code(s): K92.1 - Melena
[2020-02-13] MEDS: SUCRALFATE 1 GM TAB PO SCH ×2 (16:43→20:30)
[2020-02-13] MEDS: FERROUS SULFATE 325 MG TAB PO SCH (17:38)
[2020-02-13] MEDS: PANTOprazole 40 MG TAB PO SCH (20:31)
[2020-02-13] MEDS: amLODIPine BESYLATE 5 MG TAB PO SCH (20:31)
[2020-02-13] MEDS: METOPROLOL SUCC 50MG EXT REL TAB PO SCH (20:32)
[2020-02-14 06:25] LABS: Basophils # (auto) 0.02 K/uL (0-0.2); Basophils % (auto) 0.2 %; Eosinophils # (auto) 0.24 K/uL (0-0.5); Eosinophils % (auto) 2.6 %; Hematocrit (blood only) 24.3 % (37-47); Hemoglobin 7.7 g/dL (12.0-16.0); Immature Granulocytes # (auto) 0.02 K/uL (0.00-0.02); Immature Granulocytes % (auto) 0.2 %; Lymphocytes # (auto) 1.05 K/uL (1.2-3.4); Lymphocytes % (auto) 11.2 %; Mean Corpuscular Hemoglobin 30.8 pg (25-34); Mean Corpuscular Hgb Conc 31.7 g/dL (32-36); Mean Corpuscular Volume 97.2 fL (80-100); Mean Platelet Volume 11.1 fL (7.4-10.4); Monocytes # (auto) 1.03 K/uL (0.11-0.59); Neutrophils # (auto) 6.98 K/uL (1.4-6.5); Neutrophils % (auto) 74.8 %; Platelet Count 210 K/uL (130-400); RDW Coefficient of Variation 16.2 % (11.5-14.5); RDW Standard Deviation 55.7 fL (36.4-46.3); White Blood Count 9.34 K/uL (4.8-10.8)
[2020-02-14 06:51] LABS: BUN Creatinine Ratio 9.9 (10-20); Calcium 8.4 mg/dl (8.5-10.1); Creatinine Clr Calc Pharmacy 25.1 ml/min; Est GFR (African American) 42.7; Est GFR (Non-African American) 36.9
[2020-02-14] MEDS: MEMANTINE HCL 10 MG TAB PO SCH (08:06)
[2020-02-14] MEDS: FERROUS SULFATE 325 MG TAB PO SCH ×3 (08:06→16:24)
[2020-02-14] MEDS: methIMAzole 5 MG TABLET PO SCH (08:06)
[2020-02-14] MEDS: DONEPEZIL HCL 10 MG TAB PO SCH (08:06)
[2020-02-14] MEDS: SUCRALFATE 1 GM TAB PO SCH ×4 (08:06→20:30)
[2020-02-14] MEDS: IPRATROPIUM BROMIDE NASAL SPRAY 0.06% 15ML SCH ×2 (08:06→20:29)
[2020-02-14] MEDS: ROSUVASTATIN CALCIUM 20 MG TAB PO SCH (08:06)
[2020-02-14] MEDS: lisinopril 40 MG TAB PO SCH (08:06)
[2020-02-14] MEDS: DULoxetine HCL 30 MG CAP PO SCH (08:06)
[2020-02-14] MEDS: FUROSEMIDE 20 MG TAB PO SCH (08:06)
[2020-02-14] MEDS: PANTOprazole 40 MG TAB PO SCH ×2 (08:06→20:30)
[2020-02-14] MEDS ORDERED: SODIUM CHLORIDE 0.9% 250 ML IV PRN (08:45)
--- NOTE | 2020-02-14 12:38 | Anesthesiology Progress Note ---
Date of Service February 14, 2020 Anesthesia Post Procedure Vital Signs Vital Signs: Temp Pulse Pulse Resp BP BP BP 02/14/20 11:50 36.8 C 72 18 135/57 L 02/14/20 10:50 36.4 C L 71 16 120/72 02/14/20 10:20 36.6 C 65 16 125/72 02/14/20 10:05 37.3 C 67 16 115/69 02/14/20 09:59 36.6 C 62 16 128/56 L 02/14/20 09:45 36.5 C 72 16 128/69 02/14/20 08:00 37.2 C 54 L 18 113/48 L 02/13/20 23:00 36.9 C 61 18 144/67 H 02/13/20 18:48 37.1 C 106 H 18 130/70 02/13/20 15:00 36.9 C 57 L 18 161/63 H 02/13/20 14:36 56 L 16 169/76 H 02/13/20 14:21 62 16 142/60 H 02/13/20 14:08 78 16 116/51 L 02/13/20 13:28 37.1 C 67 18 181/69 H Pulse Ox 02/14/20 11:50 02/14/20 10:50 02/14/20 10:20 94 02/14/20 10:05 93 02/14/20 09:59 93 02/14/20 09:45 02/14/20 08:00 93 02/13/20 23:00 93 02/13/20 18:48 93 02/13/20 15:00 92 02/13/20 14:36 90 02/13/20 14:21 92 02/13/20 14:08 99 02/13/20 13:28 92 Pain Intensity Knee: Pain Intensity: 5 Ankle: Pain Intensity: 5 Wrist: Pain Intensity: 5 Transfer of Care Handoff Completed per policy Notes Mental Status: alert / awake / arousable and participated in evaluation Patient Amnestic to Procedure: Yes Nausea / Vomiting: adequately controlled Pain: adequately controlled Airway Patency, RR, SpO2: stable & adequate BP & HR: stable & adequate Hydration State: stable & adequate Anesthetic Complications: no major complications apparent and Pt Satisfied with anesthetic care
--- NOTE | 2020-02-14 15:54 | Hospitalist Progress Note ---
Date of Service February 14, 2020 Assessment & Plan (1) Symptomatic anemia: Patient is here with symptomatic anemia, hemoglobin down to 8.3 from over 9 two weeks ago Had similar presentation 2 weeks ago and was admitted and had PRBC transfusion and EGD which showed large hiatal hernia and there was a suspicion for Nathen ulcers as the cause of her GI blood loss No obvious bleeding here and hemoglobin was improved to 9.1 on its own However, on 02/13 hemoglobin down to 7.7 and patient feeling very fatigued. Transfused 1 unit PRBCs on 02/13. Colonoscopy on 02/12 only shows polyps which were biopsied but no acute bleeding GI suspects probably slow blood loss from Nathen ulcers, but if not responding to treatment with PPI and Carafate, consider outpatient capsule video endoscopy Follow CBC now and again in the morning -Continue iron supplementation and increase to 3 times daily (2) GERD (gastroesophageal reflux disease): Continue pantoprazole but increase to twice daily from home dose of once daily -Continue home Carafate 1 g 4 times daily (3) History of CVA (cerebrovascular accident): Continue to hold Plavix for chronic GI bleeding Continue good blood pressure control, rosuvastatin (4) Stage 3 chronic kidney disease: Creatinine fairly stable from previous at 1.30 -Avoid nephrotoxins -renally dose meds when appropriate -follow BMP (5) Hyperthyroidism: TSH was checked during her last admission and felt to be in normal range Continue home methimazole (6) Weakness: Daughter reports patient was very weak prior to admission and remains that way here Request PT/OT evaluations and daughter is requesting SNF placement at [facility] if possible-they could not perform evaluations today due to blood transfusion She could barely get her to stand and walk (7) LBBB (left bundle branch block): Chronic (8) GI bleed: As above Appreciate GI consultation (9) Obstructive sleep apnea: Has CPAP at home but noncompliant (10) Dementia: Mild to moderate Continue home memantine, donepezil Supportive care (11) Coronary artery disease: With a history of nonobstructive CAD on cardiac catheterization in 2012- proximal LAD 40% stenosis Continue amlodipine, lisinopril, and metoprolol Hold home Plavix for GI bleed Continue home furosemide Feeling very fatigued today and hemoglobin low, check ECG. Also noted to have some irregular rhythm on auscultation-question if is in A. fib (12) HTN (hypertension): Blood pressures are controlled to mildly elevated Continue home lisinopril, metoprolol and Lasix (13) Hyperlipemia: Continue statin (14) Arthritis: PT/OT consultations (15) Depression: Stable -Continue home duloxetine (16) DVT prophylaxis: SCDs Continued stay PT/OT consults planned for tomorrow as she was getting blood transfusion today; possible SNF placement at [facility] Admission and Anticipated Discharge Date Admission Date: February 12, 2020 Subjective Patient feeling very fatigued today. Blood count dropped down to 7.7. She has not had any melena or hematochezia that she knows of. No bowel movement today. Denies nausea or vomiting. She is tolerating p.o. . Denies chest pain. Has some mild shortness of breath remains on 2 L nasal cannula. No abdominal pain. Review of Systems Review of Systems: All systems reviewed & are unremarkable except as noted in HPI & below Physical Exam Constitutional: WD/WN, vitals as above Eyes: + anicteric sclerae Neck: trachea midline, no thyromegaly Respiratory: normal respiratory effort, lungs clear to auscultation Cardiovascular: Rate/Rhythm: regular rate and + irregularly irregular Heart Sounds: no murmur Extremities: + edema (Trace pitting edema right greater than left legs) Chest (Breasts): Chest: normal inspection of chest Gastrointestinal (Abdomen): normal bowel sounds, soft, nontender, no hepatosplenomegaly Musculoskeletal: Extremities: extremities normal to inspection; no cyanosis and no clubbing Skin: no rashes, warm and dry Neurologic: moves all extremities and awake; no focal motor deficits Psychiatric: Orientation: alert, oriented to person, oriented to place and cooperative Speech: normal rate/rhythm/volume of speech Affect: euthymic affect Results & Data Results & Data ([facility]) Vital Signs (Past 12 Hours) Vital Signs Temp Pulse Pulse Resp BP BP Pulse Ox 02/14/20 11:50 36.8 C 72 18 135/57 L 02/14/20 10:50 36.4 C L 71 16 120/72 02/14/20 10:20 36.6 C 65 16 125/72 94 02/14/20 10:05 37.3 C 67 16 115/69 93 02/14/20 09:59 36.6 C 62 16 128/56 L 93 02/14/20 09:45 36.5 C 72 16 128/69 02/14/20 08:00 37.2 C 54 L 18 113/48 L 93 Laboratory Results 02/14/20 02/14/20 02/12/20 Range/Units 05:45 05:45 12:27 WBC 9.34 (4.8-10.8) K/uL RBC 2.50 L (4.2-5.4) M/uL Hgb 7.7 L (12.0-16.0) g/dL Hct 24.3 L (37-47) % MCV 97.2 (80-100) fL MCH 30.8 (25-34) pg MCHC 31.7 L (32-36) g/dL RDW Std Deviation 55.7 H (36.4-46.3) fL RDW Coeff of Corey 16.2 H (11.5-14.5) % Plt Count 210 (130-400) K/uL MPV 11.1 H (7.4-10.4) fL Immature Gran % (Auto) 0.2 % Neut % (Auto) 74.8 % Lymph % (Auto) 11.2 % Gove % (Auto) 11.0 % Eos % (Auto) 2.6 % Baso % (Auto) 0.2 % Neut # (Auto) 6.98 H (1.4-6.5) K/uL Lymph # (Auto) 1.05 L (1.2-3.4) K/uL Gove # (Auto) 1.03 H (0.11-0.59) K/uL Eos # (Auto) 0.24 (0-0.5) K/uL Baso # (Auto) 0.02 (0-0.2) K/uL Immature Gran # (Auto) 0.02 (0.00-0.02) K/uL Hypersegmented Neuts 1+ Sodium 139 (136-145) mmol/L Potassium 4.0 (3.5-5.1) mmol/L Chloride 109 H (98-107) mmol/L Carbon Dioxide 24 (21-32) mmol/L Anion Gap 6.0 (3-11) BUN 13 (7-18) mg/dl Creatinine 1.30 H (0.6-1.2) mg/dl Est Cr Clr Drug Dosing 25.1 ml/min Est GFR ( Amer) 42.7 Est GFR (Non-Af Amer) 36.9 BUN/Creatinine Ratio 9.9 L (10-20) Glucose 86 (70-99) mg/dl Calcium 8.4 L (8.5-10.1) mg/dl Blood Type A Positive Antibody Screen NEGATIVE Crossmatch See Detail PG Care Time/CCT Total # of Minutes Spent Total Time Spent with Patient: Total time spent is greater than 50% in coordination of care (as documented) at patient's floor/unit and/or counseling patient: Coding Level of Care Code 55034 Subseq Hosp Care Lvl 3 Diagnoses Symptomatic anemia D64.9 GERD (gastroesophageal reflux disease) K21.9 History of CVA (cerebrovascular accident) Z86.73 Stage 3 chronic kidney disease N18.3 Hyperthyroidism E05.90 Weakness R53.1 LBBB (left bundle branch block) I44.7 GI bleed K92.1 GI bleed type/associated pathology: melena Obstructive sleep apnea G47.33 Dementia F03.90 Coronary artery disease I25.10 HTN (hypertension) I10 Hyperlipemia E78.5 Arthritis M19.90 Depression F32.9 DVT prophylaxis Z29.9 (1) GI bleed GI bleed type/associated pathology: melena Qualified Code(s): K92.1 - Melena
[2020-02-14 16:27] LABS: Hematocrit (blood only) 29.3 % (37-47); Hemoglobin 9.7 g/dL (12.0-16.0); Mean Corpuscular Hemoglobin 31.1 pg (25-34); Mean Corpuscular Hgb Conc 33.1 g/dL (32-36); Mean Corpuscular Volume 93.9 fL (80-100); Platelet Count 196 K/uL (130-400); RDW Coefficient of Variation 16.3 % (11.5-14.5); RDW Standard Deviation 55.1 fL (36.4-46.3); Red Blood Count 3.12 M/uL (4.2-5.4)
[2020-02-14] MEDS: amLODIPine BESYLATE 5 MG TAB PO SCH (20:31)
[2020-02-14] MEDS: METOPROLOL SUCC 50MG EXT REL TAB PO SCH (20:32)
[2020-02-14] MEDS ORDERED: COUGH DROP (SUGAR FREE) LOZ 24 LOZ/1 BOX BUCCAL PRN (22:30)
[2020-02-14] MEDS ORDERED: COUGH DROP (SUGAR FREE) LOZ 24 LOZ/1 BOX BUCCAL ONE (22:31)
[2020-02-15 07:04] LABS: Basophils # (auto) 0.02 K/uL (0-0.2); Basophils % (auto) 0.2 %; Eosinophils # (auto) 0.26 K/uL (0-0.5); Eosinophils % (auto) 3.1 %; Hematocrit (blood only) 28.9 % (37-47); Hemoglobin 9.6 g/dL (12.0-16.0); Immature Granulocytes # (auto) 0.02 K/uL (0.00-0.02); Immature Granulocytes % (auto) 0.2 %; Lymphocytes # (auto) 1.19 K/uL (1.2-3.4); Lymphocytes % (auto) 14.1 %; Mean Corpuscular Hemoglobin 31.3 pg (25-34); Mean Corpuscular Hgb Conc 33.2 g/dL (32-36); Mean Corpuscular Volume 94.1 fL (80-100); Mean Platelet Volume 11.1 fL (7.4-10.4); Monocytes # (auto) 0.97 K/uL (0.11-0.59); Monocytes % (auto) 11.5 %; Neutrophils # (auto) 5.95 K/uL (1.4-6.5); Neutrophils % (auto) 70.9 %; Platelet Count 199 K/uL (130-400); RDW Coefficient of Variation 16.2 % (11.5-14.5); RDW Standard Deviation 55.2 fL (36.4-46.3); Red Blood Count 3.07 M/uL (4.2-5.4); White Blood Count 8.41 K/uL (4.8-10.8)
[2020-02-15 07:29] LABS: BUN Creatinine Ratio 10.6 (10-20); Calcium 8.4 mg/dl (8.5-10.1); Creatinine Clr Calc Pharmacy 23.3 ml/min; Est GFR (African American) 39.1; Est GFR (Non-African American) 33.7; Potassium 3.7 mmol/L (3.5-5.1)
[2020-02-15] MEDS: DULoxetine HCL 30 MG CAP PO SCH (08:17)
[2020-02-15] MEDS: SUCRALFATE 1 GM TAB PO SCH ×4 (08:17→20:33)
[2020-02-15] MEDS: IPRATROPIUM BROMIDE NASAL SPRAY 0.06% 15ML SCH ×2 (08:17→20:31)
[2020-02-15] MEDS: PANTOprazole 40 MG TAB PO SCH ×2 (08:17→20:33)
[2020-02-15] MEDS: methIMAzole 5 MG TABLET PO SCH (08:17)
[2020-02-15] MEDS: MEMANTINE HCL 10 MG TAB PO SCH (08:17)
[2020-02-15] MEDS: FERROUS SULFATE 325 MG TAB PO SCH ×3 (08:17→17:01)
[2020-02-15] MEDS: DONEPEZIL HCL 10 MG TAB PO SCH (08:17)
[2020-02-15] MEDS: ROSUVASTATIN CALCIUM 20 MG TAB PO SCH (08:17)
[2020-02-15] MEDS: lisinopril 40 MG TAB PO SCH (08:17)
[2020-02-15] MEDS: FUROSEMIDE 20 MG TAB PO SCH (08:17)
--- NOTE | 2020-02-15 17:26 | Hospitalist Progress Note ---
Date of Service February 15, 2020 Assessment & Plan (1) Symptomatic anemia: Patient is here with symptomatic anemia, hemoglobin down to 8.3 from over 9 two weeks ago Had similar presentation 2 weeks ago and was admitted and had PRBC transfusion and EGD which showed large hiatal hernia and there was a suspicion for Nathen ulcers as the cause of her GI blood loss No obvious bleeding here and hemoglobin was improved to 9.1 on its own initially However, on 02/13 hemoglobin down to 7.7 and patient feeling very fatigued. Transfused 1 unit PRBCs on 02/13. Hemoglobin now up to 9.6 and no evidence of bleeding since admission Colonoscopy on 02/12 only shows polyps which were biopsied but no acute bleeding GI suspects probably slow blood loss from Nathen ulcers, but if not responding to treatment with PPI and Carafate, consider outpatient capsule video endoscopy- this would need to be arranged by [facility] after discharge Follow CBC again in the morning -Continue iron supplementation and increased to 3 times daily (2) GERD (gastroesophageal reflux disease): Continue pantoprazole but increase to twice daily from home dose of once daily -Continue home Carafate 1 g 4 times daily (3) History of CVA (cerebrovascular accident): Continue to hold Plavix after discharge for chronic GI bleeding Continue good blood pressure control, rosuvastatin (4) Stage 3 chronic kidney disease: Creatinine fairly stable from previous at 1.40 -Avoid nephrotoxins -renally dose meds when appropriate -follow BMP (5) Hyperthyroidism: TSH was checked during her last admission and felt to be in normal range Continue home methimazole (6) Weakness: Daughter reports patient was very weak prior to admission and remains that way here Request PT/OT evaluations and daughter is requesting SNF placement at [facility] if possible-they could not perform evaluations today due to blood transfusion She could barely get her to stand and walk (7) LBBB (left bundle branch block): Chronic (8) GI bleed: As above Appreciate GI consultation (9) Obstructive sleep apnea: Has CPAP at home but noncompliant (10) Dementia: Mild to moderate Continue home memantine, donepezil Supportive care (11) Coronary artery disease: With a history of nonobstructive CAD on cardiac catheterization in 2013- proximal LAD 40% stenosis Continue amlodipine, lisinopril, and metoprolol Hold home Plavix for GI bleed Continue home furosemide Feeling very fatigued on 02/13 and hemoglobin low, checked ECG which did not show any ischemic changes (12) HTN (hypertension): Blood pressures are controlled to mildly elevated Continue home lisinopril, metoprolol and Lasix (13) Hyperlipemia: Continue statin (14) Arthritis: PT/OT consultations (15) Depression: Stable -Continue home duloxetine (16) DVT prophylaxis: SCDs Continued stay, awaiting placement PT/OT consults appreciated-recommend SNF. Family/daughter requests SNF placement at [facility]. Case management consult appreciated Hopeful for discharge to [facility] on Sunday Admission and Anticipated Discharge Date Admission Date: February 12, 2020 Subjective Patient reports some pain in her knees and ankles. She has not been getting her usual Voltaren gel from home. She is disappointed in how weak she is and she was only able to walk 12 to 18 feet with physical therapy today. Denies fatigue. Denies chest pain or shortness of breath. No abdominal pain. No bowel movement today. She is eating well. Review of Systems Review of Systems: All systems reviewed & are unremarkable except as noted in HPI & below Physical Exam Constitutional: WD/WN, vitals as above Eyes: + anicteric sclerae Neck: trachea midline, no thyromegaly Respiratory: normal respiratory effort, lungs clear to auscultation Cardiovascular: Rate/Rhythm: regular rate and regular rhythm Heart Sounds: no murmur Extremities: + edema (Trace pitting edema right greater than left legs) Chest (Breasts): Chest: normal inspection of chest Gastrointestinal (Abdomen): normal bowel sounds, soft, nontender, no hepatosplenomegaly Musculoskeletal: Extremities: extremities normal to inspection; no cyanosis and no clubbing Skin: no rashes, warm and dry Neurologic: moves all extremities and awake; no focal motor deficits Psychiatric: Orientation: alert, oriented to person, oriented to place and cooperative Speech: normal rate/rhythm/volume of speech Affect: euthymic affect Results & Data Results & Data ([facility]) Vital Signs (Past 12 Hours) Vital Signs Temp Pulse Resp BP Pulse Ox 02/15/20 15:00 36.7 C 65 18 138/75 97 Laboratory Results 02/15/20 02/15/20 Range/Units 06:35 06:35 WBC 8.41 (4.8-10.8) K/uL RBC 3.07 L (4.2-5.4) M/uL Hgb 9.6 L (12.0-16.0) g/dL Hct 28.9 L (37-47) % MCV 94.1 (80-100) fL MCH 31.3 (25-34) pg MCHC 33.2 (32-36) g/dL RDW Std Deviation 55.2 H (36.4-46.3) fL RDW Coeff of Corey 16.2 H (11.5-14.5) % Plt Count 199 (130-400) K/uL MPV 11.1 H (7.4-10.4) fL Immature Gran % (Auto) 0.2 % Neut % (Auto) 70.9 % Lymph % (Auto) 14.1 % Crane % (Auto) 11.5 % Eos % (Auto) 3.1 % Baso % (Auto) 0.2 % Neut # (Auto) 5.95 (1.4-6.5) K/uL Lymph # (Auto) 1.19 L (1.2-3.4) K/uL Crane # (Auto) 0.97 H (0.11-0.59) K/uL Eos # (Auto) 0.26 (0-0.5) K/uL Baso # (Auto) 0.02 (0-0.2) K/uL Immature Gran # (Auto) 0.02 (0.00-0.02) K/uL Sodium 139 (136-145) mmol/L Potassium 3.7 (3.5-5.1) mmol/L Chloride 109 H (98-107) mmol/L Carbon Dioxide 25 (21-32) mmol/L Anion Gap 6.0 (3-11) BUN 15 (7-18) mg/dl Creatinine 1.40 H (0.6-1.2) mg/dl Est Cr Clr Drug Dosing 23.3 ml/min Est GFR ( Amer) 39.1 Est GFR (Non-Af Amer) 33.7 BUN/Creatinine Ratio 10.6 (10-20) Glucose 87 (70-99) mg/dl Calcium 8.4 L (8.5-10.1) mg/dl PG Care Time/CCT Total # of Minutes Spent Total Time Spent with Patient: Total time spent is greater than 50% in coordination of care (as documented) at patient's floor/unit and/or counseling patient: Coding Level of Care Code 78957 Subseq Hosp Care Lvl 2 Diagnoses Symptomatic anemia D64.9 GERD (gastroesophageal reflux disease) K21.9 History of CVA (cerebrovascular accident) Z86.73 Stage 3 chronic kidney disease N18.3 Hyperthyroidism E05.90 Weakness R53.1 LBBB (left bundle branch block) I44.7 GI bleed K92.1 GI bleed type/associated pathology: melena Obstructive sleep apnea G47.33 Dementia F03.90 Coronary artery disease I25.10 HTN (hypertension) I10 Hyperlipemia E78.5 Arthritis M19.90 Depression F32.9 DVT prophylaxis Z29.9 (1) GI bleed GI bleed type/associated pathology: melena Qualified Code(s): K92.1 - Melena
[2020-02-15] MEDS: DICLOFENAC SOD 1% GEL 100 GM TUBE EXT SCH (18:42)
[2020-02-15] MEDS: METOPROLOL SUCC 50MG EXT REL TAB PO SCH (20:33)
[2020-02-15] MEDS: amLODIPine BESYLATE 5 MG TAB PO SCH (20:34)
--- NOTE | 2020-02-16 05:50 | Electrocardiogram Report ---
Test Reason : Blood Pressure : / mmHG Vent. Rate : 076 BPM Atrial Rate : 076 BPM P-R Int : 124 ms QRS Dur : 120 ms QT Int : 456 ms P-R-T Axes : 075 -25 078 degrees QTc Int : 513 ms Sinus rhythm with frequent Premature ventricular complexes Possible Left atrial enlargement Low voltage QRS Left bundle branch block Abnormal ECG When compared with ECG of 12-FEB-2020 10:50, No significant change was found Confirmed by Marv Georges ([id number]) on 02/16/2020 5:49:47 AM Referred By: REFERRED SELF Confirmed By:Marv Georges
[2020-02-16 06:07] LABS: Basophils # (auto) 0.01 K/uL (0-0.2); Basophils % (auto) 0.1 %; Eosinophils # (auto) 0.33 K/uL (0-0.5); Eosinophils % (auto) 4.4 %; Hematocrit (blood only) 30.2 % (37-47); Hemoglobin 9.7 g/dL (12.0-16.0); Immature Granulocytes # (auto) 0.01 K/uL (0.00-0.02); Immature Granulocytes % (auto) 0.1 %; Lymphocytes % (auto) 14.6 %; Mean Corpuscular Hemoglobin 30.6 pg (25-34); Mean Corpuscular Hgb Conc 32.1 g/dL (32-36); Mean Corpuscular Volume 95.3 fL (80-100); Mean Platelet Volume 11.1 fL (7.4-10.4); Monocytes % (auto) 11.9 %; Neutrophils # (auto) 5.19 K/uL (1.4-6.5); Neutrophils % (auto) 68.9 %; Platelet Count 225 K/uL (130-400); RDW Coefficient of Variation 15.6 % (11.5-14.5); RDW Standard Deviation 53.9 fL (36.4-46.3); Red Blood Count 3.17 M/uL (4.2-5.4); White Blood Count 7.54 K/uL (4.8-10.8)
[2020-02-16 06:46] LABS: BUN Creatinine Ratio 14.2 (10-20); Calcium 8.2 mg/dl (8.5-10.1); Creatinine Clr Calc Pharmacy 25.1 ml/min; Est GFR (African American) 42.7; Est GFR (Non-African American) 36.9; Potassium 3.9 mmol/L (3.5-5.1)
[2020-02-16] MEDS: SUCRALFATE 1 GM TAB PO SCH ×4 (08:54→20:23)
[2020-02-16] MEDS: FERROUS SULFATE 325 MG TAB PO SCH ×3 (08:54→16:49)
[2020-02-16] MEDS: FUROSEMIDE 20 MG TAB PO SCH (08:54)
[2020-02-16] MEDS: IPRATROPIUM BROMIDE NASAL SPRAY 0.06% 15ML SCH ×2 (08:54→20:23)
[2020-02-16] MEDS: PANTOprazole 40 MG TAB PO SCH ×2 (08:55→20:25)
[2020-02-16] MEDS: CALCITRIOL 0.25 MCG CAPSULE PO SCH (08:55)
[2020-02-16] MEDS: DULoxetine HCL 30 MG CAP PO SCH (08:55)
[2020-02-16] MEDS: methIMAzole 5 MG TABLET PO SCH (08:55)
[2020-02-16] MEDS: DONEPEZIL HCL 10 MG TAB PO SCH (08:56)
[2020-02-16] MEDS: lisinopril 40 MG TAB PO SCH (08:56)
[2020-02-16] MEDS: ROSUVASTATIN CALCIUM 20 MG TAB PO SCH (08:56)
[2020-02-16] MEDS: MEMANTINE HCL 10 MG TAB PO SCH (08:57)
[2020-02-16] MEDS: DICLOFENAC SOD 1% GEL 100 GM TUBE EXT SCH ×3 (08:57→20:25)
--- NOTE | 2020-02-16 13:22 | Hospitalist Progress Note ---
Date of Service February 16, 2020 Assessment & Plan (1) Symptomatic anemia: Patient is here with symptomatic anemia, hemoglobin down to 8.3 from over 9 two weeks ago Had similar presentation 2 weeks ago and was admitted and had PRBC transfusion and EGD which showed large hiatal hernia and there was a suspicion for Nathen ulcers as the cause of her GI blood loss No obvious bleeding here and hemoglobin was improved to 9.1 on its own initially However, on 02/13 hemoglobin down to 7.7 and patient feeling very fatigued. Transfused 1 unit PRBCs on 02/13. Hemoglobin now up to 9.7 on 02/15 and no evidence of bleeding since admission Colonoscopy on 02/12 only shows polyps which were biopsied but no acute bleeding GI suspects probably slow blood loss from Nathne ulcers, but if not responding to treatment with PPI and Carafate, consider outpatient capsule video endoscopy-this would need to be arranged by [facility] GI after discharge Follow CBC again in the morning -Continue iron supplementation and increased to 3 times daily (2) GERD (gastroesophageal reflux disease): Continue pantoprazole but increase to twice daily from home dose of once daily -Continue home Carafate 1 g 4 times daily (3) History of CVA (cerebrovascular accident): Continue to hold Plavix after discharge for chronic GI bleeding Continue good blood pressure control, rosuvastatin (4) Stage 3 chronic kidney disease: Creatinine fairly stable -Avoid nephrotoxins -renally dose meds when appropriate -follow BMP (5) Hyperthyroidism: TSH was checked during her last admission and felt to be in normal range Continue home methimazole (6) Weakness: Daughter reports patient was very weak prior to admission and remains that way here Request PT/OT evaluations and daughter is requesting SNF placement at [facility] if possible-they could not perform evaluations today due to blood transfusion She could barely get her to stand and walk plan for [facility] on Sunday once they have a bed available (7) LBBB (left bundle branch block): Chronic (8) GI bleed: As above Appreciate GI consultation (9) Obstructive sleep apnea: Has CPAP at home but noncompliant (10) Dementia: Mild to moderate Continue home memantine, donepezil Supportive care (11) Coronary artery disease: With a history of nonobstructive CAD on cardiac catheterization in 2012- proximal LAD 40% stenosis Continue amlodipine, lisinopril, and metoprolol Hold home Plavix for GI bleed Continue home furosemide Feeling very fatigued on 02/13 and hemoglobin low, checked ECG which did not show any ischemic changes (12) HTN (hypertension): Blood pressures are controlled to mildly elevated Continue home lisinopril, metoprolol and Lasix (13) Hyperlipemia: Continue statin (14) Arthritis: PT/OT consultations (15) Depression: Stable -Continue home duloxetine (16) DVT prophylaxis: SCDs Continued stay, awaiting placement PT/OT consults appreciated-recommend SNF. Family/daughter requests SNF placement at [facility]. Case management consult appreciated Hopeful for discharge to [facility] on Sun Admission and Anticipated Discharge Date Admission Date: February 12, 2020 Subjective patient doing well, no further GI bleeding, Hb stable eating well, no fever/chills, no dyspnea, no chest pain discussed with CHET, she can go to [facility] but no beds until Sunday will down grade to medical status Review of Systems Review of Systems: All systems reviewed & are unremarkable except as noted in Subjective Physical Exam Constitutional: WD/WN, vitals as above Eyes: PERRL, conjunctivae normal, anicteric sclerae Neck: trachea midline, no thyromegaly Respiratory: normal respiratory effort, lungs clear to auscultation Cardiovascular: RRR, no murmur, no edema Gastrointestinal (Abdomen): normal bowel sounds, soft, nontender, no hepatosplenomegaly Musculoskeletal: no cyanosis or clubbing, extremities motor strength 5/5 Skin: no rashes, warm and dry Psychiatric: A+Ox3, euthymic affect Lymphatic: no cervical or axillary lymphadenopathy Results & Data Results & Data ([facility]) Vital Signs (Past 12 Hours) Vital Signs Temp Pulse Resp BP Pulse Ox 02/16/20 13:13 93 02/16/20 07:05 36.7 C 57 L 18 149/69 H 95 Laboratory Results Laboratory Results - last 24 hr 02/16/20 02/16/20 05:36 05:36 WBC 7.54 RBC 3.17 L Hgb 9.7 L Hct 30.2 L MCV 95.3 MCH 30.6 MCHC 32.1 RDW Std Deviation 53.9 H RDW Coeff of Corey 15.6 H Plt Count 225 MPV 11.1 H Immature Gran % (Auto) 0.1 Neut % (Auto) 68.9 Lymph % (Auto) 14.6 Amelia % (Auto) 11.9 Eos % (Auto) 4.4 Baso % (Auto) 0.1 Neut # (Auto) 5.19 Lymph # (Auto) 1.10 L Amelia # (Auto) 0.90 H Eos # (Auto) 0.33 Baso # (Auto) 0.01 Immature Gran # (Auto) 0.01 Sodium 138 Potassium 3.9 Chloride 108 H Carbon Dioxide 26 Anion Gap 4.0 BUN 19 H Creatinine 1.30 H Est Cr Clr Drug Dosing 25.1 Est GFR ( Amer) 42.7 Est GFR (Non-Af Amer) 36.9 BUN/Creatinine Ratio 14.2 Glucose 89 Calcium 8.2 L Medications Administered Current Inpatient Medications Acetaminophen (Acetaminophen 325 Mg Tab) 650 mg PO Q4H PRN PRN Reason: Pain or Fever Stop: 03/13/20 18:22 Last Admin: 02/15/20 08:23 Dose: 650 mg Documented by: Amlodipine Besylate (Amlodipine Besylate 5 Mg Tab) 5 mg PO HS [facility] Stop: 03/13/20 20:59 Last Admin: 02/15/20 20:34 Dose: 5 mg Documented by: Calcitriol (Calcitriol 0.25 Mcg Capsule) 0.25 mcg PO MoWeFr@0900 [facility] Stop: 03/14/20 08:59 Last Admin: 02/16/20 08:55 Dose: 0.25 mcg Documented by: Diclofenac Sodium (Diclofenac Sod 1% Gel 100 Gm Tube) 2 gm EXT TID VONNIE Stop: 03/16/20 17:29 Last Admin: 02/16/20 13:19 Dose: Not Given Documented by: Donepezil HCl (Donepezil Hcl 10 Mg Tab) 10 mg PO QAM [facility] Stop: 03/14/20 08:59 Last Admin: 02/16/20 08:56 Dose: 10 mg Documented by: Duloxetine HCl (Duloxetine Hcl 30 Mg Cap) 30 mg PO DAILY VONNIE Stop: 03/14/20 08:59 Last Admin: 02/16/20 08:55 Dose: 30 mg Documented by: Ferrous Sulfate (Ferrous Sulfate 325 Mg Tab) 325 mg PO TIDM [facility] Stop: 03/14/20 16:59 Last Admin: 02/16/20 12:01 Dose: 325 mg Documented by: Furosemide (Furosemide 20 Mg Tab) 20 mg PO QAM [facility] Stop: 03/15/20 08:59 Last Admin: 02/16/20 08:54 Dose: 20 mg Documented by: Ipratropium [place] (Ipratropium [place] Nasal [place] 0.06% 15ml) 2 sprays NA BID [facility] Stop: 03/13/20 20:59 Last Admin: 02/16/20 08:54 Dose: 2 sprays Documented by: Lisinopril (Lisinopril 40 Mg Tab) 40 mg PO QAM [facility] Stop: 03/14/20 08:59 Last Admin: 02/16/20 08:56 Dose: 40 mg Documented by: Memantine (Memantine Hcl 10 Mg Tab) 20 mg PO QAM [facility] Stop: 03/14/20 08:59 Last Admin: 02/16/20 08:57 Dose: 20 mg Documented by: Menthol (Cough Drop (Sugar Free) Grayson 24 Grayson/1 Box) 1 grayson BUCCAL PRN PRN PRN Reason: nursing decision Stop: 03/15/20 22:29 Methimazole (Methimazole 5 Mg Tablet) 5 mg PO DAILY [facility] Stop: 03/14/20 08:59 Last Admin: 02/16/20 08:55 Dose: 5 mg Documented by: Metoprolol Succinate (Metoprolol Succ 50mg Ext Rel Tab) 100 mg PO HS [facility] Stop: 03/13/20 20:59 Last Admin: 02/15/20 20:33 Dose: 100 mg Documented by: Miscellaneous (*Ketotifen*Order Awaiting Action) 1 ea N/A QS [facility] Stop: 03/14/20 00:00 Last Admin: 02/16/20 08:56 Dose: Not Given Documented by: Ondansetron HCl (Ondansetron Inj 2 Mg/Ml 2 Ml Vial) 4 mg IV Q6H PRN PRN Reason: Nausea Stop: 03/13/20 18:22 Pantoprazole Sodium (Pantoprazole 40 Mg Tab) 40 mg PO BID [facility] Stop: 03/14/20 20:59 Last Admin: 02/16/20 08:55 Dose: 40 mg Documented by: Rosuvastatin Calcium (Rosuvastatin Calcium 20 Mg Tab) 20 mg PO DAILY [facility] Stop: 03/15/20 08:59 Last Admin: 02/16/20 08:56 Dose: 20 mg Documented by: Sucralfate (Sucralfate 1 Gm Tab) 1 gm PO ACHS VONNIE Stop: 03/14/20 16:29 Last Admin: 02/16/20 12:01 Dose: 1 gm Documented by: PG Care Time/CCT Total # of Minutes Spent Total Time Spent with Patient: Total time spent is greater than 50% in coordination of care (as documented) at patient's floor/unit and/or counseling patient: Coding Level of Care Code 50245 Subseq Hosp Care Lvl 2 Diagnoses Symptomatic anemia D64.9 GERD (gastroesophageal reflux disease) K21.9 History of CVA (cerebrovascular accident) Z86.73 Stage 3 chronic kidney disease N18.3 Hyperthyroidism E05.90 Weakness R53.1 LBBB (left bundle branch block) I44.7 GI bleed K92.1 GI bleed type/associated pathology: melena Obstructive sleep apnea G47.33 Dementia F03.90 Coronary artery disease I25.10 HTN (hypertension) I10 Hyperlipemia E78.5 Arthritis M19.90 Depression F32.9 DVT prophylaxis Z29.9 (1) GI bleed GI bleed type/associated pathology: melena Qualified Code(s): K92.1 - Melena
[2020-02-16] MEDS: amLODIPine BESYLATE 5 MG TAB PO SCH (20:23)
[2020-02-16] MEDS: METOPROLOL SUCC 50MG EXT REL TAB PO SCH (20:25)
[2020-02-17] MEDS: MEMANTINE HCL 10 MG TAB PO SCH (08:15)
[2020-02-17] MEDS: FUROSEMIDE 20 MG TAB PO SCH (08:16)
[2020-02-17] MEDS: DONEPEZIL HCL 10 MG TAB PO SCH (08:16)
[2020-02-17] MEDS: lisinopril 40 MG TAB PO SCH (08:16)
[2020-02-17] MEDS: ROSUVASTATIN CALCIUM 20 MG TAB PO SCH (08:16)
[2020-02-17] MEDS: DULoxetine HCL 30 MG CAP PO SCH (08:16)
[2020-02-17] MEDS: FERROUS SULFATE 325 MG TAB PO SCH ×3 (08:17→16:40)
[2020-02-17] MEDS: SUCRALFATE 1 GM TAB PO SCH ×2 (08:17→12:34)
[2020-02-17] MEDS: PANTOprazole 40 MG TAB PO SCH (08:17)
[2020-02-17] MEDS: IPRATROPIUM BROMIDE NASAL SPRAY 0.06% 15ML SCH (08:18)
[2020-02-17] MEDS: DICLOFENAC SOD 1% GEL 100 GM TUBE EXT SCH ×2 (08:20→14:01)
[2020-02-17] MEDS: methIMAzole 5 MG TABLET PO SCH (10:00)
--- NOTE | 2020-02-17 15:48 | Discharge Summary ---
Date of Service February 17, 2020 Admission HPI Per Admitting Provider Chief Complaint: The patient presents to the emergency department with worsening generalized fatigue Primary Care Provider: Bethany Hardin DO The patient is a 89-year-old female with a past medical history including multinodular goiter, GERD, obstructive sleep apnea, irritable bowel syndrome, CVA, vitamin D deficiency, stage III chronic kidney disease, hyperthyroidism, post stroke gait disturbance, depression, dementia, CAD, hypertension, osteoarthritis and hyperlipidemia. The patient has been noted by her son to have gradually worsening fatigue over the past few months, in particular over the past few weeks. In the emergency department, work-up included laboratories which showed a hemoglobin of 8.6, decreasing significantly from previous most recent of 12.5. Upon questioning, patient reports her stools are always dark and loose, but she is also noted to take iron on a daily basis. 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 hiatal hernia Discharge Exam Constitutional WD/WN, vitals as above Eyes PERRL, conjunctivae normal, anicteric sclerae Neck trachea midline, no thyromegaly Respiratory normal respiratory effort, lungs clear to auscultation Cardiovascular RRR, no murmur, no edema Gastrointestinal (Abdomen) normal bowel sounds, soft, nontender, no hepatosplenomegaly Musculoskeletal no cyanosis or clubbing, extremities motor strength 5/5 Skin no rashes, warm and dry Psychiatric A+Ox3, euthymic affect Lymphatic no cervical or axillary lymphadenopathy Discharge Data Allergies Allergy/AdvReac Type Severity Reaction Status Date / Time atorvastatin Allergy Unknown UNKOWN Verified 02/12/20 14:37 cephalexin [From Keflex] Allergy Unknown Unknown Unverified 02/12/20 14:37 oxaprozin [From Daypro] Allergy Unknown Unknown Unverified 02/12/20 14:37 paroxetine Allergy Unknown UNKNOWN Verified 02/12/20 14:37 propoxyphene Allergy Unknown DARVOCET Verified 02/12/20 14:37 codeine AdvReac Mild NAUSEA Verified 02/12/20 14:37 Sulfa (Sulfonamide AdvReac Mild NAUSEA Verified 02/12/20 14:37 Antibiotics) Consultations 02/12/20 14:16 ED Decision to Admit Stat 10/22/20 18:23 Consult Gastroenterology Routine 02/13/20 16:17 Consult Case Management - Discharge Planning Routine 02/15/20 17:07 Consult Case Management - Discharge Planning Routine Procedures Performed Operation Date: 02/13/20 15:30 Actual Procedures p Colonoscopy Polypectomy - [facility] Course (1) Symptomatic anemia: Patient is here with symptomatic anemia, hemoglobin down to 8.3 from over 9 two weeks ago Had similar presentation 2 weeks ago and was admitted and had PRBC transfusion and EGD which showed large hiatal hernia and there was a suspicion for Nathen ulcers as the cause of her GI blood loss No obvious bleeding here and hemoglobin was improved to 9.1 on its own initially However, on 02/13 hemoglobin down to 7.7 and patient feeling very fatigued. Transfused 1 unit PRBCs on 02/13. Hemoglobin now up to 9.7 on 02/15 and no evidence of bleeding since admission Colonoscopy on 02/12 only shows polyps which were biopsied but no acute bleeding GI suspects probably slow blood loss from Nathen ulcers, but if not responding to treatment with PPI and Carafate, consider outpatient capsule video endoscopy- this would need to be arranged by [facility] GI after discharge Follow CBC again in the morning -Continue iron supplementation and increased to 3 times daily (2) GERD (gastroesophageal reflux disease): Continue pantoprazole but increase to twice daily from home dose of once daily -Continue home Carafate 1 g 4 times daily (3) History of CVA (cerebrovascular accident): Continue to hold Plavix after discharge for chronic GI bleeding Continue good blood pressure control, rosuvastatin (4) Stage 3 chronic kidney disease: Creatinine fairly stable -Avoid nephrotoxins -renally dose meds when appropriate -follow BMP (5) Hyperthyroidism: TSH was checked during her last admission and felt to be in normal range Continue home methimazole (6) Weakness: Daughter reports patient was very weak prior to admission and remains that way here Request PT/OT evaluations and daughter is requesting SNF placement at [facility] if possible-they could not perform evaluations today due to blood transfusion She could barely get her to stand and walk plan for [facility] on Sunday once they have a bed available (7) LBBB (left bundle branch block): Chronic (8) GI bleed: As above Appreciate GI consultation (9) Obstructive sleep apnea: Has CPAP at home but noncompliant (10) Dementia: Mild to moderate Continue home memantine, donepezil Supportive care (11) Coronary artery disease: With a history of nonobstructive CAD on cardiac catheterization in 2013- proximal LAD 40% stenosis Continue amlodipine, lisinopril, and metoprolol Hold home Plavix for GI bleed Continue home furosemide Feeling very fatigued on 02/13 and hemoglobin low, checked ECG which did not show any ischemic changes (12) HTN (hypertension): Blood pressures are controlled to mildly elevated Continue home lisinopril, metoprolol and Lasix (13) Hyperlipemia: Continue statin (14) Arthritis: PT/OT consultations (15) Depression: Stable -Continue home duloxetine Total Time Total Time Spent Total Time Spent (In Minutes): 32 minutes Total Time Includes: Examination of the Patient, Discharge Planning and Medication Reconciliation Discharge Plan Discharge Items Patient Disposition: Transfer Inpatient Rehab Fac Reason For Visit: ANEMA, CONCERN FOR ACUTE BLOOD LOSS ANEMIA Discharge Diagnosis: Acute blood loss anemia Hiatal hernia, suspected Nathen ulcers Condition on Discharge: Good Activity: Resume your previous activity Non-emergency contact: Primary Care Provider Call non-emergency contact if: you have any medication questions and your symptoms worsen Follow-up/Referrals: Bethany Hardin DO [Primary Care Provider] - (one week after discharge from rehab) Diet: Regular Addtl Attending Provider Instructions: Medications: - PROTONIX: dose increased to 40mg twice a day from once a day, this is recommendation from GI - FERROUS SULFATE: increased from once a day to three times a day for iron deficiency Acute blood loss anemia, GI bleeding recent EGD with hiatal hernia, suspected Nathen ulcers, she was discharged o n Protonix daily and Carafate returned with repeat GI bleeding, she had colonoscopy that did not show any bleeding GI recommends increasing Protonix to BID continue carafate [facility] GI recommends consideration for capsule endoscopy, she should follow up with Dr. Zhong/Alyx in a few weeks Hemoglobin has been stable for days, no signs of bleeding Plavix has been held now due to repeat bleeding Pending Studies at Discharge: No Stand-Alone Forms: My [facility] Skilled Items Patient informed of condition?: Yes DNR: No Discharge Level of Care: Acute rehab Communicable Disease: No Discharge Prognosis: Stable Lines: None Urinary Catheter: No Medications and DC Order Prescriptions: New pantoprazole 40 mg Tablet,Delayed Release (Dr/Ec) 40 mg PO BID 30 Days Qty: 60 RF: 3 ferrous sulfate 325 mg (65 mg iron) Tablet,Delayed Release (Dr/Ec) 325 mg PO TIDM 30 Days Qty: 30 RF: 3 Continued ketotifen fumarate 0.025 % (0.035 %) drops 1 drp OP BID Qty: 10 RF: 11 rosuvastatin 20 mg tablet 20 mg PO DAILY Qty: 90 RF: 1 amlodipine 5 mg tablet 5 mg PO HS Qty: 90 RF: 2 methimazole 5 mg tablet 5 mg PO DAILY Qty: 90 RF: 1 metoprolol succinate 100 mg tablet extended release 24 hr 100 mg PO HS Qty: 90 RF: 1 duloxetine [Cymbalta] 30 mg capsule,delayed release(DR/EC) 30 mg PO DAILY Qty: 90 RF: 1 memantine [Namenda XR] 28 mg capsule,sprinkle,ER 24hr 28 mg PO QAM Qty: 90 RF: 1 calcitriol 0.25 mcg capsule 0.25 mcg PO 3XWK Qty: 60 RF: 3 furosemide 20 mg tablet 20 mg PO QAM Qty: 90 RF: 1 donepezil 10 mg tablet 10 mg PO QAM Qty: 90 RF: 1 cetirizine 10 mg tablet 10 mg PO DAILY PRN (Reason: Allergy Symptoms) RF: 0 lisinopril 40 mg tablet 40 mg PO QAM Qty: 90 RF: 3 (DME) CPAP Supplies Misc See Rx Instructions .ROUTE .MEDSUPPLY Qty: 1 RF: 0 ipratropium bromide 42 mcg (0.06 %) spray,non-aerosol 2 spray INTNAS BID Qty: 15 RF: 11 multivitamin Tablet 1 tab PO QAM RF: 0 cholecalciferol (vitamin D3) [Vitamin D3] 5,000 unit Tablet 5,000 unit PO QAM RF: 0 sucralfate 1 gram tablet 1 g PO ACHS 30 Days Qty: 120 RF: 0 tramadol 50 mg tablet 50 mg PO DAILY PRN (Reason: Pain) RF: 0 diclofenac sodium 1 % gel See Rx Instructions TOP TID PRN (Reason: Pain) RF: 0 Discontinued ferrous sulfate 325 mg (65 mg iron) tablet 325 mg PO DAILY Qty: 30 RF: 5 clopidogrel 75 mg tablet 75 mg PO QAM Qty: 90 RF: 1 pantoprazole [Protonix] 40 mg tablet,delayed release (DR/EC) 40 mg PO QAM Qty: 90 RF: 1 Discharge Orders: Discharge Order (Routine); Ordered 02/17/20 Ordered By: Fabrizio Delgadillo Admission Data Admit Date/Time: 02/12/20 16:26 Attending Provider: Fabrizio Delgadillo Admit Provider: Elie Dubon Primary Care Provider: Bethany Hardin Other Providers: Raul Iverson [facility] ; [facility] ; Elie Dubon ; Ricci Wisdom ; [facility] Other Interventions: Discharge Summary Assessment (RN) Last Done: 02/17/20 16:24 Coding Level of Care Code D/C Day Management >30 mins Diagnoses Symptomatic anemia D64.9 GERD (gastroesophageal reflux disease) K21.9 History of CVA (cerebrovascular accident) Z86.73 Stage 3 chronic kidney disease N18.3 Hyperthyroidism E05.90 Weakness R53.1 LBBB (left bundle branch block) I44.7 GI bleed K92.1 GI bleed type/associated pathology: melena Obstructive sleep apnea G47.33 Dementia F03.90 Coronary artery disease I25.10 HTN (hypertension) I10 Hyperlipemia E78.5 Arthritis M19.90 Depression F32.9
[2020-02-17 16:57] VITALS: BP 141/85; PULSE 93; TEMP 97.7; O2SAT 97
== END 2020-02-17 18:36 | DRG 811 ==
LOC: ED 10:42 → EDUNIT# 10:42 → SUATTDRO 16:26 → 2N 16:26

== ENCOUNTER 2020-03-28 09:56 | Inpatient (IN) ==
[2020-03-28] MEDS ORDERED: SODIUM CHLORIDE 0.9% 1000ML 1,000 ML IV SCH ×2 (10:45→16:26)
--- NOTE | 2020-03-28 10:45 | Emergency Department Note ---
History of Present Illness General Chief complaint: Fall Stated complaint: FALL LAST NIGHT Time Seen by Provider: 03/28/20 10:17 Source: patient Mode of arrival: ambulatory Limitations: altered mental status History of Present Illness Provider complaint: Altered mental status, fall Onset (ago): unknown Maximum Pain Intensity: 5 Associated symptoms: no fever/chills, no headaches, no nausea/vomiting and no shortness of breath Treatments prior to arrival: none This is an 89-year-old female who presents with family bedside from home where she lives independently. Family states they come over every morning to check on her and help prepare meals. Family bedside states they noticed last evening before they left patient seemed to be hallucinating, talking about seeing "plastic falling off the moran". He states when he got there this morning to check on her patient was laying in the living room floor, awake, thought it was suppertime and that he had been there all day. He states he noticed blood around her right eye and was concerned for injury. He states when he walked into the bathroom it appeared as though she might have fallen to the right while getting up off the commode given the way her walker was pushed out of place. He states he checked the bedroom and looked at her CPAP machine which she supposed to use every night. He states that it appeared she only wore the CPAP for 3 hours, however it was otherwise still turned on and running. He states she typically goes to bed at 10:30 PM. He states patient was recently started on new thyroid medication due to abnormal blood work. She has been on this for 1 week. States she is also had prior problems with low blood counts. Has undergone EGD and colonoscopy and no obvious source of bleeding was identified. Patient complains of bilateral hip pain. He states this is new for her. He states he did not notice any other obvious signs of stroke but the patient has had mini strokes previously. On questioning the patient, she states she thinks she may have "passed out" in the bathroom. Of note patient's prior problem list in the EMR does list dementia. Pt seen during a time of high acuity and national emergency pandemic while wearing PPE. Home Medications Medication Instructions Recorded Confirmed Type cholecalciferol (vitamin D3) 5,000 unit PO QAM 12/01/18 03/28/20 History [Vitamin D3] ipratropium bromide 42 mcg (0.06 2 spray INTNAS BID #15 ml 06/09/19 03/28/20 Rx %) nasal spray amlodipine 5 mg tablet 5 mg PO HS #90 tab 09/25/19 03/28/20 Rx methimazole 5 mg tablet 5 mg PO DAILY #90 tab 10/23/19 03/28/20 Rx metoprolol succinate 100 mg 100 mg PO HS #90 tab 12/25/19 03/28/20 Rx tablet,extended release 24 hr duloxetine 30 mg capsule,delayed 30 mg PO DAILY #90 cap 01/06/20 03/28/20 Rx release donepezil 10 mg tablet 10 mg PO QAM #90 tab 01/28/20 03/28/20 Rx ferrous sulfate 325 mg PO TIDM 30 Days #30 tab 02/17/20 03/28/20 Rx ketotifen fumarate 1 drp OP Q12 03/02/20 03/28/20 History melatonin 3 mg PO HS 03/02/20 03/28/20 History multivitamin with minerals 1 tab PO DAILY 03/02/20 03/28/20 History [Multiple Vitamin-Minerals] zinc sulfate 220 mg PO DAILY 03/02/20 03/28/20 History ascorbic acid (vitamin C) 500 mg 500 mg PO DAILY #30 tab 03/15/20 03/28/20 Rx tablet furosemide 20 mg tablet 20 mg PO 2XWK #24 tab 03/15/20 03/28/20 Rx lisinopril 40 mg tablet 40 mg PO QAM #90 tab 03/15/20 03/28/20 Rx pantoprazole 40 mg tablet,delayed 40 mg PO BID 30 Days #60 tab 03/15/20 03/28/20 Rx release acetaminophen 500 mg tablet 500 mg PO Q8H PRN #30 tab 03/17/20 03/28/20 Rx diclofenac sodium 1 % topical gel See Rx Instructions TOP TID PRN 03/17/20 03/28/20 History memantine 28 mg capsule 28 mg PO DAILY #30 ea 03/17/20 03/28/20 Rx sprinkle,extended release 24hr rosuvastatin 20 mg tablet 20 mg PO DAILY #30 tab 03/17/20 03/28/20 Rx sucralfate 1 gram tablet 1 g PO QID #180 tab 03/17/20 03/28/20 Rx levothyroxine 25 mcg tablet 25 mcg PO DAILY #30 tab 03/23/20 03/28/20 Rx Allergies Allergy/AdvReac Type Severity Reaction Status Date / Time atorvastatin Allergy Unknown UNKOWN Verified 03/28/20 11:19 cephalexin [From Keflex] Allergy Unknown Unknown Unverified 03/28/20 11:19 oxaprozin [From Daypro] Allergy Unknown Unknown Unverified 03/28/20 11:19 paroxetine Allergy Unknown UNKNOWN Verified 03/28/20 11:19 propoxyphene Allergy Unknown DARVOCET Verified 03/28/20 11:19 codeine AdvReac Mild NAUSEA Verified 03/28/20 11:19 Sulfa (Sulfonamide AdvReac Mild NAUSEA Verified 03/28/20 11:19 Antibiotics) Past Med/Surg History Medical History Acute GI bleeding Anemia Arthritis Coronary artery disease Dementia Depression Frequent PVCs Gait disturbance, post-stroke GI bleed GI bleed History of CVA (cerebrovascular accident) HTN (hypertension) Hyperlipemia Hyperthyroidism Irritable bowel syndrome Ischemic stroke Lab test negative for COVID-19 virus LBBB (left bundle branch block) Obstructive sleep apnea Pulmonary hypertension Stage 3 chronic kidney disease Vitamin D deficiency Surgical History S/P dilatation and curettage S/P hysterectomy S/P shoulder surgery S/P total knee arthroplasty Family History Mother Coronary heart disease Heart disease Myocardial infarction Denies family history of Ovarian cancer Prostate cancer Diabetes Alzheimer disease Breast cancer Lung cancer COPD (chronic obstructive pulmonary disease) Colorectal cancer Asthma Social History Smoking Status: Never smoker Hx Alcohol Use: No Hx Substance Use: No Preferred Language: [place] Communication Ability: Effective Visual Impairment: No Limitations Hearing Ability: Hard of Hearing Scallop Binder Required: No Beliefs That Will Affect Care: None marital status: / Current Living Situation: Alone current occupational status: retired Other Information That Helps Us Care for You: No Feels Safe at Home: Yes Safety Concerns: Feels Safe At This Time Childhood Exposure to Second-Hand Smoke: No Diet Comment: regular caffeine: Yes (tea) during the past year weight has: remained stable Dental Care, Regularly: No Physical Activity Frequency: Does not Exercise Seatbelt Use: always Sunscreen Use: No Assistive Devices: BiPap and CPAP Review of Systems See HPI for pertinent positives & negatives. and A total of 10 systems reviewed and were otherwise negative Physical Exam Vital Signs Vital Signs - 24 hr 03/28/20 10:00 03/28/20 11:08 03/28/20 11:24 Temperature 36.2 C L Temperature Source Temporal Artery Scan Pulse Rate 58 L 58 L 58 L Pulse Rate [Apical] 62 Pulse Rate from SpO2 Sensor 58 L 59 L Respiratory Rate 20 19 19 Blood Pressure 177/74 H 199/78 H Blood Pressure [Left Arm] 190/78 H Blood Pressure Mean 108 118 Blood Pressure Mean [Left Arm] 115 Pulse Oximetry 97 97 97 Oxygen Delivery Method Room Air Room Air Sepsis Recent Fever Within 48 Hours No Sepsis New/Unexplained Change in Mental Status No Sepsis Action Taken by Nursing No Action Required 03/28/20 11:30 03/28/20 11:31 03/28/20 11:40 Temperature Temperature Source Pulse Rate 57 L 64 60 Pulse Rate [Apical] Pulse Rate from SpO2 Sensor 58 L 58 L 58 L Respiratory Rate 21 18 18 Blood Pressure 171/88 H Blood Pressure [Left Arm] Blood Pressure Mean 140 Blood Pressure Mean [Left Arm] Pulse Oximetry 97 97 97 Oxygen Delivery Method Sepsis Recent Fever Within 48 Hours Sepsis New/Unexplained Change in Mental Status Sepsis Action Taken by Nursing 03/28/20 12:17 03/28/20 12:20 03/28/20 12:30 Temperature Temperature Source Pulse Rate 66 60 59 L Pulse Rate [Apical] Pulse Rate from SpO2 Sensor Respiratory Rate 21 19 18 Blood Pressure 187/62 H 175/67 H Blood Pressure [Left Arm] Blood Pressure Mean 81 82 Blood Pressure Mean [Left Arm] Pulse Oximetry Oxygen Delivery Method Sepsis Recent Fever Within 48 Hours Sepsis New/Unexplained Change in Mental Status Sepsis Action Taken by Nursing 03/28/20 12:40 03/28/20 12:50 03/28/20 13:00 Temperature Temperature Source Pulse Rate 61 57 L 59 L Pulse Rate [Apical] 61 Pulse Rate from SpO2 Sensor Respiratory Rate 22 18 17 Blood Pressure 157/64 H Blood Pressure [Left Arm] 157/64 H Blood Pressure Mean 78 Blood Pressure Mean [Left Arm] 95 Pulse Oximetry 100 Oxygen Delivery Method Room Air Sepsis Recent Fever Within 48 Hours Sepsis New/Unexplained Change in Mental Status Sepsis Action Taken by Nursing 03/28/20 13:10 03/28/20 13:20 03/28/20 13:30 Temperature Temperature Source Pulse Rate 63 60 60 Pulse Rate [Apical] Pulse Rate from SpO2 Sensor Respiratory Rate 19 17 15 Blood Pressure 161/66 H Blood Pressure [Left Arm] Blood Pressure Mean 93 Blood Pressure Mean [Left Arm] Pulse Oximetry Oxygen Delivery Method Sepsis Recent Fever Within 48 Hours Sepsis New/Unexplained Change in Mental Status Sepsis Action Taken by Nursing 03/28/20 13:40 03/28/20 13:50 03/28/20 14:00 Temperature Temperature Source Pulse Rate 58 L 61 74 Pulse Rate [Apical] Pulse Rate from SpO2 Sensor Respiratory Rate 19 18 20 Blood Pressure 165/75 H Blood Pressure [Left Arm] Blood Pressure Mean 108 Blood Pressure Mean [Left Arm] Pulse Oximetry 97 Oxygen Delivery Method Sepsis Recent Fever Within 48 Hours Sepsis New/Unexplained Change in Mental Status Sepsis Action Taken by Nursing 03/28/20 14:10 03/28/20 14:29 03/28/20 14:31 Temperature Temperature Source Pulse Rate 61 63 65 Pulse Rate [Apical] Pulse Rate from SpO2 Sensor Respiratory Rate 16 18 24 Blood Pressure 192/70 H 165/73 H Blood Pressure [Left Arm] Blood Pressure Mean 107 90 Blood Pressure Mean [Left Arm] Pulse Oximetry 95 Oxygen Delivery Method Sepsis Recent Fever Within 48 Hours Sepsis New/Unexplained Change in Mental Status Sepsis Action Taken by Nursing 03/28/20 14:40 03/28/20 14:50 03/28/20 15:00 Temperature Temperature Source Pulse Rate 63 66 57 L Pulse Rate [Apical] Pulse Rate from SpO2 Sensor Respiratory Rate 21 21 19 Blood Pressure 186/61 H Blood Pressure [Left Arm] Blood Pressure Mean 89 Blood Pressure Mean [Left Arm] Pulse Oximetry 95 Oxygen Delivery Method Sepsis Recent Fever Within 48 Hours Sepsis New/Unexplained Change in Mental Status Sepsis Action Taken by Nursing GENERAL: alert, well appearing, well nourished, no distress, non-toxic HEAD: nc/at, no hauser sign, no raccoon eyes, no evidence of facial trauma EYE EXAM: normal conjunctiva, PERRL and EOM's grossly intact, no nystagmus, mild right lateral subconjunctival hemorrhage, appears to be resolving, no evidence of hyphema bilaterally OROPHARYNX: no exudate, no erythema, lips, buccal mucosa, and tongue normal and mucous membranes are moist NECK: supple, no nuchal rigidity, no adenopathy, non-tender LUNGS: Clear to auscultation. Normal chest wall mechanics, no w/r/r, ribs nontender without step-off, no crepitus HEART: no murmurs, S1 normal and S2 normal ABDOMEN: abdomen soft, non-tender, normo-active bowel sounds, no masses, no rebound or guarding. No evidence of trauma. BACK: Back is symmetrical on inspection and there is no deformity, no midline tenderness, no CVA tenderness. SKIN: no rashes and no bruising UPPER EXTREMITIES: upper extremities are grossly normal. FROM, nml pulses b/l. No evidence of trauma, no bony tenderness. LOWER EXTREMITIES: No pitting edema. FROM, nml pulses b/l. Bilateral well- healed vertical incisions over the knees consistent with knee replacements, no evidence of trauma. No bony tenderness. NEURO EXAM: Normal sensorium, cranial nerves II-XII grossly intact, normal speech, no facial droop, no gross weakness of arms, no gross weakness of legs. No pronator drift. Finger to nose intact. Gross sensation intact. Course Course 1336: Discussed results with patient and family at bedside. Discussed need for additional inpatient evaluation. 1352: Case discussed with [facility] hospitalist service. We will send the patient back down for CT of the abdomen and pelvis due to markedly elevated lipase. Patient continues to deny abdominal pain and has a soft and nontender abdomen. Administered Medications Amlodipine Besylate (Amlodipine Besylate 5 Mg Tab) 10 mg PO BID VONNIE Stop: 04/28/20 20:59 Last Admin: 03/29/20 20:19 Dose: 10 mg Documented by: [id number] Ascorbic Acid (Ascorbic Acid 500 Mg Tab) 500 mg PO DAILY VONNIE Stop: 04/28/20 08:59 Last Admin: 03/29/20 09:07 Dose: 500 mg Documented by: [id number] Donepezil HCl (Donepezil Hcl 10 Mg Tab) 10 mg PO QAM VONNIE Stop: 04/28/20 08:59 Last Admin: 03/29/20 08:01 Dose: 10 mg Documented by: [id number] Duloxetine HCl (Duloxetine Hcl 30 Mg Cap) 30 mg PO DAILY VONNIE Stop: 04/28/20 08:59 Last Admin: 03/29/20 08:01 Dose: 30 mg Documented by: [id number] Ferrous Sulfate (Ferrous Sulfate 325 Mg Tab) 325 mg PO TIDM [facility] Stop: 04/27/20 16:59 Last Admin: 03/29/20 16:11 Dose: 325 mg Documented by: [id number] Admin: 03/29/20 11:50 Dose: 325 mg Documented by: [id number] Admin: 03/29/20 08:02 Dose: 325 mg Documented by: [id number] Admin: 03/28/20 20:37 Dose: 325 mg Documented by: [id number] Hydralazine HCl (Hydralazine Hcl 20 Mg/Ml Vial) 10 mg IV Q8H PRN PRN Reason: SBP>180 Stop: 04/28/20 00:05 Last Admin: 03/29/20 00:30 Dose: 10 mg Documented by: [id number] Ipratropium [place] (Ipratropium [place] Nasal [place] 0.06% 15ml) 2 sprays NA BID [facility] Stop: 04/27/20 20:59 Last Admin: 03/29/20 20:18 Dose: 2 sprays Documented by: [id number] Admin: 03/29/20 08:03 Dose: 2 sprays Documented by: [id number] Admin: 03/28/20 20:38 Dose: 2 sprays Documented by: [id number] Levothyroxine Sodium (Levothyroxine Sodium 25 Mcg Tablet) 25 mcg PO DAILYBB [facility] Stop: 04/28/20 06:29 Last Admin: 03/29/20 05:51 Dose: 25 mcg Documented by: [id number] Lisinopril (Lisinopril 40 Mg Tab) 40 mg PO QAM [facility] Stop: 04/28/20 08:59 Last Admin: 03/29/20 08:02 Dose: 40 mg Documented by: [id number] Melatonin (Melatonin 3 Mg Tab) 3 mg PO HS [facility] Stop: 04/27/20 20:59 Last Admin: 03/29/20 20:23 Dose: 3 mg Documented by: [id number] Admin: 03/28/20 20:46 Dose: 3 mg Documented by: [id number] Miscellaneous (Ketotifen Fumarate Drops ~ Order Awaiting Action) 1 ea N/A QS [facility] Stop: 04/28/20 00:00 Last Admin: 03/30/20 00:33 Dose: Not Given Documented by: [id number] Admin: 03/29/20 16:42 Dose: Not Given Documented by: [id number] Admin: 03/29/20 08:02 Dose: Not Given Documented by: [id number] Admin: 03/29/20 00:32 Dose: Not Given Documented by: [id number] Miscellaneous (Memantine 28 Mg Capsule,Sprinkle,Er 24hrorder Awaiting Action) 1 ea N/A QS [facility]ONNIE Stop: 04/28/20 00:00 Last Admin: 03/30/20 00:33 Dose: Not Given Documented by: [id number] Admin: 03/29/20 16:11 Dose: Not Given Documented by: [id number] Admin: 03/29/20 08:02 Dose: Not Given Documented by: [id number] Admin: 03/29/20 00:32 Dose: Not Given Documented by: [id number] Multivitamins/Minerals (Cerovite Adv Formula Tab) 1 tab PO DAILY VONNIE Stop: 04/28/20 08:59 Last Admin: 03/29/20 08:01 Dose: 1 tab Documented by: [id number] Pantoprazole Sodium (Pantoprazole 40 Mg Tab) 40 mg PO BID [facility] Stop: 04/27/20 20:59 Last Admin: 03/29/20 20:20 Dose: 40 mg Documented by: [id number] Admin: 03/29/20 08:02 Dose: 40 mg Documented by: [id number] Admin: 03/28/20 20:40 Dose: 40 mg Documented by: [id number] Polyethylene Glycol (Polyethylene (Miralax) 17 Gm Pack) 17 gm PO BID VONNIE Stop: 04/28/20 08:59 Last Admin: 03/29/20 20:21 Dose: 17 gm Documented by: [id number] Admin: 03/29/20 09:02 Dose: 17 gm Documented by: [id number] Rosuvastatin Calcium (Rosuvastatin Calcium 20 Mg Tab) 20 mg PO DAILY VONNIE Stop: 04/28/20 08:59 Last Admin: 03/29/20 08:01 Dose: 20 mg Documented by: [id number] Sucralfate (Sucralfate 1 Gm Tab) 1 gm PO ACHS VONNIE Stop: 04/27/20 20:59 Last Admin: 03/29/20 20:18 Dose: 1 gm Documented by: [id number] Admin: 03/29/20 16:11 Dose: 1 gm Documented by: [id number] Admin: 12/07/20 11:50 Dose: 1 gm Documented by: [id number] Admin: 03/29/20 07:34 Dose: 1 gm Documented by: [id number] Admin: 03/28/20 20:40 Dose: 1 gm Documented by: [id number] Vitamin D (Cholecalciferol 1,000 Units 25 Mcg Tab) 5,000 units PO QAM [facility]ONNIE Stop: 04/28/20 08:59 Last Admin: 03/29/20 08:00 Dose: 5,000 units Documented by: [id number] Zinc Sulfate (Zinc Sulfate 220 Mg Capsule) 220 mg PO DAILY VONNIE Stop: 04/28/20 08:59 Last Admin: 03/29/20 08:01 Dose: 220 mg Documented by: [id number] Discontinued Medications Amlodipine Besylate (Amlodipine Besylate 5 Mg Tab) 5 mg PO HS [facility]ONNIE Stop: 04/27/20 20:59 Last Admin: 03/28/20 20:41 Dose: 5 mg Documented by: [id number] Amlodipine Besylate (Amlodipine Besylate 5 Mg Tab) 5 mg PO BID VONNIE Stop: 04/28/20 08:59 Last Admin: 03/29/20 09:07 Dose: 5 mg Documented by: [id number] Sodium Chloride (Nss 1000ml) 1,000 mls @ 125 mls/hr IV .Q8H VONNIE Stop: 04/27/20 10:44 Last Infusion: 03/28/20 18:44 Dose: 0 mls/hr Documented by: [id number] Admin: 03/28/20 11:08 Dose: 125 mls/hr Documented by: [id number] Sodium Chloride (Nss 1000ml) 1,000 mls @ 100 mls/hr IV .Q10H VONNIE Stop: 04/27/20 16:25 Last Infusion: 03/29/20 00:31 Dose: 0 mls/hr Documented by: [id number] Admin: 03/28/20 16:30 Dose: 125 mls/hr Documented by: [id number] Ioversol (Optiray 320 125ml) 115 ml IV ONCE ONE Stop: 03/28/20 12:02 Last Admin: 03/28/20 12:01 Dose: 115 ml Documented by: [id number] Ioversol (Ioversol 100ml) 94 ml IV ONCE ONE Stop: 03/28/20 14:34 Last Admin: 03/28/20 14:33 Dose: 94 ml Documented by: [id number] Metoprolol Succinate (Metoprolol Succ 50mg Ext Rel Tab) 100 mg PO HS VONNIE Stop: 04/27/20 20:59 Last Admin: 03/28/20 20:41 Dose: 100 mg Documented by: [id number] Polyethylene Glycol (Polyethylene (Miralax) 17 Gm Pack) 34 gm PO ONE ONE Stop: 03/29/20 03:16 Last Admin: 03/29/20 03:28 Dose: 34 gm Documented by: [id number] Medical Decision Making Differential Diagnosis Differential diagnoses includes but is not limited to toxic, metabolic, infectious, traumatic, cardiac, neurologic, hematologic, psychiatric and inflammatory etiologies. Medical Records Attestation: I reviewed the patient's medical records. Home Medications Current Medication List: was personally reviewed by me Laboratory Data Attestation: I reviewed the patient's lab results. Result diagrams: 03/29/20 07:05 03/29/20 07:05 Lab Results 03/28/20 03/28/20 03/28/20 Range/Units 11:00 11:00 11:00 WBC 10.82 H (4.8-10.8) K/uL RBC 3.99 L (4.2-5.4) M/uL Hgb 12.1 (12.0-16.0) g/dL Hct 37.2 (37-47) % MCV 93.2 (80-100) fL MCH 30.3 (25-34) pg MCHC 32.5 (32-36) g/dL RDW Std Deviation 49.0 H (36.4-46.3) fL RDW Coeff of Corey 14.6 H (11.5-14.5) % Plt Count 242 (130-400) K/uL MPV 10.6 H (7.4-10.4) fL Immature Gran % (Auto) 0.3 % Neut % (Auto) 74.1 % Lymph % (Auto) 17.5 % Williams % (Auto) 6.5 % Eos % (Auto) 1.5 % Baso % (Auto) 0.1 % Neut # (Auto) 8.03 H (1.4-6.5) K/uL Lymph # (Auto) 1.89 (1.2-3.4) K/uL Williams # (Auto) 0.70 H (0.11-0.59) K/uL Eos # (Auto) 0.16 (0-0.5) K/uL Baso # (Auto) 0.01 (0-0.2) K/uL Immature Gran # (Auto) 0.03 H (0.00-0.02) K/uL PT 10.6 (9.0-12.0) Seconds INR 1.0 (0.9-1.1) Sodium 139 (136-145) mmol/L Potassium 4.0 (3.5-5.1) mmol/L Chloride 104 (98-107) mmol/L Carbon Dioxide 30 (21-32) mmol/L Anion Gap 5.0 (3-11) BUN 23 H (7-18) mg/dl Creatinine 1.35 H (0.6-1.2) mg/dl Est Cr Clr Drug Dosing Not Reportable Est GFR ( Amer) 40.8 Est GFR (Non-Af Amer) 35.2 BUN/Creatinine Ratio 17.2 (10-20) Glucose 97 (70-99) mg/dl Calcium 9.9 (8.5-10.1) mg/dl Magnesium 1.8 (1.8-2.4) mg/dl Total Bilirubin 0.4 (0.2-1) mg/dl AST 22 (15-37) U/L ALT 17 (12-78) U/L Alkaline Phosphatase 76 (45-117) U/L Troponin I < 0.015 (0-0.045) ng/ml Total Protein 6.7 (6.4-8.2) gm/dl Albumin 3.3 L (3.4-5.0) gm/dl Globulin 3.4 (2.5-4.0) gm/dl Albumin/Globulin Ratio 1.0 (0.9-2) Lipase 2908 H (73-393) U/L TSH 11.200 H (0.300-4.500) uIu/ml Free T4 0.73 L (0.8-1.6) ng/dl Urine Color Urine Appearance (Clear) Urine pH (4.5-7.5) Ur Specific [place] (1.000-1.030) Urine Protein (Negative) Urine Glucose (UA) (Negative) Urine Ketones (Negative) Urine Blood (Negative) Urine Nitrite (Negative) Urine Bilirubin (Negative) Urine Urobilinogen (Negative) Ur Leukocyte Esterase (Negative) Urine WBC (Auto) (0-5) /hpf Urine RBC (Auto) (0-4) /hpf U Hyaline Cast (Auto) (0-5) /lpf U Epithel Cells (Auto) (0-5) /lpf Urine Bacteria (Auto) (Negative) 03/28/20 Range/Units 12:18 WBC (4.8-10.8) K/uL RBC (4.2-5.4) M/uL Hgb (12.0-16.0) g/dL Hct (37-47) % MCV (80-100) fL MCH (25-34) pg MCHC (32-36) g/dL RDW Std Deviation (36.4-46.3) fL RDW Coeff of Corey (11.5-14.5) % Plt Count (130-400) K/uL MPV (7.4-10.4) fL Immature Gran % (Auto) % Neut % (Auto) % Lymph % (Auto) % Williams % (Auto) % Eos % (Auto) % Baso % (Auto) % Neut # (Auto) (1.4-6.5) K/uL Lymph # (Auto) (1.2-3.4) K/uL Williams # (Auto) (0.11-0.59) K/uL Eos # (Auto) (0-0.5) K/uL Baso # (Auto) (0-0.2) K/uL Immature Gran # (Auto) (0.00-0.02) K/uL PT (9.0-12.0) Seconds INR (0.9-1.1) Sodium (136-145) mmol/L Potassium (3.5-5.1) mmol/L Chloride (98-107) mmol/L Carbon Dioxide (21-32) mmol/L Anion Gap (3-11) BUN (7-18) mg/dl Creatinine (0.6-1.2) mg/dl Est Cr Clr Drug Dosing Est GFR ( Amer) Est GFR (Non-Af Amer) BUN/Creatinine Ratio (10-20) Glucose (70-99) mg/dl Calcium (8.5-10.1) mg/dl Magnesium (1.8-2.4) mg/dl Total Bilirubin (0.2-1) mg/dl AST (15-37) U/L ALT (12-78) U/L Alkaline Phosphatase (45-117) U/L Troponin I (0-0.045) ng/ml Total Protein (6.4-8.2) gm/dl Albumin (3.4-5.0) gm/dl Globulin (2.5-4.0) gm/dl Albumin/Globulin Ratio (0.9-2) Lipase (73-393) U/L TSH (0.300-4.500) uIu/ml Free T4 (0.8-1.6) ng/dl Urine Color Yellow Urine Appearance Clear (Clear) Urine pH 8.5 H (4.5-7.5) Ur Specific [place] 1.023 (1.000-1.030) Urine Protein 3+ H (Negative) Urine Glucose (UA) Negative (Negative) Urine Ketones Negative (Negative) Urine Blood Negative (Negative) Urine Nitrite Negative (Negative) Urine Bilirubin Negative (Negative) Urine Urobilinogen Negative (Negative) Ur Leukocyte Esterase Negative (Negative) Urine WBC (Auto) 1-5 (0-5) /hpf Urine RBC (Auto) 0-4 (0-4) /hpf U Hyaline Cast (Auto) 1-5 (0-5) /lpf U Epithel Cells (Auto) 20-30 H (0-5) /lpf Urine Bacteria (Auto) Negative (Negative) Imaging Data Radiologist's Impression: CT OF THE HEAD WITHOUT CONTRAST CLINICAL HISTORY: ams, trauma COMPARISON STUDY: Head CT March 02, 2020. TECHNIQUE: Helical axial images of the head were obtained without IV contrast. Automated exposure control was utilized for the study. A dose lowering techn ique was utilized adhering to the principles of ALARA. FINDINGS: No acute intracranial hemorrhage, midline shift or mass effect is present. Ventricular dilatation is unchanged and likely due to atrophy. The basilar cisterns are patent. There are no extra axial collections. White matter hypodensities are unchanged and suggest small vessel disease. There are no findings to suggest acute dural sinus thrombosis or acute territorial infarct. There is no calvarial fracture. Right mastoid air cells are partially opacified. Mucus retention cyst within the left maxillary sinus is noted. IMPRESSION: 1. No acute intracranial findings. No significant change in appearance of the brain. 2. Partially opacified right mastoid air cells. 3. No calvarial fracture. ACT 112: Negative or not required by law. Electronically signed by: Ede Fair M.D. 03/28/2020 12:22 PM CTA ANGIOGRAPHY OF THE HEAD CLINICAL HISTORY: ams, hx tia COMPARISON STUDY: MRA of the head March 20, 2017. Head CT March 02, 2020 TECHNIQUE: Helical axial images of the head were obtained following uneventful intravenous administration of 115 cc of Optiray 320. Sagittal and coronal reconstructions were viewed as well as maximal intensity projections on an independent 3-D workstation. Automated exposure control was utilized for the study. A dose lowering technique was utilized adhering to the principles of ALARA. FINDINGS: Right mastoid air cells are partially opacified. There is fluid within the right middle ear. Left maxillary sinus mucous retention cyst is noted. No acute intracranial hemorrhage, midline shift or mass effect is present. Ventricular dilatation is unchanged and likely related to atrophy. White matter hypodensity suggests small vessel disease. There is moderate plaque within bilateral cavernous carotids without significant stenosis. The bilateral M1, M2, A1 and A2 segments are patent. There is no intracranial aneurysm. There is no dissection within the intracranial vessels. Note is made of large bilateral posterior communicating arteries. IMPRESSION: 1. No central vessel occlusion. No intracranial aneurysm. 2. No significant change in appearance of the brain. 3. Partially opacified right mastoid air cells. ACT 112: Negative or not required by law. Electronically signed by: Ede Fair M.D. 03/28/2020 12:[address] ANGIOGRAPHY OF THE NECK WITH CONTRAST CLINICAL HISTORY: ams, hx tia COMPARISON STUDY: MRA of the neck March 20, 2017. Carotid ultrasound April 28, 2017. Technique: CT angiography of the carotid and vertebral arteries was obtained using Optiray 320 IV and 3D reconstruction on an independent workstation. NASCET criteria was utilized. Automated exposure control was utilized for the study. A dose lowering technique was utilized adhering to the principles of ALARA. CT DOSE: 1017.06 mGy.cm Findings: Several thyroid nodules are incidentally noted. Right mastoid air cells are partially opacified. There is no acute cervical spine fracture. Lung apices are clear. There is no cervical lymphadenopathy. Multilevel degenerative changes within the cervical spine are noted. The bilateral common carotid, cervical internal carotid and vertebral arteries are patent. Mild atherosclerotic plaque is noted within the proximal bilateral internal carotid arteries without significant stenosis. There is no dissection within the major vessels of the neck. IMPRESSION: No stenosis or dissection within the major vessels of the neck. ACT 112: Negative or not required by law. Electronically signed by: Ede Fair M.D. 03/28/2020 12:[address] OF THE ABDOMEN AND PELVIS WITH CONTRAST CLINICAL HISTORY: Elevated lipase. Abdominal pain. COMPARISON STUDY: CT of the abdomen and pelvis February 01, 2020. TECHNIQUE: Following IV administration of 94 mL of Optiray-320, axial images of the abdomen and pelvis were obtained from the lung bases to the proximal femurs. Images were reviewed in the axial, sagittal, and coronal planes. IV contrast was administered without complication. Automated exposure control was utilized for the study. A dose lowering technique was utilized adhering to the principles of ALARA. CT DOSE: 563.34 mGycm FINDINGS: A large hiatal hernia is again noted. There is moderate cardiomegaly. No pneumatosis, free air or portal venous gas is present. The liver, spleen, adrenal glands and kidneys are unremarkable. There is contrast within the collecting systems, ureters and bladder from recent contrast-enhanced CT. There is a gallstone within the gallbladder without evidence for acute cholecystitis. No peripancreatic infiltration is noted. There is no biliary or pancreatic ductal dilatation. There is no evidence for a bowel obstruction. Sigmoid diverticulosis is noted without evidence for acute diverticulitis. Major vasculature is patent. No lymphadenopathy or ascites. No acute lumbar spine or pelvic fracture is noted. There are no suspicious osseous lesions. IMPRESSION: 1. No acute process within the abdomen or pelvis. 2. Normal CT appearance of the pancreas. 3. Large hiatal hernia. 4. No bowel obstruction. 5. Colonic diverticulosis without evidence for acute diverticulitis. ACT 112: Negative or not required by law. Electronically signed by: Ede Fair M.D. 03/28/2020 3:09 PM ECG Data Attestation: I personally reviewed and interpreted this ECG as follows: Indication: + altered mental status Rate (beats per minute): 59 Rhythm: + sinus bradycardia ECG Intervals/blocks: + Left bundle branch block and + Normal QT-c ECG [place]: + Left axis deviation ECG ST segments: + Nonspecific ST abnormalities Blood Pressure Blood Pressure Findings: Elevated blood pressure MDM Narrative This is a well-appearing 89-year-old female who presents with son at bedside due to concern for hallucinations and fall. Patient believes she may have had a syncopal event however this is unclear and was unwitnessed. Patient was recent ly started on new medication for thyroid dysfunction, has only been taking it this week. Son denies any other recent change in medications. Patient was afebrile, had no complaints secondary to the fall versus syncope. 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 No evidence of acute infectious etiology, no evidence of acute intracranial hemorrhage, traumatic injury, or CVA. Patient's TSH markedly elevated although improved compared to the blood draw last week prior to the initiation of the medication. Patient was noted to be mildly hypothermic, given age, thyroid dysfunction, altered mental status, I did consider evolving myxedema coma. Patient had no complaints of pain or any other symptoms other than the hallucinations of my exam. 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 At the time discussion with the hospitalist, it was noted that patient also had a markedly elevated lipase. No history of alcohol use, no history of biliary disease. Patient sent back down for CT imaging of the abdomen and pelvis which proved reassuring. Patient seen and evaluated by the hospitalist team while in the emergency room. Patient remained hemodynamically stable in the emergency room. Patient and son at bedside were made aware of all results. Patient does have a previously documented history of dementia which may be contributing factor as this could be progressing, although her thyroid dysfunction could be exacerbating this in addition. An order was placed for continuous cardiac monitoring. The monitor shows a rate of _62_ with __normal sinus_ rhythm. Impression & Plan AMS (altered mental status), Dysfunction of thyroid, Dementia, Gait disturbance, post-stroke, LBBB (left bundle branch block), Elevated lipase Discharge Plan Visit Data Chief Complaint: Fall Stated Complaint: FALL LAST NIGHT ED Provider: Salome Sweeney Discharge Problem: AMS (altered mental status), Dysfunction of thyroid, Dementia, Gait disturbance, post-stroke, LBBB (left bundle branch block), Elevated lipase Patient Disposition: Admitted As Inpatient Discharge Instructions Interventions: ED Discharge Assessment Last Done: 03/28/20 15:23 Discharge Problem: AMS (altered mental status) Qualifiers: Altered mental status type: unspecified Qualified Code(s): R41.82 - Altered mental status, unspecified Dementia Qualifiers: Dementia type: unspecified type Dementia behavioral disturbance: without behavioral disturbance Qualified Code(s): F03.90 - Unspecified dementia without behavioral disturbance
[2020-03-28 11:17] LABS: Basophils # (auto) 0.01 K/uL (0-0.2); Basophils % (auto) 0.1 %; Eosinophils # (auto) 0.16 K/uL (0-0.5); Eosinophils % (auto) 1.5 %; Hematocrit (blood only) 37.2 % (37-47); Hemoglobin 12.1 g/dL (12.0-16.0); Immature Granulocytes # (auto) 0.03 K/uL (0.00-0.02); Immature Granulocytes % (auto) 0.3 %; Lymphocytes # (auto) 1.89 K/uL (1.2-3.4); Lymphocytes % (auto) 17.5 %; Mean Corpuscular Hemoglobin 30.3 pg (25-34); Mean Corpuscular Hgb Conc 32.5 g/dL (32-36); Mean Corpuscular Volume 93.2 fL (80-100); Mean Platelet Volume 10.6 fL (7.4-10.4); Monocytes % (auto) 6.5 %; Neutrophils # (auto) 8.03 K/uL (1.4-6.5); Neutrophils % (auto) 74.1 %; Platelet Count 242 K/uL (130-400); RDW Coefficient of Variation 14.6 % (11.5-14.5); Red Blood Count 3.99 M/uL (4.2-5.4); White Blood Count 10.82 K/uL (4.8-10.8)
[2020-03-28 11:27] LABS: Prothrombin Time 10.6 Seconds (9.0-12.0)
[2020-03-28 11:36] LABS: Alanine Aminotransferase 17 U/L (12-78); Albumin Level 3.3 gm/dl (3.4-5.0); Aspartate Aminotransferase 22 U/L (15-37); BUN Creatinine Ratio 17.2 (10-20); Blood Urea Nitrogen 23 mg/dl (7-18); Calcium 9.9 mg/dl (8.5-10.1); Carbon Dioxide 30 mmol/L (21-32); Chloride 104 mmol/L (98-107); Est GFR (African American) 40.8; Est GFR (Non-African American) 35.2; Glucose 97 mg/dl (70-99); Magnesium 1.8 mg/dl (1.8-2.4); Sodium 139 mmol/L (136-145)
--- NOTE | 2020-03-28 11:46 | Electrocardiogram Report ---
Test Reason : Blood Pressure : / mmHG Vent. Rate : 059 BPM Atrial Rate : 059 BPM P-R Int : 132 ms QRS Dur : 136 ms QT Int : 476 ms P-R-T Axes : 065 -47 065 degrees QTc Int : 471 ms Sinus bradycardia Possible Left atrial enlargement Left axis deviation Left bundle branch block Abnormal ECG When compared with ECG of 02-MAR-2020 02:27, Premature ventricular complexes are no longer Present Confirmed by Arsenio Guillen ([id number]) on 03/28/2020 11:45:26 AM Referred By: REFERRED SELF Confirmed By:Arsenio Guillen
[2020-03-28 11:47] LABS: Alkaline Phosphatase 76 U/L (45-117); Bilirubin,Total 0.4 mg/dl (0.2-1); Globulin 3.4 gm/dl (2.5-4.0); Lipase 2908 U/L (73-393); Total Protein 6.7 gm/dl (6.4-8.2); Troponin I < 0.015 ng/ml (0-0.045)
[2020-03-28 12:01] LABS: T4 Free Thyroxine 0.73 ng/dl (0.8-1.6)
[2020-03-28] MEDS ORDERED: OPTIRAY 320 125ml IV ONE (12:01)
--- NOTE | 2020-03-28 12:24 | CT Scan Report ---
CT OF THE HEAD WITHOUT CONTRAST CLINICAL HISTORY: ams, trauma COMPARISON STUDY: Head CT March 02, 2020. TECHNIQUE: Helical axial images of the head were obtained without IV contrast. Automated exposure con trol was utilized for the study. A dose lowering technique was utilized adhering to the principles o f ALARA. FINDINGS: No acute intracranial hemorrhage, midline shift or mass effect is present. Ventricular dila tation is unchanged and likely due to atrophy. The basilar cisterns are patent. There are no extra ax ial collections. White matter hypodensities are unchanged and suggest small vessel disease. There are no findings to suggest acute dural sinus thrombosis or acute territorial infarct. There is no calvar ial fracture. Right mastoid air cells are partially opacified. Mucus retention cyst within the left m axillary sinus is noted. IMPRESSION: 1. No acute intracranial findings. No significant change in appearance of the brain. 2. Partially opacified right mastoid air cells. 3. No calvarial fracture. ACT 112: Negative or not required by law. Electronically signed by: Ede Fair M.D. 03/28/2020 12:22 PM
--- NOTE | 2020-03-28 12:37 | CT Scan Report ---
CT ANGIOGRAPHY OF THE NECK WITH CONTRAST CLINICAL HISTORY: ams, hx tia COMPARISON STUDY: MRA of the neck March 20, 2017. Carotid ultrasound April 28, 2017. Technique: CT angiography of the carotid and vertebral arteries was obtained using [employer] 320 IV and 3D reconstruction on an independent workstation. NASCET criteria was utilized. Automated exposure c ontrol was utilized for the study. A dose lowering technique was utilized adhering to the principles of ALARA. CT DOSE: 1017.06 mGy.cm Findings: Several thyroid nodules are incidentally noted. Right mastoid air cells are partially opaci fied. There is no acute cervical spine fracture. Lung apices are clear. There is no cervical lymphade nopathy. Multilevel degenerative changes within the cervical spine are noted. The bilateral common ca rotid, cervical internal carotid and vertebral arteries are patent. Mild atherosclerotic plaque is no kellee within the proximal bilateral internal carotid arteries without significant stenosis. There is no dissection within the major vessels of the neck. IMPRESSION: No stenosis or dissection within the major vessels of the neck. ACT 112: Negative or not required by law. Electronically signed by: Ede Fair M.D. 03/28/2020 12:36 PM
--- NOTE | 2020-03-28 12:45 | CT Scan Report ---
CTA ANGIOGRAPHY OF THE HEAD CLINICAL HISTORY: ams, hx tia COMPARISON STUDY: MRA of the head March 20, 2017. Head CT March 02, 2020 TECHNIQUE: Helical axial images of the head were obtained following uneventful intravenous administr ation of 115 cc of Optiray 320. Sagittal and coronal reconstructions were viewed as well as maximal i ntensity projections on an independent 3-D workstation. Automated exposure control was utilized for the study. A dose lowering technique was utilized adhering to the principles of ALARA. FINDINGS: Right mastoid air cells are partially opacified. There is fluid within the right middle ear . Left maxillary sinus mucous retention cyst is noted. No acute intracranial hemorrhage, midline shif t or mass effect is present. Ventricular dilatation is unchanged and likely related to atrophy. White matter hypodensity suggests small vessel disease. There is moderate plaque within bilateral cavernou s carotids without significant stenosis. The bilateral M1, M2, A1 and A2 segments are patent. There i s no intracranial aneurysm. There is no dissection within the intracranial vessels. Note is made of l arge bilateral posterior communicating arteries. IMPRESSION: 1. No central vessel occlusion. No intracranial aneurysm. 2. No significant change in appearance of the brain. 3. Partially opacified right mastoid air cells. ACT 112: Negative or not required by law. Electronically signed by: Ede Fair M.D. 03/28/2020 12:43 PM
[2020-03-28 12:48] LABS: Appearance Urine Clear (Clear); Bacteria Urine Automated Negative (Negative); Bilirubin Urine Negative (Negative); Blood Urine Negative (Negative); Color Urine Yellow; Epithelial Cell Urine Auto 20-30 /lpf (0-5); Glucose Urine UA Negative (Negative); Ketones Urine Negative (Negative); Leukocyte Esterase Urine Negative (Negative); Nitrite Urine Negative (Negative); RBC Urine Automated 0-4 /hpf (0-4); Specific Gravity Urine 1.023 (1.000-1.030); Urobilinogen Urine Negative (Negative); pH Urine 8.5 (4.5-7.5)
--- NOTE | 2020-03-28 12:59 | XRay Report ---
XR chest 1V portable CLINICAL HISTORY: trauma COMPARISON STUDY: Chest CT March 02, 2020. FINDINGS: Lung volumes are normal. Lungs are clear. There is no pneumothorax or pleural effusion. Car diac size is stable. Mediastinal contours are normal. There is no evidence for pulmonary edema. A lar ge hiatal hernia is again noted. IMPRESSION: No acute cardiopulmonary findings. No change in appearance of the chest. ACT 112: Negative or not required by law. Electronically signed by: Ede Fair M.D. 03/28/2020 12:57 PM
--- NOTE | 2020-03-28 13:00 | XRay Report ---
XR pelvis 1-2V routine CLINICAL HISTORY: trauma COMPARISON: CT of the abdomen and pelvis February 01, 2020. FINDINGS: Incidental note is made of contrast within the bladder from recent contrast-enhanced CT. T he sacroiliac joints and symphysis pubis are intact. No acute fracture within the pelvis or hips is i dentified. 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 IMPRESSION: 1. No acute fracture within the pelvis or hips. 2. 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 ACT 112: Negative or not required by law. Electronically signed by: Ede Fair M.D. 03/28/2020 12:58 PM
[2020-03-28 13:05] LABS: Protein Urine 3+ (Negative); Sulfosalicylic Acid Urine Positive (Negative)
[2020-03-28] MEDS ORDERED: OPTIRAY 320 100ml IV ONE (14:33)
--- NOTE | 2020-03-28 14:39 | History & Physical Report ---
Date of Service March 28, 2020 Assessment & Plan (1) Hyperthyroidism: -Hx of such Now with clinical hypothyroidism -Admit to med surg with tele -TSH on admission is 11.2, Free T4 =0.73. - Pt reports taking medications this morning - son notes she was recently started on levothyroxine on Mar 24 after being called in from PCP. On med rec. Concerned that the pt is taking both methimazole and levothyroxine at the same time. Pt had normal TSH and T4 in January, prior to her being hospitalized for acute blood loss anemia suspected to be from slow GI bleed. At that point she was taken off plavix (previously for hx of CVA). After that hospitalization she was discharged to [facility]. Throughout that stay she participated in PT/OT, then on Feb 19 spiked a fever, Covid 19 was found to be positive at that point time however had been negative during her previous hospitalization. Question if superimposed infection caused fluctuation of thyroid function? -Cont levothyroxine and hold methimazole for now. (2) Acute encephalopathy: Presented with fall and confusion with hallucinations in the last 24 hours No evidence of infection, no metabolic abnormalities otherwise Could be related to worsening thyroid function Check brain MRI Supportive care -Neurology consultation placed in case of possibility of seizure versus stroke (3) History of CVA (cerebrovascular accident): - Hx of such, off Plavix due to GI blood loss causing anemia as above - Concern for recurrent stroke with worsening hallucinations, CT brain and CTA are negative - Obtain MRI w/o contrast stat - Neuro checks q4h (4) Elevated lipase: - nearly 3000 on admission, CT abdomen/pelvis without evidence of pancreatitis -LFTs normal, no tenderness on examination Likely nonspecific elevation Follow level in the morning -If remains elevated, consider outpatient EUS (5) Fall: - Imaging studies reviewed, no acute fractures noted - PT/OT - voltaren gel, tylenol for pain relief, avoid narcotics in the setting of acute hallucinations as above. - UA negative -Treating hypothyroidism as above which could have contributed (6) Obstructive sleep apnea: - Cont CPAP HS - Noted that patient took this off sometime around 130 to 2 AM as per HPI (7) Stage 3 chronic kidney disease: -Creatinine at baseline (8) Coronary artery disease: With a history of nonobstructive CAD on cardiac catheterization in 2012-proximal LAD 40% stenosis -Was supposed to restart home Plavix after recent GI bleed but has not yet Continue metoprolol, Crestor (9) HTN (hypertension): - Cont metoprolol succinate 100 mg HS, lisinopril 40 mg QAM, amlodipine Blood pressures are quite elevated-this could contribute to a hypertensive encephalopathy Increase amlodipine to 5 mg p.o. twice daily -IV hydralazine as needed (10) Hyperlipemia: - Atorvastatin 40 HS (11) Arthritis: - hx of rheumatoid arthritis and osteoarthritis - PT/OT consults - Hx of fall last night, imaging studies reviewed, no acute fractures -Continue Voltaren gel and Tylenol for pain relief (12) Dementia: -Continue namenda and Aricept -Hallucinations worsening as above possible secondary to hypothyroidism -Patient lives at home by herself, son checks in on her multiple times per day, CM to assist with discharge planning, was recently in [facility] for several weeks for PT/OT after hospitalization in January. 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 -Continue Carafate and Protonix 40 mg twice daily (16) LBBB (left bundle branch block): Chronic (17) GERD (gastroesophageal reflux disease): Continue PPI With large hiatal hernia (18) Pulmonary hypertension: Noted to be severe on echocardiogram 2018 Continue treatment of BEVERLEY (19) DVT prophylaxis: DVT ppx: - teds, scds CODE: Full code Dispo: From home, likely to remain in the hospital x 1-2 days History of Present Illness Primary Care Provider: Bethany Hardin DO This is an 89 yo F with PMhx of anemia secondary to recurrent GI blood loss, Hx of CVA, CKD stage III, HTN, HLD, hyperthyroidism, who presents with acute onset of worsening confusion and hallucinations which started on 03/27/2020 Son is present at bedside and provides the history. He reports that she was recently seen by her PCP last week on 03/22, and a new medication for thyroid. He believes this is levothyroxine which he filled on 03/23. He has been giving this to daily as instructed and also the methimazole. Patient developed worsening hallucinations where she thought that plastic was peeling off the moran, kitchen sink was that the dirty and moving last night, and were other thought that there strange things occurring in her home which she could not confirm why. This morning the son went to her home and found her laying on the living room floor there was concern for fall as the patient briefly remembers being in the bathroom overnight and falling from the toilet and then crawling on the floor. On further investigation the son checked her CPAP settings and found that after putting her to bed at 10:30 PM, she wore this for 2-1/2 to 3 hours, so at some point in time around 1:30 AM the patient likely got up to use the bathroom and then fell shortly after that timeframe. There is no acute fracture on imaging, she does report feeling sore in bilateral hips as well as her low back. She has a new subconjunctival hemorrhage in the right eye which was not there last night per the son. Her TSH on admission is 11.2, Free T4 =0.73. She was slightly hypothermic upon presentation in the ER. Lipase is also elevated 2908. She d oes not have specific abdominal complaints currently, but when examined had pain in epigastric region. CT abdomen/pelvis was normal. Of note, she was diagnosed with Covid-19 on 02/20/2020 at [facility], but only had a fever x1 day and no other symptoms. Allergies Allergy/AdvReac Type Severity Reaction Status Date / Time atorvastatin Allergy Unknown UNKOWN Verified 03/28/20 11:19 cephalexin [From Keflex] Allergy Unknown Unknown Unverified 03/28/20 11:19 oxaprozin [From Daypro] Allergy Unknown Unknown Unverified 03/28/20 11:19 paroxetine Allergy Unknown UNKNOWN Verified 03/28/20 11:19 propoxyphene Allergy Unknown DARVOCET Verified 03/28/20 11:19 codeine AdvReac Mild NAUSEA Verified 03/28/20 11:19 Sulfa (Sulfonamide AdvReac Mild NAUSEA Verified 03/28/20 11:19 Antibiotics) Home Medications Medication Instructions Recorded Confirmed Type cholecalciferol (vitamin D3) 5,000 unit PO QAM 12/01/18 03/28/20 History [Vitamin D3] ipratropium bromide 42 mcg (0.06 2 spray INTNAS BID #15 ml 06/09/19 03/28/20 Rx %) nasal spray amlodipine 5 mg tablet 5 mg PO HS #90 tab 09/25/19 03/28/20 Rx methimazole 5 mg tablet 5 mg PO DAILY #90 tab 10/23/19 03/28/20 Rx metoprolol succinate 100 mg 100 mg PO HS #90 tab 12/25/19 03/28/20 Rx tablet,extended release 24 hr duloxetine 30 mg capsule,delayed 30 mg PO DAILY #90 cap 01/06/20 03/28/20 Rx release donepezil 10 mg tablet 10 mg PO QAM #90 tab 01/28/20 03/28/20 Rx ferrous sulfate 325 mg PO TIDM 30 Days #30 tab 02/17/20 03/28/20 Rx ketotifen fumarate 1 drp OP Q12 03/02/20 03/28/20 History melatonin 3 mg PO HS 03/02/20 03/28/20 History multivitamin with minerals 1 tab PO DAILY 03/02/20 03/28/20 History [Multiple Vitamin-Minerals] zinc sulfate 220 mg PO DAILY 03/02/20 03/28/20 History ascorbic acid (vitamin C) 500 mg 500 mg PO DAILY #30 tab 03/15/20 03/28/20 Rx tablet furosemide 20 mg tablet 20 mg PO 2XWK #24 tab 03/15/20 03/28/20 Rx lisinopril 40 mg tablet 40 mg PO QAM #90 tab 03/15/20 03/28/20 Rx pantoprazole 40 mg tablet,delayed 40 mg PO BID 30 Days #60 tab 03/15/20 03/28/20 Rx release acetaminophen 500 mg tablet 500 mg PO Q8H PRN #30 tab 03/17/20 03/28/20 Rx diclofenac sodium 1 % topical gel See Rx Instructions TOP TID PRN 03/17/20 03/28/20 History memantine 28 mg capsule 28 mg PO DAILY #30 ea 03/17/20 03/28/20 Rx sprinkle,extended release 24hr rosuvastatin 20 mg tablet 20 mg PO DAILY #30 tab 03/17/20 03/28/20 Rx sucralfate 1 gram tablet 1 g PO QID #180 tab 03/17/20 03/28/20 Rx levothyroxine 25 mcg tablet 25 mcg PO DAILY #30 tab 03/23/20 03/28/20 Rx Past Med/Surg History Medical History (Updated 03/29/20 @ 00:23 by Pina Sánchez MD) Acute GI bleeding Anemia Arthritis Coronary artery disease Dementia Depression Frequent PVCs Gait disturbance, post-stroke GI bleed GI bleed History of CVA (cerebrovascular accident) HTN (hypertension) Hyperlipemia Hyperthyroidism Irritable bowel syndrome Ischemic stroke Lab test negative for COVID-19 virus LBBB (left bundle branch block) Obstructive sleep apnea Pulmonary hypertension Stage 3 chronic kidney disease Vitamin D deficiency Surgical History S/P dilatation and curettage S/P hysterectomy S/P shoulder surgery S/P total knee arthroplasty Family History Mother Coronary heart disease Heart disease Myocardial infarction Denies family history of Ovarian cancer Prostate cancer Diabetes Alzheimer disease Breast cancer Lung cancer COPD (chronic obstructive pulmonary disease) Colorectal cancer Asthma Social History Smoking Status: Never smoker Hx Alcohol Use: No Hx Substance Use: No Preferred Language: [place] Communication Ability: Effective Visual Impairment: No Limitations Hearing Ability: Hard of Hearing Rn Hyperbaric Required: No Beliefs That Will Affect Care: None marital status: / Current Living Situation: Alone current occupational status: retired Other Information That Helps Us Care for You: No Feels Safe at Home: Yes Safety Concerns: Feels Safe At This Time Childhood Exposure to Second-Hand Smoke: No Diet Comment: regular caffeine: Yes (tea) during the past year weight has: remained stable Dental Care, Regularly: No Physical Activity Frequency: Does not Exercise Seatbelt Use: always Sunscreen Use: No Assistive Devices: Cane, CPAP and Glasses Review of Systems Review of Systems: Constitutional: No fever, sweats or chills, + confusion, + hallucinations, + able to participate in conversation Eyes: No diplopia, no worsening or blurred vision ENT: normal hearing, no trouble swallowing Respiratory: No cough, sputum, dyspnea at rest or on exertion Cardiovascular: No chest pain, tightness or palpitations Abdomen:+ pain with deep palpation, no nausea, vomiting, diarrhea or constipation, good appetite Musculoskeletal: No joint pain, calf pain, swelling Neurologic: No weakness, numbness/tingling, or balance problems Endo: Rheumatoid arthritis, tsh Psychiatric: No anxiety or depression Skin: No rash or itch Results & Data Results & Data ([facility]) Vital Signs (Past 12 Hours) Vital Signs Temp Pulse Pulse Resp BP BP Pulse Ox 03/28/20 13:00 61 20 157/64 H 100 03/28/20 11:08 62 16 190/78 H 99 03/28/20 10:00 36.2 C L 58 L 20 177/74 H 97 Laboratory Results 03/28/20 03/28/20 03/28/20 Range/Units 15:19 12:18 11:00 WBC (4.8-10.8) K/uL RBC (4.2-5.4) M/uL Hgb (12.0-16.0) g/dL Hct (37-47) % MCV (80-100) fL MCH (25-34) pg MCHC (32-36) g/dL RDW Std Deviation (36.4-46.3) fL RDW Coeff of Corey (11.5-14.5) % Plt Count (130-400) K/uL MPV (7.4-10.4) fL Immature Gran % (Auto) % Neut % (Auto) % Lymph % (Auto) % [place] % (Auto) % Eos % (Auto) % Baso % (Auto) % Neut # (Auto) (1.4-6.5) K/uL Lymph # (Auto) (1.2-3.4) K/uL [place] # (Auto) (0.11-0.59) K/uL Eos # (Auto) (0-0.5) K/uL Baso # (Auto) (0-0.2) K/uL Immature Gran # (Auto) (0.00-0.02) K/uL PT (9.0-12.0) Seconds INR (0.9-1.1) Sodium 139 (136-145) mmol/L Potassium 4.0 (3.5-5.1) mmol/L Chloride 104 (98-107) mmol/L Carbon Dioxide 30 (21-32) mmol/L Anion Gap 5.0 (3-11) BUN 23 H (7-18) mg/dl Creatinine 1.35 H (0.6-1.2) mg/dl Est Cr Clr Drug Dosing Not Reportable Est GFR ( Amer) 40.8 Est GFR (Non-Af Amer) 35.2 BUN/Creatinine Ratio 17.2 (10-20) Glucose 97 (70-99) mg/dl Calcium 9.9 (8.5-10.1) mg/dl Magnesium 1.8 (1.8-2.4) mg/dl Total Bilirubin 0.4 (0.2-1) mg/dl AST 22 (15-37) U/L ALT 17 (12-78) U/L Alkaline Phosphatase 76 (45-117) U/L Troponin I < 0.015 (0-0.045) ng/ml Total Protein 6.7 (6.4-8.2) gm/dl Albumin 3.3 L (3.4-5.0) gm/dl Globulin 3.4 (2.5-4.0) gm/dl Albumin/Globulin Ratio 1.0 (0.9-2) Lipase 2908 H (73-393) U/L TSH 11.200 H (0.300-4.500) uIu/ml Free T4 0.73 L (0.8-1.6) ng/dl Random Cortisol 13.80 mcg/dl Urine Color Yellow Urine Appearance Clear (Clear) Urine pH 8.5 H (4.5-7.5) Ur Specific [place] 1.023 (1.000-1.030) Urine Protein 3+ H (Negative) Urine Glucose (UA) Negative (Negative) Urine Ketones Negative (Negative) Urine Blood Negative (Negative) Urine Nitrite Negative (Negative) Urine Bilirubin Negative (Negative) Urine Urobilinogen Negative (Negative) Ur Leukocyte Esterase Negative (Negative) Urine WBC (Auto) 1-5 (0-5) /hpf Urine RBC (Auto) 0-4 (0-4) /hpf U Hyaline Cast (Auto) 1-5 (0-5) /lpf U Epithel Cells (Auto) 20-30 H (0-5) /lpf Urine Bacteria (Auto) Negative (Negative) 03/28/20 03/28/20 Range/Units 11:00 11:00 WBC 10.82 H (4.8-10.8) K/uL RBC 3.99 L (4.2-5.4) M/uL Hgb 12.1 (12.0-16.0) g/dL Hct 37.2 (37-47) % MCV 93.2 (80-100) fL MCH 30.3 (25-34) pg MCHC 32.5 (32-36) g/dL RDW Std Deviation 49.0 H (36.4-46.3) fL RDW Coeff of Corey 14.6 H (11.5-14.5) % Plt Count 242 (130-400) K/uL MPV 10.6 H (7.4-10.4) fL Immature Gran % (Auto) 0.3 % Neut % (Auto) 74.1 % Lymph % (Auto) 17.5 % [place] % (Auto) 6.5 % Eos % (Auto) 1.5 % Baso % (Auto) 0.1 % Neut # (Auto) 8.03 H (1.4-6.5) K/uL Lymph # (Auto) 1.89 (1.2-3.4) K/uL [place] # (Auto) 0.70 H (0.11-0.59) K/uL Eos # (Auto) 0.16 (0-0.5) K/uL Baso # (Auto) 0.01 (0-0.2) K/uL Immature Gran # (Auto) 0.03 H (0.00-0.02) K/uL PT 10.6 (9.0-12.0) Seconds INR 1.0 (0.9-1.1) Sodium (136-145) mmol/L Potassium (3.5-5.1) mmol/L Chloride (98-107) mmol/L Carbon Dioxide (21-32) mmol/L Anion Gap (3-11) BUN (7-18) mg/dl Creatinine (0.6-1.2) mg/dl Est Cr Clr Drug Dosing Est GFR ( Amer) Est GFR (Non-Af Amer) BUN/Creatinine Ratio (10-20) Glucose (70-99) mg/dl Calcium (8.5-10.1) mg/dl Magnesium (1.8-2.4) mg/dl Total Bilirubin (0.2-1) mg/dl AST (15-37) U/L ALT (12-78) U/L Alkaline Phosphatase (45-117) U/L Troponin I (0-0.045) ng/ml Total Protein (6.4-8.2) gm/dl Albumin (3.4-5.0) gm/dl Globulin (2.5-4.0) gm/dl Albumin/Globulin Ratio (0.9-2) Lipase (73-393) U/L TSH (0.300-4.500) uIu/ml Free T4 (0.8-1.6) ng/dl Random Cortisol mcg/dl Urine Color Urine Appearance (Clear) Urine pH (4.5-7.5) Ur Specific [place] (1.000-1.030) Urine Protein (Negative) Urine Glucose (UA) (Negative) Urine Ketones (Negative) Urine Blood (Negative) Urine Nitrite (Negative) Urine Bilirubin (Negative) Urine Urobilinogen (Negative) Ur Leukocyte Esterase (Negative) Urine WBC (Auto) (0-5) /hpf Urine RBC (Auto) (0-4) /hpf U Hyaline Cast (Auto) (0-5) /lpf U Epithel Cells (Auto) (0-5) /lpf Urine Bacteria (Auto) (Negative) Diagnostic Findings CT OF THE ABDOMEN AND PELVIS WITH CONTRAST CLINICAL HISTORY: Elevated lipase. Abdominal pain. COMPARISON STUDY: CT of the abdomen and pelvis February 01, 2020. TECHNIQUE: Following IV administration of 94 mL of Optiray-320, axial images of the abdomen and pelvis were obtained from the lung bases to the proximal femurs. Images were reviewed in the axial, sagittal, and coronal planes. IV contrast was administered without complication. Automated exposure control was utilized for the study. A dose lowering technique was utilized adhering to the principles of ALARA. CT DOSE: 563.34 mGycm FINDINGS: A large hiatal hernia is again noted. There is moderate cardiomegaly. No pneumatosis, free air or portal venous gas is present. The liver, spleen, adrenal glands and kidneys are unremarkable. There is contrast within the collecting systems, ureters and bladder from recent contrast-enhanced CT. There is a gallstone within the gallbladder without evidence for acute cholecystitis. No peripancreatic infiltration is noted. There is no biliary or pancreatic ductal dilatation. There is no evidence for a bowel obstruction. Sigmoid diverticulosis is noted without evidence for acute diverticulitis. Major vasculature is patent. No lymphadenopathy or ascites. No acute lumbar spine or pelvic fracture is noted. There are no suspicious osseous lesions. IMPRESSION: 1. No acute process within the abdomen or pelvis. 2. Normal CT appearance of the pancreas. 3. Large hiatal hernia. 4. No bowel obstruction. 5. Colonic diverticulosis without evidence for acute diverticulitis. CTA ANGIOGRAPHY OF THE HEAD CLINICAL HISTORY: ams, hx tia COMPARISON STUDY: MRA of the head March 20, 2017. Head CT March 02, 2020 TECHNIQUE: Helical axial images of the head were obtained following uneventful intravenous administration of 115 cc of Optiray 320. Sagittal and coronal reconstructions were viewed as well as maximal intensity projections on an independent 3-D workstation. Automated exposure control was utilized for the study. A dose lowering technique was utilized adhering to the principles of ALARA. FINDINGS: Right mastoid air cells are partially opacified. There is fluid within the right middle ear. Left maxillary sinus mucous retention cyst is noted. No acute intracranial hemorrhage, midline shift or mass effect is present. Ventricular dilatation is unchanged and likely related to atrophy. White matter hypodensity suggests small vessel disease. There is moderate plaque within bilateral cavernous carotids without significant stenosis. The bilateral M1, M2, A1 and A2 segments are patent. There is no intracranial aneurysm. There is no dissection within the intracranial vessels. Note is made of large bilateral posterior communicating arteries. IMPRESSION: 1. No central vessel occlusion. No intracranial aneurysm. 2. No significant change in appearance of the brain. 3. Partially opacified right mastoid air cells. CT ANGIOGRAPHY OF THE NECK WITH CONTRAST CLINICAL HISTORY: ams, hx tia COMPARISON STUDY: MRA of the neck March 20, 2017. Carotid ultrasound April 28, 2017. Technique: CT angiography of the carotid and vertebral arteries was obtained using Optiray 320 IV and 3D reconstruction on an independent workstation. NASCET criteria was utilized. Automated exposure control was utilized for the study. A dose lowering technique was utilized adhering to the principles of ALARA. CT DOSE: 1017.06 mGy.cm Findings: Several thyroid nodules are incidentally noted. Right mastoid air cells are partially opacified. There is no acute cervical spine fracture. Lung apices are clear. There is no cervical lymphadenopathy. Multilevel degenerative changes within the cervical spine are noted. The bilateral common carotid, cervical internal carotid and vertebral arteries are patent. Mild atherosclerotic plaque is noted within the proximal bilateral internal carotid arteries without significant stenosis. There is no dissection within the major vessels of the neck. IMPRESSION: No stenosis or dissection within the major vessels of the neck. CT head noncontrast: IMPRESSION: 1. No acute intracranial findings. No significant change in appearance of the brain. 2. Partially opacified right mastoid air cells. 3. No calvarial fracture. Pelvis x-ray: No acute fracture, moderate to severe bilateral hip OA XR chest 1V portable CLINICAL HISTORY: trauma COMPARISON STUDY: Chest CT March 02, 2020. FINDINGS: Lung volumes are normal. Lungs are clear. There is no pneumothorax or pleural effusion. Cardiac size is stable. Mediastinal contours are normal. There is no evidence for pulmonary edema. A large hiatal hernia is again noted. IMPRESSION: No acute cardiopulmonary findings. No change in appearance of the chest. ECG Additional Comments: ECG on 03/28/2020 at 1107 with sinus bradycardia, rate 59, LBBB, unchanged from previous Supervising Physician Co-Signing Physician Notes PA Supervision Note: I personally saw and examined the patient. I verified all szymanski points and agree with MALCOM Mccarthy with the following exceptions and/or additions: This patient is an 89-year-old female with history of HTN, CAD, HL, depression, LBBB, recent GI bleed from suspected [place] ulcers, hypothyroidism, CKD stage III, CVA, GERD, who presents to the ER after being found down on the ground by her son. She has been having hallucinations in the last 24 hours prior to admission. She had no acute injuries, but remains somewhat confused and does not recall the events overnight. No infectious causes. No focal neuro deficits. TSH was found to be quite elevated with low free T4. She is not hypoxic. CTA head and neck and CT of the head are all negative. History and ROS reviewed as above Vitals reviewed Gen: AAOx1, NAD HEENT: Anicteric sclerae, EOMI, PERRLA CV: RRR no mgr nl S1S2 Pulm: CTAB no wcr Abd: +BS soft NT ND no masses or hernias Ext: No edema, 2+ DP pulses, no tenderness to palpation over shoulders, hips, knees with crepitus bilaterally Skin: No rashes, warm/dry Neuro: Full strength throughout, cranial nerves II through XII intact, cooperative for examination Laboratory values reviewed ECG reviewed All radiology studies reviewed 89-year-old female with history as above, here with fall and acute encephalopathy. Most likely secondary to hypothyroidism but could be hypertensive encephalopathy Check MRI of the brain to rule out stroke Neurology consultation Continue levothyroxine and discontinue methimazole-endocrinology consultation placed on admission but they do not come to the hospital-may be better to just give them a phone call if desired on Sunday Blood pressures are quite elevated-this could be hypertensive encephalopathy- increase amlodipine to 5 mg p.o. twice daily and give IV hydralazine as needed Hold Lasix and give gentle IV fluids PG Care Time/CCT Total # of Minutes Spent Total Time Spent with Patient: Total time spent is greater than 50% in coordination of care (as documented) at patient's floor/unit and/or counseling patient: Coding Level of Care Code 18828 Initial Inpt Care Lvl 3 Diagnoses Hyperthyroidism E05.90 Acute encephalopathy G93.40 History of CVA (cerebrovascular accident) Z86.73 Elevated lipase R74.8 Fall W19.XXXA Obstructive sleep apnea G47.33 Stage 3 chronic kidney disease N18.3 Coronary artery disease I25.10 HTN (hypertension) I10 Hypertension type: essential hypertension Hyperlipemia E78.5 Arthritis M19.90 Dementia F03.91 Dementia behavioral disturbance: with behavioral disturbance Dementia type: unspecified type Depression F32.9 Gait disturbance, post-stroke I69.398; R26.9 Anemia D50.9 Anemia type: iron deficiency Iron deficiency anemia type: unspecified iron deficiency LBBB (left bundle branch block) I44.7 GERD (gastroesophageal reflux disease) K21.9 Pulmonary hypertension I27.20 DVT prophylaxis Z29.9 (1) Anemia Anemia type: iron deficiency Iron deficiency anemia type: unspecified iron deficiency Qualified Code(s): D50.9 - Iron deficiency anemia, unspecified (2) Dementia Dementia behavioral disturbance: with behavioral disturbance Dementia type: unspecified type Qualified Code(s): F03.91 - Unspecified dementia with behavioral disturbance (3) HTN (hypertension) Hypertension type: essential hypertension Qualified Code(s): I10 - Essential (primary) hypertension
--- NOTE | 2020-03-28 15:11 | CT Scan Report ---
CT OF THE ABDOMEN AND PELVIS WITH CONTRAST CLINICAL HISTORY: Elevated lipase. Abdominal pain. COMPARISON STUDY: CT of the abdomen and pelvis February 01, 2020. TECHNIQUE: Following IV administration of 94 mL of Optiray-320, axial images of the abdomen and pelvi s were obtained from the lung bases to the proximal femurs. Images were reviewed in the axial, sagitt al, and coronal planes. IV contrast was administered without complication. Automated exposure contro l was utilized for the study. A dose lowering technique was utilized adhering to the principles of A CARYL. CT DOSE: 563.34 mGycm FINDINGS: A large hiatal hernia is again noted. There is moderate cardiomegaly. No pneumatosis, free air or portal venous gas is present. The liver, spleen, adrenal glands and kidneys are unremarkable. There is contrast within the collecting systems, ureters and bladder from recent contrast-enhanced CT . There is a gallstone within the gallbladder without evidence for acute cholecystitis. No peripancre atic infiltration is noted. There is no biliary or pancreatic ductal dilatation. There is no evidence for a bowel obstruction. Sigmoid diverticulosis is noted without evidence for acute diverticulitis. Major vasculature is patent. No lymphadenopathy or ascites. No acute lumbar spine or pelvic fracture is noted. There are no suspicious osseous lesions. IMPRESSION: 1. No acute process within the abdomen or pelvis. 2. Normal CT appearance of the pancreas. 3. Large hiatal hernia. 4. No bowel obstruction. 5. Colonic diverticulosis without evidence for acute diverticulitis. ACT 112: Negative or not required by law. Electronically signed by: Ede Fair M.D. 03/28/2020 3:09 PM
[2020-03-28] MEDS ORDERED: ACETAMINOPHEN 500 MG TAB PO PRN (16:26)
[2020-03-28] MEDS ORDERED: ONDANSETRON INJ 2 MG/ML 2 ML VIAL IV PRN (16:26)
[2020-03-28] MEDS ORDERED: ACETAMINOPHEN 325 MG TAB PO PRN (16:26)
[2020-03-28] MEDS ORDERED: DICLOFENAC SOD 1% GEL 100 GM TUBE EXT PRN (16:26)
--- NOTE | 2020-03-28 17:56 | Magnetic Resonance Report ---
MRI OF THE BRAIN WITHOUT CONTRAST CLINICAL HISTORY: Altered mental status. Evaluate for stroke. COMPARISON STUDY: MRI of the brain March 12, 2017. Head CT and CTA of the head performed earlier t mica. TECHNIQUE: Utilizing a 1.5 Bernice magnet and dedicated coil, multiplanar, multiecho imaging of the bra in was performed without IV contrast. FINDINGS: There are no foci of restricted diffusion to suggest acute infarct. No acute intracranial h emorrhage, midline shift or mass effect is present. Ventricular dilatation is unchanged from earlier exams and likely due to atrophy. White matter T2 hyperintense foci are similar to prior exams as well and suggest small vessel disease. Basal cisterns are patent. There are no extra axial collections. F low-voids for the major intracranial vessels are present. No intracranial masses identified on this u nenhanced exam. Fluid within the right mastoid air cells is noted. Mucus retention cyst within the le ft maxillary sinus is incidentally noted. IMPRESSION: 1. No acute intracranial findings. 2. No significant change in appearance of the brain. Stable ventricular dilatation likely due to atro phy. White matter T2 hyperintense foci suggest small vessel disease. 3. Right mastoid effusion. ACT 112: Negative or not required by law. Electronically signed by: Ede Fair M.D. 03/28/2020 5:54 PM
[2020-03-28] MEDS: FERROUS SULFATE 325 MG TAB PO SCH (20:37)
[2020-03-28] MEDS: IPRATROPIUM BROMIDE NASAL SPRAY 0.06% 15ML SCH (20:38)
[2020-03-28] MEDS: PANTOprazole 40 MG TAB PO SCH (20:40)
[2020-03-28] MEDS: SUCRALFATE 1 GM TAB PO SCH (20:40)
[2020-03-28] MEDS: MELATONIN 3 MG TAB PO SCH (20:46)
[2020-03-28] MEDS ORDERED: amLODIPine BESYLATE 5 MG TAB PO SCH (21:00)
[2020-03-28] MEDS ORDERED: METOPROLOL SUCC 50MG EXT REL TAB PO SCH (21:00)
[2020-03-28] MEDS ORDERED: ATORVASTATIN 40 MG TAB PO SCH (21:00)
[2020-03-29] MEDS ORDERED: hydrALAZINE HCL 20 MG/ML VIAL IV PRN (00:06)
[2020-03-29] MEDS ORDERED: POLYETHYLENE (MIRALAX) 17 GM PACK PO ONE (03:15)
[2020-03-29] MEDS: LEVOTHYROXINE SODIUM 25 MCG TABLET PO SCH (05:51)
[2020-03-29 07:20] LABS: Basophils # (auto) 0.02 K/uL (0-0.2); Basophils % (auto) 0.2 %; Eosinophils # (auto) 0.33 K/uL (0-0.5); Eosinophils % (auto) 3.9 %; Hemoglobin 11.9 g/dL (12.0-16.0); Immature Granulocytes # (auto) 0.02 K/uL (0.00-0.02); Immature Granulocytes % (auto) 0.2 %; Lymphocytes % (auto) 20.2 %; Mean Corpuscular Hemoglobin 30.7 pg (25-34); Mean Corpuscular Hgb Conc 33.1 g/dL (32-36); Mean Corpuscular Volume 92.8 fL (80-100); Mean Platelet Volume 10.5 fL (7.4-10.4); Monocytes # (auto) 0.61 K/uL (0.11-0.59); Monocytes % (auto) 7.2 %; Neutrophils # (auto) 5.75 K/uL (1.4-6.5); Neutrophils % (auto) 68.3 %; Platelet Count 228 K/uL (130-400); RDW Coefficient of Variation 14.9 % (11.5-14.5); RDW Standard Deviation 49.7 fL (36.4-46.3); Red Blood Count 3.88 M/uL (4.2-5.4); White Blood Count 8.43 K/uL (4.8-10.8)
[2020-03-29] MEDS: SUCRALFATE 1 GM TAB PO SCH ×4 (07:34→20:18)
[2020-03-29 07:52] LABS: BUN Creatinine Ratio 15.2 (10-20); Calcium 9.2 mg/dl (8.5-10.1); Creatinine Clr Calc Pharmacy 30.9 ml/min; Est GFR (African American) 50.1; Est GFR (Non-African American) 43.2; Potassium 3.9 mmol/L (3.5-5.1)
[2020-03-29 07:55] LABS: Bilirubin,Total 0.5 mg/dl (0.2-1); Globulin 3.1 gm/dl (2.5-4.0); Total Protein 6.1 gm/dl (6.4-8.2)
[2020-03-29] MEDS: CHOLECALCIFEROL 1,000 UNITS 25 MCG TAB PO SCH (08:00)
[2020-03-29] MEDS: DULoxetine HCL 30 MG CAP PO SCH (08:01)
[2020-03-29] MEDS: CEROVITE ADV FORMULA TAB PO SCH (08:01)
[2020-03-29] MEDS: ZINC SULFATE 220 MG CAPSULE PO SCH (08:01)
[2020-03-29] MEDS: ROSUVASTATIN CALCIUM 20 MG TAB PO SCH (08:01)
[2020-03-29] MEDS: DONEPEZIL HCL 10 MG TAB PO SCH (08:01)
[2020-03-29] MEDS: lisinopril 40 MG TAB PO SCH (08:02)
[2020-03-29] MEDS: FERROUS SULFATE 325 MG TAB PO SCH ×3 (08:02→16:11)
[2020-03-29] MEDS: PANTOprazole 40 MG TAB PO SCH ×2 (08:02→20:20)
[2020-03-29] MEDS: IPRATROPIUM BROMIDE NASAL SPRAY 0.06% 15ML SCH ×2 (08:03→20:18)
[2020-03-29] MEDS ORDERED: FUROSEMIDE 20 MG TAB PO SCH (09:00)
[2020-03-29] MEDS ORDERED: amLODIPine BESYLATE 5 MG TAB PO SCH (09:00)
[2020-03-29] MEDS ORDERED: methIMAzole 5 MG TABLET PO SCH (09:00)
[2020-03-29] MEDS: POLYETHYLENE (MIRALAX) 17 GM PACK PO SCH ×2 (09:02→20:21)
[2020-03-29] MEDS: ASCORBIC ACID 500 MG TAB PO SCH (09:07)
--- NOTE | 2020-03-29 13:42 | Neurology Consultation ---
Date of Consultation March 29, 2020 Assessment & Plan (1) Acute encephalopathy: Debora Ralph is an 89 yo woman w/ PMH of dementia, anemia, hypothyroidism, HTN, HLD, GERD and prior parietal stroke without residual deficits who p/t [facility] after acute onset of worsening confusion a/w hallucinations. # AMS a/w hallucinations: unclear if this was just delirium on dementia as she does have a h/o dementia on two agents at home and likely poor sleep the day of the event vs hypothyroidism presenting with hallucinations (https://jmedicalcasereports.[email or web address]/articles/10.1186/[email or web address]). She reports being back to her baseline with no further hallucinations noted. - continue to treat hypothyroidism as already doing per primary team - continue home dementia medications (memantine 28mg daily, donepezil 10mg daily). If hallucinations persist despite treatment of hypothyroidism, consider backing down on the memantine to a lower dose # Fall: has been persistently hypertensive yet bradycardic - consider stopping metoprolol for ongoing bradycardia and increasing amlodipine instead (or adding alternative BP medication) Thank you for this interesting consult. Plan of care discussed with primary team. Please call or text with questions. (2) History of CVA (cerebrovascular accident): (3) Fall: History of Present Illness Attending Physician: Raquel Ramírez DO History of Present Illness Debora Ralph is an 89 yo woman w/ PMH of dementia, anemia, hypothyroidism, HTN, HLD, GERD and prior parietal stroke without residual deficits who p/t [facility] after acute onset of worsening confusion a/w hallucinations. In the ED, patient afebrile, BP 177/74, heart rate 58, satting 97% on room air. Labs notable for WBC 10.82, hemoglobin 12.1, platelets 242, BMP within normal except for creatinine elevated 1.25, glucose 97, no anion gap, calcium/magnesium within normal, LFTs within normal, troponin 0 0.015, lipase elevated to 2908, TSH H elevated 11.2 with low free T4 0.73, UA shows proteinuria but no infection. Imaging independently reviewed. CT head shows SVID with no hemorrhage or hypodensity noted. CTA head and neck shows no LVO, high-grade stenosis or aneurysm. MRI brain shows no acute or chronic infarct, moderate SVID, moderate generalized atrophy with ex vacuo dilation that is stable from prior examinations. Pelvic x-ray showed no acute fracture with moderate to severe bilateral hip arthritis. CT abdomen pelvis shows no acute process within the abdomen or pelvis, large hiatal hernia, no bowel obstruction, colonic diverticulosis without evidence of diverticulitis. On examination today, Debora reports that she feels like she is at her baseline. Denies having any hallucinations currently and was resting peacefully in her room upon arrival. Denies any urinary symptoms, denies symptoms, symptoms of pneumonia or medication changes at this time as she is aware of. She overall feels like she is at her baseline except for some hip pain due to her fall. Allergies Allergy/AdvReac Type Severity Reaction Status Date / Time atorvastatin Allergy Unknown UNKOWN Verified 03/28/20 11:19 cephalexin [From Keflex] Allergy Unknown Unknown Unverified 03/28/20 11:19 oxaprozin [From Daypro] Allergy Unknown Unknown Unverified 03/28/20 11:19 paroxetine Allergy Unknown UNKNOWN Verified 03/28/20 11:19 propoxyphene Allergy Unknown DARVOCET Verified 03/28/20 11:19 codeine AdvReac Mild NAUSEA Verified 03/28/20 11:19 Sulfa (Sulfonamide AdvReac Mild NAUSEA Verified 03/28/20 11:19 Antibiotics) Home Medications Medication Instructions Recorded Confirmed Type cholecalciferol (vitamin D3) 5,000 unit PO QAM 12/01/18 03/28/20 History [Vitamin D3] ipratropium bromide 42 mcg (0.06 2 spray INTNAS BID #15 ml 06/09/19 03/28/20 Rx %) nasal spray amlodipine 5 mg tablet 5 mg PO HS #90 tab 09/25/19 03/28/20 Rx methimazole 5 mg tablet 5 mg PO DAILY #90 tab 10/23/19 03/28/20 Rx metoprolol succinate 100 mg 100 mg PO HS #90 tab 12/25/19 03/28/20 Rx tablet,extended release 24 hr duloxetine 30 mg capsule,delayed 30 mg PO DAILY #90 cap 01/06/20 03/28/20 Rx release donepezil 10 mg tablet 10 mg PO QAM #90 tab 01/28/20 03/28/20 Rx ferrous sulfate 325 mg PO TIDM 30 Days #30 tab 02/17/20 03/28/20 Rx ketotifen fumarate 1 drp OP Q12 03/02/20 03/28/20 History melatonin 3 mg PO HS 03/02/20 03/28/20 History multivitamin with minerals 1 tab PO DAILY 03/02/20 03/28/20 History [Multiple Vitamin-Minerals] zinc sulfate 220 mg PO DAILY 03/02/20 03/28/20 History ascorbic acid (vitamin C) 500 mg 500 mg PO DAILY #30 tab 03/15/20 03/28/20 Rx tablet furosemide 20 mg tablet 20 mg PO 2XWK #24 tab 03/15/20 03/28/20 Rx lisinopril 40 mg tablet 40 mg PO QAM #90 tab 03/15/20 03/28/20 Rx pantoprazole 40 mg tablet,delayed 40 mg PO BID 30 Days #60 tab 03/15/20 03/28/20 Rx release acetaminophen 500 mg tablet 500 mg PO Q8H PRN #30 tab 03/17/20 03/28/20 Rx diclofenac sodium 1 % topical gel See Rx Instructions TOP TID PRN 03/17/20 03/28/20 History memantine 28 mg capsule 28 mg PO DAILY #30 ea 03/17/20 03/28/20 Rx sprinkle,extended release 24hr rosuvastatin 20 mg tablet 20 mg PO DAILY #30 tab 03/17/20 03/28/20 Rx sucralfate 1 gram tablet 1 g PO QID #180 tab 03/17/20 03/28/20 Rx levothyroxine 25 mcg tablet 25 mcg PO DAILY #30 tab 03/23/20 03/28/20 Rx Patient History Medical History Acute GI bleeding Anemia Arthritis Coronary artery disease Dementia Depression Frequent PVCs Gait disturbance, post-stroke GI bleed GI bleed History of CVA (cerebrovascular accident) HTN (hypertension) Hyperlipemia Hyperthyroidism Irritable bowel syndrome Ischemic stroke Lab test negative for COVID-19 virus LBBB (left bundle branch block) Obstructive sleep apnea Pulmonary hypertension Stage 3 chronic kidney disease Vitamin D deficiency Surgical History S/P dilatation and curettage S/P hysterectomy S/P shoulder surgery S/P total knee arthroplasty Family History Mother Coronary heart disease Heart disease Myocardial infarction Denies family history of Ovarian cancer Prostate cancer Diabetes Alzheimer disease Breast cancer Lung cancer COPD (chronic obstructive pulmonary disease) Colorectal cancer Asthma Social History Smoking Status: Never smoker Hx Alcohol Use: No Hx Substance Use: No Preferred Language: Japanese Communication Ability: Effective Visual Impairment: No Limitations Hearing Ability: Hard of Hearing Formula Room Worker Required: No Beliefs That Will Affect Care: None marital status: / Current Living Situation: Alone current occupational status: retired Other Information That Helps Us Care for You: No Feels Safe at Home: Yes Safety Concerns: Feels Safe At This Time Childhood Exposure to Second-Hand Smoke: No Diet Comment: regular caffeine: Yes (tea) during the past year weight has: remained stable Dental Care, Regularly: No Physical Activity Frequency: Does not Exercise Seatbelt Use: always Sunscreen Use: No Assistive Devices: Glasses and Walker Review of Systems Review of Systems: 10 point review of systems completed and negative except as in HPI. Exam (Neuro) Physical Exam: General Exam: GEN: NAD, sitting in chair. HEENT: No conjunctival injection, no rhinorrhea. CV: RRR, no peripheral edema PULM: Nonlabored respirations on room air. Neuro Exam: MS: Awake and Alert. Oriented to person, place, and month/year not date. Speech fluent and appropriate without dysarthria or paraphasic errors. Language intact including naming, comprehension, repetition. Cognition and memory grossly intact. Attention intact. No neglect. CN: Visual cheng full. No extinction to double simultaneous stimuli. No clear optic disc edema on fundoscopic exam. PERRLA OU. EOMI without nystagmus. Facial sensation intact to LT. Facial muscles full and symmetric. Hearing intact to conversation. Uvula midline with symmetric palatal elevation. Shoulder shrug normal. Tongue midline. MOTOR: Normal bulk and tone. No pronator drift. BUE strength 5/5 at deltoids, biceps, triceps, wrist flexors and extensors, and hand grasp bilaterally. BLE strength 5/5 at iliopsoas, hamstrings, quadriceps, tibialis anterior, and gastrocnemius bilaterally. REFLEXES: 1+ at biceps, triceps, brachioradialis, trace patella and absent Achilles bilaterally. Flexor plantar responses bilaterally. SENSORY: Intact to LT without extinction to double simultaneous stimuli. Vibration and temperature intact throughout (mildly diminished in BLEs up to the knees). COORDINATION: No dysmetria or ataxia on [id number] bilaterally. Normal Maximo bilaterally. GAIT: deferred given physical status Results & Data ([facility]) Vital Signs (Past 12 Hours) Vital Signs Temp Pulse Resp BP Pulse Ox 03/29/20 07:35 36.7 C 57 L 18 177/77 H 99 PG Care Time/CCT Total # of Minutes Spent Total Time Spent with Patient: Total time spent is greater than 50% in coordination of care (as documented) at patient's floor/unit and/or counseling patient: Coding Level of Care Code 12926 Initial Inpt Care Lvl 3 Diagnoses Acute encephalopathy G93.40 History of CVA (cerebrovascular accident) Z86.73 Fall W19.XXXA
--- NOTE | 2020-03-29 15:47 | Hospitalist Progress Note ---
Date of Service March 29, 2020 Assessment & Plan (1) Hyperthyroidism: -Hx of hyperthyroidism on methiamazole Now with clinical hypothyroidism -Admit to med surg with tele -TSH on admission is 11.2, Free T4 =0.73. - Pt reports taking medications this morning - son notes she was recently st arted on levothyroxine on Mar 24 after being called in from PCP. On med rec. Concerned that the pt is taking both methimazole and levothyroxine at the same time. Pt had normal TSH and T4 in January, prior to her being hospitalized for acute blood loss anemia suspected to be from slow GI bleed. At that point she was taken off plavix (previously for hx of CVA). After that hospitalization she was discharged to [facility]. Throughout that stay she participated in PT/OT, then on Feb 19 spiked a fever, Covid 19 was found to be positive at that point time however had been negative during her previous hospitalization. Question if superimposed infection caused fluctuation of thyroid function? -Cont levothyroxine and hold methimazole for now. (2) Acute encephalopathy: Presented with fall and confusion with hallucinations in the last 24 hours No evidence of infection, no metabolic abnormalities otherwise Could be related to worsening thyroid function vs hallucination in the setting of known dementia CTA head/neck neg for acute MRI neg for acute CT head neg for acute CBC, PRP WNL UA WNL CXR/CT AP neg for acute infections or other contributing factors -Neurology c/s pending (3) History of CVA (cerebrovascular accident): - Hx of CVA, off Plavix due to GI blood loss causing anemia as above - Concern for recurrent stroke with worsening hallucinations, CT brain and CTA are negative - MRI neg for acute - Neuro checks q4h (4) Elevated lipase: - nearly 3000 on admission, CT abdomen/pelvis without evidence of pancreatitis -LFTs normal, no tenderness on examination Likely nonspecific elevation Repeat on 03/29 is WNL (5) Fall: - Imaging studies reviewed, no acute fractures noted - PT/OT - voltaren gel, tylenol for pain relief, avoid narcotics in the setting of acute hallucinations as above. - UA negative -Treating hypothyroidism as above which could have contributed (6) Obstructive sleep apnea: - Cont CPAP HS - Noted that patient took this off sometime around 130 to 2 AM as per HPI (7) Stage 3 chronic kidney disease: -Creatinine at baseline (8) Coronary artery disease: With a history of nonobstructive CAD on cardiac catheterization in 2012- proximal LAD 40% stenosis -Was supposed to restart home Plavix after recent GI bleed but has not yet (9) HTN (hypertension): - Cont metoprolol succinate 100 mg HS, lisinopril 40 mg QAM, amlodipine Blood pressures are quite elevated-this could contribute to a hypertensive encephalopathy Amlodipine to 5 mg p.o. 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 -Continue Carafate and Protonix 40 mg twice daily (16) LBBB (left bundle branch block): Chronic (17) GERD (gastroesophageal reflux disease): Continue PPI With large hiatal hernia (18) Pulmonary hypertension: Noted to be severe on echocardiogram 2018 Continue treatment of BEVERLEY (19) DVT prophylaxis: DVT ppx: - teds, scds CODE: Full code Dispo: From home, was recently at [facility] for rehab Admission and Anticipated Discharge Date Admission Date: March 28, 2020 Subjective Pt states she is feeling better today. No further falls. She states she still feels a bit weak on her legs, but it is better. She feels less confused. Ate without issue. Pt denies fever, SOB, chest pain, abd pain, n/v/c/d, LE pain or swelling. Review of Systems Review of Systems: Pertinent positives and negatives reviewed in HPI--all others negative Physical Exam Constitutional: WD/WN, vitals as above Eyes: normal visual cheng by confrontation and + anicteric sclerae Neck: normal visual inspection and trachea midline Respiratory: normal respiratory effort, lungs clear to auscultation Cardiovascular: Rate/Rhythm: regular rate and regular rhythm Gastrointestinal (Abdomen): Inspection/Auscultation: abdomen not distended Percussion/Palpation: abdomen soft; abdomen nontender Musculoskeletal: Head/Neck/Chest: normocephalic and head atraumatic negative for edema, peripheral pulses intact Skin: no rashes, warm and dry Neurologic: awake; not confused Speech / Cognition: normal speech Psychiatric: Orientation: alert, oriented to person, oriented to place, oriented to time and cooperative Speech: normal rate/rhythm/volume of speech Affect: euthymic affect Results & Data Results & Data ([facility]) Vital Signs (Past 12 Hours) Vital Signs Temp Pulse Resp BP Pulse Ox 03/29/20 07:35 36.7 C 57 L 18 177/77 H 99 PG Care Time/CCT Total # of Minutes Spent Total Time Spent with Patient: Total time spent is greater than 50% in coordination of care (as documented) at patient's floor/unit and/or counseling patient: Coding Level of Care Code 77625 Subseq Hosp Care Lvl 3 Diagnoses Hyperthyroidism E05.90 Acute encephalopathy G93.40 History of CVA (cerebrovascular accident) Z86.73 Elevated lipase R74.8 Fall W19.XXXA Obstructive sleep apnea G47.33 Stage 3 chronic kidney disease N18.3 Coronary artery disease I25.10 HTN (hypertension) I10 Hypertension type: essential hypertension Hyperlipemia E78.5 Arthritis M19.90 Dementia F03.91 Dementia behavioral disturbance: with behavioral disturbance Dementia type: unspecified type Depression F32.9 Gait disturbance, post-stroke I69.398; R26.9 Anemia D50.9 Anemia type: iron deficiency Iron deficiency anemia type: unspecified iron deficiency LBBB (left bundle branch block) I44.7 GERD (gastroesophageal reflux disease) K21.9 Pulmonary hypertension I27.20 DVT prophylaxis Z29.9 (1) HTN (hypertension) Hypertension type: essential hypertension Qualified Code(s): I10 - Essential (primary) hypertension (2) Dementia Dementia behavioral disturbance: with behavioral disturbance Dementia type: unspecified type Qualified Code(s): F03.91 - Unspecified dementia with behavioral disturbance (3) Anemia Anemia type: iron deficiency Iron deficiency anemia type: unspecified iron deficiency Qualified Code(s): D50.9 - Iron deficiency anemia, unspecified
[2020-03-29] MEDS: amLODIPine BESYLATE 5 MG TAB PO SCH (20:19)
[2020-03-29] MEDS: MELATONIN 3 MG TAB PO SCH (20:23)
[2020-03-30] MEDS: LEVOTHYROXINE SODIUM 25 MCG TABLET PO SCH (05:24)
[2020-03-30 08:02] LABS: Albumin Level 3.1 gm/dl (3.4-5.0); BUN Creatinine Ratio 15.2 (10-20); Calcium 9.7 mg/dl (8.5-10.1); Creatinine Clr Calc Pharmacy 20.5 ml/min; Est GFR (African American) 30.5; Est GFR (Non-African American) 26.3; Potassium 3.8 mmol/L (3.5-5.1)
[2020-03-30 08:04] LABS: Bilirubin,Total 0.5 mg/dl (0.2-1); Globulin 3.1 gm/dl (2.5-4.0); Total Protein 6.2 gm/dl (6.4-8.2)
[2020-03-30] MEDS: ROSUVASTATIN CALCIUM 20 MG TAB PO SCH (08:15)
[2020-03-30] MEDS: ASCORBIC ACID 500 MG TAB PO SCH (08:15)
[2020-03-30] MEDS: PANTOprazole 40 MG TAB PO SCH ×2 (08:16→20:53)
[2020-03-30] MEDS: SUCRALFATE 1 GM TAB PO SCH ×4 (08:16→20:52)
[2020-03-30] MEDS: ZINC SULFATE 220 MG CAPSULE PO SCH (08:16)
[2020-03-30] MEDS: CEROVITE ADV FORMULA TAB PO SCH (08:16)
[2020-03-30] MEDS: CHOLECALCIFEROL 1,000 UNITS 25 MCG TAB PO SCH (08:16)
[2020-03-30] MEDS: DULoxetine HCL 30 MG CAP PO SCH (08:17)
[2020-03-30] MEDS: amLODIPine BESYLATE 5 MG TAB PO SCH ×2 (08:17→20:53)
[2020-03-30] MEDS: lisinopril 40 MG TAB PO SCH (08:17)
[2020-03-30] MEDS: DONEPEZIL HCL 10 MG TAB PO SCH (08:17)
[2020-03-30] MEDS: FERROUS SULFATE 325 MG TAB PO SCH ×3 (08:18→16:58)
[2020-03-30] MEDS: POLYETHYLENE (MIRALAX) 17 GM PACK PO SCH ×2 (08:18→20:51)
[2020-03-30] MEDS: IPRATROPIUM BROMIDE NASAL SPRAY 0.06% 15ML SCH ×2 (08:18→20:52)
--- NOTE | 2020-03-30 16:16 | Hospitalist Progress Note ---
Date of Service March 30, 2020 Assessment & Plan (1) Hyperthyroidism: -Hx of hyperthyroidism on methiamazole Now with clinical hypothyroidism -Admit to med surg with tele -TSH on admission is 11.2, Free T4 =0.73. - Pt reports taking medications this morning - son notes she was recently st arted on levothyroxine on Mar 24 after being called in from PCP. Concerned that the pt is taking both methimazole and levothyroxine at the same time. Pt had normal TSH and T4 in January, prior to her being hospitalized for acute blood loss anemia suspected to be from slow GI bleed. At that point she was taken off plavix (previously for hx of CVA). After that hospitalization she was discharged to [facility]. Throughout that stay she participated in PT/OT, then on Feb 19 spiked a fever, Covid 19 was found to be positive at that point time however had been negative during her previous hospitalization. Question if superimposed infection caused fluctuation of thyroid function? -Cont levothyroxine and hold methimazole for now. (2) Acute encephalopathy: Presented with fall and confusion with hallucinations in the last 24 hours No evidence of infection, no metabolic abnormalities otherwise Could be related to worsening thyroid function vs hallucination in the setting of known dementia CTA head/neck neg for acute MRI neg for acute CT head neg for acute CBC, PRP WNL UA WNL CXR/CT AP neg for acute infections or other contributing factors -Neurology agrees this is likely related to thyroid medication issues as above Possibly related to lack of sleep in a dementia pt as well (3) History of CVA (cerebrovascular accident): - Hx of CVA, off Plavix due to GI blood loss causing anemia as above - Concern for recurrent stroke with worsening hallucinations, CT brain and CTA are negative - MRI neg for acute - Neuro checks q4h (4) Elevated lipase: - nearly 3000 on admission, CT abdomen/pelvis without evidence of pancreatitis -LFTs normal, no tenderness on examination Likely nonspecific elevation Repeat on 03/29 is WNL (5) Fall: - Imaging studies reviewed, no acute fractures noted - PT/OT - voltaren gel, tylenol for pain relief, avoid narcotics in the setting of acute hallucinations as above. - UA negative -Treating hypothyroidism as above which could have contributed (6) Obstructive sleep apnea: - Cont CPAP HS (7) Stage 3 chronic kidney disease: -Creatinine at baseline (8) Coronary artery disease: With a history of nonobstructive CAD on cardiac catheterization in 2012- proximal LAD 40% stenosis -Was supposed to restart home Plavix after recent GI bleed but has not yet (9) HTN (hypertension): - Cont metoprolol succinate 100 mg HS, lisinopril 40 mg QAM, amlodipine Blood pressures are quite elevated-this could contribute to a hypertensive encephalopathy Amlodipine to 5 mg p.o. twice daily from QD on admission, however still with elevated BP -IV hydralazine as needed Also noted to be bradycardic to the 50s/60s d/c metoprolol and increase amlodipine to 10mg BID on 03/29 with improved BP/HR today Monitor Pt also noted to take lisinopril at baseline (10) Hyperlipemia: - Atorvastatin 40 HS (11) Arthritis: - hx of rheumatoid arthritis and osteoarthritis - PT/OT consults - Hx of fall [employer]ORE [employer], imaging studies reviewed, no acute fractures -Continue Voltaren gel and Tylenol for pain relief (12) Dementia: -Continue namenda and Aricept -Hallucinations worsening as above possible secondary to hypothyroidism -Patient lives at home by herself, son checks in on her multiple times per day, CM to assist with discharge planning, was recently in [facility] for several weeks for PT/OT after hospitalization in January. 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 -Continue Carafate and Protonix 40 mg twice daily (16) LBBB (left bundle branch block): Chronic (17) GERD (gastroesophageal reflux disease): Continue PPI With large hiatal hernia (18) Pulmonary hypertension: Noted to be severe on echocardiogram 2018 Continue treatment of BEVERLEY (19) DVT prophylaxis: DVT ppx: - teds, scds CODE: Full code Dispo: From home, was recently at [facility] for rehab Spoke with son today. He spoke with pt via phone as no current visitors allowed. He felt pt sounded weak and tired given the time of day and would like to hold on d/c until tomorrow. Admission and Anticipated Discharge Date Admission Date: March 28, 2020 Subjective Pt again notes feeling better today. No falls. She has been ambulating with a walker per nursing and doing well with it. Denies confusion. Ate without issue. Pt denies fever, SOB, chest pain, abd pain, n/v/c/d, LE pain or swelling. Review of Systems Review of Systems: Pertinent positives and negatives reviewed in HPI--all others negative Physical Exam Constitutional: WD/WN, vitals as above Eyes: normal visual cheng by confrontation and + anicteric sclerae Neck: normal visual inspection and trachea midline Respiratory: normal respiratory effort, lungs clear to auscultation Cardiovascular: Rate/Rhythm: regular rate and regular rhythm Gastrointestinal (Abdomen): Inspection/Auscultation: abdomen not distended Percussion/Palpation: abdomen soft; abdomen nontender Musculoskeletal: Head/Neck/Chest: normocephalic and head atraumatic Skin: no rashes, warm and dry Neurologic: awake; not confused Speech / Cognition: normal speech Psychiatric: Orientation: alert, oriented to person, oriented to place, oriented to time and cooperative Speech: normal rate/rhythm/volume of speech Affect: euthymic affect Results & Data Results & Data ([facility]) Vital Signs (Past 12 Hours) Vital Signs Temp Pulse Resp BP Pulse Ox 03/30/20 15:41 37 C 77 18 124/69 93 03/30/20 08:02 37 C 46 L 18 146/79 H 94 PG Care Time/CCT Total # of Minutes Spent Total Time Spent with Patient: Total time spent is greater than 50% in coordination of care (as documented) at patient's floor/unit and/or counseling patient: Coding Level of Care Code 86348 Subseq Hosp Care Lvl 2 Diagnoses Hyperthyroidism E05.90 Acute encephalopathy G93.40 History of CVA (cerebrovascular accident) Z86.73 Elevated lipase R74.8 Fall W19.XXXA Obstructive sleep apnea G47.33 Stage 3 chronic kidney disease N18.3 Coronary artery disease I25.10 HTN (hypertension) I10 Hypertension type: essential hypertension Hyperlipemia E78.5 Arthritis M19.90 Dementia F03.90 Dementia behavioral disturbance: without behavioral disturbance Dementia type: unspecified type Depression F32.9 Gait disturbance, post-stroke I69.398; R26.9 Anemia D50.9 Anemia type: iron deficiency Iron deficiency anemia type: unspecified iron deficiency LBBB (left bundle branch block) I44.7 GERD (gastroesophageal reflux disease) K21.9 Pulmonary hypertension I27.20 DVT prophylaxis Z29.9 (1) HTN (hypertension) Hypertension type: essential hypertension Qualified Code(s): I10 - Essential (primary) hypertension (2) Dementia Dementia behavioral disturbance: without behavioral disturbance Dementia type: unspecified type Qualified Code(s): F03.90 - Unspecified dementia without behavioral disturbance (3) Anemia Anemia type: iron deficiency Iron deficiency anemia type: unspecified iron deficiency Qualified Code(s): D50.9 - Iron deficiency anemia, unspecified
[2020-03-30] MEDS: MELATONIN 3 MG TAB PO SCH (20:56)
[2020-03-31] MEDS: LEVOTHYROXINE SODIUM 25 MCG TABLET PO SCH (05:07)
[2020-03-31] MEDS: SUCRALFATE 1 GM TAB PO SCH ×2 (07:48→12:09)
[2020-03-31] MEDS: ROSUVASTATIN CALCIUM 20 MG TAB PO SCH (07:49)
[2020-03-31] MEDS: IPRATROPIUM BROMIDE NASAL SPRAY 0.06% 15ML SCH (07:49)
[2020-03-31] MEDS: DONEPEZIL HCL 10 MG TAB PO SCH (07:49)
[2020-03-31] MEDS: FERROUS SULFATE 325 MG TAB PO SCH ×2 (07:49→12:09)
[2020-03-31] MEDS: CEROVITE ADV FORMULA TAB PO SCH (07:50)
[2020-03-31] MEDS: DULoxetine HCL 30 MG CAP PO SCH (07:50)
[2020-03-31] MEDS: CHOLECALCIFEROL 1,000 UNITS 25 MCG TAB PO SCH (07:50)
[2020-03-31] MEDS: PANTOprazole 40 MG TAB PO SCH (07:50)
[2020-03-31] MEDS: ASCORBIC ACID 500 MG TAB PO SCH (07:50)
[2020-03-31] MEDS: POLYETHYLENE (MIRALAX) 17 GM PACK PO SCH (07:51)
[2020-03-31] MEDS: ZINC SULFATE 220 MG CAPSULE PO SCH (07:51)
[2020-03-31 08:18] LABS: Albumin Level 2.6 gm/dl (3.4-5.0); BUN Creatinine Ratio 16.1 (10-20); Calcium 9.2 mg/dl (8.5-10.1); Creatinine Clr Calc Pharmacy 18.4 ml/min; Est GFR (African American) 26.7
[2020-03-31 08:21] LABS: Albumin Globulin Ratio 0.9 (0.9-2); Bilirubin,Total 0.4 mg/dl (0.2-1); Total Protein 5.6 gm/dl (6.4-8.2)
[2020-03-31] MEDS ORDERED: amLODIPine BESYLATE 5 MG TAB PO SCH (09:00)
[2020-03-31] MEDS ORDERED: SODIUM CHLORIDE 0.9% 500 ML IV SCH (09:00)
[2020-03-31] MEDS: lisinopril 40 MG TAB PO SCH (12:09)
--- NOTE | 2020-03-31 15:09 | Discharge Summary ---
Date of Service March 31, 2020 Admission HPI Per Admitting Provider This is an 89 yo F with PMhx of anemia secondary to recurrent GI blood loss, Hx of CVA, CKD stage III, HTN, HLD, hyperthyroidism, who presents with acute onset of worsening confusion and hallucinations which started on 03/27/2020 Son is present at bedside and provides the history. He reports that she was recently seen by her PCP last week on 03/22, and a new medication for thyroid. He believes this is levothyroxine which he filled on 03/23. He has been giving this to daily as instructed and also the methimazole. Patient developed worsening hallucinations where she thought that plastic was peeling off the moran, kitchen sink was that the dirty and moving last night, and were other thought that there strange things occurring in her home which she could not confirm why. This morning the son went to her home and found her laying on the living room floor there was concern for fall as the patient briefly remembers being in the bathroom overnight and falling from the toilet and then crawling on the floor. On further investigation the son checked her CPAP settings and found that after putting her to bed at 10:30 PM, she wore this for 2-1/2 to 3 hours, so at some point in time around 1:30 AM the patient likely got up to use the bathroom and then fell shortly after that timeframe. There is no acute fracture on imaging, she does report feeling sore in bilateral hips as well as her low back. She has a new subconjunctival hemorrhage in the right eye which was not there last night per the son. Her TSH on admission is 11.2, Free T4 =0.73. She was slightly hypothermic upon presentation in the ER. Lipase is also elevated 2908. She does not have specific abdominal complaints currently, but when examined had pain in epigastric region. CT abdomen/pelvis was normal. Of note, she was diagnosed with Covid-19 on 02/20/2020 at , but only had a fever x1 day and no other symptoms. Principal Diagnosis Pt states she is feeling good today. Per nursing, she was active with therapy and did well with her walker. She has been eating and drinking without issue. Pt denies fever, SOB, chest pain, abd pain, n/v/c/d, LE pain or swelling. Spoke with pt's son via phone after he spoke with pt today via phone. He feels she is doing well and back to her usual. He is comfortable bringing her home today. Discharge Exam Constitutional WD/WN, vitals as above Eyes normal visual cheng by confrontation and + anicteric sclerae Neck normal visual inspection and trachea midline Respiratory normal respiratory effort, lungs clear to auscultation Cardiovascular Rate/Rhythm: regular rate and regular rhythm Gastrointestinal (Abdomen) Inspection/Auscultation: abdomen not distended Percussion/Palpation: abdomen soft; abdomen nontender Musculoskeletal Head/Neck/Chest: normocephalic and head atraumatic Skin no rashes, warm and dry Neurologic awake; not confused Speech / Cognition: normal speech Psychiatric Orientation: alert, oriented to person, oriented to place, oriented to time and cooperative Speech: normal rate/rhythm/volume of speech Affect: euthymic affect Discharge Data Allergies Allergy/AdvReac Type Severity Reaction Status Date / Time atorvastatin Allergy Unknown UNKOWN Verified 03/28/20 11:19 cephalexin [From Keflex] Allergy Unknown Unknown Unverified 03/28/20 11:19 oxaprozin [From Daypro] Allergy Unknown Unknown Unverified 03/28/20 11:19 paroxetine Allergy Unknown UNKNOWN Verified 03/28/20 11:19 propoxyphene Allergy Unknown DARVOCET Verified 03/28/20 11:19 codeine AdvReac Mild NAUSEA Verified 03/28/20 11:19 Sulfa (Sulfonamide AdvReac Mild NAUSEA Verified 03/28/20 11:19 Antibiotics) Consultations 03/28/20 13:46 ED Decision to Admit Stat 03/28/20 16:26 Consult Case Management - Discharge Planning Routine Consult Endocrinology Routine Consult Neurology Routine Ordered Studies 03/28/20 10:34 CT angio head w con Stat CT angio neck with con Stat CT head/brain wo con Stat 03/28/20 13:44 CT abd pelvis IV con only Stat 03/28/20 16:26 MR brain wo con Stat Hospital Course (1) Hyperthyroidism: -Hx of hyperthyroidism on methiamazole Now with clinical hypothyroidism -Admit to med surg with tele -TSH on admission is 11.2, Free T4 =0.73. - Pt reports taking medications this morning - son notes she was recently started on levothyroxine on Mar 24 after being called in from PCP. Concerned that the pt is taking both methimazole and levothyroxine at the same time. Pt had normal TSH and T4 in January, prior to her being hospitalized for acute blood loss anemia suspected to be from slow GI bleed. At that point she was taken off plavix (previously for hx of CVA). After that hospitalization she was discharged to . Throughout that stay she participated in PT/OT, then on Feb 19 spiked a fever, Covid 19 was found to be positive at that point time however had been negative during her previous hospitalization. Question if superimposed infection caused fluctuation of thyroid function? -Cont levothyroxine and hold methimazole for now. TSH should be checked in 4 weeks (2) Acute encephalopathy: Presented with fall and confusion with hallucinations in the 24 hours, now resolved No evidence of infection, no metabolic abnormalities otherwise Could be related to worsening thyroid function vs hallucination in the setting of known dementia CTA head/neck neg for acute MRI neg for acute CT head neg for acute CBC, PRP WNL UA WNL CXR/CT AP neg for acute infections or other contributing factors -Neurology agrees this is likely related to thyroid medication issues as above Possibly related to lack of sleep in a dementia pt as well (3) History of CVA (cerebrovascular accident): - Hx of CVA, off Plavix due to GI blood loss causing anemia as above - Concern for recurrent stroke with worsening hallucinations, CT brain and CTA are negative - MRI neg for acute - Neuro checks q4h (4) Elevated lipase: - nearly 3000 on admission, CT abdomen/pelvis without evidence of pancreatitis -LFTs normal, no tenderness on examination Likely nonspecific elevation Repeat on 03/29 is WNL (5) Fall: - Imaging studies reviewed, no acute fractures noted - PT/OT - voltaren gel, tylenol for pain relief, avoid narcotics in the setting of acute hallucinations as above. - UA negative -Treating hypothyroidism as above which could have contributed (6) Obstructive sleep apnea: - Cont CPAP HS (7) Stage 3 chronic kidney disease: -Creatinine at baseline (8) Coronary artery disease: With a history of nonobstructive CAD on cardiac catheterization in 2012- proximal LAD 40% stenosis -Was supposed to restart home Plavix after recent GI bleed but has not yet (9) HTN (hypertension): Initially maintained metoprolol succinate 100 mg HS, lisinopril 40 mg QAM, amlodipine Blood pressures were elevated with lower HR to the 40s-60s d/c metoprolol and increase amlodipine to 10mg BID on 03/29 with improved BP/HR today, however noted to have drop in BP Change amlodipine to 5mg BID Monitor at home d/w son (10) Hyperlipemia: - Atorvastatin 40 HS (11) Arthritis: - hx of rheumatoid arthritis and osteoarthritis - PT/OT consults - Hx of fall [employer], imaging studies reviewed, no acute fractures -Continue Voltaren gel and Tylenol for pain relief (12) Dementia: -Continue namenda and Aricept -Hallucinations worsening as above possible secondary to hypothyroidism -Patient lives at home by herself, son checks in on her multiple times per day, CM to assist with discharge planning, was recently in for several weeks for PT/OT after hospitalization in January. 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 -Continue Carafate and Protonix 40 mg twice daily (16) LBBB (left bundle branch block): Chronic (17) GERD (gastroesophageal reflux disease): Continue PPI With large hiatal hernia (18) Pulmonary hypertension: Noted to be severe on echocardiogram 2018 Continue treatment of BEVERLEY (19) DVT prophylaxis: DVT ppx: - teds, scds CODE: Full code Dispo: From home, was recently at [facility] for rehab Spoke with son multiple days during admission He feels she is at her usual and ready to come home after phone discussions between himself and pt Total Time Total Time Spent Total Time Spent (In Minutes): >30 Total Time Includes: Examination of the Patient, Discharge Planning, Medication Reconciliation, Communication With Other Providers and Other Discharge Plan Discharge Items Patient Disposition: Home - Home Health Services Reason For Visit: FALL, HALLUCINATIONS Discharge Diagnosis: Polypharmacy Activity: Resume your previous activity Non-emergency contact: Primary Care Provider Call non-emergency contact if: you have any medication questions and your symptoms worsen Follow-up/Referrals: Bethany Hardin, [Primary Care Provider] - 04/08/20 9:20 am (If you need to change this appointment, please call [phone].) Diet: Regular Addtl Attending Provider Instructions: Your blood pressure medications were changed while you were here. This may or may not adequately control your blood pressure, so you should check your blood pressure daily and keep a journal of your readings. You should take this in to your PCP visits. You will need to have your thyroid checked in about 4 weeks with your PCP. Pending Studies at Discharge: No Stand-Alone Forms: [facility], Smoking Cessation Medications and DC Order Prescriptions: New amlodipine [Norvasc] 5 mg Tablet 5 mg PO BID Qty: 60 RF: 0 Continued amlodipine 5 mg tablet 5 mg PO HS Qty: 90 RF: 2 duloxetine [Cymbalta] 30 mg capsule,delayed release(DR/EC) 30 mg PO DAILY Qty: 90 RF: 1 donepezil 10 mg tablet 10 mg PO QAM Qty: 90 RF: 1 ascorbic acid (vitamin C) [Vitamin C] 500 mg tablet 500 mg PO DAILY Qty: 30 RF: 5 furosemide 20 mg tablet 20 mg PO 2XWK Qty: 24 RF: 1 lisinopril 40 mg tablet 40 mg PO QAM Qty: 90 RF: 1 pantoprazole 40 mg tablet,delayed release (DR/EC) 40 mg PO BID 30 Days Qty: 60 RF: 3 levothyroxine 25 mcg tablet 25 mcg PO DAILY Qty: 30 RF: 1 acetaminophen 500 mg tablet 500 mg PO Q8H PRN (Reason: fever) Qty: 30 RF: 0 diclofenac sodium 1 % gel See Rx Instructions TOP TID PRN (Reason: Pain) RF: 0 memantine 28 mg capsule,sprinkle,ER 24hr 28 mg PO DAILY Qty: 30 RF: 2 rosuvastatin 20 mg tablet 20 mg PO DAILY Qty: 30 RF: 2 sucralfate 1 gram tablet 1 g PO QID Qty: 180 RF: 3 ipratropium bromide 42 mcg (0.06 %) spray,non-aerosol 2 spray INTNAS BID Qty: 15 RF: 11 cholecalciferol (vitamin D3) [Vitamin D3] 5,000 unit Tablet 5,000 unit PO QAM RF: 0 multivitamin with minerals [Multiple Vitamin-Minerals] Tablet 1 tab PO DAILY RF: 0 zinc sulfate 220 (50) mg Capsule 220 mg PO DAILY RF: 0 melatonin 3 mg Tablet 3 mg PO HS RF: 0 ketotifen fumarate 0.025 % (0.035 %) drops 1 drp OP Q12 RF: 0 ferrous sulfate 325 mg (65 mg iron) Tablet,Delayed Release (Dr/Ec) 325 mg PO TIDM 30 Days Qty: 30 RF: 3 Discontinued methimazole 5 mg tablet 5 mg PO DAILY Qty: 90 RF: 1 metoprolol succinate 100 mg tablet extended release 24 hr 100 mg PO HS Qty: 90 RF: 1 Discharge Orders: Discharge Order (Routine); Ordered 03/31/20 Ordered By: Raquel Ramírez Admission Data Admit Date/Time: 03/28/20 14:28 Attending Provider: Raquel Ramírez Admit Provider: Pina Sánchez Primary Care Provider: Bethany Hardin Other Providers: Pina Sánchez ; Roberto Samuel ; Marito Vargas Other Interventions: Discharge Summary Assessment (RN) Last Done: 03/31/20 14:44 Coding Level of Care Code D/C Day Management >30 mins Diagnoses Hyperthyroidism E05.90 Acute encephalopathy G93.40 History of CVA (cerebrovascular accident) Z86.73 Elevated lipase R74.8 Fall W19.XXXA Obstructive sleep apnea G47.33 Stage 3 chronic kidney disease N18.3 Coronary artery disease I25.10 HTN (hypertension) I10 Hypertension type: essential hypertension Hyperlipemia E78.5 Arthritis M19.90 Dementia F03.90 Dementia behavioral disturbance: without behavioral disturbance Dementia type: unspecified type Depression F32.9 Gait disturbance, post-stroke I69.398; R26.9 Anemia D50.9 Anemia type: iron deficiency Iron deficiency anemia type: unspecified iron deficiency LBBB (left bundle branch block) I44.7 GERD (gastroesophageal reflux disease) K21.9 Pulmonary hypertension I27.20 DVT prophylaxis Z29.9
== END 2020-03-31 17:36 | disposition home health service (06) | DRG 92 ==
LOC: ED 09:56 → 2W 14:28 → SUATTDRO 14:28